=== PATIENT | male | born 1945 | race Caucasian/White ===

== ENCOUNTER 2022-07-15 03:33 | Outpatient (CLI) | payer MEDICARE, SELFPAY ==
[2022-07-15 13:05] LABS: Hemoglobin A1C 6.7 % (<5.7)
[2022-07-15 13:18] LABS: ALT 31 U/L (16-63); AST 22 U/L (15-37); Albumin 4.1 g/dL (3.4-5.0); Alkaline Phosphatase 56 U/L (46-116); Anion Gap 9.5 mmol/L (3-11); BUN 33 mg/dL (7-18); Bilirubin, Total 0.8 mg/dL (0.2-1.0); CO2 29.5 mmol/L (21.0-32.0); CREATININE 1.7 mg/dL (0.70-1.30); Calcium 9.2 mg/dL (8.5-10.1); Calculated LDL 39 mg/dL (<100); Chloride 102 mmol/L (98-107); Cholesterol 94 mg/dL (<200); Estimated GFR 39.49 (mL/min/1.73m2); Glucose 161 mg/dL (74-106); HDL Cholesterol 41 mg/dL (40-60); Potassium 5.2 mmol/L (3.5-5.1); Sodium 141 mmol/L (136-145); Total Protein 7.2 g/dL (6.4-8.2); Triglyceride 73 mg/dL (<150)
== END 2022-07-15 03:34 | disposition home or self-care (01) ==
LOC: LOS 03:33
PROVIDERS: PCP Nurse Practitioner Family; Visit Provider Nurse Practitioner Family
DX: E78.5 Hyperlipidemia, unspecified (principal); I10 Essential (primary) hypertension; E11.9 Type 2 diabetes mellitus without complications
CPT/HCPCS: 36415; 80053; 80061; 83036

== ENCOUNTER 2022-12-23 03:19 | Outpatient (CLI) | payer MEDICARE, SELFPAY ==
[2022-12-23 12:40] LABS: CREATININE 1.9 mg/dL (0.70-1.30); Estimated GFR 36.11 (mL/min/1.73m2)
== END 2022-12-23 03:20 | disposition home or self-care (01) ==
LOC: LOS 03:39
PROVIDERS: PCP Nurse Practitioner Family; Visit Provider Nurse Practitioner Family
DX: I10 Essential (primary) hypertension (principal)
CPT/HCPCS: 36415; 82565

== ENCOUNTER 2023-04-21 04:21 | Outpatient (CLI) | payer MEDICARE, SELFPAY ==
[2023-04-21 12:56] LABS: BUN 49 mg/dL (7-18); CREATININE 2.5 mg/dL (0.70-1.30); Chloride 102 mmol/L (98-107); Estimated GFR 25.98 (mL/min/1.73m2); Glucose 179 mg/dL (74-106); Potassium 4.3 mmol/L (3.5-5.1); Sodium 139 mmol/L (136-145)
[2023-04-21 13:08] LABS: Calcium 12.2 mg/dL (8.5-10.1)
[2023-04-21 13:34] LABS: Hemoglobin A1C 7.9 % (<5.7)
== END 2023-04-21 04:22 | disposition home or self-care (01) ==
LOC: LOS 04:21
PROVIDERS: PCP Nurse Practitioner Family; Visit Provider Family Medicine
DX: I10 Essential (primary) hypertension (principal); E11.49 Type 2 diabetes mellitus with other diabetic neurological complication
CPT/HCPCS: 36415; 80048; 83036

== ENCOUNTER 2023-04-24 02:42 | Outpatient (CLI) | payer MEDICARE, SELFPAY ==
[2023-04-24 11:55] LABS: ALT 35 U/L (16-63); AST 20 U/L (15-37); Alkaline Phosphatase 64 U/L (46-116); Anion Gap 11.3 mmol/L (3-11); BUN 52 mg/dL (7-18); Bilirubin, Total 0.7 mg/dL (0.2-1.0); CO2 26.7 mmol/L (21.0-32.0); CREATININE 2.4 mg/dL (0.70-1.30); Chloride 105 mmol/L (98-107); Estimated GFR 27.28 (mL/min/1.73m2); Glucose 133 mg/dL (74-106); Potassium 4.4 mmol/L (3.5-5.1); Sodium 143 mmol/L (136-145); Total Protein 7.1 g/dL (6.4-8.2)
[2023-04-24 12:56] LABS: Calcium 11.7 mg/dL (8.5-10.1)
[2023-04-24 20:29] LABS: Parathyroid Hormone,Intact <6 pg/mL (19-88)
== END 2023-04-24 02:43 | disposition home or self-care (01) ==
LOC: LBO 02:42
PROVIDERS: Family Medicine; PCP Nurse Practitioner Family; Visit Provider Nurse Practitioner Family
DX: E83.52 Hypercalcemia (principal)
CPT/HCPCS: 36415; 80053; 83970

== ENCOUNTER 2023-04-29 04:35 | Outpatient (CLI) | payer MEDICARE, SELFPAY ==
[2023-04-29 12:56] LABS: Anion Gap 8.3 mmol/L (3-11); BUN 46 mg/dL (7-18); CO2 27.7 mmol/L (21.0-32.0); CREATININE 2.2 mg/dL (0.70-1.30); Calcium 10.9 mg/dL (8.5-10.1); Chloride 104 mmol/L (98-107); Estimated GFR 30.28 (mL/min/1.73m2); Glucose 95 mg/dL (74-106); Potassium 4.5 mmol/L (3.5-5.1); Sodium 140 mmol/L (136-145)
== END 2023-04-29 04:36 | disposition home or self-care (01) ==
LOC: LBO 04:37
PROVIDERS: Family Medicine; PCP Nurse Practitioner Family; Visit Provider Nurse Practitioner Family
DX: N18.30 Chronic kidney disease, stage 3 unspecified (principal); I10 Essential (primary) hypertension
CPT/HCPCS: 36415; 80048

== ENCOUNTER 2023-05-20 02:17 | Outpatient (CLI) | payer MEDICARE, SELFPAY ==
--- NOTE | 2023-05-20 14:02 | DI.US_ITS ---
APPROVED REPORT EXAM: Comprehensive 2D, Doppler, and color-flow Echocardiogram Patient Location: Out-Patient Storage Garage Manager: Andreia Cage RDCS (AE) Indications: Bilateral edema, Murmur Other Information Study Quality: Adequate Conclusion Normal left ventricular wall thickness and chamber size. Ejection fraction is 60%. Wall motion is n ormal Normal right ventricular size and systolic function Both atria are normal in size Aortic valve is sclerotic and probably trileaflet. There is mild aortic stenosis. Peak gradient is 32, mean 19 mmHg. Calculated aortic valve area is 1.57 cm??. There is trace aortic regurgitation Dilated aortic root measuring 4.77 cm, dilated ascending aorta measuring 4.68 cm Estimated right ventricular systolic pressure is 33 mmHg Wall motion Left Ventricle The left ventricle is normal size. The left ventricular systolic function is normal. The left ventric ular ejection fraction is within the normal range. There is normal left ventricular wall thickness. T here is normal LV segmental wall motion. There is no ventricular septal defect visualized. LVEF is 60 %. Right Ventricle The right ventricle is normal size. The right ventricular systolic function is normal. The RVSP is _3 3.2 mmHg. Atria The left atrium size is normal. The right atrium size is normal. The interatrial septum is intact wit h no evidence for an atrial septal defect. Aortic Valve Aortic valve is calcified. Aortic valve is probably trileaflet Mild aortic stenosis. Peak aortic valv e gradient is 32.4mmHg. Highest mean aortic valve gradient is 19.3mmHg. Calculated EDUAR by the continu ity equation is 1.57_cm2. Trace aortic regurgitation. Mitral Valve The mitral valve is normal in structure. No evidence of mitral valve stenosis. Trace mitral regurgita tion. Tricuspid Valve The tricuspid valve is normal in structure. There is no tricuspid valve stenosis. Mild tricuspid regu rgitation. Pulmonic Valve The pulmonary valve is normal in structure. There is no pulmonic valvular stenosis. Trace pulmonic re gurgitation. Great Vessels Aortic root is severely dilated. The ascending aorta is severely dilated. Aortic arch is normal in ca liber. IVC is normal in size and collapses >50% with inspiration. Pericardium There is no pericardial effusion. 2D Dimensions IVSD d PLAX 0.89 cm M: 0.6-1.2 LV Vol A2C d MOD 109.7 mL LVPW d PLAX 0.87 cm M: 0.6 - 1.2 LV Vol A4C d MOD 133.7 mL LVID d PLAX 4.67 cm M: 4.2 - 5.8 LA vol/ BSA A2C s A-L 24.6 mL/m2 LVDs 3.15 cm M: 2.5 - 4.0 LA vol/ BSA A4C s A-L 28.3 mL/m2 Ao Root d 4.73 cm M: 3.1 - 3.7 LA Vol/ BSA Biplane s A-L 30.0 mL/m2 Ao Asc Diam d 4.68 cm M: 2.6 - 3.4 LA Area A4C s MOD 20.05 cm2 LV EF Teichholz 59.8 % LA Area A2C s MOD 16.46 cm2 LVEF (Raines's) 59.48 % M: 52 - 72 LV EF A4C MOD 59.1 % LV Volume 89.34 mL M: 62 - 150 LV EF A2C MOD 60.0 % LV Volume Index 40.98 mL/m2 M: 34 - 74 LV EF Biplane MOD 59.5 % LV Vol Biplane MOD 122.4 mL SV 72.79 mL FS 31.75 % SV Index 33.49 mL/m2 M-Mode TAPSE 1.98 cm (M/F) >1.7 LV Diastology MV E' medial 0.071 (>0.07 m/s) E/A Ratio 0.9 LV E/e MED 10.55 (<14) MV E Vmax 0.75 (0.4-1.3 m/s) MV E' lateral 0.084 (>0.1 m/s) MV A Vmax 0.85 (0.4-1.3 m/s) LV E/e LAT 8.85 (<14) MV E/A Ratio 0.87 MV E/E' medial 10.57 MV E/E' lateral 8.89 Aortic Valve LVOT Area 3.99 cm2 AoV Area Vmax 1.57 cm2 LVOT Vmax 1.12 m/s AoV Area/ BSA (Vmax) 0.72 cm2/m2 LVOT Mean Michel. 0.77 m/s EDUAR Mean Michel. 1.47 cm2 LVOT Peak Grad 5.0 mmHg EDUAR Mean Michel. Index 0.67 cm2/m2 LVOT Mean Grad 2.7 mmHg AR DT 1372 msec LVOT VTI 0.277 m AR PHT 398 msec LVOT Diam s 2.25 cm AoV Vmax 2.85 m/s Velocity Ratio 0.39 AoV Mean Michel. 2.09 m/s AoV Peak Grad 32.4 mmHg LVOT SV 110.57 mL AoV Mean Grad 19.3 mmHg AoV VTI 0.633 m AoV Area VTI 1.75 cm2 AoV Area/ BSA (VTI) 0.80 cm/m2 Mitral Valve MV DT 254 (160-240 msec) MV PHT 74 msec MV Area PHT 2.98 cm2 MV VTI 0.301 m MV Area VTI 3.68 (4.0-6.0 cm2) Pulmonary Valve PV Vmax 1.12 (0.5-1.5 m/s) RVOT Peak Gr. 1.69 mmHg PV Peak Grad 5.0 mmHg RVOT Mean Gr. 0.90 mmHg PV Mean Grad 2.2 mmHg RVOT VTI 0.138 m PV VTI 0.227 m RVOT Vmax 0.65 m/s Tricuspid Valve TR Peak Grad 30.1 mmHg TR Vmax 2.75 m/s RA Pressure 3.00 mmHg RVSP (TR) 33.2 mmHg
== END 2023-05-20 02:37 ==
LOC: DI 02:17
PROVIDERS: PCP Nurse Practitioner Family; Visit Provider Family Medicine
DX: R01.1 Cardiac murmur, unspecified (principal)
CPT/HCPCS: 93306

== ENCOUNTER 2024-05-04 11:29 | Outpatient (REF) | payer MEDICARE, SELFPAY ==
[2024-05-04 12:43] LABS: COMMENT (LAB VIEW ONLY) 85.22 mg/dL
[2024-05-04 12:44] LABS: Microalb ug/mg Crea 317.3 ug/mg Cr
== END 2024-05-04 11:30 | disposition home or self-care (01) ==
LOC: LBN 11:29
PROVIDERS: PCP Nurse Practitioner Family; Visit Provider Nurse Practitioner Family
DX: R31.9 Hematuria, unspecified (principal)
CPT/HCPCS: 82043; 82570

== ENCOUNTER 2024-08-05 14:56 | Outpatient (CLI) | payer MEDICARE, SELFPAY ==
--- OUTSIDE RECORDS SUMMARY | 2024-08-05 15:00 | XMS_ITS | Encounter Summary ---
Author Organization [facility] Address [address] [place] [address] Care Team Providers Care Family Service Counselor Name Role Phone Unavailable Primary Care Provider Unavailabl e Reason for Visit * Reason Comments Medications Refill Encounter Details Date Type Department Care Team (Late st Contact Info) Description 06/07/2023 Refill [facility] Medicine - [address] [address] Kameron Lee MD [address] [place] [address] [phone] Medications Refill Social History Tobacco Use Types Packs/Day Years Used Date Smoking Tobacco: Every Day Cigarettes Pipe Smokeless Tobacco: Former Comments:pipe Alcohol Use Standard Drinks/Week Comments Yes 0 (1 standard drink = 0.6 oz pur e alcohol) beer on [facility] Interpersonal Safety Answer Date Record ed Physically Hurt Never 06/24/2020 Verbally Threaten Not on file 06/24/2020 Sex and Gender Information Value Date Recorded Sex Assigned at Male 12/01/2019 14:49 EST Gender Identity Male 12/01/2019 14:49 EST Sexual Orientation Straight 12/01/2019 14 :49 EST documented as of this encounter Functional Status Functional Status Response Date of Assess ment Because of a physical, menta l, or emotional condition, does this person have difficulty doing errands alone such as visiting a doctor's office or shopping? No 05/21/2018 Cognitive Status Response Date of Assessm ent Because of a physical, menta l, or emotional condition, does this person have serious difficulty concentrating, remembering, or making decisions? No 05/21/2018 documented as of this encounter Plan of Treatment Not on file documented as of this encounter Goals Goal Patient Goal Type Associated Problems Recent Progress Patient-Stated? Author Blood Pressure < 140/90 Blood Pressure Hypertensive disorder 112/70(2021 13:50 EDT) No Abbie Winter LPN [id number] XT < 7 Result Component 8.2( 9 14:15 EDT) No Abbie Winter LPN LDLEXT < 100 Result Component 76(05/13/2019 14:15 EDT) No Abbie Winter LPN documented as of this encounter Visit Diagnoses Diagnosis Type 2 diabetes mellitus without complication, without long-term current use of insulin ([facility])- Primary documented in this encounter
--- OUTSIDE RECORDS SUMMARY | 2024-08-05 15:00 | XMS_ITS | Encounter Summary ---
Author Organization [facility] Address [address] [place] [address] Care Team Providers Care Functional Architect Name Role Phone Kameron Lee MD Primary Care Provider +1- [phone] Reason for Referral * Cardiology (Routine/Next Available) - Authorization Not Required Specialty Diagnoses / Procedures [facility]erred To Contact Cardiology Diagnoses Heart murmur Procedures TRANSTHORACIC ECHO (TTE) COMPLETE MO ECHO HEART XTHORACIC,COMPLETE W DOPPLER Kameron Lee MD [address] [place] [phone] [facility] [address] [place] [address] Referral ID Status Reason Start Date Expiration Date Visits Requested Visits Authorized [id number] Authorization Not Required 02/24/2022 1 1 Reason for Visit * Reason Comments Follow-up chronic illness Back Pain Encounter Details Date Type Department Care Team (Late st Contact Info) Description 02/24/2022 13:45 EDT Office Visit [facility] [place] [facility] - [facility] [place] [address] [place] [address] Kameron Lee MD [address] [place] [phone] Type 2 diabetes mellitus with microalbuminuria, without long-term current use of insulin (HCC-CMS) (HCC) (Primary Dx); Chronic bilateral low back pain without sciatica; Primary hypertension; Stage 3b chronic kidney disease (HCC); Heart murmur Social History Tobacco Use Types Packs/Day Years Used Date Smoking Tobacco: Every Day Cigarettes Pipe Smokeless Tobacco: Former Comments:pipe Alcohol Use Standard Drinks/Week Comments Yes 0 (1 standard drink = 0.6 oz pur e alcohol) beer on occ Interpersonal Safety Answer Date Record ed Physically Hurt Never 06/24/2020 Verbally Threaten Not on file 06/24/2020 Sex and Gender Information Value Date Recorded Sex Assigned at Male 12/01/2019 14:49 EST Gender Identity Male 12/01/2019 14:49 EST Sexual Orientation Straight 12/01/2019 14 :49 EST COVID-19 Exposure Response Date Recorded In the last 10 days, have yo u been in contact with someone who was confirmed or suspected to have Coronavirus/COVID-19? No / Unsure 02/24/2022 13:43 EDT documented as of this encounter Last Filed Vital Signs Vital Sign Reading Time Taken Comments Blood Pressure 112/70 02/24/2022 1350 EDT Pulse 82 02/24/2022 1350 EDT Temperature 36.7 ??C (98.1 ??F) 02/24/2022 1350 EDT Respiratory Rate 20 02/24/2022 1350 EDT Oxygen Saturation 98% 02/24/2022 1350 EDT Inhaled Oxygen Concentration - - Weight 104.3 kg (230 lb) 02/24/2022 1350 EDT Height - - Body Mass Index 33 11/17/2018 0918 EST documented in this encounter Functional Status Functional Status Response [...] No 05/21/2018 documented as of this encounter Progress Notes * Kameron Lee MD - 02/24/2022 1345 EDT Primary Care Office Visit Assessment & Plan Diagnoses and all orders for this visit: Type 2 diabetes mellitus with microalbuminuria, without long-term current use of insulin ([facility] ([facility]) Last A1c with good control between 7 to 8%. Patient would like his A1c on the lower side. No changes with medication at this time. -Patient to continue glipizide and Metformin -We will update labs and urine today - HEMOGLOBIN A1C - URINE [id number] RATIO (ACR) Chronic bilateral low back pain without sciatica New issue for patient. Physical exam was unremarkable and no red flags. Since he has improved slowly with conservative treatment I think physical therapy can help him at this time. - AMB CONS/FOLLOW UP PRIMARY CARE PHYSICIAN - [facility] Primary hypertension Controlled blood pressure. No changes in medication. -Continue lisinopril and metoprolol -Update lab - BASIC METABOLIC PANEL (BMP) Stage 3b chronic kidney disease (HCC) Stable at this time. Heart murmur Found on today's exam. When asked, patient states he has had this since a child and has not had anyproblems. He does not recall the last time he has had an echo. I will order an updated echo today. - TRANSTHORACIC ECHO (TTE) COMPLETE Return in about 6 months (around 08/26/2022) for In person, Annual exam. Patient education was direct. Barriers were assessed and addressed as needed. Subjective R is a 76 y.o. male presenting with Follow-up (chronic illness) and Back Pain HPI DM: making lifestyle changes, tolerates medication. HTN: Tolerating medication, making lifestyle changes. Lower back pain: Patient states that he has had pain in the lower back for about 4 months. He feelsthat this is inside his hip and lower back. He mentioned the iliopsoas muscle. Pain is worse in themorning and eventually loosens up with exercise. He states the right is worse than the left. Does not report any bladder or bowel dysfunction. For treatment he has tried conservative therapy with using soft cushion footwear, watching his gait, and sleeping not on his sides. Data reviewed this visit: problem list/past medical history, current medications and allergies ROS - See HPI Objective BP 112/70 (BP Cuff Location: Right arm, BP Patient Position: Sitting, BP Cuff Sizes: Adult, regular) Pulse 82 Temp 36.7 ??C (98.1 ??F) (Tympanic) Resp 20 Wt (!) 104.3 kg (230 lb) SpO2 98% BMI 33.00 kg/m?? Physical Exam General: No distress, Head: A traumatic Neck- No masses, no adenopathy Respiratory- Clear breath sounds, good air entry, no wheezing, rales, or rhonchi CV- regular, rate, and rhythm, normal S1 and S2, +2 radial pulses, 2 out of 6 murmur Abdomen- soft non-tender to palpation, no rebound or guarding, normal bowel sounds Extremities- no edema, no skin discoloration. Back is nontender to palpation midline and lateral to the spinous process. Muscles are not tense bilaterally. Component Latest Ref Rng & Units 09/02/2021 Albumin, Urine <1.7 mg/dL 6.60 (H) Ur Alb ug/mg Crea ug/mg 105.0 Creatinine, U mg/dL 62.80 Hemoglobin A1C 4.0 - 6.0 % 7.4 (H) Est Avg Glucose mg/dL 166 documented in this encounter Plan of Treatment Scheduled Orders Name Type Priority Associated Diagnoses Order Schedule TRANSTHORACIC ECHO (TTE) COMPLETE Echocardiography Routine Heart murmur Expected: 02/24/2022, Expires: 02/25/2024 documented as of this encounter Goals Goal Patient Goal Type Associated Problems Recent Progress Patient-Stated? Author Blood Pressure < 140/90 Blood Pressure Hypertensive disorder 112/70(2021 13:50 EDT) No Abbie Winter, HOT SAW OPERATOR [id number] XT < 7 Result Component 8.2( 9 14:15 EDT) No Abbie Winter LPN LDLEXT < 100 Result Component 76(05/13/2019 14:15 EDT) No Sade Winterissa, HOT SAW OPERATOR documented as of this encounter Results * (ABNORMAL) URINE [id number] RATIO (ACR) (02/24/2022 14:26 EDT) Albumin, Urine 8.4 See Note mg/dL 2021 16:02 EDT [facility] Comment: NOTE: Reference range not established Creatinine, Urine 99.5 See Note mg/dL 02/24/2022 16:02 EDT [facility] Comment: NOTE: Reference range not established Lab Urine Albumin to Creatinine Ratio 84(H) <30 ??g/mg Creatinine 02/24/2022 16:02 EDT [facility] Comment: Urine Albumin/Creatinine Ratio: Normal: <30 ug/mg Creatinine Moderately increased albuminuria: 30-300 ug/mg Creatinine Yeyo increased albuminuria: >300 ug/mg Creatinine Urine URINE SPECIMEN COLLECTION, CLEAN CATCH / Unknown Urine Collect / Unknown 02/24/2022 14:26 EDT 02/24/2022 15:14 EDT Kameron Lee MD CHEMISTRY & BLOOD GAS ORDERABLES Performing Organization Address [facility] Phone Number [facility] [address] [place] [address] * (ABNORMAL) HEMOGLOBIN A1C (02/24/2022 14:26 EDT) Hemoglobin A1c 8.2(H) <5.7 % 02/24/2022 21:29 EDT [facility] Comment: Glycemic Status References: Normal: ??<5.7% Pre-Diabetes: ??5.7% - 6.4% Diagnostic of Diabetes: ??> or = 6.5% (if confirmed) Est Avg Glucose 189 mg/dL 21:29 EDT [facility] Comment:The eAG represents t he A1c result expressed as average glucose in mg/dL. Blood VENOUS BLOOD / Unknown Venipuncture / Unknown 02/24/2022 14:26 EDT 02/24/2022 14:52 EDT Kameron Lee MD CHEMISTRY & BLOOD GAS ORDERABLES Performing Organization Address [facility] Phone Number [facility] [address] [place] [address] * (ABNORMAL) BASIC METABOLIC PANEL (BMP) (02/24/2022 14:26 EDT) Sodium 136 136 - 145 mmol/L 02/24/2022 15:22 [facility] Potassium 5.5(H) 3.5 - 5.0 mmol/L 02/24/2022 15:22 [facility] Chloride 101 96 - 110 mmol/L 02/24/2022 15:22 [facility] CO2 Total 23 22 - 32 mmol/L 02/24/2022 15:22 [facility] Anion Gap 12 5 - 14 02/24/2022 15:22 [facility] Glucose 235(H) 70 - 100 mg/dL 02/24/2022 15:22 [facility] Calcium 9.6 8.5 - 10.5 mg/dL 02/24/2022 15:22 [facility] BUN 44(H) 10 - 26 mg/dL 02/24/2022 15:22 [facility] Creatinine 1.89(H) 0.66 - 1.25 mg/dL 02/24/2022 15:22 [facility] eGFR 37(L) >60 mL/min/1.73 m2 02/24/2022 15:22 [facility] Blood VENOUS BLOOD / Unknown Venipuncture / Unknown 02/24/2022 14:26 EDT 02/24/2022 14:59 EDT Kameron Lee MD CHEMISTRY & BLOOD GAS ORDERABLES [facility] [address] [place] [address] documented in this encounter Visit Diagnoses Diagnosis Type 2 diabetes mellitus with microalbuminuria, without long-term current use of insulin ([facility])- Primary Chronic bilateral low back pain without sciatica Primary hypertension Unspecified essential hypertension Stage 3b chronic kidney disease ([facility]) Heart murmur Undiagnosed cardiac murmurs documented in this encounter Care Teams Functional Architect Relationship Specialty Start Date End Date Kameron eLe MD [address] [facility] [address] [place] [address] PCP - General 06/14/19 04/28/23 documented as of this encounter
--- OUTSIDE RECORDS SUMMARY | 2024-08-05 15:00 | XMS_ITS | Encounter Summary ---
Author Organization [facility] Address [address] [place] [address] Care Team Providers Care Electronic Organ Technician Name Role Phone Kameron Lee MD Primary Care Provider +1- [phone] Reason for Referral * Laboratory Services (Routine) - New Request Specialty Diagnoses / Procedures Referred By [facility] t Referred To Contact Diagnoses Type 2 diabetes mellitus without complication, without long-term current use of insulin ([facility]) Healthcare maintenance Procedures HEMOGLOBIN A1C Kameron Lee MD [address] [place] [phone] Referral ID Status Reason Start Date Expiration Date V isits Requested Visits Authorized [id number] New Request 08/29/2021 1 1 Reason for Visit * Reason Onset Date Comments Labs Only 08/29/2021 Encounter Details Date Type Department Care Team (Late st Contact Info) Description 08/29/[address] [facility] [place] [place] Family Medicine - [facility] [address] [place] [address] Kameron Lee MD [address] [place] [phone] Type 2 diabetes mellitus without complication, without long-term current use of insulin ([facility]) (HCC) (Primary Dx); Healthcare maintenance; Primary hypertension; Stage 3a chronic kidney disease (HCC) Social History Tobacco Use Types Packs/Day Years [...] 112/70(2021 13:50 EDT) No Abbie Winter LPN [id number] XT < 7 Result Component 8.2( 9 14:15 EDT) No Abbie Winter LPN LDLEXT < 100 Result Component 76(05/13/2019 14:15 EDT) No Abbie Winter LPN documented as of this encounter Procedures Procedure Name Priority Date/Time Associated Diagnosis Comments HEMOGLOBIN A1C Routine 09/02/2021 11:59 EDT Type 2 diabetes mellitus without complication, without long-term current use of insulin ([facility]) ([facility]) Healthcare maintenance documented in this encounter Results * (ABNORMAL) HEMOGLOBIN A1C (09/02/2021 11:59 EDT) Hemoglobin A1c 7.4(H) 4.0 - 6.0 % 09/02/2021 23:27 EDT [facility] Comment: > or =18 years: ??Increased risk for diabetes (prediabetes): 5.7-6.4% Diabetes: > or =6.5% Therapeutic goals for glycemic control (ADA) Adults: - Goal of therapy: <7.0% HbA1c - Action suggested: >8.0% HbA1c Pediatric patients: - Toddlers and preschoolers: <8.5% (but >7.5%) - School age (6-12 years): <8% - Adolescents and young adults (13-19 years): <7.5% Est Avg Glucose 166 mg/dL 23:27 EDT [facility] Blood VENOUS BLOOD / Unknown 09/02/2021 11:59 EDT 09/02/2021 12:06 EDT Narrative [facility] - 09/02/2021 23:27 EDT Does PT Have a Latex Allergy? NO Kameron Lee MD CHEMISTRY & BLOOD GAS ORDERABLES [facility] [address] [place] [address] documented in this encounter Visit Diagnoses Diagnosis Type 2 diabetes mellitus without complication, without long-term current use of insulin ([facility])- Primary Healthcare maintenance Routine general medical examination at a health care facility Primary hypertension Unspecified essential hypertension Stage 3a chronic kidney disease ([facility]) documented in this encounter Care Teams Electronic Organ Technician Relationship Specialty Start Date End Date Kamerno Lee MD [address] [place] [address] [address] [place] [phone] PCP - General 06/14/19 04/28/23 documented as of this encounter
--- OUTSIDE RECORDS SUMMARY | 2024-08-05 15:00 | XMS_ITS | Encounter Summary ---
Author Organization [facility] Address [address] [place] [address] Care Team Providers Care Application Integrator Name Role Phone Kameron Lee MD Primary Care Provider +1- [phone] Encounter Details Date Type Department Care Team (Latest Contact Info) Description 02/24/2022 Travel Social History Tobacco Use Types Packs/Day Years [...] 13:43 EDT documented as of this encounter Functional Status [...] 112/70(2021 13:50 EDT) No Abbie Winter LPN [id number] XT < 7 Result Component 8.2( 9 14:15 EDT) No Abbie Winter LPN LDLEXT < 100 Result Component 76(05/13/2019 14:15 EDT) No Abbie Winter LPN documented as of this encounter Visit Diagnoses Not on filedocumented in this encounter Care Teams Application Integrator Relationship Specialty Start Date End Date Kameron Lee MD [address] [place] [phone] PCP - General 06/14/19 04/28/23 documented as of this encounter
--- OUTSIDE RECORDS SUMMARY | 2024-08-05 15:00 | XMS_ITS | Encounter Summary ---
Author Organization [facility] Address [address] [place] [address] Care Team Providers Care Radial Drill Press Operator For Plastic Name Role Phone Kameron Lee MD Primary Care Provider +1- [phone] Reason for Visit * Reason Comments Diabetes Complete exam for Di abetes and Cataracts Encounter Details Date Type Department Care Team (Late st Contact Info) Description 08/15/2021 13:15 EDT Office Visit [facility] Ophthalmology [facility] [address] [place] [address] John Lott MD [address] [place] [phone] Social History Tobacco Use Types Packs/Day Years [...] as of this encounter Progress Notes * John Lott MD - 08/15/2021 1315 EDT Chief Complaint Patient presents with ??? Diabetes Complete exam for Diabetes and Cataracts HPI The patient is a 76 y.o. male here for diabetic eye exam and check of cataracts. Last A1C was 8.4 in January. He uses only OTC glasses of various sullivan for correction, but would like a prescription. he has no eye pain, double vision, or new flashes/floaters. Right Eye: NL Left Eye: NL Visual Aid: Glasses Current Rx Age Location: Pain: 0 - No pain Quality: Severity: Duration: Timing: Lasts: Context: Last A1C was 8.4. He reports he has been using 5 different pairs of OTC readers for distance, computer and near. He would like a RX today for bifocals. No new floaters, flashes or pain in the eyes. Modifying factors: Associated Signs & Symptoms: Attestation: ROS Constitutional: NL ENT/Mouth NL Cardiovascular: High Blood Pressure, High Cholesterol Respiratory: NL Gastrointestinal: NL Genitourinary: NL Musculoskeletal: NL Integumentary: NL Neurologic: NL Psychiatric: NL Endocrine: Diabetes Hematologic: NL Immunologic: Drug Allergy Satellite Communications Operator: Exposures: None Other: Attestation: Base Eye Exam Visual Acuity (Snellen - Linear) Right Left Dist cc 20/25 -2 20/25 -1 Dist ph cc NI Tonometry (Applanation, 13:35) Right Left Pressure 14 16 Pupils Pupils Dark APD Right PERRL 2 None Left PERRL 2 None Visual Powers (Counting fingers) Right Left Full Full Extraocular Movement Right Left Full Full Neuro/Psych Oriented x3: Yes Mood/Affect: Normal Dilation Both eyes: Phenylephrine 2.5%, Tropicamide 1% @ 13:35 Slit Lamp and Fundus Exam Slit Lamp Exam Right Left Lids/Lashes Normal Pigmented papilloma central lower lid Conjunctiva/Sclera White and quiet White and quiet Cornea Clear Clear Anterior Chamber Deep and quiet Deep and quiet Iris Round and reactive, no NVI (dilated) Round and reactive, no NVI (dilated) Lens 2+ Nuclear sclerosis 2+ Nuclear sclerosis Fundus Exam Right Left Vitreous Normal Normal Disc Normal, no NVD Normal, no NVD C/D Ratio 0.5 0.4 Macula Normal, no MA's Normal, no MA's Vessels Normal Normal Periphery Normal, no diabetic retinopathy Small patch pigment at 10 o'clock, no diabetic retinopathy Refraction Wearing Rx Sphere Cylinder Right +2.75 Sphere Left +2.75 Sphere Type: otc readers Wearing Rx #2 Sphere Cylinder Right +1.25 Sphere Left +1.25 Sphere Type: otc for distance Manifest Refraction Sphere Cylinder [place] Dist VA Add Near VA Right +1.75 +1.25 175 20/20 +2.00 J1+ Left +1.25 +1.25 005 20/20 +2.00 J1+ Final Rx Sphere Cylinder [place] Add Right +1.75 +1.25 175 +2.00 Left +1.25 +1.25 005 +2.00 Expiration Date: 08/16/2023 DIAGNOSTIC TESTING/PROCEDURES: IMPRESSION & PLAN: 1. Diabetes mellitus Right eye: No retinopathy Left eye: No retinopathy -Recommend good blood sugar and blood pressure control -follow up in 1 year -Copy of note sent to PCP 2. Cataract, both eyes Not visually significant -Monitor periodically 3. Disorder of refraction and accommodation -Give glasses Rx patient???s option to fill I have reviewed the patient's past medical, family, social and surgical history. I have also reviewed the patient's medications, allergies, and problem list. I performed my own HPI and have reviewed the [facility]'s ROS as well. I completed this exam personally. John Lott MD I am scribing for John Lott MD, while he is personally performing the service. ESTEFANY Saunders Patient Education Topic: diabetes Method: Verbal Taught to: Patient Barriers: None Outcomes: independent Signature: John Lott MD documented in this encounter Plan of Treatment Not on file documented as of this encounter Goals Goal Patient Goal Type Associated Problems Recent Progress Patient-Stated? Author Blood Pressure < 140/90 Blood Pressure Hypertensive disorder 112/70(2021 13:50 EDT) No Abbie Winter LPN [id number] XT < 7 Result Component 8.2( 9 14:15 EDT) No Abbie Winter LPN LDLEXT < 100 Result Component 76(05/13/2019 14:15 EDT) No Abbie Winter LPN documented as of this encounter Visit Diagnoses Diagnosis Type 2 diabetes mellitus without complication, without long-term current use of insulin ([facility])- Primary Senile nuclear sclerosis, right Senile nuclear sclerosis, left Disorder of refraction and accommodation Unspecified disorder of refraction and accommodation documented in this encounter Eye Exam Visual Acuity (Snellen - Linear) Right eye Left eye Dist cc 20/25 -2 20/25 -1 Dist ph cc NI Tonometry (Applanation, 13:35) Right eye Left eye Pressure 14 16 Pupils Pupils Dark APD Right eye PERRL 2 None Left eye PERRL 2 None Visual Powers (Counting fingers) Right eye Left eye Full Full Extraocular Movement Right eye Left eye Full Full Neuro/Psych Oriented x3: Yes Mood/Affect: Normal Dilation Both eyes: Phenylephrine 2.5 %, Tropicamide 1% @ 13:35 Slit Lamp Exam Right eye Left eye Lids/Lashes Normal Pigmented papill arpan central lower lid Conjunctiva/Sclera White and quiet White and joshua et Cornea Clear Clear Anterior Chamber Deep and quiet Deep and quiet Iris Round and reactive, no NVI (dilated) Round and reactive, no NVI (dilated) Lens 2+ Nuclear sclerosis 2+ Nuclear sclerosis Vitreous Normal Normal Fundus Exam Right eye Left eye Disc Normal, no NVD Normal, no NVD C/D Ratio 0.5 0.4 Macula Normal, no MA's Normal, no MA's Vessels Normal Normal Periphery Normal, no diabetic retinopathy Small patch pigment at 10 o'clock, no diabetic retinopathy Wearing Rx #1 Sphere Cylinder Right eye +2.75 Sphere Left eye +2.75 Sphere Type: otc readers Wearing Rx #2 Sphere Cylinder Right eye +1.25 Sphere Left eye +1.25 Sphere Type: otc for distance Manifest Refraction Sphere Cylinder [place] Dist VA Add Near VA Right eye +1.75 +1.25 175 20/20 +2.00 J1+ Left eye +1.25 +1.25 005 20/20 +2.00 J1+ Final Rx Sphere Cylinder [place] Add Right eye +1.75 +1.25 175 +2.00 Left eye +1.25 +1.25 005 +2.00 Expiration Date: 08/16/2023 Care Teams Radial Drill Press Operator For Plastic Relationship Specialty Start Date End Date Kameron Lee MD [address] [place] [phone] PCP - General 06/14/19 04/28/23 documented as of this encounter
--- OUTSIDE RECORDS SUMMARY | 2024-08-05 15:00 | XMS_ITS | Encounter Summary ---
Author Organization [facility] Address [address] [place] [address] Care Team Providers Care Register Clerk Name Role Phone Kameron Lee MD Primary Care Provider [phone]- [phone] Reason for Visit * Reason Onset Date Comments Medications Refill 04/23/2020 Encounter Details Date Type Department Care Team (Late st Contact Info) Description 04/23/[address] [address] Kameron Lee MD [address] [place] [phone] Medications Refill Social History Tobacco Use Types Packs/Day Years Used Date Smoking Tobacco: Every Day Cigarettes Smokeless Tobacco: Former Comments:pipe Alcohol Use Standard Drinks/Week Comments Yes 0 (1 standard drink = 0.6 oz pur e alcohol) beer on occ Sex and Gender Information Value Date Recorded [...] No 05/21/2018 documented as of this encounter Ordered Prescriptions Prescription Sig Dispensed Refills Start Date End Da te metFORMIN (GLUCOPHAGE) 1,000 mg tabletIndications:Type 2 diabetes mellitus without complication, without long-term current use of insulin ([facility]) Take 1 Tab by mouth 2 times daily. 180 Tab 2 04/23/2020 01/10/2021 atorvastatin (LIPITOR) 10 mg tabletIndications:Type 2 diabetes mellitus without complication, without long-term current use of insulin ([facility]) Take 1 Tab by mouth daily. 90 Tab 2 04/23/2020 01/10/2021 documented in this encounter Miscellaneous Notes * Telephone Encounter - Cristofer Wolf RN - 04/23/2020 1520 EDT [facility]acy: [facility] [place] Last Visit Date: 12/05/19 Last Labs Date: 12/01/19 - Hemoglobin A1c, Lipid Profile Next Visit Date: 06/22/20 Medication Requested: Atorvastatin (Lipitor) 10 mg tablet Last Refill Date: 05/13/19 - 90 tabs with 3 refills Is patient out of medication? Unknown Refilled 90 tabs with 2 refills Medication Requested: Metformin (Glucophage) 1,000 mg tablet Last Refill Date: 05/13/19 - 180 tabs with 3 refills Is patient out of medication? Unknown Refilled 180 tabs with 2 refills CRISTOFER WOLF RN 04/23/2020 15:20 * Telephone Encounter - Rolando Matias - 04/23/2020 1020 EDT Medication(s) Requested: Atorvastatin, metformin Preferred [facility]acy: [facility] Last refill date: 05/13/19 Last appointment with PCP: pt coming in 06/04 Is patient out of medication? Unknown Rolando Matias 04/23/2020 10:20 documented in this encounter Plan of Treatment Not on file documented as of this encounter Goals Goal Patient Goal Type Associated Problems Recent Progress Patient-Stated? Author Blood Pressure < 140/90 Blood Pressure Hypertensive disorder 112/70(2021 13:50 EDT) No [place], Abbie, CIDER PRESS OPERATOR [id number] XT < 7 Result Component 8.2( 9 14:15 EDT) No [place]SadeAbbie, CIDER PRESS OPERATOR LDLEXT < 100 Result Component 76(05/13/2019 14:15 EDT) No [place], Abbie, CIDER PRESS OPERATOR documented as of this encounter Visit Diagnoses Diagnosis Type 2 diabetes mellitus without complication, without long-term current use of insulin ([facility])- Primary documented in this encounter Discontinued Medications Medication Sig Discontinue Reason Start Date End Da te atorvastatin (LIPITOR) 10 mg tabletIndications:Type 2 diabetes mellitus without complication, without long-term current use of insulin ([facility]) Take 1 Tab by mouth daily. Reorder 05/13/2019 04/23/2020 metFORMIN (GLUCOPHAGE) 1,000 mg tabletIndications:Type 2 diabetes mellitus without complication, without long-term current use of insulin ([facility]) Take 1 Tab by mouth 2 times daily. Reorder 05/13/2019 04/23/2020 documented as of this encounter Care Teams Register Clerk Relationship Specialty Start Date End Date Kameron Lee MD [address] [place] [phone] PCP - General 06/14/19 04/28/23 documented as of this encounter
--- OUTSIDE RECORDS SUMMARY | 2024-08-05 15:00 | XMS_ITS | Encounter Summary ---
Author Organization [facility] Address [address] [place] [address] Care Team Providers Care Site Acquisition Manager Name Role Phone Kameron Lee MD Primary Care Provider +1- [phone] Reason for Visit * Reason Onset Date Comments Epidemic Concern 03/08/2020 Encounter Details Date Type Department Care Team (Late st Contact Info) Description 03/08/2020 Telephone [facility] Medicine [facility] [address] [address] Kameron Lee MD [address] [place] [phone] Epidemic Concern Social History Tobacco Use Types Packs/Day Years [...] No 05/21/2018 documented as of this encounter Miscellaneous Notes * Telephone Encounter - Donato Pereira LPN - 03/08/2020 1547 EDT Does patient have concerns? No Reviewed/Updated Patient Contact Yes Patient requests connection to Care Management No Access to food sources Yes Referral pended for Care Management ([id number]) No Is anyone in your home ill or have you been around anyone that is ill? No How are you feeling? Are you experiencing fever, sore throat, feeling tired, cough, changes in yourbreathing? Fever No Sore Throat No Feeling tired No Cough No Changes in breathing No How long have symptoms been present n/a Video Visit declined. Did schedule appt for May Advanced Directive on File No DONATO PEREIRA LPN 03/08/2020 15:47 documented in this encounter Plan of Treatment Not on file documented as of this encounter Goals Goal Patient Goal Type Associated Problems Recent Progress Patient-Stated? Author Blood Pressure < 140/90 Blood Pressure Hypertensive disorder 112/70(2021 13:50 EDT) No Abbie Winter LPN [id number] XT < 7 Result Component 8.2( 9 14:15 EDT) No Abbie Winter LPN LDLEXT < 100 Result Component 76(05/13/2019 14:15 EDT) No Abbie Winter LPN documented as of this encounter Visit Diagnoses Not on filedocumented in this encounter Care Teams Site Acquisition Manager Relationship Specialty Start Date End Date Kameron Lee MD [address] [place] [phone] PCP - General 06/14/19 04/28/23 documented as of this encounter
--- OUTSIDE RECORDS SUMMARY | 2024-08-05 15:00 | XMS_ITS | Encounter Summary ---
Author Organization [facility] Address [address] [place] [address] Care Team Providers Care Hydrogenation Operator Name Role Phone Kameron Lee MD Primary Care Provider +1- [phone] Encounter Details Date Type Department Care Team (Latest Contact Info) Description 06/04/2020 Travel Social History Tobacco Use Types Packs/Day [...] Exposure Response Date Recorded In the last month, have you been in contact with someone who was confirmed or suspected to have Coronavirus / COVID-19? No / Unsure 06/04/2020 8:01 EDT documented as of this encounter Functional [...] Hypertensive disorder 112/70(2021 13:50 EDT) No Abbie iWnter LPN [id number] XT < 7 Result Component 8.2( 9 14:15 EDT) No Abbie Winter LPN LDLEXT < 100 Result Component 76(05/13/2019 14:15 EDT) No Abbie Winter LPN documented as of this encounter Visit Diagnoses Not on filedocumented in this encounter Care Teams Hydrogenation Operator Relationship Specialty Start Date End Date Kameron Lee MD [address] [place] [phone] PCP - General 06/14/19 04/28/23 documented as of this encounter
--- OUTSIDE RECORDS SUMMARY | 2024-08-05 15:00 | XMS_ITS | Encounter Summary ---
Author Organization [facility] Address [address] [place] [address] Care Team Providers Care Wood Block Artist Name Role Phone Kameron Lee MD Primary Care Provider +1- [phone] Reason for Visit * Reason Onset Date Comments Medications Refill 06/30/2022 Encounter Details Date Type Department Care Team (Late st Contact Info) Description 06/30/2022 Refill [facility] Family Medicine [address] [address] Kameron Lee MD [address] [place] [phone] Medications Refill Social History Tobacco Use Types Packs/Day Years Used Date Smoking Tobacco: Every Day Cigarettes Pipe Smokeless Tobacco: Former Comments:pipe Alcohol Use Standard Drinks/Week Comments Yes 0 (1 standard drink = 0.6 oz pur e alcohol) beer on [facility] Interpersonal Safety Answer Date Record ed Physically [...] Dispensed Refills Start Date End Da te atorvastatin (LIPITOR) 10 mg tabletIndications:Type 2 diabetes mellitus without complication, without long-term current use of insulin ([facility]) Take 1 Tablet by mouth daily. 90 Tablet 3 07/04/2022 documented in this encounter Miscellaneous Notes * Telephone Encounter - Melisa Alberto DNP - 07/04/2022 1848 EDT Medication(s) Requested: Atorvastatin 10mg Metformin refilled in alternate encounter. Preferred Pharmacy: [facility] Is patient out of medication? Unknown Last Refill Date: 12/30/21 Last Visit Date with Ordering Provider: 02/24/22 Next Non-Acute Visit Date Scheduled with Care Team: NoGabriele ALBERTO RN 07/04/2022 18:48 * Telephone Encounter - Melisa Alberto DNP - 07/04/2022 1848 EDTFrom: Debra Batista To: Office of Kameron Lee MD Sent: 06/30/2022 11:37 EDT Subject: Medication Renewal Request Refills have been requested for the following medications: metFORMIN (GLUCOPHAGE) 1,000 mg tablet [Kameron Lee MD] atorvastatin (LIPITOR) 10 mg tablet [Kameron Lee MD] Preferred pharmacy: [id number] - [place], [place] - [phone] documented in this encounter Plan of Treatment Not on file documented as of this encounter Goals Goal Patient Goal Type Associated Problems Recent Progress Patient-Stated? Author Blood Pressure < 140/90 Blood Pressure Hypertensive disorder 112/70(2021 13:50 EDT) No Abbie Winter LPN [id number] XT < 7 Result Component 8.2( 9 14:15 EDT) No Abbie Winter LPN LDLEXT < 100 Result Component 76(05/13/2019 14:15 EDT) Abbie Pearson LPN documented as of this encounter Visit Diagnoses Diagnosis Type 2 diabetes mellitus without complication, without long-term current use of insulin ([facility]) documented in this encounter Discontinued Medications Medication Sig Discontinue Reason Start Date End Da te atorvastatin (LIPITOR) 10 mg tabletIndications:Type 2 diabetes mellitus without complication, without long-term current use of insulin ([facility]) TAKE ONE TABLET BY MOUTH EVERY DAY Reorder 12/30/2021 06/30/2022 documented as of this encounter Care Teams Wood Block Artist Relationship Specialty Start Date End Date Kameron Lee MD [address] [place] [phone] PCP - General 06/14/19 04/28/23 documented as of this encounter
--- OUTSIDE RECORDS SUMMARY | 2024-08-05 15:00 | XMS_ITS | Encounter Summary ---
Author Organization [facility] Address [address] [place] [address] Care Team Providers Care Sales Store Checker Name Role Phone Unavailable Primary Care Provider Unavailabl e Reason for Visit * Reason Comments Medications Refill Encounter Details Date Type Department Care Team (Late st Contact Info) Description 06/18/2023 Refill [facility] Medicine - [address] [address] Kameron Lee MD [address] [place] [address] [phone] Medications Refill Social History Tobacco Use Types Packs/Day Years Used Date Smoking Tobacco: Every Day Cigarettes Pipe Smokeless Tobacco: Former Comments:pipe Alcohol Use Standard Drinks/Week Comments Yes 0 (1 standard drink = 0.6 oz pur e alcohol) beer on [facility] Interpersonal Safety Answer Date Record ed [...] 112/70(2021 13:50 EDT) No Abbie Winter LPN [id number] XT < 7 Result Component 8.2( 9 14:15 EDT) No Abbie Winter LPN LDLEXT < 100 Result Component 76(05/13/2019 14:15 EDT) No Abbie Winter LPN documented as of this encounter Visit Diagnoses Diagnosis Type 2 diabetes mellitus without complication, without long-term current use of insulin ([facility]) documented in this encounter
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
--- OUTSIDE RECORDS SUMMARY | 2024-08-05 15:00 | XMS_ITS | Encounter Summary ---
Author Organization [facility] Address [address] [place] [address] Care Team Providers Care Lumber Grader Name Role Phone Kameron Lee MD Primary Care Provider +1- [phone] Reason for Visit * Reason Onset Date Comments Medications Refill 04/27/2023 Encounter Details Date Type Department Care Team (Late st Contact Info) Description 04/27/2023 Refill [facility] Family Medicine [address] [address] Kameron Lee MD [address] [place] [phone] Medications Refill Social History Tobacco Use Types Packs/Day Years Used Date Smoking Tobacco: Every Day Cigarettes Pipe Smokeless Tobacco: Former Comments:pipe Alcohol Use Standard Drinks/Week Comments Yes 0 (1 standard drink = 0.6 oz pur e alcohol) beer on [facility] Interpersonal Safety Answer Date Record ed Physically [...] encounter Miscellaneous Notes * Telephone Encounter - Dallas Oneal - 04/29/2023 1135 EDT Call to patient to schedule visit: Patient states that he is no longer a patient here and has a new primary care provider. * Telephone Encounter - Nakia Dawson, RN - 04/28/2023 1521 EDT Requested Prescriptions Pending Prescriptions Disp Refills ??? atorvastatin (LIPITOR) 10 mg tablet 90 Tablet 3 Sig: Take 1 Tablet by mouth daily. Pharmacy: [facility] Last Refill Date: 07/04/22 Last Visit Date: 03/04/22 Next Non-Acute Visit Date Scheduled with Care Team: Please Schedule an Appointment. Visit date not found Routing to PCP per refill protocol. Routing to PSS to schedule appt. NAKIA DAWSON RN 04/28/2023 15:21 * Telephone Encounter - Shanel Whitaker - 04/27/2023 1559 EDT Medication(s) Requested: Atorvastatin Preferred Pharmacy: [facility] Is patient out of medication? Unknown Last Refill Date: 07/04/22 Last Visit Date with Ordering Provider: 02/24/22 Next Non-Acute Visit Date Scheduled with Care Team: No. Shanel Whitaker 04/27/2023 16:00 documented in this encounter Plan of Treatment Not on file documented as of this encounter Goals Goal Patient Goal Type Associated Problems Recent Progress Patient-Stated? Author Blood Pressure < 140/90 Blood Pressure Hypertensive disorder 112/70(2021 13:50 EDT) No Abbie Winter LPN [id number] XT < 7 Result Component 8.2( 9 14:15 EDT) No Abbie Winter LPN LDLEXT < 100 Result Component 76(05/13/2019 14:15 EDT) No Abbie Winter LPN documented as of this encounter Visit Diagnoses Diagnosis Type 2 diabetes mellitus without complication, without long-term current use of insulin ([facility]) documented in this encounter Care Teams Lumber Grader Relationship Specialty Start Date End Date Kameron Lee MD [address] [place] [phone] PCP - General 06/14/19 04/28/23 documented as of this encounter
--- OUTSIDE RECORDS SUMMARY | 2024-08-05 15:00 | XMS_ITS | Encounter Summary ---
Author Organization [facility] Address [address] [place] [address] Care Team Providers Care Switchboard Wirer Name Role Phone Kameron Lee MD Primary Care Provider +1- [phone] Encounter Details Date Type Department Care Team (Late st Contact Info) Description 04/24/2023 Lab Requisition [facility] Pathology & Laboratory Medicine - [facility] [address] [place] [address] Outr Resulting Lab, Provider Social History Tobacco Use Types Packs/Day Years Used Date Smoking Tobacco: Never Assessed Interpersonal Safety Answer Date Record ed Physically [...] Pressure Hypertensive disorder 112/70(2021 13:50 EDT) No [place], Abbie, MED SURG NURSE [id number] XT < 7 Result Component 8.2( 9 14:15 EDT) No [place], Abbie, MED SURG NURSE LDLEXT < 100 Result Component 76(05/13/2019 14:15 EDT) No [place], Abbie, MED SURG NURSE documented as of this encounter Procedures Procedure Name Priority Date/Time Associated Diagnosis Comments PTH INTACT Routine 04/24/2023 11:23 EDT documented in this encounter Results * (ABNORMAL) PTH INTACT (04/24/2023 11:23 EDT) Intact PTH <6(L) 19 - 88 pg/mL 04/24/2023 20:23 EDT [facility] Blood VENOUS BLOOD / Unknown 04/24/2023 11:23 EDT 04/24/2023 17:20 EDT Provider Outr Resulting Lab CHEMISTRY & BLOOD GAS ORDERABLES Performing Organization Address City/State/[facility] Co de Phone Number [facility] [address] [place] [address] documented in this encounter Visit Diagnoses Not on filedocumented in this encounter Care Teams Switchboard Wirer Relationship Specialty Start Date End Date Kameron Lee MD [address] [place] [phone] PCP - General 06/14/19 04/28/23 documented as of this encounter
--- OUTSIDE RECORDS SUMMARY | 2024-08-05 15:00 | XMS_ITS | Encounter Summary ---
Author Organization [facility] Address [address] [place] [address] Care Team Providers Care Bun Panner Name Role Phone Kameron Lee MD Primary Care Provider +1- [phone] Reason for Visit * Reason Comments Medications Refill Encounter Details Date Type Department Care Team (Late st Contact Info) Description 08/11/2022 Refill [facility] Family Medicine - [address] [address] Kameron Lee MD [address] [place] [phone] Medications Refill Social History Tobacco Use [...] Dispensed Refills Start Date End Da te glipiZIDE (GLUCOTROL) 10 mg XL tabletIndications:Type 2 diabetes mellitus with microalbuminuria, without long-term current use of insulin ([facility]) Take 1 Tablet by mouth daily. 90 Tablet 3 08/12/2022 metoprolol SUCCinate (TOPROL-XL) 50 mg tabletIndications:Primary hypertension Take 1 Tablet by mouth daily. 90 Tablet 3 08/12/2022 documented in this encounter Miscellaneous Notes * Telephone Encounter - Tirso Alvarado RN - 08/12/2022 1724 EDT Requested Prescriptions Pending Prescriptions Disp Refills ??? metoprolol SUCCinate (TOPROL-XL) 50 mg tablet [Pharmacy Med Name: METOPROLOL SUCC ER 50 MG TAB]90 Tablet 3 Sig: TAKE ONE TABLET BY MOUTH EVERY DAY ??? glipiZIDE (GLUCOTROL) 10 mg XL tablet [Pharmacy Med Name: GLIPIZIDE ER 10 MG TABLET] 90 Tablet 3 Sig: TAKE ONE TABLET BY MOUTH EVERY DAY [id number] [id number] [facility] [place], [place] - [address] Confirmed Pharmacy? Yes Patient out of medication? Unknown Last Refill Date: 09/02/21 Refills left? (explain exceptions requiring early refill) No Recent Visits Date Type Provider Dept 02/24/22 Office Visit Kameron Lee MD [facility] [place] 09/02/21 Office Visit Kameron Lee MD [facility] [place] Showing recent visits within past 540 days with a meds authorizing provider and meeting all other requirements Future Appointments No visits were found meeting these conditions. Showing future appointments within next 150 days with a meds authorizing provider and meeting all other requirements Future appointment: Other recent TIRSO ALVARADO RN 08/12/2022 17:24 documented in this encounter Plan of Treatment Not on file documented as of this encounter Goals Goal Patient Goal Type Associated Problems Recent Progress Patient-Stated? Author Blood Pressure < 140/90 Blood Pressure Hypertensive disorder 112/70(2021 13:50 EDT) No Abbie Winter PICKING SUPERVISOR [id number] XT < 7 Result Component 8.2( 9 14:15 EDT) No Abbie Winter PICKING SUPERVISOR LDLEXT < 100 Result Component 76(05/13/2019 14:15 EDT) No Abbie Winter LEXI documented as of this encounter Visit Diagnoses Diagnosis Primary hypertension Unspecified essential hypertension Type 2 diabetes mellitus with microalbuminuria, without long-term current use of insulin ([facility]) documented in this encounter Discontinued Medications Medication Sig Discontinue Reason Start Date End Da te glipiZIDE (GLUCOTROL) 10 mg XL tabletIndications:Type 2 diabetes mellitus with microalbuminuria, without long-term current use of insulin ([facility]) Take 1 Tablet by mouth daily. 09/02/2021 08/12/2022 metoprolol SUCCinate (TOPROL-XL) 50 mg tabletIndications:Primary hypertension Take 1 Tablet by mouth daily. 09/02/2021 08/12/2022 documented as of this encounter Care Teams Bun Panner Relationship Specialty Start Date End Date Kameron Lee MD [address] [place] [phone] PCP - General 06/14/19 04/28/23 documented as of this encounter
--- OUTSIDE RECORDS SUMMARY | 2024-08-05 15:00 | XMS_ITS | Encounter Summary ---
Author Organization [facility] Address [address] [place] [address] Care Team Providers Care Dispatcher Maintenance Service Name Role Phone Kameron Lee MD Primary Care Provider +1- [phone] Encounter Details Date Type Department Care Team (Late st Contact Info) Description 02/18/2022 Orders Only [facility] Medicine - Main [address] [address] Kameron Lee MD [address] [place] [address] [address] [place] [phone] Primary hypertension (Primary Dx); Obesity (BMI 30-39.9) Social History Tobacco Use Types Packs/Day Years Used Date Smoking Tobacco: Every Day Cigarettes Pipe Smokeless Tobacco: Former Comments:pipe Alcohol Use Standard Drinks/Week Comments Yes 0 (1 standard drink = 0.6 oz pur e alcohol) beer on [facility] Interpersonal Safety Answer Date Record ed Physically [...] 112/70(2021 13:50 EDT) No Abbie Winter LPN [id number] XT < 7 Result Component 8.2( 14:15 EDT) No Abbie Winter LPN LDLEXT < 100 Result Component 76(05/13/2019 14:15 EDT) No Abbie Winter LPN documented as of this encounter Visit Diagnoses Diagnosis Primary hypertension- Primary Unspecified essential hypertension Obesity (BMI 30-39.9) Obesity, unspecified documented in this encounter Care Teams Dispatcher Maintenance Service Relationship Specialty Start Date End Date Kameron Lee MD [address] [place] [phone] PCP - General 06/14/19 04/28/23 documented as of this encounter
--- OUTSIDE RECORDS SUMMARY | 2024-08-05 15:00 | XMS_ITS | Encounter Summary ---
Author Organization [facility] Address [address] [place] [address] Care Team Providers Care Well Drill Operator Cable Tool Name Role Phone Kameron Lee MD Primary Care Provider +1- [phone] Reason for Visit * Reason Comments Hypertension Diabetes Encounter Details Date Type Department Care Team (Late st Contact Info) Description 09/02/2021 11:30 EDT Office Visit [facility] Medicine [address] [address] Kameron Lee MD [address] [place] [phone] Primary hypertension (Primary Dx); Stage 3b chronic kidney disease (HCC); Type 2 diabetes mellitus with microalbuminuria, without long-term current use of insulin ([facility]CC-CMS) (HCC); Type 2 diabetes mellitus with diabetic mononeuropathy, without long-term current use of insulin ([facility]) (HCC); Obesity (BMI 30-39.9); Type 2 diabetes mellitus with stage 3b chronic kidney disease, without long-term current use of insulin (HCC); Essential hypertension; Hearing problem of both ears Social History Tobacco Use Types Packs/Day Years Used Date Smoking Tobacco: Every Day Cigarettes Pipe Smokeless Tobacco: Former Tobacco Cessation:Ready to Q uit: No; Counseling Given: Yes Comments:pipe Alcohol Use Standard Drinks/Week Comments Yes [...] have Coronavirus / COVID-19? No / Unsure 09/02/2021 11:09 EDT documented as of this encounter Last Filed Vital Signs Vital Sign Reading Time Taken Comments Blood Pressure 140/70 09/02/2021 1112 EDT Pulse 60 09/02/2021 1112 EDT Temperature - - Respiratory Rate - - Oxygen Saturation 98% 09/02/2021 1112 EDT Inhaled Oxygen Concentration - - Weight 103.4 kg (228 lb) 09/02/2021 1112 EDT per pt Height - - Body Mass Index 32.71 11/17/2018 0918 EST documented in this encounter [...] Dispensed Refills Start Date End Da te lisinopriL (PRINIVIL) 40 mg tabletIndications:Primary hypertension Take 1 Tablet by mouth daily. 90 Tablet 3 09/02/2021 metoprolol SUCCinate (TOPROL-XL) 50 mg tabletIndications:Primary hypertension Take 1 Tablet by mouth daily. 90 Tablet 3 09/02/2021 08/12/2022 glipiZIDE (GLUCOTROL) 10 mg XL tabletIndications:Type 2 diabetes mellitus with microalbuminuria, without long-term current use of insulin ([facility]) Take 1 Tablet by mouth daily. 90 Tablet 3 09/02/2021 08/12/2022 documented in this encounter Progress Notes * Kameron Lee MD - 09/02/2021 1130 EDT Primary Care Office Visit Assessment & Plan Diagnoses and all orders for this visit: Primary hypertension Stage 3b chronic kidney disease (HCC) Blood pressure is slightly elevated at this time. Patient will continue with lisinopril. - metoprolol SUCCinate (TOPROL-XL) 50 mg tablet - lisinopriL (PRINIVIL) 40 mg tablet Type 2 diabetes mellitus with diabetic mononeuropathy, without long-term current use of insulin ([facility] ([facility]) Type 2 diabetes mellitus with stage 3b chronic kidney disease, without long-term current use of insulin ([facility]) Type 2 diabetes mellitus with microalbuminuria, without long-term current use of insulin ([facility] ([facility]) Patient continues with elevated A1c. Trend has shown a slight increase. We would like a goal between 7 and 8%. Last kidney function is stable at 3B. He continues to be on an SHIRIN for protein in his urine. -Patient to continue with Metformin and Glucotrol -Continue lifestyle changes -encourage daily foot exam - glipiZIDE (GLUCOTROL) 10 mg XL tablet -urine albumin -update A1c Obesity (BMI 30-39.9) Some weight loss. -Continue with lifestyle changes Hearing problem of both ears - AMB CONS/FOLLOW UP AUDIOLOGY Pt returned to clinic after going to lab to receive HD flu shot. Order signed under Orders Only Pt chooses six month f/u. Return in about 6 months (around 03/03/2022) for In person, 30 min for, DM, HTN, Lipids. Patient education was direct. Barriers were assessed and addressed as needed. Subjective R is a 76 y.o. male presenting with Hypertension and Diabetes HPI DM: making lifestyle changes, tolerates medication. Trying to cut carbs. HTN: Tolerating medication, making lifestyle changes. Ent: pt with hearing problem. Having difficult hearing voice. No ear pain or discharge. Data reviewed this visit: problem list/past medical history, current medications and allergies ROS - See HPI Objective BP 140/70 (BP Cuff Location: Right arm, BP Patient Position: Sitting, BP Cuff Sizes: Adult, large) Pulse 60 Wt (!) 103.4 kg (228 lb) Comment: per pt SpO2 98% BMI 32.71 kg/m?? BMI AND WEIGHT 06/04/2020 01/30/2021 Weight (lb) 232 lb 235 lb Weight (Kg) 105.235 kg 106.595 kg Body Mass Index 33.29 33.72 Physical Exam General: No distress, Head: A traumatic Neck- No masses, no adenopathy Respiratory- Clear breath sounds, good air entry, no wheezing, rales, or rhonchi CV- regular, rate, and rhythm, normal S1 and S2, +2 radial pulses Abdomen- soft non-tender to palpation, no rebound or guarding, normal bowel sounds Extremities- no edema, no skin discoloration. 10 point monofilament exam with neurologic deficits right first toe. Left side is normal. Labs: Component Latest Ref Rng & Units 01/30/2021 BUN 10 - 26 mg/dL 31 (H) Calcium 8.5 - 10.5 mg/dL 9.8 Chloride 96 - 110 mmol/L 103 CO2 21 - 32 mEq/L 27 Creatinine 0.66 - 1.25 mg/dL 1.59 (H) GFR, Calculated 43 Anion Gap 0 - 18 11 Glucose, Serum 70 - 100 mg/dL 171 (H) Potassium 3.5 - 5.0 mEq/L 4.7 Sodium 136 - 145 mEq/L 141 Albumin, Urine <1.7 mg/dL 10.30 (H) Ur Alb ug/mg Crea ug/mg 202.7 Creatinine, U mg/dL 50.80 Hemoglobin A1C 4.0 - 6.0 % 8.4 (H) Est Avg Glucose mg/dL 194 documented in this encounter Plan of Treatment Not on file documented as of this encounter Goals Goal Patient Goal Type Associated Problems Recent Progress Patient-Stated? Author Blood Pressure < 140/90 Blood Pressure Hypertensive disorder 112/70(2021 13:50 EDT) No Abbie Winter LPN [id number] XT < 7 Result Component 8.2( 9 14:15 EDT) No Abbie Winter, RUBBLE PLACER LDLEXT < 100 Result Component 76(05/13/2019 14:15 EDT) No Abbie Winter LPN documented as of this encounter Procedures Procedure Name Priority Date/Time Associated Diagnosis Comments MICROALBUMIN, URINE Routine 09/02/2021 11:59 EDT Primary hypertension documented in this encounter Results * (ABNORMAL) MICROALBUMIN, URINE (09/02/2021 11:59 EDT) Albumin, Urine 6.60(H) <1.7 mg/dL 09/02/2021 13:44 EDT [facility] Lab Urine Albumin to Creatinine Ratio 105.0 ug/mg 09/02/2021 13:44 EDT [facility] Comment: Normal: <30 ug/mg Creat Microalbuminuria: 30-300 ug/mg Creat Clinical albuminuria: >300 ug/mg Creat Creatinine, Urine 62.80 mg/dL 09/02/2021 13:44 EDT [facility] 09/02/2021 11:5 9 EDT 09/02/2021 12:06 EDT Narrative [facility] - 09/02/2021 13:44 EDT Does PT Have a Latex Allergy? NO WHAT TYPE OF COLLECTION IS THIS URINE? RANDOM URINE Kameron Lee MD HEMATOLOGY & PF4 O RDERABLES Performing Organization Address City/State/[facility] Co de Phone Number [facility] [address] [place] [address] documented in this encounter Visit Diagnoses Diagnosis Primary hypertension- Primary Unspecified essential hypertension Stage 3b chronic kidney disease ([facility]) Type 2 diabetes mellitus with microalbuminuria, without long-term current use of insulin ([facility]) Type 2 diabetes mellitus with diabetic mononeuropathy, without long-term current use of insulin ([facility]) Obesity (BMI 30-39.9) Obesity, unspecified Type 2 diabetes mellitus with stage 3b chronic kidney disease, without long-term current use of insulin ([facility]) Essential hypertension Unspecified essential hypertension Hearing problem of both ears documented in this encounter Discontinued Medications Medication Sig Discontinue Reason Start Date End Da te metoprolol SUCCinate (TOPROL-XL) 50 mg tabletIndications:Essenti al hypertension TAKE ONE TABLET BY MOUTH EVERY DAY Reorder 07/02/2021 09/02/2021 glipiZIDE (GLUCOTROL) 10 mg XL tabletIndications:Type 2 diabetes mellitus without complication, without long-term current use of insulin ([facility]) TAKE ONE TABLET BY MOUTH EVERY DAY Reorder 07/02/2021 09/02/2021 lisinopriL (PRINIVIL) 40 mg tabletIndications:Essenti al hypertension TAKE ONE TABLET BY MOUTH EVERY DAY Reorder 07/02/2021 09/02/2021 documented as of this encounter Care Teams Well Drill Operator Cable Tool Relationship Specialty Start Date End Date Kameron Lee MD [address] [place] [phone] PCP - General 06/14/19 04/28/23 documented as of this encounter
--- OUTSIDE RECORDS SUMMARY | 2024-08-05 15:00 | XMS_ITS | Clinical Summary ---
Author Organization [facility] Address [address] [place] [address] Care Team Providers Care Behavioral Consultant Name Role Phone Unavailable Primary Care Provider Unavailabl e Allergies Active Allergy Reactions Criticality Noted Date Comments Hydroxychloroquine 12/03/2016 Blurred vision Medications Medication Sig Dispensed Refills Start Date End Date Status aspirin chewable 81 mg tablet Take 81 mg by mouth daily. Active GLUCOSAMINE HCL/CHONDRO CHU A (GLUCOSAMINE-CHONDROIT IN ORAL) Take 2,000 mg by mouth daily. Active MULTIVITAMINS (MULTIVITAMIN ORAL) Take by mouth. A ctive ASCORBIC ACID (VITAMIN C ORAL) Take by mouth. Active CALCIUM ORAL Take by mouth. Active cholecalciferol, Vitamin D3, 1,000 unit tablet Take 1,000 Units by mouth daily. Active KRILL OIL ORAL Take by mouth. Active MELATONIN ORAL Take by mouth. Active lisinopriL (PRINIVIL) 40 mg tabletIndications:Prim zane hypertension Take 1 Tablet by mouth daily. 90 Tablet 3 09/02/2021 Active atorvastatin (LIPITOR) 10 mg tabletIndications:Type 2 diabetes mellitus without complication, without long-term current use of insulin (HCC-CMS) Take 1 Tablet by mouth daily. 90 Tablet 3 07/04/2022 Active metFORMIN (GLUCOPHAGE) 1,000 mg tabletIndications:Type 2 diabetes mellitus without complication, without long-term current use of insulin (HCC-CMS) TAKE ONE TABLET BY MOUTH TWICE A DAY 180 Tablet 3 07/01/2022 Active metoprolol SUCCinate (TOPROL-XL) 50 mg tabletIndications:Prim zane hypertension Take 1 Tablet by mouth daily. 90 Tablet 3 08/12/2022 Active glipiZIDE (GLUCOTROL) 10 mg XL tabletIndications:Type 2 diabetes mellitus with microalbuminuria, without long-term current use of insulin ([facility]) Take 1 Tablet by mouth daily. 90 Tablet 3 08/12/2022 Active Active Problems Patient Care Coordination No te Formatting of this note migh t be different from the original. Diabetic eye exams completed by Dr. Dumont at [facility] - last appt in 04/2014. 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 ([facility]) 06/15/2015 Overview: 09/12 right first toe Stage 3b chronic kidney disease ([facility]) 2013 Overview: 06/2014, Cr 1.6 Lipoma of arm 06/19/2014 Tubular adenoma of colon 03/30/2013 Overview: 03/2013, due 2018 Smoker 08/11/2011 Hypertensive disorder 01/30/2010 Resolved Problems Problem Noted Date Diagnosed Date Resolved Date Hyperkalemia 12/01/2019 09/02/2021 Overview: Lab on 11/2019 Tobacco abuse counseling 11/17/201808/2021 Microalbuminuria 09/21/2017 09/02/2021 Overview: 08/2017 Immunizations Name Administration Dates Next Due Covid-19 mRNA Vaccine (PFIZE R COVID-19) PF 0.3 ml IM (12 yrs+) 02/19/2021,01/29/2021 Influenza (whole) 09/18/2008 Influenza Vaccine Quad (AFLU SHAWNA) PF 0.5 ml IM (3 yrs+) 11/17/2018,09/18/2017,12/10/2016 Influenza Vaccine Quad High Dose (FLUZONE HIGH DOSE) PF 0.7 ml IM (65 yrs+) 09/02/2021 Influenza Vaccine Quad PF 0. 5 ml IM (6 mos+) 12/05/2019 Pneumococcal Conjugate Vacci ne 13-Valent (PCV13) (PREVNAR-13) 0.5 mL IM (6 wks+) 07/10/2015 Pneumococcal Polysaccharide (PPSV23) Vaccine (PNEUMOVAX-23) =>2YO SQ/IM 08/29/2013,05/18/2007 Tdap Vaccine =>7YO IM 03/14/2013 Surgical History Surgery Date Site/Laterality Comments LAMINECTOMY SHOULDER SURGERY 03/25 left; labral tear COLONOSCOPY 02/2003 WRIST SURGERY 2015 Left carpal tunnel Medical History Medical History Date Comments Hypertension Diabetes mellitus (HCC-CMS) Hyperlipidemia Family History Medical History Relation Comments Cataract Neg Hx Diabetes Neg Hx Glaucoma Neg Hx Macular Degeneration Neg Hx Social History Tobacco Use Types Packs/Day Years [...] Sexual Orientation Straight 12/01/2019 14 :49 EST Obstetrics History Last Filed Vital Signs Vital Sign Reading Time Taken Comments Blood Pressure 112/70 02/24/2022 1350 EDT Pulse 82 02/24/2022 1350 EDT Temperature 36.7 ??C (98.1 ??F) 02/24/2022 1350 EDT Respiratory Rate 20 02/24/2022 1350 EDT Oxygen Saturation 98% 02/24/2022 1350 EDT Inhaled Oxygen Concentration - - Weight 104.3 kg (230 lb) 02/24/2022 1350 EDT Height 177.8 cm (5' 10) 11/17/2018 0918 EST Body Mass Index 33 11/17/2018 0918 EST Plan of Treatment Health Maintenance Due Date Last Done Comments Social Determinants Of Healt h (SDOH) 1945 Shingles Immunization (1 of 2) 1996 RSV Immunization ( o r 60+ Years) (1 - 1-dose 60+ series) 2006 Preventive Care Visit 05/19/2013 05/19/2011 Depression Screening 05/13/2020 05/13/2019, 05/13/2019, 05/21/2018 Fall Risk Screening 05/13/2020 05/13/2019, 05/13/2019, 05/21/2018, Additional history exists Lipid Profile Screening (Cholesterol) 12/01/2020 12/01/2019, 05/13/2019, 05/13/2019, Additional history exists Hemoglobin A1C (Ha1C) 05/26/2022 02/24/2022 , 09/02/2021, 01/30/2021, Additional history exists Eye Exam 08/15/2022 08/15/2021, 06/2020, 06/29/2018, Additional history exists Foot Exam 09/02/2022 09/02/2021, 04/24, 05/21/2018, Additional history exists Creatinine (Kidney Test) 02/24/2023 022, 01/30/2021, 06/04/2020, Additional history exists Microalbumin/Creatinine Ratio 02/24/2023, 09/02/2021, 01/30/2021, Additional history exists Tetanus (Adult) Immunization 03/14/2023 03/14/2013 COVID-19 Vaccine (3 2022-2 4 season) 2024 02/19/2021, 01/29/2021 Influenza Immunization (Adul t) (#1) 2024 09/02/2021, 12/05/2019, 11/17/2018, Additional history exists Hepatitis C Screen Completed 03/14/2013 Pertussis (Adult) Immunization Completed 03/14/2013 Colonoscopy (Colon Cancer Screening) Discontinued 03/28/2013, 03/28/2013 Colorectal Cancer Screening Discontinued Pneumococcal Immunization (65+) Completed 07/10/2015, 08/29/2013, 05/18/2007 Cologuard (Colon Cancer Screening) Discontinued FIT Test (Colon Cancer Screening) Discontinued Sigmoidoscopy (Colon Cancer Screening) Discontinued Goals Goal Patient Goal Type Associated Problems Recent Progress Patient-Stated? Author Blood Pressure < 140/90 Blood Pressure Hypertensive disorder 112/70(2021 13:50 EDT) No Abbie Winter, FABRIC LAY OUT WORKER [id number] XT < 7 Result Component 8.2( 9 14:15 EDT) No Abbie Winter LPN LDLEXT < 100 Result Component 76(05/13/2019 14:15 EDT) No Maggy, Abbie, FABRIC LAY OUT WORKER Procedures Procedure Name Priority Date/Time Associated Diagnosis Comments BASIC METABOLIC PANEL (BMP) Routine 02/24/2022 14:26 EDT Primary hypertension HEMOGLOBIN A1C Routine 02/24/2022 14:26 EDT Type 2 diabetes mellitus with microalbuminuria, without long-term current use of insulin ([facility]) ([facility]) URINE [id number] E RATIO (ACR) Routine 02/24/2022 14:26 EDT Type 2 diabetes mellitus with microalbuminuria, without long-term current use of insulin ([facility]) ([facility]) LIPID PROFILE (INCLUDES CHOLESTEROL, TRIGLYCERIDES, HDL, LDL) Routine 12/01/2019 11:27 EST COLONOSCOPY PROCEDURE Routine 03/28/2013 from Last 3 Months or Most Recently Relevant to Health Maintenance Results * (ABNORMAL) URINE [id number]-[id number]-[id number] RATIO (ACR) (02/24/2022 14:26 EDT) Albumin, Urine 8.4 See Note mg/dL 2021 16:02 T [facility] Comment: NOTE: Reference range not established Creatinine, Urine 99.5 See Note mg/dL 02/24/2022 16:02 [facility] Comment: NOTE: Reference range not established Lab Urine Albumin to Creatinine Ratio 84(H) <30 ??g/mg Creatinine 02/24/2022 16:02 T [facility] Comment: Urine Albumin/Creatinine Ratio: Normal: <30 ug/mg Creatinine Moderately increased albuminuria: 30-300 ug/mg Creatinine Severley increased albuminuria: >300 ug/mg Creatinine Urine URINE SPECIMEN COLLECTION, CLEAN CATCH / Unknown Urine Collect / Unknown 02/24/2022 14:26 EDT 02/24/2022 15:14 EDT Kameron Lee MD CHEMISTRY & BLOOD GAS ORDERABLES Performing Organization Address City/[facility] Co de Phone Number [facility] [address] [place] [address] * (ABNORMAL) HEMOGLOBIN A1C (02/24/2022 14:26 EDT) Hemoglobin A1c 8.2(H) <5.7 % 02/24/2022 21:29 EDT [facility] Comment: Glycemic Status References: Normal: ??<5.7% Pre-Diabetes: ??5.7% - 6.4% Diagnostic of Diabetes: ??> or = 6.5% (if confirmed) Est Avg Glucose 189 mg/dL 21:29 EDT [facility] Comment:The eAG represents t he A1c result expressed as average glucose in mg/dL. Blood VENOUS BLOOD / Unknown Venipuncture / Unknown 02/24/2022 14:26 EDT 02/24/2022 14:52 EDT Kameron Lee MD CHEMISTRY & BLOOD GAS ORDERABLES Performing Organization Address City/[facility] Co de Phone Number [facility] [address] [place] [address] * (ABNORMAL) BASIC METABOLIC PANEL (BMP) (02/24/2022 14:26 EDT) Pathologist [facility] Sodium 136 136 - 145 mmol/L 02/24/2022 15:22 EDT [facility] Potassium 5.5(H) 3.5 - 5.0 mmol/L 02/24/2022 15:22 EDT [facility] Chloride 101 96 - 110 mmol/L 02/24/2022 15:22 [facility] CO2 Total 23 22 - 32 mmol/L 02/24/2022 15:22 [facility] Anion Gap 12 5 - 14 02/24/2022 15:22 [facility] Glucose 235(H) 70 - 100 mg/dL 02/24/2022 15:22 [facility] Calcium 9.6 8.5 - 10.5 mg/dL 02/24/2022 15:22 [facility] BUN 44(H) 10 - 26 mg/dL 02/24/2022 15:22 [facility] Creatinine 1.89(H) 0.66 - 1.25 mg/dL 02/24/2022 15:22 [facility] eGFR 37(L) >60 mL/min/1.73 m2 02/24/2022 15:22 [facility] Blood VENOUS BLOOD / Unknown Venipuncture / Unknown 02/24/2022 14:26 EDT 02/24/2022 14:59 EDT Kameron Lee MD CHEMISTRY & BLOOD GAS ORDERABLES Performing Organization Address City/State/[facility] Co de Phone Number [facility] [address] [place] [address] * (ABNORMAL) LIPID PROFILE (INCLUDES CHOLESTEROL, TRIGLYCERIDES, HDL, LDL) (12/01/2019 11:27 EST) Triglyceride 211 <150 mg/dL 12/01/2019 12:16 [facility] Comment: Adult: Normal: ?<150 mg/dl ? Borderline High: 150-199 mg/dl ? High: ?200-499 mg/dl ? Very High: >mq=985 Cholesterol 109 <200 mg/dL 12/01/2019 12:16 [facility] Comment: Acceptable: ??<200 Borderline: ??200-239 High: ?> or = 240 Chol/HDL Ratio 3.7 0 - 5.0 12/01/2019 12:16 EST [facility] Comment: DESIRABLE RATIO IS LESS THAN 4.1 PATIENTS ARE CONSIDERED AT RISK: WOMEN RATIO >5 MEN RATIO >6 FASTING? - [facility] [place] Yes 0 11:27 EST [facility] HDL 29(L) 40 - 60 mg/dL 12/01/2019 12:16 [facility] Comment: ?? Reference Range Low: ? < 40 ??mg/dL Normal: ??40-60 mg/dL High: ?>= 60 mg/dL LDL CHOLESTEROL - [facility] [place] 38(L) 60 - 100 mg/dL 12/01/2019 12:16 EST [facility] Non HDL Cholesterol 80 mg/dl 12/01/2019 12:16 [facility] Comment: Desirable: ?Less than 130 Borderline High: ??130-159 High: ? 160-189 Very High: ?Greater than or equal to 190 12/01/2019 11:2 7 EST 12/01/2019 11:27 EST Narrative [facility] - 12/01/2019 12:16 EST Does PT Have a Latex Allergy? NO Kameron Lee MD CHEMISTRY & BLOOD GAS ORDERABLES [facility] * COLONOSCOPY (03/28/2013) Colonoscopy ABNORMAL [facility] Comment:REPEAT IN 2018 Colonoscopy, External [facility] Anatomical Region Laterality Modality Endoscopy 03/28/2013 Historical Provider GI PROCEDURE RICK OLEARY from Last 3 Months or Most Recently Relevant to Health Maintenance Advance Directives For more information, please contact: [phone] Documents on File Type Date Recorded Patient Promotional Demonstrator Expl anation Advance Directive 09/02/2021 Power of A ttorney 09/02/21
--- OUTSIDE RECORDS SUMMARY | 2024-08-05 15:00 | XMS_ITS | Encounter Summary ---
Author Organization [facility] Address [address] [place] [address] Care Team Providers Care Cover Marker Name Role Phone Kameron Lee MD Primary Care Provider +1- [phone] Encounter Details Date Type Department Care Team (Latest Contact Info) Description 01/30/2021 Travel Social History Tobacco Use Types Packs/Day [...] have Coronavirus / COVID-19? No / Unsure 01/30/2021 10:10 EST documented as of this encounter Functional [...] 112/70(2021 13:50 EDT) No Abbie Winter LPN [id number] XT < 7 Result Component 8.2( 9 14:15 EDT) No Abbie Winter LPN LDLEXT < 100 Result Component 76(05/13/2019 14:15 EDT) No Abbie Winter LPN documented as of this encounter Visit Diagnoses Not on filedocumented in this encounter Care Teams Cover Marker Relationship Specialty Start Date End Date Kameron Lee MD [address] [place] [phone] PCP - General 06/14/19 04/28/23 documented as of this encounter
--- OUTSIDE RECORDS SUMMARY | 2024-08-05 15:00 | XMS_ITS | Encounter Summary ---
Author Organization [facility] Address [address] [place] [address] Care Team Providers Care Print Cutter Name Role Phone Kameron Lee MD Primary Care Provider +1- [phone] Reason for Visit * Reason Comments Other Encounter Details Date Type Department Care Team (Late st Contact Info) Description 06/30/2022 Refill [facility] [address] [address] Kameron Lee MD [address] [place] [phone] Other Social History Tobacco Use Types Packs/Day Years Used Date Smoking Tobacco: Every Day Cigarettes Pipe Smokeless Tobacco: Former Comments:pipe Alcohol Use Standard Drinks/Week Comments Yes 0 (1 standard drink = 0.6 oz pur e alcohol) beer on [facility] Interpersonal Safety Answer Date Record ed Physically [...] TWICE A DAY 180 Tablet 3 07/01/2022 documented in this encounter Miscellaneous Notes * Telephone Encounter - Aiden Maurer - 07/01/2022 1917 EDT Medication(s) Requested: Metformin Is patient out of medication? Unknown Last Refill Date: 12/30/21 (#180, 0 refill) Last Visit Date with Ordering Provider: 02/24/22 Next Non-Acute Visit Date Scheduled with Care Team: None AIDEN MAURER RN 07/01/2022 19:19 documented in this encounter Plan of Treatment Not on file documented as of this encounter Goals Goal Patient Goal Type Associated Problems Recent Progress Patient-Stated? Author Blood Pressure < 140/90 Blood Pressure Hypertensive disorder 112/70(2021 13:50 EDT) No Abbie Winter LPN [id number] XT < 7 Result Component 8.2( 9 14:15 EDT) No Abbie Winter LPN LDLEXT < 100 Result Component 76(05/13/2019 14:15 EDT) No Abbie Winter LPN documented as of this encounter Visit Diagnoses Diagnosis Type 2 diabetes mellitus without complication, without long-term current use of insulin (HCC-CMS)- Primary documented in this encounter Discontinued Medications Medication Sig Discontinue Reason Start Date End Da te metFORMIN (GLUCOPHAGE) 1,000 mg tabletIndications:Type 2 diabetes mellitus without complication, without long-term current use of insulin (HCC-CMS) TAKE ONE TABLET BY MOUTH TWICE A DAY 12/30/2021 07/01/2022 documented as of this encounter Care Teams Print Cutter Relationship Specialty Start Date End Date Kameron Lee MD [address] [place] [phone] PCP - General 06/14/19 04/28/23 documented as of this encounter
--- OUTSIDE RECORDS SUMMARY | 2024-08-05 15:00 | XMS_ITS | Encounter Summary ---
Author Organization [facility] Address [address] [place] [address] Care Team Providers Care Student Worker Name Role Phone Kameron Lee MD Primary Care Provider +1- [phone] Encounter Details Date Type Department Care Team (Late st Contact Info) Description 02/24/2022 14:15 EDT Phlebotomy Only [facility] - Outpatient Phlebotomy Drawing [address] [place] [address] Lab, [facility] Primary hypertension; Type 2 diabetes mellitus with microalbuminuria, without long-term current use of insulin ([facility] ([facility]) Social History Tobacco Use Types Packs/Day Years [...] 112/70(2021 13:50 EDT) No Abbie Winter LPN [id number] XT < 7 Result Component 8.2( 9 14:15 EDT) No Abbie Winter LPN LDLEXT < 100 Result Component 76(05/13/2019 14:15 EDT) No Abbie Winter LPN documented as of this encounter Procedures Procedure Name Priority Date/Time Associated Diagnosis Comments URINE PYENAMN-LQ-XZSQULAV NE RATIO (ACR) Routine 02/24/2022 14:26 EDT Type 2 diabetes mellitus with microalbuminuria, without long-term current use of insulin ([facility]) ([facility]) HEMOGLOBIN A1C Routine 02/24/2022 14:26 EDT Type 2 diabetes mellitus with microalbuminuria, without long-term current use of insulin ([facility]) ([facility]) BASIC METABOLIC PANEL (BMP) Routine 02/24/2022 14:26 EDT Primary hypertension documented in this encounter Results * (ABNORMAL) URINE [id number]-US-RYXUATUJAV RATIO (ACR) (02/24/2022 14:26 EDT) Albumin, Urine 8.4 See Note mg/dL 2021 16:02 T [facility] Comment: NOTE: Reference range not established Creatinine, Urine 99.5 See Note mg/dL 02/24/2022 16:02 [facility] Comment: NOTE: Reference range not established Lab Urine Albumin to Creatinine Ratio 84(H) <30 ??g/mg Creatinine 02/24/2022 16:02 [facility] Comment: Urine Albumin/Creatinine Ratio: Normal: <30 ug/mg Creatinine Moderately increased albuminuria: 30-300 ug/mg Creatinine Severley increased albuminuria: >300 ug/mg Creatinine Urine URINE SPECIMEN COLLECTION, CLEAN CATCH / Unknown Urine Collect / Unknown 02/24/2022 14:26 EDT 02/24/2022 15:14 EDT Kameron Lee MD CHEMISTRY & BLOOD GAS ORDERABLES Performing Organization Address [facility] Co de Phone Number [facility] [address] [place] [address] * (ABNORMAL) HEMOGLOBIN A1C (02/24/2022 14:26 EDT) Hemoglobin A1c 8.2(H) <5.7 % 02/24/2022 21:29 EDT [facility] Comment: Glycemic Status References: Normal: ??<5.7% Pre-Diabetes: ??5.7% - 6.4% Diagnostic of Diabetes: ??> or = 6.5% (if confirmed) Est Avg Glucose 189 mg/dL 21:29 EDT [facility] Comment:The eAG represents t he A1c result expressed as average glucose in mg/dL. Blood VENOUS BLOOD / Unknown Venipuncture / Unknown 02/24/2022 14:26 EDT 02/24/2022 14:52 EDT Kameron Lee MD CHEMISTRY & BLOOD GAS ORDERABLES Performing Organization Address [facility] Co de Phone Number [facility] [address] [place] [address] * (ABNORMAL) BASIC METABOLIC PANEL (BMP) (02/24/2022 14:26 EDT) Sodium 136 136 - 145 mmol/L 02/24/2022 15:22 EDT [facility] Potassium 5.5(H) 3.5 - 5.0 mmol/L 02/24/2022 15:22 EDT [facility] Chloride 101 96 - 110 [...] Lee MD CHEMISTRY & BLOOD GAS ORDERABLES [facility] [address] [place] [phone] documented in this encounter Visit Diagnoses Diagnosis Primary hypertension Unspecified essential hypertension Type 2 diabetes mellitus with microalbuminuria, without long-term current use of insulin ([facility]) documented in this encounter Care Teams Student Worker Relationship Specialty Start Date End Date Kameron Lee MD [address] [place] [address] [address] [place] [address] PCP - General 06/14/19 04/28/23 documented as of this encounter
--- OUTSIDE RECORDS SUMMARY | 2024-08-05 15:00 | XMS_ITS | Encounter Summary ---
Author Organization [facility] Address [address] [place] [address] Care Team Providers Care Pipelines Manager Name Role Phone Kameron Lee MD Primary Care Provider +1- [phone] Encounter Details Date Type Department Care Team (Late st Contact Info) Description 07/01/2022 Orders Only [facility] - [facility] Medicine - [facility] [address] [place] [address] Wenceslao Gilman LPN Type 2 diabetes mellitus without complication, without long-term current use of insulin ([facility]) ([facility]) Social History Tobacco Use Types Packs/Day Years [...] 112/70(2021 13:50 EDT) No Abbie Winter LPN [id number] XT < 7 Result Component 8.2( 9 14:15 EDT) No Abbie Winter LPN LDLEXT < 100 Result Component 76(05/13/2019 14:15 EDT) No Abbie Winter LPN documented as of this encounter Visit Diagnoses Diagnosis Type 2 diabetes mellitus without complication, without long-term current use of insulin ([facility]) documented in this encounter Care Teams Pipelines Manager Relationship Specialty Start Date End Date Kameron Lee MD [address] [place] [phone] PCP - General 06/14/19 04/28/23 documented as of this encounter
--- OUTSIDE RECORDS SUMMARY | 2024-08-05 15:00 | XMS_ITS | Encounter Summary ---
Author Organization [facility] Address [address] [place] [address] Care Team Providers Care Cereal Chemist Name Role Phone Kameron Lee MD Primary Care Provider +1- [phone] Encounter Details Date Type Department Care Team (Latest Contact Info) Description 09/02/2021 Travel Social History Tobacco Use Types Packs/Day [...] 11:09 EDT documented as of this encounter Functional [...] 112/70(2021 13:50 EDT) No Abbie Winter LPN [id number] XT < 7 Result Component 8.2( 9 14:15 EDT) No Abbie Winter LPN LDLEXT < 100 Result Component 76(05/13/2019 14:15 EDT) No Abbie Winter LPN documented as of this encounter Visit Diagnoses Not on filedocumented in this encounter Care Teams Cereal Chemist Relationship Specialty Start Date End Date Kameron Lee MD [address] [place] [phone] PCP - General 06/14/19 04/28/23 documented as of this encounter
--- OUTSIDE RECORDS SUMMARY | 2024-08-05 15:00 | XMS_ITS | Encounter Summary ---
Author Organization [facility] Address [address] [place] [address] Care Team Providers Care Retaining Room Cutter Name Role Phone Kameron Lee MD Primary Care Provider +1- [phone] Encounter Details Date Type Department Care Team (Late st Contact Info) Description 07/01/2022 Orders Only [facility] [address] [place] [address] Wenceslao Gilman LPN Primary hypertension; Type 2 diabetes mellitus without complication, without long-term current use of insulin ([facility] ([facility]) Social History Tobacco Use Types Packs/Day [...] 112/70(2021 13:50 EDT) No Abbie Winter LPN [id number] XT < 7 Result Component 8.2( 9 14:15 EDT) No Abbie Winter LPN LDLEXT < 100 Result Component 76(05/13/2019 14:15 EDT) No Abbie Winter LPN documented as of this encounter Visit Diagnoses Diagnosis Primary hypertension Unspecified essential hypertension Type 2 diabetes mellitus without complication, without long-term current use of insulin ([facility]) documented in this encounter Care Teams Retaining Room Cutter Relationship Specialty Start Date End Date Kameron Lee MD [address] [place] [phone] PCP - General 06/14/19 04/28/23 documented as of this encounter
--- OUTSIDE RECORDS SUMMARY | 2024-08-05 15:00 | XMS_ITS | Encounter Summary ---
Author Organization [facility] Address [address] [place] [address] Care Team Providers Care Car Rental Agent Name Role Phone Kameron Lee MD Primary Care Provider +1- [phone] Encounter Details Date Type Department Care Team (Late st Contact Info) Description 09/02/2021 Orders Only [facility] - [address] [address] Kameron Lee MD [address] [place] [address] [phone] Need for influenza vaccination (Primary Dx) Social History Tobacco Use Types Packs/Day Years Used Date Smoking Tobacco: Every Day Cigarettes Pipe Smokeless Tobacco: Former Comments:pipe Alcohol Use Standard Drinks/Week Comments Yes 0 (1 standard drink = 0.6 oz pur e alcohol) beer on [facility] Interpersonal Safety Answer Date Record [...] Notes * Kameron Lee MD - 09/02/2021 1359 EDT Noted and signed. documented in this encounter Plan of Treatment Not on file documented as of this encounter Goals Goal Patient Goal Type Associated Problems Recent Progress Patient-Stated? Author Blood Pressure < 140/90 Blood Pressure Hypertensive disorder 112/70(2021 13:50 EDT) No Abbie Winter LPN [id number] XT < 7 Result Component 8.2( 9 14:15 EDT) No Abbie Winter LPN LDLEXT < 100 Result Component 76(05/13/2019 14:15 EDT) No Abbie Winter LPN documented as of this encounter Visit Diagnoses Diagnosis Need for influenza vaccination- Primary Need for prophylactic vaccination and inoculation against influenza documented in this encounter Orders Immunization/Injection Count Last Ordered Date First Ordered Date INFLUENZA VACCINE QUAD HIGH DOSE (FLUZONE HIGH DOSE) PF 0.7 ML IM (65 YRS+) 1 09/02/2021 documented in this encounter Care Teams Car Rental Agent Relationship Specialty Start Date End Date Kameron Lee MD [address] [place] [phone] PCP - General 06/14/19 04/28/23 documented as of this encounter
--- OUTSIDE RECORDS SUMMARY | 2024-08-05 15:00 | XMS_ITS | Encounter Summary ---
Author Organization [facility] Address [address] [place] [address] Care Team Providers Care Case Work Aide Name Role Phone Kameron Lee MD Primary Care Provider +1- [phone] Encounter Details Date Type Department Care Team (Latest Contact Info) Description 07/31/2020 Travel Social History Tobacco Use Types Packs/Day [...] have Coronavirus / COVID-19? No / Unsure 07/31/2020 13:44 EDT documented as of this encounter Functional [...] 112/70(2021 13:50 EDT) No Abbie Winter LPN [id number] XT < 7 Result Component 8.2( 9 14:15 EDT) No Abbie Winter LPN LDLEXT < 100 Result Component 76(05/13/2019 14:15 EDT) No Abbie Winter LPN documented as of this encounter Visit Diagnoses Not on filedocumented in this encounter Care Teams Case Work Aide Relationship Specialty Start Date End Date Kameron Lee MD [address] [place] [phone] PCP - General 06/14/19 04/28/23 documented as of this encounter
--- OUTSIDE RECORDS SUMMARY | 2024-08-05 15:00 | XMS_ITS | Encounter Summary ---
Author Organization [facility] Address [address] [place] [address] Care Team Providers Care Strategic Alliances Manager Name Role Phone Kameron Lee MD Primary Care Provider +1- [phone] Reason for Visit * Reason Comments Diabetes Last Ha1c 7.7 ( 05-23 ) Encounter Details Date Type Department Care Team (Late st Contact Info) Description 07/31/2020 13:45 EDT Office Visit [facility] [address] [place] [address] John Lott MD [address] [place] [phone] Social History Tobacco Use Types Packs/Day Years [...] Progress Notes * John Lott MD - 07/31/2020 9360 EDT Chief Complaint Patient presents with ??? Diabetes Last Ha1c 7.7 ( 06-04-2020 ) HPI The patient is a 74 y.o. male here for follow up of diabetes. he has no eye pain, double vision, ornew flashes/floaters. He reports that he has been wearing OTC readers for distance (+1.25) and +3.00 for near. Right Eye: Blurred Vision Left Eye: Blurred Vision Visual Aid: Glasses(otc for distance ansd reading) Current Rx Age Location: Both eyes Pain: 0 - No pain Quality: Blurry Severity: Mild Duration: Months Timing: Constant Lasts: Months Context: vision blurrier for distamce and discovered about 6 mos ago that +1.25 readers help for distance, uses stronger otc for reading, no floaters or flashes, no pain Modifying factors: on Metformin and glipizide for glucose control Associated Signs & Symptoms: Attestation: ROS Constitutional: NL ENT/Mouth NL Cardiovascular: High Blood Pressure, High Cholesterol Respiratory: NL Gastrointestinal: NL Genitourinary: NL Musculoskeletal: Joint Pain Integumentary: NL Neurologic: NL Psychiatric: NL Endocrine: Diabetes Hematologic: NL Immunologic: Tube Backer: Exposures: None Other: Attestation: Base Eye Exam Visual Acuity (Snellen - Linear) Right Left Dist sc 20/50 20/50 Dist ph sc 20/20 20/25 -2 Dist ph cc 20/20 20/25 Near cc J2 J1 Tonometry (Applanation, 14:05) Right Left Pressure 14 18 Pupils Dark Shape React APD Right 3 Round Brisk None Left 3 Round Brisk None Visual Powers (Counting fingers) Right Left Full Full Extraocular Movement Right Left Full Full Neuro/Psych Oriented x3: Yes Mood/Affect: Normal Dilation Both eyes: Tropicamide 1%, Phenylephrine 2.5% @ 14:07 Slit Lamp and Fundus Exam Slit Lamp Exam Right Left Lids/Lashes Normal pigmented papilloma central lower lid Conjunctiva/Sclera White and quiet White and quiet Cornea Clear Clear Anterior Chamber Deep and quiet Deep and quiet Iris no NVI (dilated) no NVI (dilated) Lens 1-2+ Nuclear sclerosis 1-2+ Nuclear sclerosis Fundus Exam Right Left Vitreous Normal Normal Disc Normal, no NVD Normal, no NVD C/D Ratio 0.5 0.4 Macula Normal, no MA's Normal, no MA's Vessels Normal Normal Periphery Normal, No diabetic retinopathy small patch pigment @ 10:00, No diabetic retinopathy Refraction Wearing Rx Sphere Cylinder Right +2.75 Sphere Left +2.75 Sphere Type: otc readers Wearing Rx #2 Sphere Cylinder Right +1.25 Sphere Left +1.25 Sphere Type: otc for distance Wearing Rx Comments Uses otc glasses for distance now as well as stronger ones for reading Manifest Refraction Sphere Cylinder Marshall Dist VA Add Near VA Right +1.50 +0.75 155 20/20 +2.25 J1+ Left +1.00 +0.50 025 20/20 +2.25 J1+ Pt not interested in bifocals, getting along fairly well with the otc glasses for both distance andnear DIAGNOSTIC TESTING/PROCEDURES: IMPRESSION & PLAN: 1. Diabetes mellitus Right eye: No retinopathy Left eye: No retinopathy -Recommend good blood sugar and blood pressure control -follow up in 1 year -Copy of note sent to PCP 2. Cataract, both eyes Not visually significant -Monitor periodically 3. Disorder of refraction and accommodation -continue with OTC glasses for distance and near I have reviewed the patient's past medical, family, social and surgical history. I have also reviewed the patient's medications, allergies, and problem list. I performed my own HPI and have reviewed the tech's ROS as well. I completed this exam personally. John Lott MD Patient Education Topic: cataract Method: Verbal Taught to: Patient Barriers: None Outcomes: independent Signature: John Lott MD documented in this encounter Plan of Treatment Not on file documented as of this encounter Goals Goal Patient Goal Type Associated Problems Recent Progress Patient-Stated? Author Blood Pressure < 140/90 Blood Pressure Hypertensive disorder 112/70(2021 13:50 EDT) No Abbie Winter NETWORK SECURITY OFFICER [id number] XT < 7 Result Component 8.2( 9 14:15 EDT) No Abbie Winter NETWORK SECURITY OFFICER LDLEXT < 100 Result Component 76(05/13/2019 14:15 EDT) No Abbie Winter, NETWORK SECURITY OFFICER documented as of this encounter Visit Diagnoses Diagnosis Type 2 diabetes mellitus without complication, without long-term current use of insulin ([facility])- Primary Senile nuclear sclerosis, right Senile nuclear sclerosis, left documented in this encounter Discontinued Medications Medication Sig Discontinue Reason Start Date End Da te sodium polystyrene (KAYEXALATE) powder Take 15 grams at once. 12/02/2019 07/31/2020 documented as of this encounter Eye Exam Visual Acuity (Snellen - Linear) Right eye Left eye Dist sc 20/50 20/50 Dist ph sc 20/20 20/25 -2 Dist ph cc 20/20 20/25 Near cc J2 J1 Tonometry (Applanation, 14:05) Right eye Left eye Pressure 14 18 Pupils Dark Shape React APD Right eye 3 Round Brisk None Left eye 3 Round Brisk None Visual Powers (Counting fingers) Right eye Left eye Full Full Extraocular Movement Right eye Left eye Full Full Neuro/Psych Oriented x3: Yes Mood/Affect: Normal Dilation Both eyes: Tropicamide 1%, P henylephrine 2.5% @ 14:07 Slit Lamp Exam Right eye Left eye Lids/Lashes Normal pigmented papill arpan central lower lid Conjunctiva/Sclera White and quiet White and joshua et Cornea Clear Clear Anterior Chamber Deep and quiet Deep and quiet Iris no NVI (dilated) no NVI (dilated ) Lens 1-2+ Nuclear sclerosis 1-2+ Nucl ear sclerosis Vitreous Normal Normal Fundus Exam Right eye Left eye Disc Normal, no NVD Normal, no NVD C/D Ratio 0.5 0.4 Macula Normal, no MA's Normal, no MA's Vessels Normal Normal Periphery Normal, No diabetic retinopathy small patch pigment @ 10:00, No diabetic retinopathy Wearing Rx #1 Sphere Cylinder Right eye +2.75 Sphere Left eye +2.75 Sphere Type: otc readers Wearing Rx #2 Sphere Cylinder Right eye +1.25 Sphere Left eye +1.25 Sphere Type: otc for distance Wearing Rx Comments Uses otc glasses for distance now as well as stronger ones for reading Manifest Refraction Sphere Cylinder Marshall Dist VA Add Near VA Right eye +1.50 +0.75 155 20/20 +2.25 J1+ Left eye +1.00 +0.50 025 20/20 +2.25 J1+ Pt not interested in bifocals, getting along fairly well with the otc glasses for both distance andnear Care Teams Strategic Alliances Manager Relationship Specialty Start Date End Date Kameron Lee MD [address] [place] [phone] PCP - General 06/14/19 04/28/23 documented as of this encounter
--- OUTSIDE RECORDS SUMMARY | 2024-08-05 15:00 | XMS_ITS | Encounter Summary ---
Author Organization [facility] Address [address] [place] [address] Care Team Providers Care Town Justice Name Role Phone Kameron Lee MD Primary Care Provider +1- [phone] Reason for Visit * Reason Comments Other Encounter Details Date Type Department Care Team (Late st Contact Info) Description 01/09/[address] [address] Kameron Lee MD [address] [place] [phone] Other Social History Tobacco Use Types Packs/Day Years Used Date Smoking Tobacco: Every Day Cigarettes Pipe Smokeless Tobacco: Former Comments:pipe Alcohol Use Standard Drinks/Week Comments Yes 0 (1 standard drink = 0.6 oz pur e alcohol) beer on [facility] Interpersonal Safety Answer Date Record ed [...] insulin (HCC-CMS) TAKE ONE TABLET BY MOUTH EVERY DAY 90 Tab 3 01/10/2021 12/30/2021 metFORMIN (GLUCOPHAGE) 1,000 mg tabletIndications:Type 2 diabetes mellitus without complication, without long-term current use of insulin ([facility]) TAKE ONE TABLET BY MOUTH TWICE A DAY 180 Tab 3 01/10/2021 12/30/2021 documented in this encounter Miscellaneous Notes * Telephone Encounter - Carlee Rodriguez RN - 01/10/2021 1012 EST Medication(s) Requested: Atorvastatin, metformin Preferred Pharmacy: [facility] Is patient out of medication? Unknown Last Refill Date: 04/23/2020 Last Visit Date with Ordering Provider: 06/04/2020 Next Non-Acute Visit Date Scheduled with Care Team: No. CARLEE RODRIGUEZ RN 01/10/2021 10:12 06/04/2020 A1C/lipid documented in this encounter Plan of Treatment Not on file documented as of this encounter Goals Goal Patient Goal Type Associated Problems Recent Progress Patient-Stated? Author Blood Pressure < 140/90 Blood Pressure Hypertensive disorder 112/70(2021 13:50 EDT) No Abbie Winter LPN [id number] XT < 7 Result Component 8.2( 9 14:15 EDT) No Abbie Winter LPN LDLEXT < 100 Result Component 76(05/13/2019 14:15 EDT) No Abbie Winter LPN documented as of this encounter Visit Diagnoses Diagnosis Type 2 diabetes mellitus without complication, without long-term current use of insulin ([facility])- Primary documented in this encounter Discontinued Medications Medication Sig Discontinue Reason Start Date End Da te atorvastatin (LIPITOR) 10 mg tabletIndications:Type 2 diabetes mellitus without complication, without long-term current use of insulin ([facility]) Take 1 Tab by mouth daily. 04/23/2020 01/10/2021 metFORMIN (GLUCOPHAGE) 1,000 mg tabletIndications:Type 2 diabetes mellitus without complication, without long-term current use of insulin ([facility]) Take 1 Tab by mouth 2 times daily. 04/23/2020 01/10/2021 documented as of this encounter Care Teams Town Justice Relationship Specialty Start Date End Date Kameron Lee MD [address] [place] [phone] PCP - General 06/14/19 04/28/23 documented as of this encounter
--- OUTSIDE RECORDS SUMMARY | 2024-08-05 15:00 | XMS_ITS | Encounter Summary ---
Author Organization [facility] Address [address] [place] [address] Care Team Providers Care Procedures Rn Name Role Phone Kameron Lee MD Primary Care Provider +1- [phone] Reason for Visit * Reason Onset Date Comments Results 02/25/2022 Labs Encounter Details Date Type Department Care Team (Late st Contact Info) Description 02/25/[address] [facility] Family Medicine [address] [address] Kameron Lee MD [address] [place] [phone] Results (Labs) Social History Tobacco Use Types Packs/Day Years Used Date Smoking Tobacco: Every Day Cigarettes Pipe Smokeless Tobacco: Former Comments:pipe Alcohol Use Standard Drinks/Week Comments Yes 0 (1 standard drink = 0.6 oz pur e alcohol) beer on [facility] Interpersonal Safety Answer Date Record ed Physically [...] encounter Miscellaneous Notes * Telephone Encounter - Jayne Bosch RN - 03/20/2022 1508 EDT BMP ordered. Patient sent mychart will stop lisinopril. * Telephone Encounter - Jayne Bosch RN - 03/19/2022 1351 EDT Phone call #3 to patient. Left message for call back on non identified voicemail. My chart message sent. FYI to PCP * Telephone Encounter - Nazanin Shahid RN - 03/14/2022 1105 EDT TC to patient - no answer. Left message to call back. * Telephone Encounter - Jayne Bosch RN - 02/26/2022 0956 EDT Phone call to patient. Left message for call back on non identified voicemail. * Telephone Encounter - Kameron Lee MD - 02/25/2022 1549 EDT Please let patient know... Your chemistry panel found that your potassium is slightly high. I'll have the office call you to hold your lisinopril. Kidneys are still at stage III. Your A1c, the blood test we use to monitor diabetes, is not controlled. We are aiming for a level less than 7.0%. Your urine albumin shows some protein and has decreased since last time. We'll continue to monitor. We should recheck his BMP in 2 weeks. Pended. documented in this encounter Plan of Treatment Not on file documented as of this encounter Goals Goal Patient Goal Type Associated Problems Recent Progress Patient-Stated? Author Blood Pressure < 140/90 Blood Pressure Hypertensive disorder 112/70(2021 13:50 EDT) No Abbie Winter LPN [id number] XT < 7 Result Component 8.2( 9 14:15 EDT) No Abbie Winter LPN LDLEXT < 100 Result Component 76(05/13/2019 14:15 EDT) No Abbie Winter LPN documented as of this encounter Visit Diagnoses Diagnosis Primary hypertension- Primary Unspecified essential hypertension documented in this encounter Care Teams Procedures Rn Relationship Specialty Start Date End Date Kameron Lee MD [address] [place] [phone] PCP - General 06/14/19 04/28/23 documented as of this encounter
--- OUTSIDE RECORDS SUMMARY | 2024-08-05 15:00 | XMS_ITS | Encounter Summary ---
Author Organization [facility] Address [address] [place] [address] Care Team Providers Care Network Security Architect Name Role Phone Kameron Lee MD Primary Care Provider +1- [phone] Reason for Visit * Reason Onset Date Comments Medications Refill 06/14/2020 Encounter Details Date Type Department Care Team (Late st Contact Info) Description 06/14/[address] [address] Kameron Lee MD [address] [place] [phone] Medications Refill Social History Tobacco Use Types Packs/Day Years Used Date Smoking Tobacco: Every Day Cigarettes Smokeless Tobacco: Former Comments:pipe Alcohol Use Standard Drinks/Week Comments Yes 0 (1 standard drink = 0.6 oz pur e alcohol) beer on [facility] Sex and Gender Information Value Date Recorded [...] Dispensed Refills Start Date End Da te metoprolol XL (TOPROL-XL) 50 mg tabletIndications:Essentia l hypertension Take 1 Tab by mouth daily. 90 Tab 3 06/15/2020 07/02/2021 lisinopriL (PRINIVIL) 40 mg tabletIndications:Essentia l hypertension Take 1 Tab by mouth daily. 90 Tab 3 06/15/2020 07/02/2021 documented in this encounter Miscellaneous Notes * Telephone Encounter - Cristofer Wolf RN - 06/15/2020 1006 EDT Pharmacy: [facility] Last Visit Date: 06/04/20 Last Labs Date: 06/04/20 - [facility] Next Visit Date: None scheduled Medication Requested: Metoprolol XL (Toprol XL) 50 mg tablet Last Refill Date: 05/13/19 - 90 tabs with 3 refills Is patient out of medication? Unknown Refilled 90 tabs with 3 refills Medication Requested: Lisinopril (Prinivil, Zestril) 40 mg tablet Last Refill Date: 05/04/19 - 90 tabs with 3 refills Is patient out of medication? Unknown Refilled 90 tabs with 3 refills CRISTOFER WOLF RN 06/15/2020 10:06 * Telephone Encounter - Lubna Burton - 06/14/2020 1116 EDT Medication(s) Requested: Metoprolol and Lisinopril Preferred Pharmacy: Last refill date: 03/16/2020 Last appointment with PCP: 06/04/2020 Is patient out of medication? Unknown [place] Burton 06/14/2020 11:16 documented in this encounter Plan of Treatment Not on file documented as of this encounter Goals Goal Patient Goal Type Associated Problems Recent Progress Patient-Stated? Author Blood Pressure < 140/90 Blood Pressure Hypertensive disorder 112/70(2021 13:50 EDT) No Abbie Winter LPN [id number] XT < 7 Result Component 8.2( 9 14:15 EDT) No Abbie Winter LPN LDLEXT < 100 Result Component 76(05/13/2019 14:15 EDT) No Abbie Winter LPN documented as of this encounter Visit Diagnoses Diagnosis Essential hypertension- Primary Unspecified essential hypertension documented in this encounter Discontinued Medications Medication Sig Discontinue Reason Start Date End Da te lisinopril (PRINIVIL, ZESTRIL) 40 mg tabletIndications:Essentia l hypertension Take 1 Tab by mouth daily. Reorder 05/13/2019 06/14/2020 metoprolol XL (TOPROL-XL) 50 mg tabletIndications:Essentia l hypertension Take 1 Tab by mouth daily. Reorder 05/13/2019 06/14/2020 documented as of this encounter Care Teams Network Security Architect Relationship Specialty Start Date End Date Kameron Lee MD [address] [place] [phone] PCP - General 06/14/19 04/28/23 documented as of this encounter
--- OUTSIDE RECORDS SUMMARY | 2024-08-05 15:00 | XMS_ITS | Referral Summary ---
Author Organization [facility] Address [address] [place] [address] Care Team Providers Care Preliminary School Psychologist Name Role Phone Unavailable Primary Care Provider [...] microalbuminuria, without long-term current use of insulin ([facility]) Take 1 Tablet by mouth daily. 90 Tablet 3 08/12/2022 Active Active Problems Patient Care Coordination No te Formatting of this note migh t be different from the original. Diabetic eye exams completed by Dr. Dumont at [facility] - last appt in 04/2014. 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 No 05/21/2018 Plan of Treatment Not on file Goals Goal Patient Goal Type Associated Problems Recent Progress Patient-Stated? Author Blood Pressure < 140/90 Blood Pressure Hypertensive disorder 112/70(2021 13:50 EDT) No Abbie Winter, RES COUNSELOR [id number] XT < 7 Result Component 8.2( 9 14:15 EDT) No Abbie Winter LPN LDLEXT < 100 Result Component 76(05/13/2019 14:15 EDT) No Maggy, Abbie, RES COUNSELOR Procedures Procedure Name Priority Date/Time Associated Diagnosis Comments BASIC METABOLIC PANEL (BMP) Routine 02/24/2022 14:26 EDT Primary hypertension HEMOGLOBIN A1C Routine 02/24/2022 14:26 EDT Type 2 diabetes mellitus with microalbuminuria, without long-term current use of insulin ([facility]) ([facility]) URINE [id number]-JE-[id number] E RATIO (ACR) Routine 02/24/2022 14:26 EDT Type 2 diabetes mellitus with microalbuminuria, without long-term current use of insulin ([facility]) ([facility]) LIPID PROFILE (INCLUDES CHOLESTEROL, TRIGLYCERIDES, HDL, LDL) Routine 12/01/2019 11:27 EST COLONOSCOPY PROCEDURE Routine 03/28/2013 from Last 3 Months or Most Recently Relevant to Health Maintenance Results * (ABNORMAL) URINE KYWLWYY-AD-IHZEUXFMIV RATIO (ACR) (02/24/2022 14:26 EDT) Albumin, Urine 8.4 See Note mg/dL 2021 16:02 T [facility] Comment: NOTE: Reference range not established Creatinine, Urine 99.5 See Note mg/dL 02/24/2022 16:02 T [facility] Comment: NOTE: Reference range not established Lab Urine Albumin to Creatinine Ratio 84(H) <30 ??g/mg Creatinine 02/24/2022 16:02 EDT [facility] Comment: Urine Albumin/Creatinine Ratio: Normal: <30 ug/mg Creatinine Moderately increased albuminuria: 30-300 ug/mg Creatinine Severley increased albuminuria: >300 ug/mg Creatinine Urine URINE SPECIMEN COLLECTION, CLEAN CATCH / Unknown Urine Collect / Unknown 02/24/2022 14:26 EDT 02/24/2022 15:14 EDT Kameron Lee MD CHEMISTRY & BLOOD GAS ORDERABLES Performing Organization Address City/[facility]/ZIP Co de Phone Number [facility] [address] [place] [address] * (ABNORMAL) HEMOGLOBIN A1C (02/24/2022 14:26 EDT) Hemoglobin A1c 8.2(H) <5.7 % 02/24/2022 21:29 EDT [facility] Comment: Glycemic Status References: Normal: ??<5.7% Pre-Diabetes: ??5.7% - 6.4% Diagnostic of Diabetes: ??> or = 6.5% (if confirmed) Est Avg Glucose 189 mg/dL 21:29 EDT [facility] Comment:The eAG represents t he A1c result expressed as average glucose in mg/dL. Blood VENOUS BLOOD / Unknown Venipuncture / Unknown 02/24/2022 14:26 EDT 02/24/2022 14:52 EDT Kameron Lee MD CHEMISTRY & BLOOD GAS ORDERABLES Performing Organization Address City/[facility]/ZIP Co de Phone Number [facility] [address] [place] [address] * (ABNORMAL) BASIC METABOLIC PANEL (BMP) (02/24/2022 14:26 EDT) Sodium 136 136 - 145 mmol/L 02/24/2022 15:22 EDT [facility] Potassium 5.5(H) 3.5 - 5.0 mmol/L 02/24/2022 15:22 [facility] Chloride 101 96 - 110 mmol/L 02/24/2022 15:22 [facility] CO2 Total 23 22 - 32 mmol/L 02/24/2022 15:22 [facility] Anion Gap 12 5 - 14 02/24/2022 15:22 [facility] Glucose 235(H) 70 - 100 mg/dL 02/24/2022 15:22 [facility] Calcium 9.6 8.5 - 10.5 mg/dL 02/24/2022 15:22 [facility] BUN 44(H) 10 - 26 mg/dL 02/24/2022 15:22 [facility] Creatinine 1.89(H) 0.66 - 1.25 mg/dL 02/24/2022 15:22 [facility] eGFR 37(L) >60 mL/min/1.73 m2 02/24/2022 15:22 [facility] Blood VENOUS BLOOD / Unknown Venipuncture / Unknown 02/24/2022 14:26 EDT 02/24/2022 14:59 EDT Kameron Lee MD CHEMISTRY & BLOOD GAS ORDERABLES Performing Organization Address City/State/[facility] Co de Phone Number [facility] [address] [place] [address] * (ABNORMAL) LIPID PROFILE (INCLUDES CHOLESTEROL, TRIGLYCERIDES, HDL, LDL) (12/01/2019 11:27 EST) Triglyceride 211 <150 mg/dL 12/01/2019 12:16 [facility] Comment: Adult: Normal: ?<150 mg/dl ? Borderline High: 150-199 mg/dl ? High: ?200-499 mg/dl ? Very High: >tl=[id number] Cholesterol 109 <200 mg/dL 12/01/2019 12:16 [facility] Comment: Acceptable: ??<200 Borderline: ??200-239 High: ?> or = 240 Chol/HDL Ratio 3.7 0 - 5.0 12/01/2019 12:16 EST [facility] Comment: DESIRABLE RATIO IS LESS THAN 4.1 PATIENTS ARE CONSIDERED AT RISK: WOMEN RATIO >5 MEN RATIO >6 FASTING? - CV Yes 0 11:27 EST [facility] HDL 29(L) 40 - 60 mg/dL 12/01/2019 12:16 [facility] Comment: ?? Reference Range Low: ? < 40 ??mg/dL Normal: ??40-60 mg/dL High: ?>= 60 mg/dL LDL CHOLESTEROL - [facility] 38(L) 60 - 100 mg/dL 12/01/2019 12:16 [facility] Non HDL Cholesterol 80 mg/dl 12/01/2019 12:16 [facility] Comment: Desirable: ?Less than 130 Borderline High: ??130-159 High: ? 160-189 Very High: ?Greater than or equal to 190 12/01/2019 11:2 7 EST 12/01/2019 11:27 EST Narrative [facility] - 12/01/2019 12:16 EST Does PT Have a Latex Allergy? NO Kameron Lee MD CHEMISTRY & BLOOD GAS ORDERABLES [facility] * COLONOSCOPY (03/28/2013) Colonoscopy ABNORMAL [facility] Comment:REPEAT IN 2018 Colonoscopy, External [facility] Anatomical Region Laterality Modality Endoscopy 03/28/2013 Historical Provider GI PROCEDURE RICK OLEARY from Last 3 Months or Most Recently Relevant to Health Maintenance Advance Directives For more information, please contact: [phone] Documents on File Type Date Recorded Patient Building Construction Inspector Expl anation Advance Directive 09/02/2021 Power of A ttorney 09/02/21
--- OUTSIDE RECORDS SUMMARY | 2024-08-05 15:00 | XMS_ITS | Encounter Summary ---
Author Organization [facility] Address [address] [place] [address] Care Team Providers Care Charger Name Role Phone Kameron Lee MD Primary Care Provider [phone]- [phone] Reason for Referral * Laboratory Services (Routine/Next Available) - New Request Specialty Diagnoses / Procedures Referred By Contac t Referred To Contact Diagnoses Type 2 diabetes mellitus without complication, without long-term current use of insulin ([facility]) Procedures BASIC METABOLIC PANEL (BMP) Kameron Lee MD [address] [address] Referral ID Status Reason Start Date Expiration Date V isits Requested Visits Authorized [id number] New Request 01/30/2021 1 1 * Laboratory Services (Routine) - New Request Specialty Diagnoses / Procedures Referred By Contavel t Referred To Contact Diagnoses Type 2 diabetes mellitus without complication, without long-term current use of insulin ([facility]) Procedures URINE [id number]-PC-MRZBUFLLQZ RATIO (ACR) Kameron Lee MD [address] [address] Referral ID Status Reason Start Date Expiration Date V isits Requested Visits Authorized [id number] New Request 01/30/2021 1 1 * Laboratory Services (Routine) - New Request Specialty Diagnoses / Procedures Referred By Contac t Referred To Contact Diagnoses Type 2 diabetes mellitus without complication, without long-term current use of insulin ([facility]) Procedures HEMOGLOBIN A1C Kameron Lee MD [address] [address] Referral ID Status Reason Start Date Expiration Date V isits Requested Visits Authorized [id number] New Request 01/30/2021 1 1 Reason for Visit * Reason Comments Follow-up Diabetes follow up Encounter Details Date Type Department Care Team (Late st Contact Info) Description 01/30/2021 10:30 EST Office Visit [facility] Medicine - Main [address] [address] Kameron Lee MD [address] [place] [phone] Type 2 diabetes mellitus without complication, without long-term current use of insulin ([facility]) (Primary Dx); Essential hypertension; Stage 3a chronic kidney disease; Microalbuminuria; Smoker; Neuropathy of both feet Social History Tobacco Use Types Packs/Day Years [...] 10:10 EST documented as of this encounter Last Filed Vital Signs Vital Sign Reading Time Taken Comments Blood Pressure 138/78 01/30/2021 1026 EST Pulse 67 01/30/2021 1026 EST Temperature - - Respiratory Rate - - Oxygen Saturation 98% 01/30/2021 1026 EST Inhaled Oxygen Concentration - - Weight 106.6 kg (235 lb) 01/30/2021 1026 EST Height - - Body Mass Index 33.72 11/17/2018 0918 EST documented in this encounter [...] Progress Notes * Kameron Lee MD - 01/30/2021 1030 EST Family Medicine Office Visit Assessment & Plan Diagnoses and all orders for this visit: Type 2 diabetes mellitus without complication, without long-term current use of insulin ([facility])-russ side of control for age, would like A1c near low 7%. -lifestyle changes - HEMOGLOBIN A1C - URINE [id number]-[id number] RATIO (ACR) - BASIC METABOLIC PANEL (BMP) -continue glucotrol and glucophage Essential hypertension Stage 3a chronic kidney disease Microalbuminuria-stable at this time with elevated reading -home bp monitoring -continue lisinopril and metoprolol -continue ACEI and watch potassium value Smoker-pt not motivated to quit at this time -LDCT next visit (pt does not want to travel) Neuropathy of both feet-changed this year and pt feels that symptoms have lessened. -monitor Return in about 6 months (around 08/02/2021) for In person, 30 min for, DM, HTN, Lipids. Patient education was direct. Barriers were assessed and addressed as needed. Subjective Debra Batista is a 75 y.o. male presenting with Follow-up (Diabetes follow up) HPI HTN/CKD: Tolerating medication, making lifestyle changes. Home BP rarely. DM: making lifestyle changes, tolerates medication. Sometimes eats crabs. Avoid sugar. Smoke: smokes a pipe, amount varies (bowls). No thoughts of stopping or quitting. Smoking pipe for 50 yrs. Data reviewed this visit: problem list/past medical history, current medications and allergies Review of Systems - See HPI Objective BP 138/78 (BP Cuff Location: Right arm, BP Patient Position: Sitting, BP Cuff Sizes: Adult, large) Pulse 67 Wt (!) 106.6 kg (235 lb) SpO2 98% BMI 33.72 kg/m?? Physical Exam Exam: General: No distress, Head: A traumatic Neck- No masses, no adenopathy Respiratory- Clear breath sounds, good air entry, no wheezing, rales, or rhonchi CV- regular, rate, and rhythm, normal S1 and S2, +2 radial pulses Abdomen- soft non-tender to palpation, no rebound or guarding, normal bowel sounds Extremities- no edema, no skin discoloration. 10 point monofilament exam with neurologic deficits at right first toe. Some decrease on left at base of first toe. Other areas are fine. Labs Component Latest Ref Rng & Units 06/04/2020 Albumin 3.4 - 4.9 g/dL 4.3 ALKALINE PHOSPHATASE - [facility] 38 - 126 U/L 60 BILIRUBIN TOTAL - [facility] 0.2 - 1.3 mg/dL 0.7 BUN 10 - 26 mg/dL 34 (H) Calcium 8.5 - 10.5 mg/dL 9.9 Chloride 96 - 110 mmol/L 105 CO2 21 - 32 mEq/L 23 Creatinine 0.66 - 1.25 mg/dL 1.54 (H) GFR, Calculated 45 Anion Gap 0 - 18 11 Glucose, Serum 70 - 100 mg/dL 171 (H) Potassium 3.5 - 5.0 mEq/L 5.1 (H) Sodium 136 - 145 mEq/L 139 Total Protein 6.2 - 8.2 gm/dL 6.8 SGOT/AST - [facility] 17 - 59 U/L 23 SGPT/ALT - [facility] 0 - 50 U/L 22 Albumin, Urine <1.7 mg/dL 3.20 (H) Ur Alb ug/mg Crea ug/mg 59.9 Creatinine, U mg/dL 53.40 Hemoglobin A1C 4.0 - 6.0 % 7.7 (H) Est Avg Glucose mg/dL 174 Component Latest Ref Rng & Units 12/01/2019 Triglycerides <150 mg/dL 211 Cholesterol <200 mg/dL 109 Chol/HDL Ratio, External 0.0 - 5.0 3.7 Fasting? Yes HDL 40 - 60 mg/dL 29 (L) LDL Cholesterol 60 - 100 mg/dL 38 (L) Non HDL Cholesterol mg/dl 80 documented in this encounter Plan of Treatment Scheduled Orders Name Type Priority Associated Diagnoses Orde r Schedule URINE [id number] RATIO (ACR) Lab Routine Type 2 diabetes mellitus without complication, without long-term current use of insulin ([facility]) Ordered: 01/30/2021 documented as of this encounter Goals Goal Patient Goal Type Associated Problems Recent Progress Patient-Stated? Author Blood Pressure < 140/90 Blood Pressure Hypertensive disorder 112/70(2021 13:50 EDT) No Abbie Winter LPN [id number] XT < 7 Result Component 8.2( 9 14:15 EDT) No Abbie Winter LPN LDLEXT < 100 Result Component 76(05/13/2019 14:15 EDT) No Abbie Winter LPN documented as of this encounter Procedures Procedure Name Priority Date/Time Associated Diagnosis Comments MICROALBUMIN, URINE Routine 01/30/2021 1 1:05 EST Type 2 diabetes mellitus without complication, without long-term current use of insulin ([facility]) HEMOGLOBIN A1C Routine 01/30/2021 11:05 EST Type 2 diabetes mellitus without complication, without long-term current use of insulin ([facility]) BASIC METABOLIC PANEL (BMP) Routine 01/30/2021 11:05 EST Type 2 diabetes mellitus without complication, without long-term current use of insulin ([facility]) documented in this encounter Results * (ABNORMAL) MICROALBUMIN, URINE (01/30/2021 11:05 EST) Albumin, Urine 10.30(H) <1.7 mg/dL 01/30/2021 12:26 [facility] Lab Urine Albumin to Creatinine Ratio 202.7 ug/mg 01/30/2021 12:26 [facility] Comment: Normal: <30 ug/mg Creat Microalbuminuria: 30-300 ug/mg Creat Clinical albuminuria: >300 ug/mg Creat Creatinine, Urine 50.80 mg/dL 01/30/2021 12:26 [facility] 01/30/2021 11:0 5 EST 01/30/2021 11:05 EST [facility] - 01/30/2021 12:26 EST Does PT Have a Latex Allergy? NO WHAT TYPE OF COLLECTION IS THIS URINE? RANDOM URINE Kameron Lee MD HEMATOLOGY & PF4 O RDERABLES [facility] [address] [place] [address] * (ABNORMAL) BASIC METABOLIC PANEL (BMP) (01/30/2021 11:05 EST) BUN - [facility] 31(H) 10 - 26 mg/dL 01/30/2021 11:57 [facility] CALCIUM - [facility] 9.8 8.5 - 10.5 mg/dL 01/30/2021 11:57 [facility] Chloride 103 96 - 110 mmol/L 01/30/2021 11:57 [facility] CO2 Total 27 21 - 32 mEq/L 01/30/2021 11:57 [facility] CREATININE 1.59(H) 0.66 - 1.25 mg/dL 01/30/2021 11:57 [facility] eGFR 43 01/30/2021 11:57 [facility] Comment: Stage 3: Moderate renal impairment is defined as GFR 30-59 Multiply result by 1.210 for patients. Anion Gap 11 0 - 18 01/30/2021 11:57 [facility] GLUCOSE - [facility] 171(H) 70 - 100 mg/dL 01/30/2021 11:57 [facility] Potassium 4.7 3.5 - 5.0 mEq/L 01/30/2021 11:57 [facility] Sodium 141 136 - 145 mEq/L 01/30/2021 11:57 [facility] Blood VENOUS BLOOD / Unknown 01/30/2021 11:05 EST 01/30/2021 11:05 EST Narrative [facility] - 01/30/2021 11:57 EST Does PT Have a Latex Allergy? NO Kameron Lee MD CHEMISTRY & BLOOD GAS ORDERABLES Performing Organization Address [facility] Co de Phone Number [facility] [address] [place] [address] * (ABNORMAL) HEMOGLOBIN A1C (01/30/2021 11:05 EST) Hemoglobin A1c 8.4(H) 4.0 - 6.0 % 01/30/2021 12:46 EST [facility] Comment: > or =18 years: ??Increased risk for diabetes (prediabetes): 5.7-6.4% Diabetes: > or =6.5% Therapeutic goals for glycemic control (ADA) Adults: - Goal of therapy: <7.0% HbA1c - Action suggested: >8.0% HbA1c Pediatric patients: - Toddlers and preschoolers: <8.5% (but >7.5%) - School age (6-12 years): <8% - Adolescents and young adults (13-19 years): <7.5% Est Avg Glucose 194 mg/dL 12:46 EST [facility] Blood VENOUS BLOOD / Unknown 01/30/2021 11:05 EST 01/30/2021 11:05 EST Narrative [facility] - 01/30/2021 12:46 EST Does PT Have a Latex Allergy? NO Kameron Lee MD CHEMISTRY & BLOOD GAS ORDERABLES Performing Organization Address 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
--- OUTSIDE RECORDS SUMMARY | 2024-08-05 15:00 | XMS_ITS | Encounter Summary ---
Author Organization [facility] Address [address] [place] [address] Care Team Providers Care Top Installer Name Role Phone Kameron Lee MD Primary Care Provider +1- [phone] Reason for Visit * Reason Comments Other Encounter Details Date Type Department Care Team (Late st Contact Info) Description 06/30/2021 Refill [facility] [address] [address] Kameron Lee MD [address] [place] [phone] Other Social History Tobacco Use Types Packs/Day Years Used Date Smoking Tobacco: Every Day Cigarettes Pipe Smokeless Tobacco: Former Comments:pipe Alcohol Use Standard Drinks/Week Comments Yes 0 (1 standard drink = 0.6 oz pur e alcohol) beer on [facility] Interpersonal Safety Answer Date Record ed Physically [...] End Da te lisinopriL (PRINIVIL) 40 mg tabletIndications:Deysi al hypertension TAKE ONE TABLET BY MOUTH EVERY DAY 90 Tablet 07/02/2021 09/02/2021 glipiZIDE (GLUCOTROL) 10 mg XL tabletIndications:Type 2 diabetes mellitus without complication, without long-term current use of insulin ([facility]) TAKE ONE TABLET BY MOUTH EVERY DAY 90 Tablet 07/02/2021 09/02/2021 metoprolol SUCCinate (TOPROL-XL) 50 mg tabletIndications:Isaacenti al hypertension TAKE ONE TABLET BY MOUTH EVERY DAY 90 Tablet 07/02/2021 09/02/2021 documented in this encounter Miscellaneous Notes * Telephone Encounter - Conchis Finney RN - 07/02/2021 1056 EDT lisinopriL (PRINIVIL) 40 mg tablet [[id number]] ?? Order Details Dose: 40 mg Route: oral Frequency: DAILY Dispense Quantity: 90 Tablet Refills: 3 ?? Sig: Take 1 Tab by mouth daily. ?? Start Date: 06/15/20 End Date: -- Written Date: 06/15/20 Expiration Date: -- ?? glipiZIDE (GLUCOTROL) 10 mg XL tablet [[id number]] ?? Order Details Dose: 10 mg Route: oral Frequency: DAILY Dispense Quantity: 90 Tablet Refills: 3 ?? Sig: Take 1 Tab by mouth daily. ?? Start Date: 06/26/20 End Date: -- Written Date: 06/26/20 Expiration Date: -- ?? metoprolol XL (TOPROL-XL) 50 mg tablet [[id number]] ?? Order Details Dose: 50 mg Route: oral Frequency: DAILY Dispense Quantity: 90 Tablet Refills: 3 ?? Sig: Take 1 Tab by mouth daily. ?? Start Date: 06/15/20 End Date: -- Written Date: 06/15/20 Next visit- none Last visit- 01/30/21 documented in this encounter Plan of Treatment Not on file documented as of this encounter Goals Goal Patient Goal Type Associated Problems Recent Progress Patient-Stated? Author Blood Pressure < 140/90 Blood Pressure Hypertensive disorder 112/70(2021 13:50 EDT) No Abbie Winter LPN [id number] XT < 7 Result Component 8.2( 9 14:15 EDT) No Abbie Winter LPN LDLEXT < 100 Result Component 76(05/13/2019 14:15 EDT) No Abbie Winter LPN documented as of this encounter Visit Diagnoses Diagnosis Essential hypertension Unspecified essential hypertension Type 2 diabetes mellitus without complication, without long-term current use of insulin ([facility]) documented in this encounter Discontinued Medications Medication Sig Discontinue Reason Start Date End Da te lisinopriL (PRINIVIL) 40 mg tabletIndications:Essentia l hypertension Take 1 Tab by mouth daily. 06/15/2020 07/02/2021 metoprolol XL (TOPROL-XL) 50 mg tabletIndications:Essentia l hypertension Take 1 Tab by mouth daily. 06/15/2020 07/02/2021 glipiZIDE (GLUCOTROL) 10 mg XL tabletIndications:Type 2 diabetes mellitus without complication, without long-term current use of insulin ([facility]) Take 1 Tab by mouth daily. 06/26/2020 07/02/2021 documented as of this encounter Care Teams Top Installer Relationship Specialty Start Date End Date Kameron Lee MD [address] [place] [phone] PCP - General 06/14/19 04/28/23 documented as of this encounter
--- OUTSIDE RECORDS SUMMARY | 2024-08-05 15:00 | XMS_ITS | Encounter Summary ---
Author Organization [facility] Address [address] [place] [address] Care Team Providers Care Rotor Winder Name Role Phone Kameron Lee MD Primary Care Provider +1- [phone] Reason for Visit * Reason Onset Date Comments Medications Refill 06/26/2020 Encounter Details Date Type Department Care Team (Late st Contact Info) Description 06/26/[address] [address] Kameron Lee MD [address] [place] [phone] Medications Refill Social History Tobacco Use Types Packs/Day Years Used Date Smoking Tobacco: Every Day Cigarettes Smokeless Tobacco: Former Comments:pipe Alcohol Use Standard Drinks/Week Comments Yes 0 (1 standard drink = 0.6 oz pur e alcohol) beer on [facility] Interpersonal Safety Answer Date Record ed Physically [...] complication, without long-term current use of insulin ([facility]) Take 1 Tab by mouth daily. 90 Tab 3 06/26/2020 07/02/2021 documented in this encounter Miscellaneous Notes * Telephone Encounter - Genny Dukes RN - 06/26/2020 1627 EDT Last Refill Date: 05/13/19 Last Visit Date with Ordering Provider: 06/04/20 Next Visit Date as it relates to the requested medication: No. Last Related Labs Date: 06/04/20 GENNY DUKES RN 06/26/2020 16:27 Renewed. * Telephone Encounter - Rolando Matias - 06/26/2020 0831 EDT Medication(s) Requested: Glipizide Preferred Pharmacy: [facility] Last refill date: 05/13/19 Last appointment with PCP: 06/04/2020 Is patient out of medication? Joanne Matias 06/26/2020 8:31 documented in this encounter Plan of Treatment Not on file documented as of this encounter Goals Goal Patient Goal Type Associated Problems Recent Progress Patient-Stated? Author Blood Pressure < 140/90 Blood Pressure Hypertensive disorder 112/70(2021 13:50 EDT) No Abbie Winter LPN [id number] XT < 7 Result Component 8.2( 9 14:15 EDT) No Abbie Winter LPN LDLEXT < 100 Result Component 76(05/13/2019 14:15 EDT) No Abbie Winter LPN documented as of this encounter Visit Diagnoses Diagnosis Type 2 diabetes mellitus without complication, without long-term current use of insulin ([facility])- Primary documented in this encounter Discontinued Medications Medication Sig Discontinue Reason Start Date End Da te glipiZIDE (GLUCOTROL) 10 mg XL tabletIndications:Type 2 diabetes mellitus without complication, without long-term current use of insulin ([facility]) Take 1 Tab by mouth daily. Reorder 05/13/2019 06/26/2020 documented as of this encounter Care Teams Rotor Winder Relationship Specialty Start Date End Date Kameron Lee MD [address] [place] [phone] PCP - General 06/14/19 04/28/23 documented as of this encounter
--- OUTSIDE RECORDS SUMMARY | 2024-08-05 15:00 | XMS_ITS | Encounter Summary ---
Author Organization [facility] Address [address] [place] [address] Care Team Providers Care Phone Specialist Name Role Phone Kameron Lee MD Primary Care Provider [phone]- [phone] Reason for Referral * Laboratory Services (Routine) - New Request Specialty Diagnoses / Procedures [facility] To Contact Diagnoses Hyperkalemia Procedures COMPREHENSIVE METABOLIC PANEL (CMP) Kameron Lee MD [address] [phone] Referral ID Status Reason Start Date Expiration Date V isits Requested Visits Authorized [id number] New Request 06/04/2020 1 1 Reason for Visit * Reason Comments Follow-up Patient here for fol low up on HTN, DM and CKD Fall Risk Assessment Please complete fal l risk screening Encounter Details Date Type Department Care Team (Late st Contact Info) Description 06/04/2020 8:15 EDT Office Visit [facility] [address] [address] Kameron Lee MD [address] [phone] Essential hypertension (Primary Dx); CKD (chronic kidney disease) stage 3, GFR 30-59 ml/min ([facility]); Type 2 diabetes mellitus without complication, without long-term current use of insulin ([facility]); Smoker; Obesity (BMI 30-39.9); Hyperkalemia Social History Tobacco Use Types Packs/Day Years [...] 8:01 EDT documented as of this encounter Last Filed Vital Signs Vital Sign Reading Time Taken Comments Blood Pressure 132/80 06/04/2020 08 EDT Pulse 62 06/04/2020 0816 EDT Temperature 36.5 ??C (97.7 ??F) 06/04/2020 0816 EDT Respiratory Rate - - Oxygen Saturation 98% 06/04/2020 0816 EDT Inhaled Oxygen Concentration - - Weight 105.2 kg (232 lb) 06/04/2020 0816 EDT Height - - Body Mass Index 33.29 11/17/2018 0918 EST documented in this encounter [...] Progress Notes * Kameron Lee MD - 06/04/2020 0815 EDT Family Medicine Office Visit Assessment & Plan Diagnoses and all orders for this visit: Stable individual no acute issues at this time. Hypertension: Near controlled. -Continue Toprol and lisinopril. CKD-stable with albumin anuria. -Continue lisinopril -BMP. Diabetes-uncontrolled -Patient making lifestyle changes -continue Metformin and Glucotrol -Hemoglobin A1c today. -Pt to schedule Eye exam Smoker: Patient motivated to quit -3 minutes of counseling given Obesity -Lifestyle changes Hyperkalemia: Pt not interestsed in kayexalate (I10) Essential hypertension (primary encounter diagnosis) (N18.3) CKD (chronic kidney disease) stage 3, GFR 30-59 ml/min ([facility]) (E11.9) Type 2 diabetes mellitus without complication, without long-term current use of insulin ([facility]) Plan: HEMOGLOBIN A1C, ALBUMIN, URINE (F17.200) Smoker (E66.9) Obesity (BMI 30-39.9) (E87.5) Hyperkalemia Plan: COMPREHENSIVE METABOLIC PANEL (CMP) No follow-ups on file. Patient education was direct. Barriers were assessed and addressed as needed. Saba Batista is a 74 y.o. male. Follow-up (Patient here for follow up on HTN, DM and CKD) and Fall Risk Assessment (Please complete fall risk screening) HPI DM: making lifestyle changes, tolerates medication. Pt states that has eaten a lot of carbs lately. Not watching diet. ?? Lipids: Watching fat intake, modifying diet, not on statin. ?? HTN: Tolerating medication, making lifestyle changes. ?? Potassium: Patient not interested in taking Kayexalate. Dates that he feels fine. Tobacco: Smokes pipes, not ready to give up. ?? No nausea, vomiting, diarrhea, or fever. No cough, wheezing, sneezing, running nose, or phlegm. No headache, dizziness, or neurologic deficits. Data reviewed this visit: problem list and past medical history, current medications and allergies Review of Systems - See HPI Objective BP 132/80 (BP Cuff Location: Right arm, BP Patient Position: Sitting, BP Cuff Sizes: Adult, regular) Pulse 62 Temp 36.5 ??C (97.7 ??F) (Tympanic) Wt (!) 105.2 kg (232 lb) SpO2 98% BMI 33.29kg/m?? Vitals - All readings by Timestamp 05/13/2019 12/05/2019 06/04/2020 Pt Position Sitting Sitting Sitting Cuff Location Right arm Right arm Right arm BP (mmHg) 122/74 146/82 132/80 Physical Exam Constitutional: He is oriented to person, place, and time. He appears well- developed and well-nourished. HENT: Head: Normocephalic and atraumatic. Neck: Neck supple. No JVD present. No tracheal deviation present. No thyromegaly present. Cardiovascular: Normal rate, regular rhythm and normal heart sounds. Exam reveals no gallop and no friction rub. No murmur heard. Pulmonary/Chest: Effort normal. No stridor. No respiratory distress. He has no wheezes. He has no rales. Abdominal: Soft. Bowel sounds are normal. He exhibits no distension and no mass. There is no tenderness. There is no rebound and no guarding. Musculoskeletal: Normal range of motion. He exhibits no edema or deformity. Lymphadenopathy: He has no cervical adenopathy. Neurological: He is alert and oriented to person, place, and time. Skin: Skin is warm and dry. No rash noted. No erythema. Nursing note and vitals reviewed. 10 point monofilament exam with no neurologic deficits bilaterally. documented in this encounter Plan of Treatment Not on file documented as of this encounter Goals Goal Patient Goal Type Associated Problems Recent Progress Patient-Stated? Author Blood Pressure < 140/90 Blood Pressure Hypertensive disorder 112/70(2021 13:50 EDT) No [place], CORPORATE LEGAL SECRETARY [id number] XT < 7 Result Component 8.2( 9 14:15 EDT) No [place], CORPORATE LEGAL SECRETARY LDLEXT < 100 Result Component 76(05/13/2019 14:15 EDT) No [place], Abbie, CORPORATE LEGAL SECRETARY documented as of this encounter Procedures Procedure Name Priority Date/Time Associated Diagnosis Comments MICROALBUMIN, URINE Routine 06/04/2020 8 :54 EDT Essential hypertension HEMOGLOBIN A1C Routine 06/04/2020 8:54 EDT Essential hypertension COMPREHENSIVE METABOLIC PANEL (CMP) Routine 06/04/2020 8:53 EDT Hyperkalemia documented in this encounter Results * (ABNORMAL) HEMOGLOBIN A1C (06/04/2020 8:54 EDT) Hemoglobin A1c 7.7(H) 4.0 - 6.0 % 06/04/2020 11:27 EDT [facility] Comment: > or =18 years: ??Increased risk for diabetes (prediabetes): 5.7-6.4% Diabetes: > or =6.5% Therapeutic goals for glycemic control (ADA) Adults: - Goal of therapy: <7.0% HbA1c - Action suggested: >8.0% HbA1c Pediatric patients: - Toddlers and preschoolers: <8.5% (but >7.5%) - School age (6-12 years): <8% - Adolescents and young adults (13-19 years): <7.5% Est Avg Glucose 174 mg/dL 0 11:27 EDT [facility] 06/04/2020 8:54 EDT 06/04/2020 8:54 EDT Narrative [facility] - 06/04/2020 11:27 EDT Does PT Have a Latex Allergy? NO Kameron Lee MD CHEMISTRY & BLOOD GAS ORDERABLES Performing Organization Address [facility] [[email or web address]] Co de Phone Number [facility] [address] [place] [address] * (ABNORMAL) MICROALBUMIN, URINE (06/04/2020 8:54 EDT) Albumin, Urine 3.20(H) <1.7 mg/dL 06/04/2020 10:48 EDT [facility] Urine Albumin to Creatinine Ratio 59.9 ug/mg 06/04/2020 10:48 EDT [facility] Comment: Normal: <30 ug/mg Creat Microalbuminuria: 30-300 ug/mg Creat Clinical albuminuria: >300 ug/mg Creat Creatinine, Urine 53.40 mg/dL 06/04/2020 10:41 EDT [facility] 06/04/2020 8:54 EDT 06/04/2020 8:54 EDT Narrative [facility] - 06/04/2020 10:48 EDT Does PT Have a Latex Allergy? NO WHAT TYPE OF COLLECTION IS THIS URINE? RANDOM URINE Kameron Lee MD HEMATOLOGY & PF4 O RDERABLES [facility] [address] [place] [address] * (ABNORMAL) COMPREHENSIVE METABOLIC PANEL (CMP) (06/04/2020 8:53 EDT) Albumin % 4.3 3.4 - 4.9 g/dL 06/04/2020 11:14 [facility] ALKALINE PHOSPHATASE - [facility] 60 38 - 126 U/L 06/04/2020 11:14 [facility] BILIRUBIN TOTAL 0.7 0.2 - 1.3 mg/dL 06/04/2020 11:14 [facility] BUN - [facility] 34(H) 10 - 26 mg/dL 06/04/2020 11:14 [facility] CALCIUM - [facility] 9.9 8.5 - 10.5 mg/dL 06/04/2020 11:14 [facility] Chloride 105 96 - 110 mmol/L 06/04/2020 11:14 [facility] CO2 Total 23 21 - 32 mEq/L 06/04/2020 11:14 [facility] CREATININE 1.54(H) 0.66 - 1.25 mg/dL 06/04/2020 11:14 [facility] eGFR 45 06/04/2020 11:14 [facility] Comment: Stage 3: Moderate renal impairment is defined as GFR 30-59 Multiply result by 1.210 for patients. Anion Gap 11 0 - 18 06/04/2020 11:14 [facility] GLUCOSE - [facility] 171(H) 70 - 100 mg/dL 06/04/2020 11:14 [facility] Potassium 5.1(H) 3.5 - 5.0 mEq/L 06/04/2020 11:14 [facility] Sodium 139 136 - 145 mEq/L 06/04/2020 11:14 [facility] TOTAL PROTEIN - [facility] 6.8 6.2 - 8.2 gm/dL 06/04/2020 11:14 [facility] SGOT/AST - [facility] 23 17 - 59 U/L 06/04/2020 11:14 EDT [facility] SGPT/ALT - [facility] 22 0 - 50 U/L 0 11:14 EDT [facility] Blood VENOUS BLOOD / Unknown 06/04/2020 8:53 EDT 06/04/2020 8:53 EDT Narrative [facility] - 06/04/2020 11:14 EDT Does PT Have a Latex Allergy? NO Kameron Lee MD CHEMISTRY & BLOOD GAS ORDERABLES [facility] [address] [place] [address] documented in this encounter Visit Diagnoses Diagnosis Essential hypertension- Primary Unspecified essential hypertension CKD (chronic kidney disease) stage 3, GFR 30-59 ml/min ([facility]) Chronic kidney disease, Stage III (moderate) Type 2 diabetes mellitus without complication, without long-term current use of insulin ([facility]) Smoker Tobacco use disorder Obesity (BMI 30-39.9) Obesity, unspecified Hyperkalemia Hyperpotassemia documented in this encounter Care Teams Phone Specialist Relationship Specialty Start Date End Date Kameron Lee MD [address] [facility] [address] [place] [phone] PCP - General 06/14/19 04/28/23 documented as of this encounter
--- OUTSIDE RECORDS SUMMARY | 2024-08-05 15:00 | XMS_ITS | Encounter Summary ---
Author Organization [facility] Address [address] [place] [address] Care Team Providers Care Gauntlet Pairer Name Role Phone Kameron Lee MD Primary Care Provider +1- [phone] Encounter Details Date Type Department Care Team (Latest Contact Info) Description 09/12/2021 Travel Social History Tobacco Use Types Packs/Day [...] 112/70(2021 13:50 EDT) No Abbie Winter LPN [id number] XT < 7 Result Component 8.2( 9 14:15 EDT) No Abbie Winter LPN LDLEXT < 100 Result Component 76(05/13/2019 14:15 EDT) No Abbie Winter LPN documented as of this encounter Visit Diagnoses Not on filedocumented in this encounter Care Teams Gauntlet Pairer Relationship Specialty Start Date End Date Kameron Lee MD [address] [place] [phone] PCP - General 06/14/19 04/28/23 documented as of this encounter
--- OUTSIDE RECORDS SUMMARY | 2024-08-05 15:00 | XMS_ITS | Encounter Summary ---
Author Organization [facility] Address [address] [place] [address] Care Team Providers Care Service Or Work Dispatcher Chief Name Role Phone Kameron Lee MD Primary Care Provider +1- [phone] Reason for Visit * Reason Comments Other Encounter Details Date Type Department Care Team (Late st Contact Info) Description 12/28/2021 Refill [facility] Medicine - [address] [address] Kameron Lee MD [address] [place] [phone] Other Social History Tobacco Use Types Packs/Day Years Used Date Smoking Tobacco: Every Day Cigarettes Pipe Smokeless Tobacco: Former Comments:pipe Alcohol Use Standard Drinks/Week Comments Yes 0 (1 standard drink = 0.6 oz pur e alcohol) beer on [facility] Interpersonal Safety Answer Date Record ed Physically [...] TABLET BY MOUTH EVERY DAY 90 Tablet 12/30/2021 06/30/2022 metFORMIN (GLUCOPHAGE) 1,000 mg tabletIndications:Type 2 diabetes mellitus without complication, without long-term current use of insulin ([facility]) TAKE ONE TABLET BY MOUTH TWICE A DAY 180 Tablet 12/30/2021 07/01/2022 documented in this encounter Miscellaneous Notes * Telephone Encounter - Diane Chicas RN - 12/30/2021 1853 EST Provided 90 day refill to bridge to appointment * Telephone Encounter - Dallas Oneal - 12/30/2021 1251 EST Scheduled 02/24/2022 * Telephone Encounter - Hilda Waterman - 12/30/2021 1039 EST LMTCB to schedule * Telephone Encounter - Tirso Byers - 12/30/2021 0825 EST Requested Prescriptions Pending Prescriptions Disp Refills ??? metFORMIN (GLUCOPHAGE) 1,000 mg tablet [Pharmacy Med Name: METFORMIN HCL 1,000 MG TABLET] 180 Tablet 3 Sig: TAKE ONE TABLET BY MOUTH TWICE A DAY ??? atorvastatin (LIPITOR) 10 mg tablet [Pharmacy Med Name: ATORVASTATIN 10 MG TABLET] 90 Tablet 3 Sig: TAKE ONE TABLET BY MOUTH EVERY DAY Pharmacy: [facility] Last Refill Date: 01/10/21 Last Visit Date: 09/02/21 Next Non-Acute Visit Date Scheduled with Care Team: Visit date not found Per PCP, return in February 2022 for follow up on DM, HTN, lipids. Looks like February visit was cancelled so routing to SS to rescheduled prior to filling. TIRSO BYERS RN 12/30/2021 8:25 documented in this encounter Plan of Treatment Not on file documented as of this encounter Goals Goal Patient Goal Type Associated Problems Recent Progress Patient-Stated? Author Blood Pressure < 140/90 Blood Pressure Hypertensive disorder 112/70(2021 13:50 EDT) No Abbie Winter LPN [id number] XT < 7 Result Component 8.2( 9 14:15 EDT) No Abbie Winter LPN LDLEXT < 100 Result Component 76(05/13/2019 14:15 EDT) No Abbie Winter LPN documented as of this encounter Visit Diagnoses Diagnosis Type 2 diabetes mellitus without complication, without long-term current use of insulin ([facility] Primary documented in this encounter Discontinued Medications Medication Sig Discontinue Reason Start Date End Da te metFORMIN (GLUCOPHAGE) 1,000 mg tabletIndications:Type 2 diabetes mellitus without complication, without long-term current use of insulin ([facility]) TAKE ONE TABLET BY MOUTH TWICE A DAY 01/10/2021 12/30/2021 atorvastatin (LIPITOR) 10 mg tabletIndications:Type 2 diabetes mellitus without complication, without long-term current use of insulin ([facility]) TAKE ONE TABLET BY MOUTH EVERY DAY 01/10/2021 12/30/2021 documented as of this encounter Care Teams Service Or Work Dispatcher Chief Relationship Specialty Start Date End Date Kameron Lee MD [address] [place] [phone] PCP - General 06/14/19 04/28/23 documented as of this encounter
--- OUTSIDE RECORDS SUMMARY | 2024-08-05 15:01 | XMS_ITS | Encounter Summary ---
Author Organization [facility] Address [address] [place] [address] Care Team Providers Care Valve Seater Operator Name Role Phone Ramón Olguin MD Primary Care Provider Kameron Lee MD Primary Care Provider +1- [phone] Encounter Details Date Type Department Care Team (Late st Contact Info) Description 05/13/2019 Historical Results Only [facility] - Main [place] [address] [place], [place] [id number] Ramón Olguin MD [address] [place] [phone] Social History Tobacco Use Types Packs/Day Years [...] 112/70(2021 13:50 EDT) No Abbie Winter LPN [id number] XT < 7 Result Component 8.2( 9 14:15 EDT) No Abbie Winter LPN LDLEXT < 100 Result Component 76(05/13/2019 14:15 EDT) No Abbie Winter LPN documented as of this encounter Procedures Procedure Name Priority Date/Time Associated Diagnosis Comments LIPID PROFILE (INCLUDES CHOLESTEROL, TRIGLYCERIDES, HDL, LDL) Routine 05/13/2019 14:15 EDT documented in this encounter Results * (ABNORMAL) LIPID PROFILE (INCLUDES CHOLESTEROL, TRIGLYCERIDES, HDL, LDL) (05/13/2019 14:15 EDT) Triglyceride 247 <150 mg/dL 05/13/2019 14:41 [facility] Comment: Adult: Normal: ?<150 mg/dl ? Borderline High: 150-199 mg/dl ? High: ?200-499 mg/dl ? Very High: >ky=646 Cholesterol 155 <200 mg/dL 05/13/2019 14:41 [facility] Comment: Acceptable: ??<200 Borderline: ??200-239 High: ?> or = 240 Chol/HDL Ratio 5.1(H) 0 - 5.0 05/13/2019 14:41 [facility] Comment: DESIRABLE RATIO IS LESS THAN 4.1 PATIENTS ARE CONSIDERED AT RISK: WOMEN RATIO >5 MEN RATIO >6 FASTING? - [facility] 14:16 [facility] HDL 30(L) 40 - 60 mg/dL 05/13/2019 14:41 [facility] Comment: ?? Reference Range Low: ? < 40 ??mg/dL Normal: ??40-60 mg/dL High: ?>= 60 mg/dL LDL CHOLESTEROL - [facility] 76 60 - 100 mg/dL 05/13/2019 14:41 EDT [facility] Non HDL Cholesterol 125 mg/dl 05/13/2019 14:41 EDT [facility] Comment: Desirable: ?Less than 130 Borderline High: ??130-159 High: ? 160-189 Very High: ?Greater than or equal to 190 05/13/2019 14:1 5 EDT 05/13/2019 14:15 EDT Narrative [facility] - 05/13/2019 14:41 EDT Does PT Have a Latex Allergy? NO Ramón Olguin MD CHEMISTRY & BL OOD GAS ORDERABLES [facility] documented in this encounter Visit Diagnoses Not on filedocumented in this encounter Care Teams Valve Seater Operator Relationship Specialty Start Date End Date Ramón Olguin MD [address] [place] [address] [address] [place] [phone] PCP - General 06/15/09 06/13/19 aKmeron Lee MD [address] [place] [address] [address] [place] [phone] PCP - General 06/14/19 04/28/23 documented as of this encounter
--- OUTSIDE RECORDS SUMMARY | 2024-08-05 15:01 | XMS_ITS | Encounter Summary ---
Author Organization [facility] Address [address] [place] [address] Care Team Providers Care Hangersmith Name Role Phone Ramón Olguin MD Primary Care Provider Reason for Visit * Reason Onset Date Comments Medications Refill 02/26/2017 Encounter Details Date Type Department Care Team (Late st Contact Info) Description 02/26/2017 Refill [facility] [address] [facility] [address] [place] [address] Ramón Olguin MD [address] [place] [address] [address] [place] [phone] Medications Refill Social History Tobacco Use Types [...] visiting a doctor's office or shopping? No 07/09/2016 Cognitive Status Response Date of Assessm ent Because of a physical, menta l, or emotional condition, does this person have serious difficulty concentrating, remembering, or making decisions? No 07/09/2016 documented as of this encounter Ordered Prescriptions Prescription Sig Dispensed Refills Start Date End Da te atorvastatin (LIPITOR) 10 mg tablet TAKE ONE TABLET BY MOUTH EVERY DAY 90 Tab 2 02/26/2017 11/13/2017 documented in this encounter Miscellaneous Notes * Telephone Encounter - Ebony Delarosa RN - 02/26/2017 0829 EDT Medication(s) Requested: Atorvastatin Preferred Pharmacy: [facility] [place] Is patient out of medication? Unknown Last Refill Date: 03/03/16 90/3 refills Last Visit Date with Ordering Provider: 12/03/16 Next Visit Date as it relates to the requested medication: No. Last Related Labs Date: 12/03/16 LIPIDS Ebony Delarosa RN 02/26/2017 8:29 documented in this encounter Plan of Treatment Not on file documented as of this encounter Goals Goal Patient Goal Type Associated Problems Recent Progress Patient-Stated? Author Blood Pressure < 140/90 Blood Pressure Hypertensive disorder 112/70(2021 13:50 EDT) No Abbie Winter LPN [id number] XT < 7 Result Component 8.2( 9 14:15 EDT) No Abbie Winter LPN LDLEXT < 100 Result Component 76(05/13/2019 14:15 EDT) No Abbie Winter LPN documented as of this encounter Visit Diagnoses Not on filedocumented in this encounter Discontinued Medications Medication Sig Discontinue Reason Start Date End Da te atorvastatin (LIPITOR) 10 mg tablet Take 1 Tab by mouth daily. Reorder 03/03/2016 02/26/2017 documented as of this encounter Care Teams Hangersmith Relationship Specialty Start Date End Date Ramón Olguin MD [address] [place] [phone] PCP - General 06/15/09 06/13/19 documented as of this encounter
--- OUTSIDE RECORDS SUMMARY | 2024-08-05 15:01 | XMS_ITS | Encounter Summary ---
Author Organization [facility] Address [address] [place] [address] Care Team Providers Care Academic Assistant Name Role Phone Ramón Olguin MD Primary Care Provider Reason for Visit * Reason Comments Other Encounter Details Date Type Department Care Team (Late st Contact Info) Description 01/31/2018 Refill [facility] [address] [facility] [address] [place] [address] Ramón Olguin MD [address] [place] [address] [address] [place] [phone] Other Social History Tobacco Use Types Packs/Day [...] 1,000 mg tabletIndications:Type 2 diabetes mellitus without complication (HCC-CMS) TAKE ONE TABLET BY MOUTH TWICE A DAY 180 Tab 02/01/2018 05/21/2018 documented in this encounter Miscellaneous Notes * Telephone Encounter - Angela Jaeger, RN - 02/01/2018 0786 EDT Medication(s) Requested: metformin Preferred Pharmacy: [facility] Is patient out of medication? unknown Last Refill Date: 02/18/17 Last Visit Date with Ordering Provider: 09/18/17 with labs Next Non-Acute Visit Date Scheduled with Care Team: Angela Jaeger RN 02/01/2018 7:28 documented in this encounter Plan of Treatment Not on file documented as of this encounter Goals Goal Patient Goal Type Associated Problems Recent Progress Patient-Stated? Author Blood Pressure < 140/90 Blood Pressure Hypertensive disorder 112/70(2021 13:50 EDT) No Abbie Winter LPN [id number] XT < 7 Result Component 8.2( 9 14:15 EDT) No Abbie Winter LPN LDLEXT < 100 Result Component 76(05/13/2019 14:15 EDT) No Abbie Winter LPN documented as of this encounter Visit Diagnoses Diagnosis Type 2 diabetes mellitus without complication (HCC-CMS)- Primary Type II or unspecified type diabetes mellitus without mention of complication, not stated as uncontrolled documented in this encounter Discontinued Medications Medication Sig Discontinue Reason Start Date End Da te metFORMIN (GLUCOPHAGE) 1,000 mg tabletIndications:Type 2 diabetes mellitus without complication (HCC-CMS) TAKE ONE TABLET BY MOUTH TWICE A DAY Reorder 02/18/2017 01/31/2018 documented as of this encounter Care Teams Academic Assistant Relationship Specialty Start Date End Date Ramón Olguin MD [address] [place] [phone] PCP - General 06/15/09 06/13/19 documented as of this encounter
--- OUTSIDE RECORDS SUMMARY | 2024-08-05 15:01 | XMS_ITS | Encounter Summary ---
Author Organization [facility] Address [address] [place] [address] Care Team Providers Care Bonsai Culturist Name Role Phone Ramón Olguin MD Primary Care Provider Reason for Visit * Reason Comments Diabetes Last A1C 6.9 Encounter Details Date Type Department Care Team (Late st Contact Info) Description 07/22/2017 8:30 EDT Office Visit [facility] [address] [place] [address] John Lott MD [address] [place] [phone] Social History Tobacco Use Types Packs/Day Years [...] No 07/09/2016 documented as of this encounter Progress Notes * John Lott MD - 07/22/2017 4680 EDT Chief Complaint Patient presents with ??? Diabetes Last A1C 6.9 HPI The patient is a 71 y.o. male here for yearly diabetic eye exam/follow up visit. He reports that maria ines longer is taking Plaquenil, stopped shortly after starting due to side effects. He has stable vision, finding difficulty with focus when changing from near to far, has no eye pain, double vision, or new flashes/floaters. Right Eye: NL Left Eye: NL Visual Aid: Glasses (OTC readers) Current Rx Age Location: Pain: 0 - No pain Quality: Severity: Duration: Timing: Lasts: Context: Last A1C was 6.9. He is no longer taking plaqunil. He is not having any pain or blurry vision. Modifying factors: Associated Signs & Symptoms: Attestation: ROS Constitutional: NL ENT/Mouth NL Cardiovascular: High Blood Pressure, High Cholesterol Respiratory: NL Gastrointestinal: NL Genitourinary: NL Musculoskeletal: NL Integumentary: NL Neurologic: NL Psychiatric: NL Endocrine: Diabetes Hematologic: NL Immunologic: Drug Allergy Lead Warehouse Associate: Exposures: None Other: Attestation: Base Eye Exam Visual Acuity (Snellen - Linear) Right Left Dist sc 20/20 20/25 -2 Dist ph sc NI Near sc J3 J3 He does not want a refraction today. He is happy with distance vision and will continue with OTC readers. Tonometry (Applanation, 8:59) Right Left Pressure 17 16 Pupils Pupils Dark APD Right PERRL 3 None Left PERRL 3 None Visual Powers (Counting fingers) Right Left Result Full Full Extraocular Movement Right Left Result Full Full Neuro/Psych Oriented x3: Yes Mood/Affect: Normal Dilation Both eyes: 1.0% Mydriacyl, 2.5% Phenylephrine @ 9:00 Slit Lamp and Fundus Exam Slit Lamp Exam Right Left Lids/Lashes Normal pigmented papilloma central lower lid Conjunctiva/Sclera White and quiet White and quiet Cornea Clear Clear Anterior Chamber Deep and quiet Deep and quiet Iris Round and reactive, no NVI (dilated) Round and reactive, no NVI (dilated) Lens 1-2+ Nuclear sclerosis 1-2+ Nuclear sclerosis Fundus Exam Right Left Vitreous Normal Normal Disc Normal, no NVD Normal, no NVD C/D Ratio 0.5 0.4 Macula Normal, no MA's Normal, no MA's Vessels Normal Normal Periphery Normal, No diabetic retinopathy small patch pigment @ 10:00, No diabetic retinopathy Refraction Wearing Rx Sphere Cylinder Right +2.50 Sphere Left +2.50 Sphere Type: OTC readers Manifest Refraction (Auto) Sphere Cylinder [place] Dist Right +0.50 +1.75 180 20/20 Left +0.25 +0.75 005 20/20 DIAGNOSTIC TESTS: IMPRESSION & PLAN: 1. Diabetes mellitus No retinopathy -Recommend good blood sugar and blood pressure control -Recommend annual dilated eye exam -Copy of note sent to PCP 2. Cataract, both eyes Not visually significant -Monitor periodically I have reviewed the patient's past medical, family, social and surgical history. I have also reviewed the patient's medications, allergies, and problem list. I performed my own HPI and have reviewed the tech's ROS as well. I completed this exam personally. John Lott MD I am scribing for John Lott MD, while he is personally performing the service. ESTEFANY Shaw Patient Education Topic: diabetes, glasses Method: Verbal Taught to: Patient Barriers: None Outcomes: independent Signature: John Lott MD documented in this encounter Plan of Treatment Not on file documented as of this encounter Goals Goal Patient Goal Type Associated Problems Recent Progress Patient-Stated? Author Blood Pressure < 140/90 Blood Pressure Hypertensive disorder 112/70(2021 13:50 EDT) No Abbie Winter LPN [id number] XT < 7 Result Component 8.2( 9 14:15 EDT) No Abbie Winter LPN LDLEXT < 100 Result Component 76(05/13/2019 14:15 EDT) No Abbie Winter LPN documented as of this encounter Visit Diagnoses Diagnosis Type 2 diabetes mellitus without complication, without long-term current use of insulin ([facility])- Primary Senile nuclear sclerosis, right Senile nuclear sclerosis, left documented in this encounter Eye Exam Visual Acuity (Snellen - Linear) Right eye Left eye Dist sc 20/20 20/25 -2 Dist ph sc NI Near sc J3 J3 He does not want a refraction today. He is happy with distance vision and will continue with OTC readers. Tonometry (Applanation, 8:59) Right eye Left eye Pressure 17 16 Pupils Pupils Dark APD Right eye PERRL 3 None Left eye PERRL 3 None Visual Powers (Counting fingers) Right eye Left eye Full Full Extraocular Movement Right eye Left eye Full Full Neuro/Psych Oriented x3: Yes Mood/Affect: Normal Dilation Both eyes: 1.0% Mydriacyl, 2 .5% Phenylephrine @ 9:00 Slit Lamp Exam Right eye Left eye Lids/Lashes Normal pigmented papill arpan central lower lid Conjunctiva/Sclera White and quiet White and joshua et Cornea Clear Clear Anterior Chamber Deep and quiet Deep and quiet Iris Round and reactive, no NVI (dilated) Round and reactive, no NVI (dilated) Lens 1-2+ Nuclear sclerosis 1-2+ Nucl ear sclerosis Vitreous Normal Normal Fundus Exam Right eye Left eye Disc Normal, no NVD Normal, no NVD C/D Ratio 0.5 0.4 Macula Normal, no MA's Normal, no MA's Vessels Normal Normal Periphery Normal, No diabetic retinopathy small patch pigment @ 10:00, No diabetic retinopathy Wearing Rx Sphere Cylinder Right eye +2.50 Sphere Left eye +2.50 Sphere Type: OTC readers Manifest Refraction (Auto) Sphere Cylinder [place] Dist [place] Right eye +0.50 +1.75 180 20/20 Left eye +0.25 +0.75 005 20/20 Care Teams Bonsai Culturist Relationship Specialty Start Date End Date Ramón Olguin MD [address] [place] [phone] PCP - General 06/15/09 06/13/19 documented as of this encounter
--- OUTSIDE RECORDS SUMMARY | 2024-08-05 15:01 | XMS_ITS | Encounter Summary ---
Author Organization [facility] Address [address] [place] [address] Care Team Providers Care Anesthesiologist Attending Name Role Phone Kameron Lee MD Primary Care Provider [phone]- [phone] Encounter Details Date Type Department Care Team (Late st Contact Info) Description 12/01/2019 Results Only [address] [address] Kameron Lee MD [address] [place] [phone] Social History Tobacco Use Types Packs/Day Years [...] 112/70(2021 13:50 EDT) No Abbie Winter LPN [id number] XT < 7 Result Component 8.2( 9 14:15 EDT) No Abbie Winter LPN LDLEXT < 100 Result Component 76(05/13/2019 14:15 EDT) No Abbie Winter LPN documented as of this encounter Procedures Procedure Name Priority Date/Time Associated Diagnosis Comments HEMOGLOBIN A1C Routine 12/01/2019 11:27 EST LIPID PROFILE (INCLUDES CHOLESTEROL, TRIGLYCERIDES, HDL, LDL) Routine 12/01/2019 11:27 EST documented in this encounter Results * (ABNORMAL) HEMOGLOBIN A1C (12/01/2019 11:27 EST) Hemoglobin A1c 9.0(H) 4.0 - 6.0 % 12/01/2019 13:[address] [facility] Comment: > or =18 years: ??Increased risk for diabetes (prediabetes): 5.7-6.4% Diabetes: > or =6.5% Therapeutic goals for glycemic control (ADA) Adults: - Goal of therapy: <7.0% HbA1c - Action suggested: >8.0% HbA1c Pediatric patients: - Toddlers and preschoolers: <8.5% (but >7.5%) - School age (6-12 years): <8% - Adolescents and young adults (13-19 years): <7.5% Est Avg Glucose 212 mg/dL 0 13:[address] [facility] 12/01/2019 11:2 7 EST 12/01/2019 11:[address] [facility] - 12/01/2019 13:21 EST Does PT Have a Latex Allergy? NO Kameron Lee MD CHEMISTRY & BLOOD GAS ORDERABLES [facility] * (ABNORMAL) LIPID PROFILE (INCLUDES CHOLESTEROL, TRIGLYCERIDES, HDL, LDL) (12/01/2019 11:27 EST) Triglyceride 211 <150 mg/dL 12/01/2019 12:16 [facility] Comment: Adult: Normal: ?<150 mg/dl ? Borderline High: 150-199 mg/dl ? High: ?200-499 mg/dl ? Very High: >sa=593 Cholesterol 109 <200 mg/dL 12/01/2019 12:16 [facility] Comment: Acceptable: ??<200 Borderline: ??200-239 High: ?> or = 240 Chol/HDL Ratio 3.7 0 - 5.0 12/01/2019 12:16 [facility] Comment: DESIRABLE RATIO IS LESS THAN 4.1 PATIENTS ARE CONSIDERED AT RISK: WOMEN RATIO >5 MEN RATIO >6 FASTING? - [facility] Yes 0 11:27 [facility] HDL 29(L) 40 - 60 mg/dL 12/01/2019 12:16 [facility] Comment: ?? Reference Range Low: ? < 40 ??mg/dL Normal: ??40-60 mg/dL High: ?>= 60 mg/dL LDL CHOLESTEROL - [facility] 38(L) 60 - 100 mg/dL 12/01/2019 12:16 [facility] Non HDL Cholesterol 80 mg/dl 12/01/2019 12:16 [facility] Comment: Desirable: ?Less than 130 Borderline High: ??130-159 High: ? 160-189 Very High: ?Greater than or equal to 190 12/01/2019 11:2 7 EST 12/01/2019 11:[address] [facility] - 12/01/2019 12:16 EST Does PT Have a Latex Allergy? NO Kameron Lee MD CHEMISTRY & BLOOD GAS ORDERABLES [facility] documented in this encounter Visit Diagnoses Not on filedocumented in this encounter Care Teams Anesthesiologist Attending Relationship Specialty Start Date End Date Kameron Lee MD [address] [place] [phone] PCP - General 06/14/19 04/28/23 documented as of this encounter
--- OUTSIDE RECORDS SUMMARY | 2024-08-05 15:01 | XMS_ITS | Encounter Summary ---
Author Organization [facility] Address [address] [place] [address] Care Team Providers Care Hoof Trimmer Name Role Phone Ramón Olguin MD Primary Care Provider Encounter Details Date Type Department Care Team (Late st Contact Info) Description 06/01/[address] [place] [phone] Alicia Tucker LPN Social History Tobacco Use Types Packs/Day Years [...] Pressure Hypertensive disorder 112/70(2021 13:50 EDT) No Sheldon, Abbie, WOOD INSPECTOR [id number] XT < 7 Result Component 8.2( 9 14:15 EDT) No Sheldon, Abbie, WOOD INSPECTOR LDLEXT < 100 Result Component 76(05/13/2019 14:15 EDT) No Sheldon, Abbie, WOOD INSPECTOR documented as of this encounter Procedures Procedure Name Priority Date/Time Associated Diagnosis Comments OCCULT BLOOD DIAGNOSTIC, FECES Routine 05/28/2018 documented in this encounter Results * OCCULT BLOOD DIAGNOSTIC, FECES (05/28/2018) Report Status, External [facility] Result, External Negative [facility] Specimen Description, External [facility] Stool specimen (specimen) 05/28/2018 Historical Provider MICROBIOLOGY - NERAL ORDERABLES [facility] documented in this encounter Visit Diagnoses Not on filedocumented in this encounter Care Teams Hoof Trimmer Relationship Specialty Start Date End Date Ramón Olguin MD [address] [place] [phone] PCP - General 06/15/09 06/13/19 documented as of this encounter
--- OUTSIDE RECORDS SUMMARY | 2024-08-05 15:01 | XMS_ITS | Encounter Summary ---
Author Organization [facility] Address [address] [place] [address] Care Team Providers Care Caustic Purification Operator Name Role Phone Kameron Lee MD Primary Care Provider [phone]- [phone] Reason for Visit * Reason Onset Date Comments Coordination Of Care 12/02/2019 Encounter Details Date Type Department Care Team (Late st Contact Info) Description 12/02/[address] [place] [phone] Wilma Posadas MD Coordination Of Care Social History Tobacco Use Types Packs/Day Years [...] encounter Miscellaneous Notes * Telephone Encounter - Kameron Lee MD - 12/02/2019 6614 EST Thanks, noted. * Telephone Encounter - Wilma Posadas MD - 12/02/2019 0868 EST Phone call Thursday after 5 PM from [facility] that they received a prescription for Kayexalate. This medication can be hard to find and they do not have it in stock, nor do they have the powdered form. They may be able to order the liquid form which is 15 g and 60 mL's. However they would not get it until December 05 I reviewed patient's blood work potassium of 5.5 in the setting of stage III chronic renal disease. I spoke with the patient and he is feeling well, reviewing labs he has had mild hyperkalemia before. It should be noted that the at [place] and [place]. Plan: Patient will keep his appointment on 12/05 at 9:[address] Lee. At that point they will decide if he should medicinal plant picker prescription for Kayexalate liquid. Alternative would be to give a few doses of furosemide which should also bring down his potassium Addendum: I spoke with [facility] [employer] and they have found a source to get the Kayexalate powder whichcomes in individual 15 g pack so that the patient could mix up the dose. They will order it and it will be available on December 05. documented in this encounter Plan of Treatment Not on file documented as of this encounter Goals Goal Patient Goal Type Associated Problems Recent Progress Patient-Stated? Author Blood Pressure < 140/90 Blood Pressure Hypertensive disorder 112/70(2021 13:50 EDT) No Abbie Winter LPN [id number] XT < 7 Result Component 8.2( 9 14:15 EDT) No Abbie Winter LPN LDLEXT < 100 Result Component 76(05/13/2019 14:15 EDT) No Abbie Winter LPN documented as of this encounter Visit Diagnoses Not on filedocumented in this encounter Care Teams Caustic Purification Operator Relationship Specialty Start Date End Date Kameron Lee MD [address] [place] [phone] PCP - General 06/14/19 04/28/23 documented as of this encounter
--- OUTSIDE RECORDS SUMMARY | 2024-08-05 15:01 | XMS_ITS | Encounter Summary ---
Author Organization [facility] Address [address] [place] [address] Care Team Providers Care Multisensor Intelligence Officer Name Role Phone Ramón Olguin MD Primary Care Provider Reason for Referral * Laboratory Services (Routine) - New Request Specialty Diagnoses / Procedures Referred By Contac t Referred To Contact Diagnoses Type 2 diabetes mellitus without complication, without long-term current use of insulin ([facility]) Procedures HEMOGLOBIN A1C Ramón Olguin MD [address] [place] [phone] Referral ID Status Reason Start Date Expiration Date V isits Requested Visits Authorized [id number] New Request 05/21/2018 1 1 * Laboratory Services (Routine) - New Request Specialty Diagnoses / Procedures Referred By Contac t Referred To Contact Diagnoses Type 2 diabetes mellitus without complication, without long-term current use of insulin ([facility]) Procedures BASIC METABOLIC PANEL (BMP) Ramón Olguin MD [address] [place] [phone] Referral ID Status Reason Start Date Expiration Date V isits Requested Visits Authorized [id number] New Request 05/21/2018 1 1 Reason for Visit * Reason Comments Follow-up Pt here for 6 month diabetes follow up Encounter Details Date Type Department Care Team (Late st Contact Info) Description 05/21/2018 8:30 EDT Office Visit [facility] [address] [facility] [address] [place] [address] Ramón Olguin MD [address] [place] [address] [address] [phone] CKD (chronic kidney disease) stage 3, GFR 30-59 ml/min ([facility]) (Primary Dx); Type 2 diabetes mellitus without complication, without long-term current use of insulin ([facility]); Essential hypertension; Type 2 diabetes mellitus without complication, without long-term current use of insulin ([facility]) Social History Tobacco Use Types Packs/Day [...] :49 EST documented as of this encounter Last Filed Vital Signs Vital Sign Reading Time Taken Comments Blood Pressure 114/80 05/21/2018 0836 EDT Pulse 69 05/21/2018 0836 EDT Temperature 36.8 ??C (98.3 ??F) 05/21/2018 0836 EDT Respiratory Rate - - Oxygen Saturation 98% 05/21/2018 0836 EDT Inhaled Oxygen Concentration - - Weight 109 kg (240 lb 6.4 oz) 05/21/2018 0836 ED T Height - - Body Mass Index - - documented in this encounter Functional Status Functional [...] without long-term current use of insulin ([facility]) Take 1 Tab by mouth 2 times daily. 180 Tab 3 05/21/2018 05/10/2019 glipiZIDE (GLUCOTROL) 10 mg XL tabletIndications:Type 2 diabetes mellitus without complication, without long-term current use of insulin ([facility]) Take 1 Tab by mouth daily. 90 Tab 3 05/21/2018 05/10/2019 documented in this encounter Progress Notes * Ramón Olguin - 05/21/2018 0830 EDT REASON FOR VISIT: Follow-up diabetes SUBJECTIVE: Overall. Has been doing well. No interval changes. Diabetes has been under good controlhe is due for recheck of this. He continues on current medications. No other new changes noted. 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 The health status doing well no concerns noted OBJECTIVE: Vital signs noted afebrile, general alert, lucid, articulate Chest-clear to auscultation Cardiovascular-regular rate and rhythm no murmur -Abdomen positive bowel sounds soft nontender Lower tvfbxpwyn-tyve-ugsfnl appearance, 2+ dorsalis pedis pulse and posterior tibial pulses distal feet slightly cool to touch capillary refill in upper range of normal Monofilament testing slight decreased over left medial distal foot otherwise normal rest of left foot and right ASSESSMENT: Problem #1. Illnesses diabetes overall he has been doing well with mild renal insufficiency which has been stable Plan: 1. Hemoglobin A1c basic metabolic panel 2. Continue current medications 3. Follow-up in the late fall Problem #2 hypertension upper range of normal-continue current medication next Problem #3 diabetic neuropathy-stable PLAN: documented in this encounter Plan of Treatment Scheduled Orders Name Type Priority Associated Diagnoses Orde r Schedule BASIC METABOLIC PANEL (BMP) Lab Routine Type 2 diabetes mellitus without complication, without long-term current use of insulin ([facility] ([facility]) Ordered: 05/21/2018 HEMOGLOBIN A1C Lab Routine Type 2 diabetes mellitus without complication, without long-term current use of insulin ([facility]) Ordered: 05/21/2018 documented as of this encounter Goals Goal Patient Goal Type Associated Problems Recent Progress Patient-Stated? Author Blood Pressure < 140/90 Blood Pressure Hypertensive disorder 112/70(2021 13:50 EDT) No Abbie Winter, WATER PURIFIER OPERATOR [id number] XT < 7 Result Component 8.2( 9 14:15 EDT) No Abbie Winter, WATER PURIFIER OPERATOR LDLEXT < 100 Result Component 76(05/13/2019 14:15 EDT) No Abbie Winter, WATER PURIFIER OPERATOR documented as of this encounter Visit Diagnoses Diagnosis CKD (chronic kidney disease) stage 3, GFR 30-59 ml/min ([facility])- Primary Chronic kidney disease, Stage III (moderate) Type 2 diabetes mellitus without complication, without long-term current use of insulin ([facility]) Essential hypertension Unspecified essential hypertension documented in this encounter Discontinued Medications Medication Sig Discontinue Reason Start Date End Da te glipiZIDE (GLUCOTROL) 10 mg XL tabletIndications:Type 2 diabetes mellitus without complication ([facility]) TAKE ONE TABLET BY MOUTH EVERY DAY Reorder 01/28/2018 05/21/2018 metFORMIN (GLUCOPHAGE) 1,000 mg tabletIndications:Type 2 diabetes mellitus without complication ([facility]) TAKE ONE TABLET BY MOUTH TWICE A DAY Reorder 02/01/2018 05/21/2018 documented as of this encounter Historical Medications * This list may reflect changes made after this encounter. Medication Sig Dispensed Refills Start Date End Date MELATONIN ORAL Take by mouth. KRILL OIL ORAL Take by mouth. added in this encounter Care Teams Multisensor Intelligence Officer Relationship Specialty Start Date End Date Ramón Olguin MD [address] [place] [phone] PCP - General 06/15/09 06/13/19 documented as of this encounter
--- OUTSIDE RECORDS SUMMARY | 2024-08-05 15:01 | XMS_ITS | Encounter Summary ---
Author Organization [facility] Address [address] [place] [address] Care Team Providers Care Nursing Teacher Name Role Phone Ramón Olguin MD Primary Care Provider Kameron Lee MD Primary Care Provider [phone]- [phone] Reason for Visit * Reason Comments Other Encounter Details Date Type Department Care Team (Late st Contact Info) Description 05/10/[address] [place] [address] Ramón Olguin MD [address] [place] [address] [address] [place] [phone] Other Social History Tobacco Use [...] encounter Miscellaneous Notes * Telephone Encounter - Emely Becerra, RN - 05/10/2019 1512 EDT Medication(s) Requested: Metformin Preferred Pharmacy: [facility] Is patient out of medication? Unknown Last Refill Date: 05/21/18 Last Visit Date with Ordering Provider: 11/17/18 Next Non-Acute Visit Date Scheduled with Care Team: Yes. 05/13/19 Pended in upcoming OV. Emely Becerra RN 05/10/2019 15:12 documented in this encounter Plan of Treatment Not on file documented as of this encounter Goals Goal Patient Goal Type Associated Problems Recent Progress Patient-Stated? Author Blood Pressure < 140/90 Blood Pressure Hypertensive disorder 112/70(2021 13:50 EDT) No Abbie Winter LPN [id number] XT < 7 Result Component 8.2( 9 14:15 EDT) No Abbie Winter LPN LDLEXT < 100 Result Component 76(05/13/2019 14:15 EDT) No Abbie Winter LPN documented as of this encounter Visit Diagnoses Diagnosis Type 2 diabetes mellitus without complication, without long-term current use of insulin ([facility]) documented in this encounter Care Teams Nursing Teacher Relationship Specialty Start Date End Date Ramón Olguin MD [address] [place] [address] 2 [place] [phone] PCP - General 06/15/09 06/13/19 Kameron Lee MD [address] [place] [address] [address] [place] [phone] PCP - General 06/14/19 04/28/23 documented as of this encounter
--- OUTSIDE RECORDS SUMMARY | 2024-08-05 15:01 | XMS_ITS | Encounter Summary ---
Author Organization [facility] Address [address] [place] [address] Care Team Providers Care Cupola Melter Helper Name Role Phone Ramón Olguin MD Primary Care Provider Reason for Visit * Reason Onset Date Comments Medications Refill 10/29/2017 Encounter Details Date Type Department Care Team (Late st Contact Info) Description 10/29/2017 Refill [facility] [address] [facility] [address] [place] [address] Ramón Olguin MD [address] [place] [address] [address] [place] [phone] Medications Refill Social History Tobacco [...] Dispensed Refills Start Date End Da te lisinopril (PRINIVIL, ZESTRIL) 40 mg tablet TAKE ONE TABLET BY MOUTH EVERY DAY 90 Tab 3 10/29/2017 10/09/2018 metoprolol XL (TOPROL-XL) 50 mg tablet TAKE ONE TABLET BY MOUTH EVERY DAY 90 Tab 3 10/29/2017 10/09/2018 documented in this encounter Miscellaneous Notes * Telephone Encounter - Ebony Delarosa RN - 10/29/2017 0818 EST Medication(s) Requested: Metoprolol Lisinopril Preferred Pharmacy: [facility] Is patient out of medication? Unknown Last Refill Date: 02/11/17 Last Visit Date with Ordering Provider: 09/18/17 Next Non-Acute Visit Date Scheduled with Care Team: No. Last lab date: 09/18/17 CLARENCE Delarosa RN 10/29/2017 8:18 documented in this encounter Plan of Treatment Not on file documented as of this encounter Goals Goal Patient Goal Type Associated Problems Recent Progress Patient-Stated? Author Blood Pressure < 140/90 Blood Pressure Hypertensive disorder 112/70(2021 13:50 EDT) No Abbie Winter LPN [id number] XT < 7 Result Component 8.2( 9 14:15 EDT) No Abbie Winter LPN LDLEXT < 100 Result Component 76(05/13/2019 14:15 EDT) No Abbie Winter LPN documented as of this encounter Visit Diagnoses Not on filedocumented in this encounter Discontinued Medications Medication Sig Discontinue Reason Start Date End Da te metoprolol XL (TOPROL-XL) 50 mg tablet TAKE ONE TABLET BY MOUTH EVERY DAY Reorder 02/11/2017 10/29/2017 lisinopril (PRINIVIL, ZESTRIL) 40 mg tablet TAKE ONE TABLET BY MOUTH EVERY DAY Reorder 02/11/2017 10/29/2017 documented as of this encounter Care Teams Cupola Melter Helper Relationship Specialty Start Date End Date Ramón Olguin MD [address] [place] [phone] PCP - General 06/15/09 06/13/19 documented as of this encounter
--- OUTSIDE RECORDS SUMMARY | 2024-08-05 15:01 | XMS_ITS | Encounter Summary ---
Author Organization [facility] Address [address] [place] [address] Care Team Providers Care Open Hearth Melter Name Role Phone Ramón Olguin MD Primary Care Provider Encounter Details Date Type Department Care Team (Late st Contact Info) Description 05/21/2018 Results Only [facility] Medicine [facility] [address] [facility] [address] [place] [address] Ramón Olguin MD [address] [place] [address] [address] [place] [phone] Social History Tobacco Use Types Packs/Day [...] Pressure Hypertensive disorder 112/70(2021 13:50 EDT) No [place] Abbie, WATCH ENGINE OPERATOR [id number] XT < 7 Result Component 8.2( 9 14:15 EDT) No [place] Abbie, WATCH ENGINE OPERATOR LDLEXT < 100 Result Component 76(05/13/2019 14:15 EDT) No [place], Abbie, WATCH ENGINE OPERATOR documented as of this encounter Procedures Procedure Name Priority Date/Time Associated Diagnosis Comments BASIC METABOLIC PANEL ([facility]) Routine 05/21/2018 9:16 EDT HEMOGLOBIN A1C Routine 05/21/2018 9:16 EDT documented in this encounter Results * (ABNORMAL) HEMOGLOBIN A1C (05/21/2018 9:16 EDT) Hemoglobin A1C, External 6.9(H) 4.0 - 6.0 % [facility] Est Avg Glucose, External 151 mg/dL [facility] 05/21/2018 9:16 EDT 05/21/2018 9:16 EDT Narrative [facility] - 05/21/2018 14:13 EDT Does PT Have a Latex Allergy? NO Ramón Olguin MD CHEMISTRY & BL OOD GAS ORDERABLES [facility] * (ABNORMAL) BASIC METABOLIC PANEL ([facility]) (05/21/2018 9:16 EDT) Bun, External 31(H) 10 - 26 mg/dL [facility] Calcium, External 10.0 8.5 - 10.5 mg/dL [facility] Chloride, External 105 96 - 110 mmol/L [facility] CO2, External 20(L) 21 - 32 mEq/L [facility] Creatinine, External 1.47(H) 0.66 - 1.25 mg/dL [facility] GFR, Ole/Est., External 47 [facility] Comment: Stage 3: Moderate renal impairment is defined as GFR 30-59 Multiply result by 1.210 for patients. Glucose, Serum, External 122(H) 70 - 100 mg/dL [facility] Potassium, External 5.2(H) 3.5 - 5.0 mEq/L [facility] Sodium, External 140 136 - 145 mEq/L [facility] 05/21/2018 9:16 EDT 05/21/2018 9:16 EDT Narrative [facility] - 05/21/2018 10:02 EDT Does PT Have a Latex Allergy? NO Ramón Olguin MD CHEMISTRY & BL OOD GAS ORDERABLES [facility] documented in this encounter Visit Diagnoses Not on filedocumented in this encounter Care Teams Open Hearth Melter Relationship Specialty Start Date End Date Ramón Olguin MD [address] [place] [phone] PCP - General 06/15/09 06/13/19 documented as of this encounter
--- OUTSIDE RECORDS SUMMARY | 2024-08-05 15:01 | XMS_ITS | Encounter Summary ---
Author Organization [facility] Address [address] [place] [address] Care Team Providers Care Fusing Furnace Loader Name Role Phone Ramón Olguin MD Primary Care Provider Kameron Lee MD Primary Care Provider [phone]- [phone] Encounter Details Date Type Department Care Team (Late st Contact Info) Description 05/21/2018 Historical Results Only [facility] - Main [place] [address] [place], [place] [phone] Ramón Olguin MD [address] [place] [phone] Social History Tobacco Use Types Packs/Day [...] 112/70(2021 13:50 EDT) No Abbie Winter LPN [id number] XT < 7 Result Component 8.2( 9 14:15 EDT) No Abbie Winter, SANITARY LANDFILL SUPERVISOR LDLEXT < 100 Result Component 76(05/13/2019 14:15 EDT) No Abbie Winter LPN documented as of this encounter Procedures Procedure Name Priority Date/Time Associated Diagnosis Comments HEMOGLOBIN A1C Routine 05/21/2018 9:16 EDT BASIC METABOLIC PANEL (BMP) Routine 05/21/2018 9:16 EDT documented in this encounter Results * (ABNORMAL) BASIC METABOLIC PANEL (BMP) (05/21/2018 9:16 EDT) BUN - [facility] 31(H) 10 - 26 mg/dL 05/21/2018 10:02 [facility] CALCIUM - [facility] 10.0 8.5 - 10.5 mg/dL 05/21/2018 10:02 [facility] Chloride 105 96 - 110 mmol/L 05/21/2018 10:02 [facility] CO2 Total 20(L) 21 - 32 mEq/L 05/21/2018 10:02 [facility] CREATININE 1.47(H) 0.66 - 1.25 mg/dL 05/21/2018 10:02 [facility] eGFR 47 05/21/2018 10:02 [facility] Comment: Stage 3: Moderate renal impairment is defined as GFR 30-59 Multiply result by 1.210 for patients. Anion Gap 15 0 - 18 05/21/2018 10:02 [facility] GLUCOSE - [facility] 122(H) 70 - 100 mg/dL 05/21/2018 10:02 [facility] Potassium 5.2(H) 3.5 - 5.0 mEq/L 05/21/2018 10:02 [facility] Sodium 140 136 - 145 mEq/L 05/21/2018 10:[address] [facility] 05/21/2018 9:16 EDT 05/21/2018 9:[address] [facility] - 05/21/2018 10:02 EDT Does PT Have a Latex Allergy? NO Ramón Olguin MD CHEMISTRY & BL OOD GAS ORDERABLES Performing Organization Address City/[facility]/ZIP Co de Phone Number [facility] * (ABNORMAL) HEMOGLOBIN A1C (05/21/2018 9:16 EDT) Hemoglobin A1c 6.9(H) 4.0 - 6.0 % 05/21/2018 14:[address] [facility] Est Avg Glucose 151 mg/dL 8 14:[address] [facility] 05/21/2018 9:16 EDT 05/21/2018 9:[address] [facility] - 05/21/2018 14:12 EDT Does PT Have a Latex Allergy? NO Ramón Olguin MD CHEMISTRY & BL OOD GAS ORDERABLES Performing Organization Address City/[facility]/ZIP Co de Phone Number [facility] documented in this encounter Visit Diagnoses Not on filedocumented in this encounter Care Teams Fusing Furnace Loader Relationship Specialty Start Date End Date Ramón Olguin MD [address] [place] [address] 2 [place] [phone] PCP - General 06/15/09 06/13/19 Kameron Lee MD [address] [place] [address] [address] [place] [phone] PCP - General 06/14/19 04/28/23 documented as of this encounter
--- OUTSIDE RECORDS SUMMARY | 2024-08-05 15:01 | XMS_ITS | Encounter Summary ---
Author Organization [facility] Address [address] [place] [address] Care Team Providers Care Christmas Tree Contractor Name Role Phone Ramón Olguin MD Primary Care Provider Reason for Visit * Reason Comments Other Encounter Details Date Type Department Care Team (Late st Contact Info) Description 01/28/2018 Refill [facility] [address] [facility] [address] [place] [address] Ramón Olguin MD [address] [place] [address] [address] [place] [phone] Other Social History Tobacco Use [...] XL tabletIndications:Type 2 diabetes mellitus without complication (HCC-CMS) TAKE ONE TABLET BY MOUTH EVERY DAY 90 Tab 01/28/2018 05/21/2018 documented in this encounter Miscellaneous Notes * Telephone Encounter - Angela Jaeger, RN - 01/28/2018 1613 EST Medication(s) Requested: glipizide [facility] Pharmacy[facility] Is patient out of medication? unknown Last Refill Date: 10/30/17 Last Visit Date with Ordering Provider: 09/18/17 labs at same time Next Non-Acute Visit Date Scheduled with Care Team: Angela Jaeger RN 01/28/2018 16:13 documented in this encounter Plan of Treatment Not on file documented as of this encounter Goals Goal Patient Goal Type Associated Problems Recent Progress Patient-Stated? Author Blood Pressure < 140/90 Blood Pressure Hypertensive disorder 112/70(2021 13:50 EDT) No Abbie Winter LPN [id number] XT < 7 Result Component 8.2( 9 14:15 EDT) No Abbie Winter LPN LDLEXT < 100 Result Component 76(05/13/2019 14:15 EDT) No Abbie Winter LPN documented as of this encounter Visit Diagnoses Diagnosis Type 2 diabetes mellitus without complication ([facility])- Primary Type II or unspecified type diabetes mellitus without mention of complication, not stated as uncontrolled documented in this encounter Discontinued Medications Medication Sig Discontinue Reason Start Date End Da te glipiZIDE (GLUCOTROL) 10 mg XL tabletIndications:Type 2 diabetes mellitus without complication (HCC-CMS) TAKE ONE TABLET BY MOUTH EVERY DAY Reorder 10/30/2017 01/28/2018 documented as of this encounter Care Teams Christmas Tree Contractor Relationship Specialty Start Date End Date Ramón Olguin MD [address] [place] [phone] PCP - General 06/15/09 06/13/19 documented as of this encounter
--- OUTSIDE RECORDS SUMMARY | 2024-08-05 15:01 | XMS_ITS | Encounter Summary ---
Author Organization [facility] Address [address] [place] [address] Care Team Providers Care Packing Clerk Name Role Phone Ramón Olguin MD Primary Care Provider Kameron Lee MD Primary Care Provider [phone]- [phone] Encounter Details Date Type Department Care Team (Late st Contact Info) Description 11/17/2018 Historical Results Only [facility] - Main [place] [address] [place], [place] [phone] Ramón Olguin MD [address] [place] [phone] Social History Tobacco Use Types Packs/Day [...] Pressure Hypertensive disorder 112/70(2021 13:50 EDT) No [place] Abbie, ASSOCIATE CHIEF NURSE [id number] XT < 7 Result Component 8.2( 9 14:15 EDT) No [place], Abbie, ASSOCIATE CHIEF NURSE LDLEXT < 100 Result Component 76(05/13/2019 14:15 EDT) No [place], Abbie, ASSOCIATE CHIEF NURSE documented as of this encounter Procedures Procedure Name Priority Date/Time Associated Diagnosis Comments MICROALBUMIN, URINE Routine 11/17/2018 1 0:01 EST URINE [id number] E RATIO (ACR) Routine 11/17/2018 10:01 EST ALT Routine 11/17/2018 10:01 EST HEMOGLOBIN A1C Routine 11/17/2018 10:01 EST LIPID PROFILE (INCLUDES CHOLESTEROL, TRIGLYCERIDES, HDL, LDL) Routine 11/17/2018 10:01 EST BASIC METABOLIC PANEL (BMP) Routine 11/17/2018 10:01 EST documented in this encounter Results * (ABNORMAL) MICROALBUMIN, URINE (11/17/2018 10:01 EST) Albumin, Urine 4.20(H) <1.7 mg/dL 11/17/2018 11:07 [facility] Urine Albumin to Creatinine Ratio 46.4 ug/mg 11/17/2018 11:07 [facility] Comment: Normal: <30 ug/mg Creat Microalbuminuria: 30-300 ug/mg Creat Clinical albuminuria: >300 ug/mg Creat Creatinine, Urine 90.40 mg/dL 11/17/2018 11:07 [facility] 11/17/2018 10:0 1 EST 11/17/2018 10:02 [facility] - 11/17/2018 11:07 EST Does PT Have a Latex Allergy? NO WHAT TYPE OF COLLECTION IS THIS URINE? RANDOM URINE Ramón Olguin MD HEMATOLOGY & P F4 ORDERABLES [facility] * ALT (11/17/2018 10:01 EST) SGPT/ALT - [facility] 33 21 - 72 U/L 11/17/2018 11:46 [facility] 11/17/2018 10:0 1 EST 11/17/2018 10:01 EST Narrative [facility] - 11/17/2018 11:46 EST Does PT Have a Latex Allergy? NO Ramón Olguin MD CHEMISTRY & BL OOD GAS ORDERABLES Performing Organization Address [facility]/ZIP Co de Phone Number [facility] * (ABNORMAL) LIPID PROFILE (INCLUDES CHOLESTEROL, TRIGLYCERIDES, HDL, LDL) (11/17/2018 10:01 EST) Triglyceride 174 <150 mg/dL 11/17/2018 11:46 [facility] Comment: Adult: Normal: ?<150 mg/dl ? Borderline High: 150-199 mg/dl ? High: ?200-499 mg/dl ? Very High: >pp=588 Cholesterol 95 <200 mg/dL 11/17/2018 11:46 [facility] Comment: Acceptable: ??<200 Borderline: ??200-239 High: ?> or = 240 Chol/HDL Ratio 2.9 0 - 5.0 11/17/2018 11:46 [facility] Comment: DESIRABLE RATIO IS LESS THAN 4.1 PATIENTS ARE CONSIDERED AT RISK: WOMEN RATIO >5 MEN RATIO >6 FASTING? - [facility] No 8 10:02 [facility] HDL 32(L) 40 - 60 mg/dL 11/17/2018 11:46 [facility] Comment: ?? Reference Range Low: ? < 40 ??mg/dL Normal: ??40-60 mg/dL High: ?>= 60 mg/dL LDL CHOLESTEROL - [facility] 28(L) 60 - 100 mg/dL 11/17/2018 11:46 [facility] Non HDL Cholesterol 63 mg/dl 11/17/2018 11:46 [facility] Comment: Desirable: ?Less than 130 Borderline High: ??130-159 High: ? 160-189 Very High: ?Greater than or equal to 190 11/17/2018 10:0 1 EST 11/17/2018 10:01 EST Narrative [facility] - 11/17/2018 11:46 EST Does PT Have a Latex Allergy? NO Ramón Olguin MD CHEMISTRY & BL OOD GAS ORDERABLES [facility] * (ABNORMAL) BASIC METABOLIC PANEL (BMP) (11/17/2018 10:01 EST) BUN - [facility] 29(H) 10 - 26 mg/dL 11/17/2018 11:46 [facility] CALCIUM - [facility] 9.6 8.5 - 10.5 mg/dL 11/17/2018 11:46 [facility] Chloride 106 96 - 110 mmol/L 11/17/2018 11:46 [facility] CO2 Total 23 21 - 32 mEq/L 11/17/2018 11:46 [facility] CREATININE 1.66(H) 0.66 - 1.25 mg/dL 11/17/2018 11:46 [facility] eGFR 41 11/17/2018 11:46 [facility] Comment: Stage 3: Moderate renal impairment is defined as GFR 30-59 Multiply result by 1.210 for patients. Anion Gap 13 0 - 18 11/17/2018 11:46 [facility] GLUCOSE - [facility] 132(H) 70 - 100 mg/dL 11/17/2018 11:46 [facility] Potassium 5.1(H) 3.5 - 5.0 mEq/L 11/17/2018 11:46 [facility] Sodium 142 136 - 145 mEq/L 11/17/2018 11:46 [facility] 11/17/2018 10:0 1 EST 11/17/2018 10:01 EST Narrative [facility] - 11/17/2018 11:46 EST Does PT Have a Latex Allergy? NO Ramón Olguin MD CHEMISTRY & BL OOD GAS ORDERABLES [facility] * (ABNORMAL) HEMOGLOBIN A1C (11/17/2018 10:01 EST) Hemoglobin A1c 7.5(H) 4.0 - 6.0 % 11/17/2018 13:14 [facility] Est Avg Glucose 169 mg/dL 8 13:14 [facility] 11/17/2018 10:0 1 EST 11/17/2018 10:02 EST Narrative [facility] - 11/17/2018 13:14 EST Does PT Have a Latex Allergy? NO Ramón Olguin MD CHEMISTRY & BL OOD GAS ORDERABLES [facility] * (ABNORMAL) ALBUMIN, URINE (11/17/2018 10:01 EST) Albumin, Urine 4.20(H) <1.7 mg/dL 11/17/2018 11:07 [facility] Lab Urine Albumin to Creatinine Ratio 46.4 ug/mg 11/17/2018 11:07 [facility] Comment: Normal: <30 ug/mg Creat Microalbuminuria: 30-300 ug/mg Creat Clinical albuminuria: >300 ug/mg Creat Creatinine, Urine 90.40 mg/dL 11/17/2018 11:07 [facility] 11/17/2018 10:0 1 EST 11/17/2018 10:02 EST Narrative [facility] - 11/17/2018 11:07 EST Does PT Have a Latex Allergy? NO WHAT TYPE OF COLLECTION IS THIS URINE? RANDOM URINE Ramón Olguin MD CHEMISTRY & BL OOD GAS ORDERABLES [facility] documented in this encounter Visit Diagnoses Not on filedocumented in this encounter Care Teams Packing Clerk Relationship Specialty Start Date End Date Ramón Olguin MD [address] [place] [address] 2 [place] [phone] PCP - General 06/15/09 06/13/19 Kameron Lee MD [address] [place] [address] [address] [place] [phone] PCP - General 06/14/19 04/28/23 documented as of this encounter
--- OUTSIDE RECORDS SUMMARY | 2024-08-05 15:01 | XMS_ITS | Encounter Summary ---
Author Organization [facility] Address [address] [place] [address] Care Team Providers Care Dispensing Optician Apprentice Name Role Phone Ramón Olguin MD Primary Care Provider Kameron Lee MD Primary Care Provider [phone]- [phone] Reason for Visit * Reason Comments Other Encounter Details Date Type Department Care Team (Late st Contact Info) Description 02/18/[address] [place] [address] Ramón Olguin MD [address] [place] [address] [address] [place] [phone] Other Social History Tobacco Use [...] MOUTH TWICE A DAY 180 Tab 3 02/18/2017 01/31/2018 documented in this encounter Miscellaneous Notes * Telephone Encounter - Nazanin Park, RN - 02/18/2017 0907 EDT Medication(s) Requested: Metformin (Glucophage) 1,000 mg tablet Preferred Pharmacy: [facility] Is patient out of medication? Unknown Last Refill Date: 03/07/16 - 180 tabs with 3 refills Last Visit Date with Ordering Provider: 12/03/16 Next Visit Date as it relates to the requested medication: None scheduled Last Related Labs Date: 12/03/16 - Hemoglobin A1C Refilled 180 tabs with 3 refills Nazanin Park RN 02/18/2017 9:07 documented in this encounter Plan of Treatment Not on file documented as of this encounter Goals Goal Patient Goal Type Associated Problems Recent Progress Patient-Stated? Author Blood Pressure < 140/90 Blood Pressure Hypertensive disorder 112/70(2021 13:50 EDT) No Abbie Winter LPN [id number] XT < 7 Result Component 8.2( 9 14:15 EDT) No Abbie Winter LPN LDLEXT < 100 Result Component 76(05/13/2019 14:15 EDT) No Abbie Winter LPN documented as of this encounter Visit Diagnoses Diagnosis Type 2 diabetes mellitus without complication ([facility]) Type II or unspecified type diabetes mellitus without mention of complication, not stated as uncontrolled documented in this encounter Discontinued Medications Medication Sig Discontinue Reason Start Date End Da te metFORMIN (GLUCOPHAGE) 1,000 mg tabletIndications:Type 2 diabetes mellitus without complication (HCC-CMS) TAKE ONE TABLET BY MOUTH TWICE A DAY Reorder 03/07/2016 02/18/2017 documented as of this encounter Care Teams Dispensing Optician Apprentice Relationship Specialty Start Date End Date Ramón Olguin MD [address] [place] [phone] PCP - General 06/15/09 06/13/19 Kameron Lee MD [address] [place] [address] [address] [place] [phone] PCP - General 06/14/19 04/28/23 documented as of this encounter
--- OUTSIDE RECORDS SUMMARY | 2024-08-05 15:01 | XMS_ITS | Encounter Summary ---
Author Organization [facility] Address [address] [place] [address] Care Team Providers Care Education Dean Name Role Phone Ramón Olguin MD Primary Care Provider Kameron Lee MD Primary Care Provider [phone] Encounter Details Date Type Department Care Team (Late st Contact Info) Description 05/28/2018 Historical Results Only [facility] - Main [place] [address] [place], [place] [id number] Ramón Olguin MD [address] [place] [phone] Social History Tobacco Use Types Packs/Day [...] Pressure Hypertensive disorder 112/70(2021 13:50 EDT) No Luckey, Abbie, KENO WRITER/RUNNER [id number] XT < 7 Result Component 8.2( 9 14:15 EDT) No Luckey, Abbie, KENO WRITER/RUNNER LDLEXT < 100 Result Component 76(05/13/2019 14:15 EDT) No Luckey, Abbie, KENO WRITER/RUNNER documented as of this encounter Procedures Procedure Name Priority Date/Time Associated Diagnosis Comments STOOL FIT OCCULT BLOOD - [facility] Routine 05/28/2018 8:00 EDT documented in this encounter Results * STOOL FIT OCCULT BLOOD - [facility] (05/28/2018 8:00 EDT) STOOL FIT OCCULT BLOOD - [facility] Negative Negative 05/29/2018 21:27 EDT [facility] Comment: Negative result. ??This test will not detect upper gastrointestinal bleeding; the HemoQuant test (9220)should be ordered if clinically indicated. Test Performed by: [place] [address] 05/28/2018 8:00 EDT 05/28/2018 11:10 EDT Ramón Olguin MD CHEMISTRY & BL OOD GAS ORDERABLES [facility] documented in this encounter Visit Diagnoses Not on filedocumented in this encounter Care Teams Education Dean Relationship Specialty Start Date End Date Ramón Olguin MD [address] [place] [address] [address] [place] [phone] PCP - General 06/15/09 06/13/19 Kameron Lee MD [address] [place] [address] [address] [place] [phone] PCP - General 06/14/19 04/28/23 documented as of this encounter
--- OUTSIDE RECORDS SUMMARY | 2024-08-05 15:01 | XMS_ITS | Encounter Summary ---
Author Organization [facility] Address [address] [place] [address] Care Team Providers Care Dial Mounter Name Role Phone Ramón Olguin MD Primary Care Provider Reason for Visit * Reason Comments Diabetes Diabetic eye exam. L ast a1c 6.9 (05/21/18) Encounter Details Date Type Department Care Team (Late st Contact Info) Description 06/29/2018 9:15 EDT Office Visit [facility] [address] [place] [address] John Lott MD [address] [place] [phone] Social History Tobacco Use Types Packs/Day Years [...] Progress Notes * John Lott MD - 06/29/2018 0915 EDT Chief Complaint Patient presents with ??? Diabetes Diabetic eye exam. Last a1c 6.9 (05/21/18) HPI The patient is a 72 y.o. male here for follow up of diabetes. he has no eye pain, double vision, ornew flashes/floaters. He reports that his diabetes has been stable. Right Eye: Blurred Vision Left Eye: Blurred Vision Visual Aid: Glasses Current Rx Age Location: Both eyes Pain: Quality: Severity: Moderate Duration: Years Timing: Constant Lasts: Continuous Context: Diabetic eye exam-last a1c was 6.9 in 04/2018. Has been DM 20 years- never on insulin. Checks bg's at home occasionally Modifying factors: Reports vision is stable-no new floaters or flashes of light. No eye pain. Associated Signs & Symptoms: Uses prescription sunglasses for driving, otc readers for reading. Attestation: ROS Constitutional: NL ENT/Mouth NL Cardiovascular: High Blood Pressure, High Cholesterol Respiratory: NL Gastrointestinal: NL Genitourinary: NL Musculoskeletal: NL Integumentary: NL Neurologic: NL Psychiatric: NL Endocrine: Diabetes Hematologic: NL Immunologic: Drug Allergy Woodworking Machine Setter: Exposures: None Other: Attestation: Base Eye Exam Visual Acuity (Snellen - Linear) Right Left Dist cc 20/25 20/30 Correction: Glasses sunglasses Tonometry (Applanation, 9:58) Right Left Pressure 14 19 Pupils Pupils Dark Light APD Right PERRL 5 4 None Left PERRL 5 4 None Visual Powers (Counting fingers) Right Left Result Full Full Extraocular Movement Right Left Result Full Full Neuro/Psych Oriented x3: Yes Mood/Affect: Normal Dilation Both eyes: 1.0% Mydriacyl, 2.5% Phenylephrine @ 9:59 Slit Lamp and Fundus Exam Slit Lamp [...] diabetic retinopathy Refraction Wearing Rx Sphere Cylinder [place] Right -0.25 +1.00 150 Left +0.25 +1.00 005 Type: SVL-sunglasses Manifest Refraction Sphere Cylinder [place] Dist Add Near Right +1.00 +1.50 175 20/20 +2.50 J1+ Left +0.75 +0.75 005 20/20 +2.50 J1+ Final Rx Sphere Cylinder [place] Add Right +1.00 +1.50 175 +2.50 Left +0.75 +0.75 005 +2.50 Expiration Date: 06/29/2020 DIAGNOSTIC TESTS: IMPRESSION & PLAN: 1. Diabetes [...] personally. John Lott MD Patient Education Topic: diabetes Method: Verbal Taught to: Patient Barriers: None Outcomes: independent Signature: John Lott MD documented in this encounter Plan of Treatment Not on file documented as of this encounter Goals Goal Patient Goal Type Associated Problems Recent Progress Patient-Stated? 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 Discontinued by another clinician 06/29/2018 POTASSIUM/MAGNESIUM (MAGNESIUM-POTASSIUM ORAL) Take by mouth Discontinued by another clinician 06/29/2018 documented as of this encounter Eye Exam Visual Acuity (Snellen - Linear) Right eye Left eye Dist cc 20/25 20/30 Correction: Glasses sunglasses Tonometry (Applanation, 9:58) Right eye Left eye Pressure 14 19 Pupils Pupils Dark Light APD Right eye PERRL 5 4 None Left eye PERRL 5 4 None Visual Powers (Counting fingers) Right eye Left eye Full Full Extraocular Movement Right eye Left eye Full Full Neuro/Psych Oriented x3: Yes Mood/Affect: Normal Dilation Both eyes: 1.0% Mydriacyl, 2 .5% Phenylephrine @ 9:59 Slit Lamp Exam Right eye Left eye [...] No diabetic retinopathy Wearing Rx Sphere Cylinder [place] Right eye -0.25 +1.00 150 Left eye +0.25 +1.00 005 Type: SVL-sunglasses Manifest Refraction Sphere Cylinder [place] Dist VA Add Near VA Right eye +1.00 +1.50 175 20/20 +2.50 J1+ Left eye +0.75 +0.75 005 20/20 +2.50 J1+ Final Rx Sphere Cylinder [place] Add Right eye +1.00 +1.50 175 +2.50 Left eye +0.75 +0.75 005 +2.50 Expiration Date: 06/29/2020 Care Teams Dial Mounter Relationship Specialty Start Date End Date Ramón Olguin MD [address] [place] [phone] PCP - General 06/15/09 06/13/19 documented as of this encounter
--- OUTSIDE RECORDS SUMMARY | 2024-08-05 15:01 | XMS_ITS | Encounter Summary ---
Author Organization [facility] Address [address] [place] [address] Care Team Providers Care Package Delivery Driver Name Role Phone Ramón Olguin MD Primary Care Provider Reason for Visit * Reason Onset Date Comments Medications Refill 11/03/2018 Encounter Details Date Type Department Care Team (Late st Contact Info) Description 11/03/2018 Refill [facility] [address] [facility] [address] [place] [address] Ramón Olguin MD [address] [place] [address] [address] [place] [phone] Medications Refill Social History Tobacco [...] tablet Take 1 Tab by mouth daily. 90 Tab 11/04/2018 05/10/2019 documented in this encounter Miscellaneous Notes * Telephone Encounter - Nazanin Shahid RN - 11/03/2018 1750 EST Medication(s) Requested: Atorvastatin (Lipitor) 10 mg tablet Preferred [facility]acy: [facility] Is patient out of medication? Unknown Last Refill Date: 11/13/17 - 90 tabs with 3 refills Last Labs Date: 09/18/17 - Lipid Profile Last Visit Date with Ordering Provider: 05/21/18 - TO RETURN AROUND 10/22/18 FOR D15 Next Non-Acute Visit Date Scheduled with Care Team: Scheduled ROV for 11/12/18 with Ramón Olguin MD. Refilled 90 tabs with 0 refills Nazanin Shahid RN 11/03/2018 17:50 * Telephone Encounter - Cristel Cortez - 11/03/2018 1106 EST Medication(s) Requested: atorvastatin Preferred Pharmacy: [facility] Is patient out of medication? Unknown Cristel Cortez 11/03/2018 11:15 documented in this encounter Plan of Treatment Not on file documented as of this encounter Goals Goal Patient Goal Type Associated Problems Recent Progress Patient-Stated? Author Blood Pressure < 140/90 Blood Pressure Hypertensive disorder 112/70(2021 13:50 EDT) No Abbie Winter LPN [id number] XT < 7 Result Component 8.2( 9 14:15 EDT) No Abbie Winter LPN LDLEXT < 100 Result Component 76(05/13/2019 14:15 EDT) No Abbie Winter LPN documented as of this encounter Visit Diagnoses Not on filedocumented in this encounter Discontinued Medications Medication Sig Discontinue Reason Start Date End Da te atorvastatin (LIPITOR) 10 mg tablet TAKE ONE TABLET BY MOUTH EVERY DAY Reorder 11/13/2017 11/03/2018 documented as of this encounter Care Teams Package Delivery Driver Relationship Specialty Start Date End Date Ramón Olguin MD [address] [place] [phone] PCP - General 06/15/09 06/13/19 documented as of this encounter
--- OUTSIDE RECORDS SUMMARY | 2024-08-05 15:01 | XMS_ITS | Encounter Summary ---
Author Organization [facility] Address [address] [place] [address] Care Team Providers Care Tangled Yarn Spool Straightener Name Role Phone Ramón Olguin MD Primary Care Provider Encounter Details Date Type Department Care Team (Late st Contact Info) Description 09/18/2017 Results Only [facility] Medicine [facility] [address] [facility] [address] [place] [address] Ramón Olguin MD [address] [place] [address] [address] [place] [phone] Social History Tobacco Use Types Packs/Day Years Used Date Smoking Tobacco: Every Day Cigarettes Smokeless Tobacco: Former Comments:pipe Alcohol Use Standard Drinks/Week Comments Yes 0 (1 standard drink = 0.6 oz pur e alcohol) beer on [facility] Sex and Gender Information Value Date Recorded [...] No 07/09/2016 documented as of this encounter Plan of Treatment Not on file documented as of this encounter Goals Goal Patient Goal Type Associated Problems Recent Progress Patient-Stated? Author Blood Pressure < 140/90 Blood Pressure Hypertensive disorder 112/70(2021 13:50 EDT) No [place], Abbie, POULTICE MACHINE OPERATOR [id number] XT < 7 Result Component 8.2( 9 14:15 EDT) No [place], Abbie, POULTICE MACHINE OPERATOR LDLEXT < 100 Result Component 76(05/13/2019 14:15 EDT) No [place], Abbie, POULTICE MACHINE OPERATOR documented as of this encounter Procedures Procedure Name Priority Date/Time Associated Diagnosis Comments BASIC METABOLIC PANEL ([facility]) Routine 09/18/2017 15:21 EDT URINE [id number] E RATIO (ACR) Routine 09/18/2017 15:21 EDT ALT Routine 09/18/2017 15:21 EDT PSA TOTAL, DIAGNOSTIC Routine 09/18/2017 15:21 EDT HEMOGLOBIN A1C Routine 09/18/2017 15:21 EDT LIPID PROFILE (INCLUDES CHOLESTEROL, TRIGLYCERIDES, HDL, LDL) Routine 09/18/2017 15:21 EDT documented in this encounter Results * PSA TOTAL, DIAGNOSTIC (09/18/2017 15:21 EDT) PSA, External 0.757 <4.0 ng/mL [facility] Comment: Test methodology is Siemens Chemiluminescence. The lower limit of detection is 0.010 ng/mL. ??Results from different methods or kits cannot be used interchangeably. Serum PSA results cannot be interpreted as absolute evidence of presence or absence of malignancy. PERFORMED at [facility] at [facility]. ??[address] [place] [id number]. Laboratory Assistant Therapy Aide: ??Judson Stewart M.D. 09/18/2017 15:2 1 EDT 09/18/2017 15:21 EDT Narrative [facility] - 09/20/2017 7:43 EDT Does PT Have a Latex Allergy? NO Ramón Olguin MD CHEMISTRY & BL OOD GAS ORDERABLES [facility] * (ABNORMAL) HEMOGLOBIN A1C (09/18/2017 15:21 EDT) Hemoglobin A1C, External 7.2(H) 4.0 - 6.0 % [facility] Est Avg Glucose, External 160 mg/dL [facility] 09/18/2017 15:2 1 EDT 09/18/2017 15:21 EDT Narrative [facility] - 09/18/2017 22:14 EDT Does PT Have a Latex Allergy? NO Ramón Olguin MD CHEMISTRY & BL OOD GAS ORDERABLES Performing Organization Address [facility]/ZIP Co de Phone Number [facility] * (ABNORMAL) ALBUMIN, URINE (09/18/2017 15:21 EDT) Microalb mg/dl, External 2.70(H) <1.7 mg/dL [facility] Microalb ug/mg Crea, External 44.4 ug/mg [facility] Comment: Normal: <30 ug/mg Creat Microalbuminuria: 30-300 ug/mg Creat Clinical albuminuria: >300 ug/mg Creat Creatinine, Random U (UCRR), External 60.80 mg/dL [facility] 09/18/2017 15:2 1 EDT 09/18/2017 15:21 EDT Narrative [facility] - 09/18/2017 17:16 EDT Does PT Have a Latex Allergy? NO WHAT TYPE OF COLLECTION IS THIS URINE? RANDOM URINE Ramón Olguin MD CHEMISTRY & BL OOD GAS ORDERABLES [facility] * ALT (09/18/2017 15:21 EDT) ALT, External 33 21 - 72 U/L [facility] 09/18/2017 15:2 1 EDT 09/18/2017 15:21 EDT Narrative [facility] - 09/18/2017 16:31 EDT Does PT Have a Latex Allergy? NO Ramón Olguin MD CHEMISTRY & BL OOD GAS ORDERABLES [facility] * (ABNORMAL) LIPID PROFILE (INCLUDES CHOLESTEROL, TRIGLYCERIDES, HDL, LDL) (09/18/2017 15:21 EDT) Triglycerides, External 88 <150 mg/dL [facility] Comment: Adult: Normal: ?<150 mg/dl ? Borderline High: 150-199 mg/dl ? High: ?200-499 mg/dl ? Very High: >le=412 Cholesterol, External 84 <200 mg/dL [facility] Comment: Acceptable: ??<200 Borderline: ??200-239 High: ?> or = 240 Chol/HDL Ratio, External 2.6 0 - 5.0 [facility] Comment: DESIRABLE RATIO IS LESS THAN 4.1 PATIENTS ARE CONSIDERED AT RISK: WOMEN RATIO >5 MEN RATIO >6 Fasting?, External No [facility] HDL, External 32(L) 40 - 60 mg/dL [facility] Comment: ?? Reference Range Low: ? < 40 ??mg/dL Normal: ??40-60 mg/dL High: ?>= 60 mg/dL LDL, External 34(L) 60 - 100 mg/dL [facility] Non HDL Chol, External 52 mg/dl [facility] Comment: Desirable: ?Less than 130 Borderline High: ??130-159 High: ? 160-189 Very High: ?Greater than or equal to 190 09/18/2017 15:2 1 EDT 09/18/2017 15:21 EDT Narrative [facility] - 09/18/2017 16:31 EDT Does PT Have a Latex Allergy? NO Ramón Olguin MD CHEMISTRY & BL OOD GAS ORDERABLES Performing Organization Address [facility]/ZIP Co de Phone Number [facility] * (ABNORMAL) BASIC METABOLIC PANEL ([facility]) (09/18/2017 15:21 EDT) Bun, External 21 10 - 26 mg/dL [facility] Calcium, External 9.8 8.5 - 10.5 mg/dL [facility] Chloride, External 105 96 - 110 mmol/L [facility] CO2, External 26 21 - 32 mEq/L [facility] Creatinine, External 1.44(H) 0.66 - 1.25 mg/dL [facility] GFR, Ole/Est., External 48 [facility] Comment: Stage 3: Moderate renal impairment is defined as GFR 30-59 Multiply result by 1.210 for patients. Glucose, Serum, External 102(H) 70 - 100 mg/dL [facility] Potassium, External 4.8 3.5 - 5.0 mEq/L [facility] Sodium, External 140 136 - 145 mEq/L [facility] 09/18/2017 15:2 1 EDT 09/18/2017 15:21 EDT Narrative [facility] - 09/18/2017 16:31 EDT Does PT Have a Latex Allergy? NO Ramón Olguin MD CHEMISTRY & BL OOD GAS ORDERABLES Performing Organization Address City/[facility]/ZIP Co de Phone Number [facility] documented in this encounter Visit Diagnoses Not on filedocumented in this encounter Care Teams Tangled Yarn Spool Straightener Relationship Specialty Start Date End Date Ramón Olguin MD [address] [place] [phone] PCP - General 06/15/09 06/13/19 documented as of this encounter
--- OUTSIDE RECORDS SUMMARY | 2024-08-05 15:01 | XMS_ITS | Encounter Summary ---
Author Organization [facility] Address [address] [place] [address] Care Team Providers Care Tray Room Worker Name Role Phone Kameron Lee MD Primary Care Provider [phone]- [phone] Reason for Visit * Reason Comments Diabetes 6 month follow up Hypertension 6 month follow up Encounter Details Date Type Department Care Team (Late st Contact Info) Description 12/05/2019 9:45 EST Office Visit [address] [address] Kameron Lee MD [address] [place] [phone] Essential hypertension (Primary Dx); Hyperkalemia; CKD (chronic kidney disease) stage 3, GFR 30-59 ml/min ([facility]); Type 2 diabetes mellitus without complication, without long-term current use of insulin ([facility]); Neuropathy of both feet; Obesity (BMI 30-39.9); Need for influenza vaccination; Smoker Social History Tobacco Use Types Packs/Day Years Used Date Smoking Tobacco: Every Day Cigarettes Smokeless Tobacco: Former Tobacco Cessation:Ready to Q [...] Sign Reading Time Taken Comments Blood Pressure 146/82 12/05/2019 0952 EST Pulse 72 12/05/2019 0952 EST Temperature 36.4 ??C (97.6 ??F) 12/05/2019951 EST Respiratory Rate - - Oxygen Saturation 96% 12/05/2019 09 EST Inhaled Oxygen Concentration - - Weight 108.4 kg (239 lb) 12/05/2019951 EST Height - - Body Mass Index 34.29 11/17/2018 0918 EST documented in this encounter [...] Progress Notes * Kameron Lee MD - 12/05/2019 0945 EST Cc: Follow up HPI: DM: making lifestyle changes, tolerates medication. Pt states that has eaten a lot of carbs lately. Lipids: Watching fat intake, modifying diet, not on statin. HTN: Tolerating medication, making lifestyle changes. Potassium: Patient not interested in taking Kayexalate. Dates that he feels fine. No chest pain or palpitations No nausea, vomiting, diarrhea, or fever. No cough, wheezing, sneezing, running nose, or phlegm. No headache, dizziness, or neurologic deficits. No muscle pain or weakness Past Medical History: Diagnosis Date ??? Diabetes mellitus ([facility]) ??? Hyperlipidemia ??? Hypertension Past Surgical History: Procedure Laterality Date ??? COLONOSCOPY 02/2003 ??? LAMINECTOMY ??? SHOULDER SURGERY 03/25 left; labral tear ??? WRIST SURGERY Left 2016 carpal tunnel Social History Socioeconomic History ??? Marital status: Spouse name: Not on file ??? Number of children: Not on file ??? Years of education: Not on file ??? Highest education level: Not on file Occupational History Employer: RETIRED Social Needs ??? Financial resource strain: Not on file ??? Food insecurity: Worry: Not on file Inability: Not on file ??? Transportation needs: Medical: Not on file Non-medical: Not on file Tobacco Use ??? Smoking status: Current Every Day Smoker Packs/day: 0.25 ??? Smokeless tobacco: Former User ??? Tobacco comment: pipe Substance and Sexual Activity ??? Alcohol use: Yes Alcohol/week: 0.0 standard drinks Comment: beer on occ ??? Drug use: No ??? Sexual activity: Not on file Lifestyle ??? Physical activity: Days per week: Not on file Minutes per session: Not on file ??? Stress: Not on file Relationships ??? Social connections: Talks on phone: Not on file Gets together: Not on file Attends spiritism service: Not on file Active member of club or organization: Not on file Attends meetings of clubs or organizations: Not on file Relationship status: Not on file ??? Intimate partner violence: Fear of current or ex partner: Not on file Emotionally abused: Not on file Physically abused: Not on file Forced sexual activity: Not on file Other Topics Concern ??? Not on file Social History Narrative ??? Not on file Family History Problem Relation Age of Onset ??? Macular Degeneration Neg Hx ??? Glaucoma Neg Hx ??? Diabetes Neg Hx BP (!) 146/82 (BP Cuff Location: Right arm, BP Patient Position: Sitting, BP Cuff Sizes: Adult, large) Pulse 72 Temp 36.4 ??C (97.6 ??F) (Tympanic) Wt (!) 108.4 kg (239 lb) SpO2 96% BMI 34.29 kg/m?? Vitals - All readings by Timestamp 11/17/2018 11/17/2018 05/13/2019 Pt Position Sitting Sitting Cuff Location Right arm Right arm BP (mmHg) 142/84 132/84 122/74 Vitals - All readings by Timestamp 12/05/2019 Pt Position Sitting Cuff Location Right arm BP (mmHg) 146/82 Exam: General: No distress, good appearance Head: normocephalic and atraumatic Eyes: Sclera white, conjunctive pink, no discharge Ears: canals with no redness or discharge, TM- opaque, not buldging, no erythema Nose- no discharge, no lesions Mouth- tongue with no lesions, moist mucosa, No enlarged tonsils, no exudate, no petechiae, nor erythema. Neck/Hematology- No masses, no adenopathy Respiratory- Clear breath sounds bilaterally, good air entry, no wheezing, rales, or rhonchi. CV- regular, rate, and rhythm, normal S1 and S2, no murmur, gallops, or rubs, +2 radial pulses. Abdomen- soft non-tender to palpation, no rebound or guarding, normal bowel sounds Extremities- no edema, no skin discoloration. +2 DP and PT pulses 10 point monofilament exam with slight neurologic deficits bilaterally at the toes. Labs Component Latest Ref Rng & Units 12/01/2019 Albumin 3.4 - 4.9 g/dL 4.5 ALKALINE PHOSPHATASE - [facility] 38 - 126 U/L 67 BILIRUBIN TOTAL - [facility] 0.2 - 1.3 mg/dL 0.7 BUN 10 - 26 mg/dL 29 (H) Calcium 8.5 - 10.5 mg/dL 9.9 Chloride 96 - 110 mmol/L 102 CO2 21 - 32 mEq/L 25 Creatinine 0.66 - 1.25 mg/dL 1.73 (H) GFR, Calculated 39 Anion Gap 0 - 18 11 Glucose, Serum 70 - 100 mg/dL 199 (H) Potassium 3.5 - 5.0 mEq/L 5.5 (H) Sodium 136 - 145 mEq/L 138 Total Protein 6.2 - 8.2 gm/dL 7.1 SGOT/AST - CV 17 - 59 U/L 21 SGPT/ALT - [facility] 21 - 72 U/L 30 Triglycerides <150 mg/dL 211 Cholesterol <200 mg/dL 109 Chol/HDL Ratio, External 0 - 5.0 3.7 Fasting? Yes HDL 40 - 60 mg/dL 29 (L) LDL Cholesterol 60 - 100 mg/dL 38 (L) Non HDL Cholesterol mg/dl 80 Hemoglobin A1C 4.0 - 6.0 % 9.0 (H) Est Avg Glucose mg/dL 212 Assessment and Plan: 1. Essential hypertension-not controlled today -Continue medication 2. Hyperkalemia-stable, patient with history of kidney disease with slightly elevated potassium andcreatinine. -Patient declines Kayexalate -Monitor 3. CKD (chronic kidney disease) stage 3, GFR 30-59 ml/min ([facility])-stable -Monitor BUN/creatinine 4. Type 2 diabetes mellitus without complication, without long-term current use of insulin ([facility])-not controlled today -Patient to make lifestyle changes -Patient to continue oral medication - HEMOGLOBIN A1C; Future -Pt declines 3 month follow up. Wants six months. 5. Neuropathy of both feet-stable 6. Obesity (BMI 30-39.9)-ongoing -Style changes 7. Need for influenza vaccination - INFLUENZA VACCINE QUAD (FLULAVAL/FLUARIX/FLUZONE) PF 0.5 ML IM (6 MOS+) 8. Smoker -Smoking sensation counseling less than 3 minutes. Kameron Lee MD [facility] documented in this encounter Plan of Treatment Not on file documented as of this encounter Goals Goal Patient Goal Type Associated Problems Recent Progress Patient-Stated? Author Blood Pressure < 140/90 Blood Pressure Hypertensive disorder 112/70(2021 13:50 EDT) No Abbie Winter LPN [id number] XT < 7 Result Component 8.2( 9 14:15 EDT) No Abbie Winter LPN LDLEXT < 100 Result Component 76(05/13/2019 14:15 EDT) No Abbie Winter LPN documented as of this encounter Visit Diagnoses Diagnosis Essential hypertension- Primary Unspecified essential hypertension Hyperkalemia Hyperpotassemia CKD (chronic kidney disease) stage 3, GFR 30-59 ml/min ([facility]) Chronic kidney disease, Stage III (moderate) Type 2 diabetes mellitus without complication, without long-term current use of insulin ([facility]) 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
--- OUTSIDE RECORDS SUMMARY | 2024-08-05 15:01 | XMS_ITS | Encounter Summary ---
Author Organization [facility] Address [address] [place] [address] Care Team Providers Care Bandage Winding Machine Operator Name Role Phone Ramón Olguin MD Primary Care Provider Reason for Visit * Reason Comments Other Encounter Details Date Type Department Care Team (Late st Contact Info) Description 10/09/[address], [place] [address] Vance Bradshaw MD Other Social History Tobacco Use Types Packs/Day [...] BY MOUTH EVERY DAY 90 Tab 3 10/11/2018 05/10/2019 metoprolol XL (TOPROL-XL) 50 mg tablet TAKE ONE TABLET BY MOUTH EVERY DAY 90 Tab 3 10/11/2018 05/10/2019 documented in this encounter Miscellaneous Notes * Telephone Encounter - Angela Jaeger, RN - 10/11/2018 0720 EST Medication(s) Requested: Lisinopril metoprolol [facility] Is patient out of medication? Last Refill Date: 10/29/17 Last Visit Date with Ordering Provider: 05/21/18 with labs Next Non-Acute Visit Date Scheduled with Care Team: Angela Jaeger RN 10/11/2018 7:47 documented in this encounter Plan of Treatment Not on file documented as of this encounter Goals Goal Patient Goal Type Associated Problems Recent Progress Patient-Stated? Author Blood Pressure < 140/90 Blood Pressure Hypertensive disorder 112/70(2021 13:50 EDT) No Abbie Winter LPN [id number] XT < 7 Result Component 8.2( 9 14:15 EDT) No Abbie Winter LPN LDLEXT < 100 Result Component 76(05/13/2019 14:15 EDT) No Abbie Winter LPN documented as of this encounter Visit Diagnoses Not on filedocumented in this encounter Discontinued Medications Medication Sig Discontinue Reason Start Date End Da te metoprolol XL (TOPROL-XL) 50 mg tablet TAKE ONE TABLET BY MOUTH EVERY DAY Reorder 10/29/2017 10/09/2018 lisinopril (PRINIVIL, ZESTRIL) 40 mg tablet TAKE ONE TABLET BY MOUTH EVERY DAY Reorder 10/29/2017 10/09/2018 documented as of this encounter Care Teams Bandage Winding Machine Operator Relationship Specialty Start Date End Date Ramón Olguin MD [address] [place] [phone] PCP - General 06/15/09 06/13/19 documented as of this encounter
--- OUTSIDE RECORDS SUMMARY | 2024-08-05 15:01 | XMS_ITS | Encounter Summary ---
Author Organization [facility] Address [address] [place] [address] Care Team Providers Care Timber Selector Name Role Phone Kameron Lee MD Primary Care Provider +1- [phone] Reason for Visit * Reason Onset Date Comments Results 12/01/2019 Potassium Encounter Details Date Type Department Care Team (Late st Contact Info) Description 12/01/[address] [address] Kameron Lee MD [address] [place] [phone] Results (Potassium) Social History Tobacco Use Types Packs/Day Years [...] Dispensed Refills Start Date End Da te sodium polystyrene (KAYEXALATE) powder Take 15 grams at once. 15 g 12/02/2019 07/31/2020 documented in this encounter Miscellaneous Notes * Telephone Encounter - Kameron Lee MD - 12/02/2019 1538 EST Noted. * Telephone Encounter - Nazanin Shahid RN - 12/02/2019 1534 EST Patient returned the call and was notified. He said he received his results online, but wants Dr. Lee to know that it states he was fasting, but he was not. He had no food, but did have cranberry juice prior to the test. * Telephone Encounter - Lubna Burton - 12/02/2019 1459 EST Patient returned call, please call him back. * Telephone Encounter - Nazanin Shahid RN - 12/02/2019 1340 EST Message left to call back. * Telephone Encounter - Kameron Lee MD - 12/01/2019 1538 EST Please let patient know that his potassium is slightly high. He continues to have stage III kidney disease. He should take a medication to lower his potassium. Kayexalate is pended. We'll recheck his potassium when he comes in. documented in this encounter Plan of Treatment Not on file documented as of this encounter Goals Goal Patient Goal Type Associated Problems Recent Progress Patient-Stated? Author Blood Pressure < 140/90 Blood Pressure Hypertensive disorder 112/70(2021 13:50 EDT) No Abbie Winter LPN [id number] XT < 7 Result Component 8.2( 9 14:15 EDT) No Abbie Winter LPN LDLEXT < 100 Result Component 76(05/13/2019 14:15 EDT) No Abbie Winter LPN documented as of this encounter Visit Diagnoses Not on filedocumented in this encounter Care Teams Timber Selector Relationship Specialty Start Date End Date Kameron Lee MD [address] [place] [phone] PCP - General 06/14/19 04/28/23 documented as of this encounter
--- OUTSIDE RECORDS SUMMARY | 2024-08-05 15:01 | XMS_ITS | Encounter Summary ---
Author Organization [facility] Address [address] [place] [address] Care Team Providers Care Ice Cream Server Name Role Phone Ramón Olguin MD Primary Care Provider Encounter Details Date Type Department Care Team (Late st Contact Info) Description 11/17/2018 Results Only [facility] [address] [place] [address] Ramón Olguin MD [address] [place] [address] [address] [place] [phone] Social History Tobacco Use Types Packs/Day Years Used Date Smoking Tobacco: Every Day Cigarettes Smokeless Tobacco: Former Comments:pipe Alcohol Use Standard Drinks/Week Comments Yes 0 (1 standard drink = 0.6 oz pur e alcohol) beer on [facility] Sex and Gender Information Value Date Recorded [...] Pressure Hypertensive disorder 112/70(2021 13:50 EDT) No Basehor, Abbie, AUTO GLASS INSTALLER [id number] XT < 7 Result Component 8.2( 9 14:15 EDT) No Basehor, Abbie, AUTO GLASS INSTALLER LDLEXT < 100 Result Component 76(05/13/2019 14:15 EDT) No Basehor, Abbie, AUTO GLASS INSTALLER documented as of this encounter Procedures Procedure Name Priority Date/Time Associated Diagnosis Comments BASIC METABOLIC PANEL ([facility]) Routine 11/17/2018 10:01 EST URINE [id number] E RATIO (ACR) Routine 11/17/2018 10:01 EST ALT Routine 11/17/2018 10:01 EST HEMOGLOBIN A1C Routine 11/17/2018 10:01 EST LIPID PROFILE (INCLUDES CHOLESTEROL, TRIGLYCERIDES, HDL, LDL) Routine 11/17/2018 10:01 EST documented in this encounter Results * (ABNORMAL) HEMOGLOBIN A1C (11/17/2018 10:01 EST) Hemoglobin A1C, External 7.5(H) 4.0 - 6.0 % [facility] Est Avg Glucose, External 169 mg/dL [facility] 11/17/2018 10:0 1 EST 11/17/2018 10:02 EST Narrative [facility] - 11/17/2018 13:14 EST Does PT Have a Latex Allergy? NO Ramón Olguin MD CHEMISTRY & BL OOD GAS ORDERABLES [facility] * ALT (11/17/2018 10:01 EST) ALT, External 33 21 - 72 U/L [facility] 11/17/2018 10:0 1 EST 11/17/2018 10:01 EST Narrative [facility] - 11/17/2018 11:46 EST Does PT Have a Latex Allergy? NO Ramón Olguin MD CHEMISTRY & BL OOD GAS ORDERABLES [facility] * (ABNORMAL) LIPID PROFILE (INCLUDES CHOLESTEROL, TRIGLYCERIDES, HDL, LDL) (11/17/2018 10:01 EST) Triglycerides, External 174 <150 mg/dL [facility] Comment: Adult: Normal: ?<150 mg/dl ? Borderline High: 150-199 mg/dl ? High: ?200-499 mg/dl ? Very High: >iy=316 Cholesterol, External 95 <200 mg/dL [facility] Comment: Acceptable: ??<200 Borderline: ??200-239 High: ?> or = 240 Chol/HDL Ratio, External 2.9 0 - 5.0 [facility] Comment: DESIRABLE RATIO IS LESS THAN 4.1 PATIENTS ARE CONSIDERED AT RISK: WOMEN RATIO >5 MEN RATIO >6 Fasting?, External No [facility] HDL, External 32(L) 40 - 60 mg/dL [facility] Comment: ?? Reference Range Low: ? < 40 ??mg/dL Normal: ??40-60 mg/dL High: ?>= 60 mg/dL LDL, External 28(L) 60 - 100 mg/dL [facility] Non HDL Chol, External 63 mg/dl [facility] Comment: Desirable: ?Less than 130 Borderline High: ??130-159 High: ? 160-189 Very High: ?Greater than or equal to 190 11/17/2018 10:0 1 EST 11/17/2018 10:01 EST Narrative [facility] - 11/17/2018 11:46 EST Does PT Have a Latex Allergy? NO Ramón Olguin MD CHEMISTRY & BL OOD GAS ORDERABLES Performing Organization Address [facility]/State/ZIP Co de Phone Number [facility] * (ABNORMAL) BASIC METABOLIC PANEL ([facility]) (11/17/2018 10:01 EST) Bun, External 29(H) 10 - 26 mg/dL [facility] Calcium, External 9.6 8.5 - 10.5 mg/dL [facility] Chloride, External 106 96 - 110 mmol/L [facility] CO2, External 23 21 - 32 mEq/L [facility] Creatinine, External 1.66(H) 0.66 - 1.25 mg/dL [facility] GFR, Ole/Est., External 41 [facility] Comment: Stage 3: Moderate renal impairment is defined as GFR 30-59 Multiply result by 1.210 for patients. Glucose, Serum, External 132(H) 70 - 100 mg/dL [facility] Potassium, External 5.1(H) 3.5 - 5.0 mEq/L [facility] Sodium, External 142 136 - 145 mEq/L [facility] 11/17/2018 10:0 1 EST 11/17/2018 10:01 EST Narrative [facility] - 11/17/2018 11:46 EST Does PT Have a Latex Allergy? NO Ramón Olguin MD CHEMISTRY & BL OOD GAS ORDERABLES Performing Organization Address [facility]/ZIP Co de Phone Number [facility] * (ABNORMAL) ALBUMIN, URINE (11/17/2018 10:01 EST) Microalb mg/dl, External 4.20(H) <1.7 mg/dL [facility] Microalb ug/mg Crea, External 46.4 ug/mg [facility] Comment: Normal: <30 ug/mg Creat Microalbuminuria: 30-300 ug/mg Creat Clinical albuminuria: >300 ug/mg Creat Creatinine, Random U (UCRR), External 90.40 mg/dL [facility] 11/17/2018 10:0 1 EST 11/17/2018 10:02 EST Narrative [facility] - 11/17/2018 11:07 EST Does PT Have a Latex Allergy? NO WHAT TYPE OF COLLECTION IS THIS URINE? RANDOM URINE Ramón Olguin MD CHEMISTRY & BL OOD GAS ORDERABLES [facility] documented in this encounter Visit Diagnoses Not on filedocumented in this encounter Care Teams Ice Cream Server Relationship Specialty Start Date End Date Ramón Olguin MD [address] [place] [phone] PCP - General 06/15/09 06/13/19 documented as of this encounter
--- OUTSIDE RECORDS SUMMARY | 2024-08-05 15:01 | XMS_ITS | Encounter Summary ---
Author Organization [facility] Address [address] [place] [address] Care Team Providers Care Ticket Writer Name Role Phone Ramón Olguin MD Primary Care Provider Kameron Lee MD Primary Care Provider [phone]- [phone] Encounter Details Date Type Department Care Team (Late st Contact Info) Description 09/18/2017 Historical Results Only [facility] - Main [place] [address] [place], [place] [phone] Ramón Olguin MD [address] [place] [phone] Social History Tobacco Use Types Packs/Day [...] 112/70(2021 13:50 EDT) No Abbie Winter LPN [id number] XT < 7 Result Component 8.2( 9 14:15 EDT) No Abbie Winter, COUPLING MACHINE OPERATOR LDLEXT < 100 Result Component 76(05/13/2019 14:15 EDT) No Abbie Winter LPN documented as of this encounter Procedures Procedure Name Priority Date/Time Associated Diagnosis Comments MICROALBUMIN, URINE Routine 09/18/2017 1 5:21 EDT PSA, ULTRASENSITIVE, DIAGNOSTIC, S UROLOGY/ONCOLOGY USE ONLY Routine 09/18/2017 15:21 EDT URINE [id number] E RATIO (ACR) Routine 09/18/2017 15:21 EDT ALT Routine 09/18/2017 15:21 EDT HEMOGLOBIN A1C Routine 09/18/2017 15:21 EDT LIPID PROFILE (INCLUDES CHOLESTEROL, TRIGLYCERIDES, HDL, LDL) Routine 09/18/2017 15:21 EDT BASIC METABOLIC PANEL (BMP) Routine 09/18/2017 15:21 EDT documented in this encounter Results * (ABNORMAL) MICROALBUMIN, URINE (09/18/2017 15:21 EDT) Albumin, Urine 2.70(H) <1.7 mg/dL 09/18/2017 17:[address] [facility] Lab Urine Albumin to Creatinine Ratio 44.4 ug/mg 09/18/2017 17:[address] [facility] Comment: Normal: <30 ug/mg Creat Microalbuminuria: 30-300 ug/mg Creat Clinical albuminuria: >300 ug/mg Creat Creatinine, Urine 60.80 mg/dL 09/18[facility]2017 [facility] 15:2 1 EDT 09/18/2017 15:[address] [facility] - 09/18/2017 17:16 EDT Does PT Have a Latex Allergy? NO WHAT TYPE OF COLLECTION IS THIS URINE? RANDOM URINE Ramón Olguin MD HEMATOLOGY & P F4 ORDERABLES [facility] * ALT (09/18/2017 15:21 EDT) [place]PT/[place] - [facility] 33 21 - 72 U/L 09/18/2017 16:31 [facility] 09/18/2017 15:2 1 EDT 09/18/2017 15:[address] [facility] - 09/18/2017 16:31 EDT Does PT Have a Latex Allergy? NO Ramón Olguin MD CHEMISTRY & BL OOD GAS ORDERABLES Performing Organization Address City/[facility]/ZIP Co de Phone Number [facility] * (ABNORMAL) LIPID PROFILE (INCLUDES CHOLESTEROL, TRIGLYCERIDES, HDL, LDL) (09/18/2017 15:21 EDT) Triglyceride 88 <150 mg/dL 09/18/2017 16:31 [facility] Comment: Adult: Normal: ?<150 mg/dl ? Borderline High: 150-199 mg/dl ? High: ?200-499 mg/dl ? Very High: >wj=707 Cholesterol 84 <200 mg/dL 09/18/2017 16:31 [facility] Comment: Acceptable: ??<200 Borderline: ??200-239 High: ?> or = 240 Chol/HDL Ratio 2.6 0 - 5.0 09/18/2017 16:31 [facility] Comment: DESIRABLE RATIO IS LESS THAN 4.1 PATIENTS ARE CONSIDERED AT RISK: WOMEN RATIO >5 MEN RATIO >6 FASTING? - [facility] [place] [facility] 15:21 [facility] HDL 32(L) 40 - 60 mg/dL 09/18/2017 16:31 [facility] Comment: ?? Reference Range Low: ? < 40 ??mg/dL Normal: ??40-60 mg/dL High: ?>= 60 mg/dL LDL CHOLESTEROL - [facility] 34(L) 60 - 100 mg/dL 09/18/2017 16:31 [facility] Non HDL Cholesterol 52 mg/dl 09/18/2017 16:31 [facility] Comment: Desirable: ?Less than 130 Borderline High: ??130-159 High: ? 160-189 Very High: ?Greater than or equal to 190 09/18/2017 15:2 1 EDT 09/18/2017 15:[address] [facility] - 09/18/2017 16:31 EDT Does PT Have a Latex Allergy? NO Ramón Olguin MD CHEMISTRY & BL OOD GAS ORDERABLES [facility] * (ABNORMAL) BASIC METABOLIC PANEL (BMP) (09/18/2017 15:21 EDT) BUN - [facility] 21 10 - 26 mg/dL 09/18/2017 16[facility]31 [facility] CAL[facility]UM - [facility] 9.8 8.5 - 10.5 mg/dL 09/18/2017 16:31 [facility] Chloride 105 96 - 110 mmol/L 09/18/2017 16:31 [facility] CO2 Total 26 21 - 32 mEq/L 09/18/2017 16:31 [facility] CREATININE 1.44(H) 0.66 - 1.25 mg/dL 09/18/2017 16:31 [facility] eGFR 48 09/18/2017 16:31 [facility] Comment: Stage 3: Moderate renal impairment is defined as GFR 30-59 Multiply result by 1.210 for patients. Anion Gap 9 5 - 15 09/18/2017 16:[address] [facility] GLUCOSE - [facility] 102(H) 70 - 100 mg/dL 09/18/2017 16:[address] [facility] Potassium 4.8 3.5 - 5.0 mEq/L 09/18/2017 16:[address] [facility] Sodium 140 136 - 145 mEq/L 09/18/2017 16:[address] [facility] 09/18/2017 15:2 1 EDT 09/18/2017 15:[address] [facility] - 09/18/2017 16:31 EDT Does PT Have a Latex Allergy? NO Ramón Olguin MD CHEMISTRY & BL OOD GAS ORDERABLES [facility] * (ABNORMAL) HEMOGLOBIN A1C (09/18/2017 15:21 EDT) Pathologist [facility] Hemoglobin A1c 7.2(H) 4.0 - 6.0 % 09/18/2017 22:14 [facility] Est Avg Glucose 160 mg/dL 7 22:[address] [facility] 09/18/2017 15:2 1 EDT 09/18/2017 15:[address] [facility] - 09/18/2017 22:14 EDT Does PT Have a Latex Allergy? NO Ramón Olguin MD CHEMISTRY & BL OOD GAS ORDERABLES [facility] * PSA, ULTRASENSITIVE, DIAGNOSTIC, S UROLOGY/ONCOLOGY USE ONLY (09/18/2017 15:21 EDT) Pathologist [facility] PSA ULTRASENSTIVE - [facility] 0.757 <4.0 ng/mL 09/20/2017 7:[address] [facility] Comment: Test methodology is Siemens Chemiluminescence. The lower limit of detection is 0.010 ng/mL. ??Results from different methods or kits cannot be used interchangeably. ?? Serum PSA results cannot be interpreted as absolute evidence of presence or absence of malignancy. PERFORMED at [facility] at [facility]. ??[address] [place] [id number]. Laboratory Auto Driver: ??Judson Stewart M.D. 09/18/2017 15:2 1 EDT 09/18/2017 15:[address] [facility] - 09/20/2017 7:43 EDT Does PT Have a Latex Allergy? NO Ramón Olguin MD CHEMISTRY & BL OOD GAS ORDERABLES Performing Organization Address [facility] Co de Phone Number [facility] * (ABNORMAL) ALBUMIN, URINE (09/18/2017 15:21 EDT) Albumin, Urine 2.70(H) <1.7 mg/dL 09/18/2017 17:[address] [facility] Urine Albumin to Creatinine Ratio 44.4 ug/mg 09/18/2017 17:[address] [facility] Comment: Normal: <30 ug/mg Creat Microalbuminuria: 30-300 ug/mg Creat Clinical albuminuria: >300 ug/mg Creat Creatinine, Urine 60.80 mg/dL 09/18/2017 17:[address] [facility] 09/18/2017 15:2 1 EDT 09/18/2017 15:[address] [facility] - 09/18/2017 17:16 EDT Does PT Have a Latex Allergy? NO WHAT TYPE OF COLLECTION IS THIS URINE? RANDOM URINE Ramón Olguin MD CHEMISTRY & BL OOD GAS ORDERABLES Performing Organization Address [facility]/ZIP Co de Phone Number [facility] documented in this encounter Visit Diagnoses Not on filedocumented in this encounter Care Teams Ticket Writer Relationship Specialty Start Date End Date Ramón Olguin MD [address] [place] [phone] PCP - General 06/15/09 06/13/19 Kameron Lee MD [address] [place] [phone] PCP - General 06/14/19 04/28/23 documented as of this encounter
--- OUTSIDE RECORDS SUMMARY | 2024-08-05 15:01 | XMS_ITS | Encounter Summary ---
Author Organization [facility] Address [address] [place] [address] Care Team Providers Care Clothes Separator Name Role Phone Ramón Olguin MD Primary Care Provider Reason for Visit * Reason Comments Other Encounter Details Date Type Department Care Team (Late st Contact Info) Description 05/06/2017 Refill [facility] [address] [facility] [address] [place] [address] Ramón Olguin MD [address] [place] [address] [address] [place] [phone] Other Social History Tobacco Use [...] TABLET BY MOUTH EVERY DAY 90 Tab 05/06/2017 10/30/2017 documented in this encounter Miscellaneous Notes * Telephone Encounter - Angela Jaeger, RN - 05/06/2017 0832 EDT Medication(s) Requested: glipizide [facility] Last Refill Date: 03/21/16 Last Visit Date: 12/03/16 with labs patient is due to return this month Next Visit Date: Visit date not found Is patient out of medication? Angela Jaeger RN 05/06/2017 8:32 documented in this encounter Plan of Treatment Not on file documented as of this encounter Goals Goal Patient Goal Type Associated Problems Recent Progress Patient-Stated? Author Blood Pressure < 140/90 Blood Pressure Hypertensive disorder 112/70(2021 13:50 EDT) No Abbie Winter LPN [id number] XT < 7 Result Component 8.2( 9 14:15 EDT) No Abbie Winter LPN LDLEXT < 100 Result Component 76(05/13/2019 14:15 EDT) No Abbie Winter LPN documented as of this encounter Visit Diagnoses Diagnosis Type 2 diabetes mellitus without complication ([facility])- Primary Type II or unspecified type diabetes mellitus without mention of complication, not stated as uncontrolled documented in this encounter Discontinued Medications Medication Sig Discontinue Reason Start Date End Da te glipiZIDE (GLUCOTROL) 10 mg XL tabletIndications:Type 2 diabetes mellitus without complication ([facility]-CMS) TAKE ONE TABLET BY MOUTH EVERY DAY Reorder 03/21/2016 05/06/2017 documented as of this encounter Care Teams Clothes Separator Relationship Specialty Start Date End Date Ramón Olguin MD [address] [place] [phone] PCP - General 06/15/09 06/13/19 documented as of this encounter
--- OUTSIDE RECORDS SUMMARY | 2024-08-05 15:01 | XMS_ITS | Encounter Summary ---
Author Organization [facility] Address [address] [place] [address] Care Team Providers Care Sewing Machine Adjuster Name Role Phone Ramón Olguin MD Primary Care Provider Reason for Referral * Laboratory Services (Routine) - New Request Specialty Diagnoses / Procedures Referred By Contac t Referred To Contact Diagnoses Type 2 diabetes mellitus without complication, without long-term current use of insulin ([facility]) Procedures HEMOGLOBIN A1C Ramón Olguin MD [address] [place] [phone] Referral ID Status Reason Start Date Expiration Date V isits Requested Visits Authorized [id number] New Request 05/13/2019 1 1 * Laboratory Services (Routine) - New Request Specialty Diagnoses / Procedures Referred By Contac t Referred To Contact Diagnoses Type 2 diabetes mellitus without complication, without long-term current use of insulin ([facility]) Procedures LIPID PROFILE (INCLUDES CHOLESTEROL, TRIGLYCERIDES, HDL, LDL) Ramón Olguin MD [address] [place] [phone] Referral ID Status Reason Start Date Expiration Date V isits Requested Visits Authorized [id number] New Request 05/13/2019 1 1 * Laboratory Services (Routine) - New Request Specialty Diagnoses / Procedures Referred By Contac t Referred To Contact Diagnoses Type 2 diabetes mellitus without complication, without long-term current use of insulin ([facility]) Procedures BASIC METABOLIC PANEL (BMP) Ramón Olguin MD [address] [place] [phone] Referral ID Status Reason Start Date Expiration Date V isits Requested Visits Authorized [id number] New Request 05/13/2019 1 1 * Laboratory Services (Routine) - New Request Specialty Diagnoses / Procedures Referred By Contac t Referred To Contact Diagnoses Type 2 diabetes mellitus without complication, without long-term current use of insulin ([facility]) Procedures ALT Ramón Olguin MD [address] [place] [phone] Referral ID Status Reason Start Date Expiration Date V isits Requested Visits Authorized [id number] New Request 05/13/2019 1 1 Reason for Visit * Reason Comments Diabetes 6 month follow up Hypertension 6 month follow up Medication Management Patient has been w ithout a statin for approx 4 months r/t rx renewal with no refill. Would like labs Encounter Details Date Type Department Care Team (Late st Contact Info) Description 05/13/2019 13:30 EDT Office Visit [address] [place] [address] Ramnó Olguin MD [address] [place] [phone] CKD (chronic kidney disease) stage 3, GFR 30-59 ml/min ([facility]) (Primary Dx); Type 2 diabetes mellitus without complication, without long-term current use of insulin ([facility]); Essential hypertension; Skin erosion; Obesity (BMI 30-39.9) Social History Tobacco Use [...] Sign Reading Time Taken Comments Blood Pressure 122/74 05/13/2019 1334 EDT Pulse 76 05/13/2019 1334 EDT Temperature 36.7 ??C (98.1 ??F) 05/13/2019 1334 EDT Respiratory Rate - - Oxygen Saturation 97% 05/13/2019 1334 EDT Inhaled Oxygen Concentration - - Weight 108.9 kg (240 lb) 05/13/2019 1334 EDT Height - - Body Mass Index 34.44 11/17/2018 0918 EST documented in this encounter [...] complication, without long-term current use of insulin ([facility]) Take 1 Tab by mouth daily. 90 Tab 3 05/13/2019 06/26/2020 metFORMIN (GLUCOPHAGE) 1,000 mg tabletIndications:Type 2 diabetes mellitus without complication, without long-term current use of insulin ([facility]-CMS) Take 1 Tab by mouth 2 times daily. 180 Tab 3 05/13/2019 04/23/2020 metoprolol XL (TOPROL-XL) 50 mg tabletIndications:[facility] hypertension Take 1 Tab by mouth daily. 90 Tab 3 05/13/2019 06/14/2020 lisinopril (PRINIVIL, ZESTRIL) 40 mg tabletIndications:[facility]ia [facility] hypertension Take 1 Tab by mouth daily. 90 Tab 3 05/13/2019 06/14/2020 atorvastatin (LIPITOR) 10 mg tabletIndications:Type 2 diabetes mellitus without complication, without long-term current use of insulin ([facility]) Take 1 Tab by mouth daily. 90 Tab 3 05/13/2019 04/23/2020 documented in this encounter Progress Notes * Sharif Ramón - 05/13/2019 1330 EDT REASON FOR VISIT: Hypertension, diabetes. SUBJECTIVE: Followup visit for hypertension and diabetes. Overall, generally doing well, no interval problems or complaints noted. He notes being less compliant with his diet. I found sugars to be a bit higher. History of chronic disease. This seems stable. No overt symptoms. He declines a prostate screening today. Neuropathy of both feet, no acute change. We discussed activity, modest weight loss. He is still smoking a pipe. We did discuss cessation. OBJECTIVE: Vital signs normal, afebrile Weight noted, BMI 34 Chest: Clear to auscultation. Cardiovascular: Heart with regular rate and rhythm, no murmur. Abdomen: Positive bowel sounds, soft, nontender. Foot exam: Normal appearance, normal pulses, but decreased monofilament testing in distal feet, no acute change. ASSESSMENT: PROBLEM 1: Diabetes. Expect this may have a mild rise given lack of compliance. PLAN: 1. Encouraged compliance. 2. Continue current medicines for now. 3. Encouraged regular activity. Follow up as needed. PROBLEM 2: Hyperlipidemia. PLAN: 1. He has been without Lipitor for some time. We will recheck labs. 2. Reassess. PROBLEM 3: History of hypertension, well controlled. PLAN: Continue current treatment. PROBLEM 4: Chronic kidney disease, which has been stable. PLAN: Continue good hydration current medication, avoiding NSAIDs. PROBLEM 4: Health maintenance. PLAN: 1. Discussed diet and exercise, weight loss target. 2. Encouraged smoking cessation. documented in this encounter Plan of Treatment Scheduled Orders Name Type Priority Associated Diagnoses Orde r Schedule ALT Lab Routine Type 2 diabetes mellitus without complication, without long-term current use of insulin ([facility]) Ordered: 05/13/2019 BASIC METABOLIC PANEL (BMP) Lab Routine Type 2 diabetes mellitus without complication, without long-term current use of insulin ([facility]) Ordered: 05/13/2019 LIPID PROFILE (INCLUDES CHOLESTEROL, TRIGLYCERIDES, HDL, LDL) Lab Routine Type 2 diabetes mellitus without complication, without long-term current use of insulin ([facility]) Ordered: 05/13/2019 HEMOGLOBIN A1C Lab Routine Type 2 diabetes mellitus without complication, without long-term current use of insulin ([facility]) Ordered: 05/13/2019 documented as of this encounter Goals Goal Patient Goal Type Associated Problems Recent Progress Patient-Stated? Author Blood Pressure < 140/90 Blood Pressure Hypertensive disorder 112/70(2021 13:50 EDT) No Abbie Winter LPN [id number] XT < 7 Result Component 8.2( 9 14:15 EDT) No Abbie Winter LPN LDLEXT < 100 Result Component 76(05/13/2019 14:15 EDT) No Abbie Winter LPN documented as of this encounter Visit Diagnoses Diagnosis CKD (chronic kidney disease) stage 3, GFR 30-59 ml/min ([facility])- Primary Chronic kidney disease, Stage III (moderate) Type 2 diabetes mellitus without complication, without long-term current use of insulin ([facility]) Essential hypertension Unspecified essential hypertension Skin erosion Unspecified disorder of skin and subcutaneous tissue Obesity (BMI 30-39.9) Obesity, unspecified documented in this encounter Discontinued Medications Medication Sig Discontinue Reason Start Date End Da te atorvastatin (LIPITOR) 10 mg tablet Take 1 Tab by mouth daily. Reorder 11/04/2018 05/10/2019 lisinopril (PRINIVIL, ZESTRIL) 40 mg tablet TAKE ONE TABLET BY MOUTH EVERY DAY Reorder 10/11/2018 05/10/2019 metoprolol XL (TOPROL-XL) 50 mg tablet TAKE ONE TABLET BY MOUTH EVERY DAY Reorder 10/11/2018 05/10/2019 metFORMIN (GLUCOPHAGE) 1,000 mg tabletIndications:Type 2 diabetes mellitus without complication, without long-term current use of insulin ([facility]) Take 1 Tab by mouth 2 times daily. Reorder 05/21/2018 05/10/2019 glipiZIDE (GLUCOTROL) 10 mg XL tabletIndications:Type 2 diabetes mellitus without complication, without long-term current use of insulin ([facility]) Take 1 Tab by mouth daily. Reorder 05/21/2018 05/10/2019 documented as of this encounter Care Teams Sewing Machine Adjuster Relationship Specialty Start Date End Date Ramón Olguin MD [address] [place] [phone] PCP - General 06/15/09 06/13/19 documented as of this encounter
--- OUTSIDE RECORDS SUMMARY | 2024-08-05 15:01 | XMS_ITS | Encounter Summary ---
Author Organization [facility] Address [address] [place] [address] Care Team Providers Care White Washer Piler Name Role Phone Ramón Olguin MD Primary Care Provider Kameron Lee MD Primary Care Provider [phone] Encounter Details Date Type Department Care Team (Late st Contact Info) Description 05/13/[address] [facility] - Main [place] [address] [place], [place] [phone] Ramón Olguin MD [address] [place] [phone] Social History Tobacco Use Types Packs/Day [...] 112/70(2021 13:50 EDT) No Abbie Winter LPN [id number] XT < 7 Result Component 8.2( 9 14:15 EDT) No Abbie Winter, GUEST EXPERIENCE CAPTAIN LDLEXT < 100 Result Component 76(05/13/2019 14:15 EDT) No Abbie Winter LPN documented as of this encounter Procedures Procedure Name Priority Date/Time Associated Diagnosis Comments ALT Routine 05/13/2019 14:15 EDT HEMOGLOBIN A1C Routine 05/13/2019 14:15 EDT documented in this encounter Results * (ABNORMAL) HEMOGLOBIN A1C (05/13/2019 14:15 EDT) Hemoglobin A1c 8.2(H) 4.0 - 6.0 % 05/13/2019 21:27 EDT [facility] Comment: > [...] adults (13-19 years): <7.5% Est Avg Glucose 189 mg/dL 9 21:27 EDT [facility] 05/13/2019 14:1 5 EDT 05/13/2019 14:16 EDT Narrative [facility] - 05/13/2019 21:27 EDT Does PT Have a Latex Allergy? NO Ramón Olguin MD CHEMISTRY & BL OOD GAS ORDERABLES [facility] * ALT (05/13/2019 14:15 EDT) [place]PT/[place] - [facility] 28 21 - 72 U/L 05/13/2019 14:41 EDT [facility] 05/13/2019 14:1 5 EDT 05/13/2019 14:15 EDT Narrative [facility] - 05/13/2019 14:41 EDT Does PT Have a Latex Allergy? NO Ramón Olguin MD CHEMISTRY & BL OOD GAS ORDERABLES [facility] documented in this encounter Visit Diagnoses Not on filedocumented in this encounter Care Teams White Washer Piler Relationship Specialty Start Date End Date Ramón Olguin MD [address] [place] [address] [address] [place] [phone] PCP - General 06/15/09 06/13/19 Kameron Lee MD [address] [place] [address] [address] [place] [phone] PCP - General 06/14/19 04/28/23 documented as of this encounter
--- OUTSIDE RECORDS SUMMARY | 2024-08-05 15:01 | XMS_ITS | Encounter Summary ---
Author Organization [facility] Address [address] [place] [address] Care Team Providers Care Nuclear Medicine Medical Director Name Role Phone Ramón Olguin MD Primary Care Provider Kameron Lee MD Primary Care Provider [phone] Encounter Details Date Type Department Care Team (Late st Contact Info) Description 05/13/2019 Historical Results Only [facility] - Main [place] [address] [place], [place] [phone] Ramón Olguin MD [address] [place] [phone] Social History Tobacco Use Types Packs/Day [...] Pressure Hypertensive disorder 112/70(2021 13:50 EDT) No [place], Abbie, A AUXILIARY [id number] XT < 7 Result Component 8.2( 9 14:15 EDT) No [place], Abbie, A AUXILIARY LDLEXT < 100 Result Component 76(05/13/2019 14:15 EDT) No [place], Abbie, A AUXILIARY documented as of this encounter Procedures Procedure Name Priority Date/Time Associated Diagnosis Comments BASIC METABOLIC PANEL (BMP) Routine 05/13/2019 14:15 EDT documented in this encounter Results * (ABNORMAL) BASIC METABOLIC PANEL (BMP) (05/13/2019 14:15 EDT) BUN - [facility] 23 10 - 26 mg/dL 05/13/2019 14:41 [facility] CALCIUM - [facility] 10.1 8.5 - 10.5 mg/dL 05/13/2019 14:41 [facility] Chloride 106 96 - 110 mmol/L 05/13/2019 14:41 [facility] CO2 Total 25 21 - 32 mEq/L 05/13/2019 14:41 [facility] CREATININE 1.54(H) 0.66 - 1.25 mg/dL 05/13/2019 14:41 [facility] eGFR 45 05/13/2019 14:41 [facility] Comment: Stage 3: Moderate renal impairment is defined as GFR 30-59 Multiply result by 1.210 for patients. Anion Gap 8 0 - 18 05/13/2019 14:41 [facility] GLUCOSE - [facility] 127(H) 70 - 100 mg/dL 05/13/2019 14:41 [facility] Potassium 4.8 3.5 - 5.0 mEq/L 05/13/2019 14:41 [facility] Sodium 139 136 - 145 mEq/L 05/13/2019 14:41 [facility] 05/13/2019 14:1 5 EDT 05/13/2019 14:15 EDT Narrative [facility] - 05/13/2019 14:41 EDT Does PT Have a Latex Allergy? NO Ramón Olguin MD CHEMISTRY & BL OOD GAS ORDERABLES [facility] documented in this encounter Visit Diagnoses Not on filedocumented in this encounter Care Teams Nuclear Medicine Medical Director Relationship Specialty Start Date End Date Ramón Olguin MD [address] [place] [address] [address] [place] [phone] PCP - General 06/15/09 06/13/19 Kameron Lee MD [address] [place] [address] [address] [place] [phone] PCP - General 06/14/19 04/28/23 documented as of this encounter
--- OUTSIDE RECORDS SUMMARY | 2024-08-05 15:01 | XMS_ITS | Encounter Summary ---
Author Organization [facility] Address [address] [place] [address] Care Team Providers Care Red Mud Thickener Operator Name Role Phone Kameron Lee MD Primary Care Provider [phone]- [phone] Reason for Referral * Laboratory Services (Routine) - New Request Specialty Diagnoses / Procedures Referred By Contac t Referred To Contact Diagnoses Diabetes mellitus without complication (HCC-CMS) High cholesterol Procedures COMPREHENSIVE METABOLIC PANEL (CMP) Amanda Sawyer RN Referral ID Status Reason Start Date Expiration Date V isits Requested Visits Authorized [id number] New Request 11/29/2019 1 1 * Laboratory Services (Routine/Next Available) - New Request Specialty Diagnoses / Procedures Referred By Contac t Referred To Contact Diagnoses High cholesterol Procedures LIPID PROFILE (INCLUDES CHOLESTEROL, TRIGLYCERIDES, HDL, LDL) Amanda Sawyer RN Referral ID Status Reason Start Date Expiration Date V isits Requested Visits Authorized [id number] New Request 11/29/2019 1 1 * Laboratory Services (Routine) - New Request Specialty Diagnoses / Procedures Referred By Contac t Referred To Contact Diagnoses Diabetes mellitus without complication (HCC-CMS) Procedures ALT Amanda Sawyer RN Referral ID Status Reason Start Date Expiration Date V isits Requested Visits Authorized [id number] New Request 11/29/2019 1 1 * Laboratory Services (Routine) - New Request Specialty Diagnoses / Procedures Referred By Contac t Referred To Contact Diagnoses Diabetes mellitus without complication (HCC-CMS) Procedures HEMOGLOBIN A1C Amanda Sawyer RN Referral ID Status Reason Start Date Expiration Date V isits Requested Visits Authorized [id number] New Request 11/29/2019 1 1 Reason for Visit * Reason Onset Date Comments Labs Only 11/29/2019 Encounter Details Date Type Department Care Team (Late st Contact Info) Description 11/29/2019 Telephone [facility] [address] [address] Kameron Lee MD [address] [phone] Labs Only Social History Tobacco Use Types Packs/Day Years [...] encounter Miscellaneous Notes * Telephone Encounter - Irina Pereira LPN - 11/30/2019 0842 EST Patient notified. IRINA PEREIRA LPN 11/30/2019 8:42 * Telephone Encounter - Kameron Lee MD - 11/29/2019 6175 EST Signed. * Telephone Encounter - Amanda Sawyer RN - 11/29/2019 1418 EST Patient scheduled for a 6 month f/u and would like his labs drawn that he usually has. A1C, ALT, lipid, chem 8 * Telephone Encounter - Michelle Duarte - 11/29/2019 1354 EST Pt is calling in requesting that labs be ordered. documented in this encounter Plan of Treatment Scheduled Orders Name Type Priority Associated Diagnoses Orde r Schedule HEMOGLOBIN A1C Lab Routine Diabetes mellitus without complication ([facility]) Ordered: 11/29/2019 ALT Lab Routine Diabetes mellitus without complication ([facility]) Ordered: 11/29/2019 LIPID PROFILE (INCLUDES CHOLESTEROL, TRIGLYCERIDES, HDL, LDL) Lab Routine High cholesterol Ordered: 11/29/2019 documented as of this encounter Goals Goal Patient Goal Type Associated Problems Recent Progress Patient-Stated? Author Blood Pressure < 140/90 Blood Pressure Hypertensive disorder 112/70(2021 13:50 EDT) No Abbie Winter LPN [id number] XT < 7 Result Component 8.2( 9 14:15 EDT) No Abbie Winter LPN LDLEXT < 100 Result Component 76(05/13/2019 14:15 EDT) No Abbie Winter, MULTILITH OPERATOR documented as of this encounter Procedures Procedure Name Priority Date/Time Associated Diagnosis Comments COMPREHENSIVE METABOLIC PANEL (CMP) Routine 12/01/2019 11:27 EST Diabetes mellitus without complication ([facility]) High cholesterol documented in this encounter Results * (ABNORMAL) COMPREHENSIVE METABOLIC PANEL (CMP) (12/01/2019 11:27 EST) Albumin % 4.5 3.4 - 4.9 g/dL 12/01/2019 12:16 EST [facility] ALKALINE PHOSPHATASE - [facility] 67 38 - 126 U/L 12/01/2019 12:16 EST [facility] BILIRUBIN TOTAL 0.7 0.2 - 1.3 mg/dL 12/01/2019 12:16 [facility] BUN - [facility] 29(H) 10 - 26 mg/dL 12/01/2019 12:16 [facility] CALCIUM - [facility] 9.9 8.5 - 10.5 mg/dL 12/01/2019 12:16 [facility] Chloride 102 96 - 110 mmol/L 12/01/2019 12:16 [facility] CO2 Total 25 21 - 32 mEq/L 12/01/2019 12:16 [facility] CREATININE 1.73(H) 0.66 - 1.25 mg/dL 12/01/2019 12:16 [facility] eGFR 39 12/01/2019 12:16 [facility] Comment: Stage 3: Moderate renal impairment is defined as GFR 30-59 Multiply result by 1.210 for patients. Anion Gap 11 0 - 18 12/01/2019 12:16 [facility] GLUCOSE - [facility] 199(H) 70 - 100 mg/dL 12/01/2019 12:16 [facility] Potassium 5.5(H) 3.5 - 5.0 mEq/L 12/01/2019 12:16 [facility] Sodium 138 136 - 145 mEq/L 12/01/2019 12:16 [facility] TOTAL PROTEIN - [facility] 7.1 6.2 - 8.2 gm/dL 12/01/2019 12:16 [facility] SGOT/AST - [facility] 21 17 - 59 U/L 12/01/2019 12:16 [facility] SGPT/ALT - [facility] 30 21 - 72 U/L 12/01/2019 12:16 [facility] Blood VENOUS BLOOD / Unknown 12/01/2019 11:27 EST 12/01/2019 11:27 [facility] - 12/01/2019 12:16 EST Does PT Have a Latex Allergy? NO Kameron Lee MD CHEMISTRY & BLOOD GAS ORDERABLES [facility] documented in this encounter Visit Diagnoses Diagnosis Diabetes mellitus without complication ([facility])- Primary Type II or unspecified type diabetes mellitus without mention of complication, not stated as uncontrolled High cholesterol Pure hypercholesterolemia documented in this encounter Care Teams Red Mud Thickener Operator Relationship Specialty Start Date End Date Kameron Lee MD [address] [place] [phone] PCP - General 06/14/19 04/28/23 documented as of this encounter
--- OUTSIDE RECORDS SUMMARY | 2024-08-05 15:01 | XMS_ITS | Encounter Summary ---
Author Organization [facility] Address [address] [place] [address] Care Team Providers Care Earth Science Faculty Member Name Role Phone Ramón Olguin MD Primary Care Provider Encounter Details Date Type Department Care Team (Late st Contact Info) Description 05/13/2019 Results Only [facility] [address] [facility] [address] [place] [address] Ramón Olguin MD [address] [place] [address] [address] [place] [address] Social History Tobacco Use Types Packs/Day Years Used Date Smoking Tobacco: Every Day Cigarettes Smokeless Tobacco: Former Comments:pipe Alcohol Use Standard Drinks/Week Comments Yes 0 (1 standard drink = 0.6 oz pur e alcohol) beer on [facility] Sex and Gender Information Value Date Recorded [...] Pressure Hypertensive disorder 112/70(2021 13:50 EDT) No Mesick, Abbie, APPLICATIONS SPECIALIST [id number] XT < 7 Result Component 8.2( 9 14:15 EDT) No Mesick, Abbie, APPLICATIONS SPECIALIST LDLEXT < 100 Result Component 76(05/13/2019 14:15 EDT) No Mesick, Abbie, APPLICATIONS SPECIALIST documented as of this encounter Procedures Procedure Name Priority Date/Time Associated Diagnosis Comments BASIC METABOLIC PANEL ([facility]) Routine 05/13/2019 14:15 EDT ALT Routine 05/13/2019 14:15 EDT HEMOGLOBIN A1C Routine 05/13/2019 14:15 EDT LIPID PROFILE (INCLUDES CHOLESTEROL, TRIGLYCERIDES, HDL, LDL) Routine 05/13/2019 14:15 EDT documented in this encounter Results * (ABNORMAL) HEMOGLOBIN A1C (05/13/2019 14:15 EDT) Hemoglobin A1C, External 8.2(H) 4.0 - 6.0 % [facility] Comment: > or =18 years: ??Increased risk for diabetes (prediabetes): 5.7-6.4% Diabetes: > or =6.5% Therapeutic goals for glycemic control (ADA) Adults: - Goal of therapy: <7.0% HbA1c - Action suggested: >8.0% HbA1c Pediatric patients: - Toddlers and preschoolers: <8.5% (but >7.5%) - School age (6-12 years): <8% - Adolescents and young adults (13-19 years): <7.5% Est Avg Glucose, External 189 mg/dL [facility] 05/13/2019 14:1 5 EDT 05/13/2019 14:16 EDT Narrative [facility] - 05/13/2019 21:27 EDT Does PT Have a Latex Allergy? NO Ramón Olguin MD CHEMISTRY & BL OOD GAS ORDERABLES [facility] * ALT (05/13/2019 14:15 EDT) ALT, External 28 21 - 72 U/L [facility] 05/13/2019 14:1 5 EDT 05/13/2019 14:15 EDT Narrative [facility] - 05/13/2019 14:42 EDT Does PT Have a Latex Allergy? NO Ramón Olguin MD CHEMISTRY & BL OOD GAS ORDERABLES Performing Organization Address City/[facility]/ZIP Co de Phone Number [facility] * (ABNORMAL) LIPID PROFILE (INCLUDES CHOLESTEROL, TRIGLYCERIDES, HDL, LDL) (05/13/2019 14:15 EDT) Triglycerides, External 247 <150 mg/dL [facility] Comment: Adult: Normal: ?<150 mg/dl ? Borderline High: 150-199 mg/dl ? High: ?200-499 mg/dl ? Very High: >zl=[id number] Cholesterol, External 155 <200 mg/dL [facility] Comment: Acceptable: ??<200 Borderline: ??200-239 High: ?> or = 240 Chol/HDL Ratio, External 5.1(H) 0 - 5.0 [facility] Comment: DESIRABLE RATIO IS LESS THAN 4.1 PATIENTS ARE CONSIDERED AT RISK: WOMEN RATIO >5 MEN RATIO >6 Fasting?, External No [facility] HDL, External 30(L) 40 - 60 mg/dL [facility] Comment: ?? Reference Range Low: ? < 40 ??mg/dL Normal: ??40-60 mg/dL High: ?>= 60 mg/dL LDL, External 76 60 - 100 mg/dL [facility] Non HDL Chol, External 125 mg/dl [facility] Comment: Desirable: ?Less than 130 Borderline High: ??130-159 High: ? 160-189 Very High: ?Greater than or equal to 190 05/13/2019 14:1 5 EDT 05/13/2019 14:15 EDT Narrative [facility] - 05/13/2019 14:42 EDT Does PT Have a Latex Allergy? NO Ramón Olguin MD CHEMISTRY & BL OOD GAS ORDERABLES [facility] * (ABNORMAL) BASIC METABOLIC PANEL ([facility] (05/13/2019 14:15 EDT) Bun, External 23 10 - 26 mg/dL [facility] Calcium, External 10.1 8.5 - 10.5 mg/dL [facility] Chloride, External 106 96 - 110 mmol/L [facility] CO2, External 25 21 - 32 mEq/L [facility] Creatinine, External 1.54(H) 0.66 - 1.25 mg/dL [facility] GFR, Ole/Est., External 45 [facility] Comment: Stage 3: Moderate renal impairment is defined as GFR 30-59 Multiply result by 1.210 for patients. Glucose, Serum, External 127(H) 70 - 100 mg/dL [facility] Potassium, External 4.8 3.5 - 5.0 mEq/L [facility] Sodium, External 139 136 - 145 mEq/L [facility] 05/13/2019 14:1 5 EDT 05/13/2019 14:15 EDT Narrative [facility] - 05/13/2019 14:42 EDT Does PT Have a Latex Allergy? NO Ramón Olguin MD CHEMISTRY & BL OOD GAS ORDERABLES Performing Organization Address City/[facility]/ZIP Co de Phone Number [facility] documented in this encounter Visit Diagnoses Not on filedocumented in this encounter Care Teams Earth Science Faculty Member Relationship Specialty Start Date End Date Ramón Olguin MD [address] [place] [phone] PCP - General 06/15/09 06/13/19 documented as of this encounter
--- OUTSIDE RECORDS SUMMARY | 2024-08-05 15:01 | XMS_ITS | Encounter Summary ---
Author Organization [facility] Address [address] [place] [address] Care Team Providers Care Banner Painter Name Role Phone Ramón Olguin MD Primary Care Provider Reason for Referral * Laboratory Services (Routine) - Closed Specialty Diagnoses / Procedures Referred By Contac t Referred To Contact Diagnoses Type 2 diabetes mellitus without complication, without long-term current use of insulin ([facility]) Procedures LIPID PROFILE (INCLUDES CHOLESTEROL, TRIGLYCERIDES, HDL, LDL) Ramón Olguin MD [address] [place] [phone] Referral ID Status Reason Start Date Expiration Date Visits Re quested Visits Authorized [id number] Closed 11/17/2018 1 1 * Laboratory Services (Routine) - Closed Specialty Diagnoses / Procedures Referred By Contac t Referred To Contact Diagnoses Type 2 diabetes mellitus without complication, without long-term current use of insulin ([facility]) Procedures HEMOGLOBIN A1C Ramón Olguin MD [address] [place] [phone] Referral ID Status Reason Start Date Expiration Date Visits Re quested Visits Authorized [id number] Closed 11/17/2018 1 1 * Laboratory Services (Routine) - Closed Specialty Diagnoses / Procedures Referred By Contac t Referred To Contact Diagnoses Type 2 diabetes mellitus without complication, without long-term current use of insulin ([facility]) Procedures BASIC METABOLIC PANEL (BMP) Ramón Olguin MD [address] [place] [phone] Referral ID Status Reason Start Date Expiration Date Visits Re quested Visits Authorized [id number] Closed 11/17/2018 1 1 * Laboratory Services (Routine) - Closed Specialty Diagnoses / Procedures Referred By Contac t Referred To Contact Diagnoses Type 2 diabetes mellitus without complication, without long-term current use of insulin ([facility]) Procedures ALBUMIN, URINE Ramón Olguin MD [address] [place] [phone] Referral ID Status Reason Start Date Expiration Date Visits Re quested Visits Authorized [id number] Closed 11/17/2018 1 1 * Laboratory Services (Routine) - Closed Specialty Diagnoses / Procedures Referred By Contac t Referred To Contact Diagnoses Type 2 diabetes mellitus without complication, without long-term current use of insulin ([facility]) Procedures ALT Ramón Olguin MD [address] [place] [phone] Referral ID Status Reason Start Date Expiration Date Visits Re quested Visits Authorized [id number] Closed 11/17/2018 1 1 Reason for Visit * Reason Comments Diabetes 6 month follow up Hypertension 6 month follow up Chronic Kidney Disease (III) - 6 month f ollow up Encounter Details Date Type Department Care Team (Late st Contact Info) Description 11/17/2018 9:15 EST Office Visit [facility] [address] [facility] [address] [place] [address] Ramón Olguin MD [address] [place] [phone] Type 2 diabetes mellitus without complication, without long-term current use of insulin ([facility]) (Primary Dx); Needs flu shot; Essential hypertension; Tobacco abuse counseling; Class 1 obesity due to excess calories with serious comorbidity and body mass index (BMI) of 33.0 to 33.9 in adult Social History Tobacco Use Types Packs/Day Years [...] Sign Reading Time Taken Comments Blood Pressure 132/84 11/17/2018 1244 EST rechec k Pulse 64 11/17/2018 0918 EST Temperature 36.6 ??C (97.9 ??F) 11/17/2018 0918 EST Respiratory Rate - - Oxygen Saturation 99% 11/17/2018 0918 EST Inhaled Oxygen Concentration - - Weight 106.6 kg (235 lb) 11/17/2018 0918 EST Height 177.8 cm (5' 10) 11/17/2018 0918 EST Body Mass Index 33.72 11/17/2018 0918 EST [...] as of this encounter Progress Notes * Ramón Olguin - 11/17/201815 EST REASON FOR VISIT: Follow up hypertension, diabetes. SUBJECTIVE: Followup visit for diabetes. Seen twice a year. Declines comes in any more often. Generally stable per patient. He is due for recheck of hemoglobin A1c. Also on blood pressure medicines for hypertension, generally under good control when he monitors athome. We discussed weight issues. No significant change noted. He is down a few pounds from last year and 15 pounds over the last year and a half. Did encourage this be continued. Discussed weight loss target. OBJECTIVE: Vital signs noted, afebrile. General: Alert, no acute distress. Chest: Clear to auscultation. Cardiovascular: Regular rate and rhythm, no murmur. ASSESSMENT: PROBLEM 1: Diabetes, which has been under good control. PLAN: 1. Recheck A1c and routine diabetic labs. 2. Follow up in 6 months. PROBLEM 2: Hypertension, labile, upper range of normal today. Generally, this seems to be under good control. documented in this encounter Plan of Treatment Scheduled Orders Name Type Priority Associated Diagnoses Orde r Schedule ALT Lab Routine Type 2 diabetes mellitus without complication, without long-term current use of insulin ([facility]) Ordered: 11/17/2018 ALBUMIN, URINE Lab Routine Type 2 diabetes mellitus without complication, without long-term current use of insulin ([facility]) Ordered: 11/17/2018 BASIC METABOLIC PANEL (BMP) Lab Routine Type 2 diabetes mellitus without complication, without long-term current use of insulin ([facility]) Ordered: 11/17/2018 HEMOGLOBIN A1C Lab Routine Type 2 diabetes mellitus without complication, without long-term current use of insulin ([facility]) Ordered: 11/17/2018 LIPID PROFILE (INCLUDES CHOLESTEROL, TRIGLYCERIDES, HDL, LDL) Lab Routine Type 2 diabetes mellitus without complication, without long-term current use of insulin ([facility]) Ordered: 11/17/2018 documented as of this encounter Goals Goal Patient Goal Type Associated Problems Recent Progress Patient-Stated? Author Blood Pressure < 140/90 Blood Pressure Hypertensive disorder 112/70(2021 13:50 EDT) No Abbie Winter LPN [id number] XT < 7 Result Component 8.2( 9 14:15 EDT) No Abbie Winter LPN LDLEXT < 100 Result Component 76(05/13/2019 14:15 EDT) No Abbie Winter LPN documented as of this encounter Visit Diagnoses Diagnosis Type 2 diabetes mellitus without complication, without long-term current use of insulin ([facility] Primary Needs flu shot Need for prophylactic vaccination and inoculation against influenza Essential hypertension Unspecified essential hypertension Tobacco abuse counseling Counseling on substance use and abuse Class 1 obesity due to excess calories with serious comorbidity and body mass index (BMI) of 33.0 to 33.9 in adult documented in this encounter Orders Immunization/Injection Count Last Ordered Date First Ordered Date INFLUENZA VACCINE QUAD (FLUZ ONE) PF 0.5 ML IM (3 YRS+) 1 11/17/2018 documented in this encounter Care Teams Banner Painter Relationship Specialty Start Date End Date Ramón Olguin MD [address] [place] [address] [phone] PCP - General 06/15/09 06/13/19 documented as of this encounter
--- OUTSIDE RECORDS SUMMARY | 2024-08-05 15:01 | XMS_ITS | Encounter Summary ---
Author Organization [facility] Address [address] [place] [address] Care Team Providers Care Senior Telecommunications Consultant Name Role Phone Ramón Olguin MD Primary Care Provider Kameron Lee MD Primary Care Provider [phone] Reason for Visit * Reason Comments Other Encounter Details Date Type Department Care Team (Late st Contact Info) Description 10/30/[address] [place] [address] Ramón Olguin MD [address] [place] [address] [address] [place] [phone] Other Social History Tobacco Use [...] TABLET BY MOUTH EVERY DAY 90 Tab 1 10/30/2017 01/28/2018 documented in this encounter Miscellaneous Notes * Telephone Encounter - Nazanin Shahid RN - 10/30/2017 0975 EST Medication(s) Requested: Glipizide (Glucotrol) 10 mg XL tablet Preferred Pharmacy: [facility] [place] Is patient out of medication? Unknown Last Refill Date: 05/06/17 - 90 tabs with 0 refills Last Labs Date: 09/18/17 - Hemoglobin A1C Last Visit Date with Ordering Provider: 09/18/17 Next Non-Acute Visit Date Scheduled with Care Team: None scheduled Refilled 90 tabs with 1 refill Nazanin Shahid RN 10/30/2017 9:37 documented in this encounter Plan of Treatment Not on file documented as of this encounter Goals Goal Patient Goal Type Associated Problems Recent Progress Patient-Stated? Author Blood Pressure < 140/90 Blood Pressure Hypertensive disorder 112/70(2021 13:50 EDT) No Abbie Winter LPN [id number] XT < 7 Result Component 8.2( 9 14:15 EDT) No Abbie Winter LPN LDLEXT < 100 Result Component 76(05/13/2019 14:15 EDT) No Abbie Winter LPN documented as of this encounter Visit Diagnoses Diagnosis Type 2 diabetes mellitus without complication ([facility]) Type II or unspecified type diabetes mellitus without mention of complication, not stated as uncontrolled documented in this encounter Discontinued Medications Medication Sig Discontinue Reason Start Date End Da te glipiZIDE (GLUCOTROL) 10 mg XL tabletIndications:Type 2 diabetes mellitus without complication (HCC-CMS) TAKE ONE TABLET BY MOUTH EVERY DAY Reorder 05/06/2017 10/30/2017 documented as of this encounter Care Teams Senior Telecommunications Consultant Relationship Specialty Start Date End Date Ramón Olguin MD [address] [place] [phone] PCP - General 06/15/09 06/13/19 Kameron Lee MD [address] [place] [address] [address] [place] [phone] PCP - General 06/14/19 04/28/23 documented as of this encounter
--- OUTSIDE RECORDS SUMMARY | 2024-08-05 15:01 | XMS_ITS | Encounter Summary ---
Author Organization [facility] Address [address] [place] [address] Care Team Providers Care Skilled Laborer Name Role Phone Ramón Olguin MD Primary Care Provider Reason for Referral * Laboratory Services (Routine) - Closed Specialty Diagnoses / Procedures [facility] Referred To Contact Diagnoses Prostate cancer screening Procedures PSA SCREEN Ramón Olguin MD [address] [place] [phone] Referral ID Status Reason Start Date Expiration Date Visits Re quested Visits Authorized [id number] Closed 09/18/2017 1 1 * Laboratory Services (Routine) - Closed Specialty Diagnoses / Procedures [facility] Referred To Contact Diagnoses Type 2 diabetes mellitus without complication, without long-term current use of insulin ([facility]) Procedures HEMOGLOBIN A1C Ramón Olguin MD [address] [place] [phone] Referral ID Status Reason Start Date Expiration Date Visits Re quested Visits Authorized [id number] Closed 09/18/2017 1 1 * Laboratory Services (Routine) - Closed Specialty Diagnoses / Procedures Referred By Contac t Referred To Contact Diagnoses Type 2 diabetes mellitus without complication, without long-term current use of insulin ([facility]) Procedures BASIC METABOLIC PANEL (BMP) Ramón Olguin MD [address] [place] [phone] Referral ID Status Reason Start Date Expiration Date Visits Re quested Visits Authorized [id number] Closed 09/18/2017 1 1 * Laboratory Services (Routine) - Closed Specialty Diagnoses / Procedures Referred By Contac t Referred To Contact Diagnoses Type 2 diabetes mellitus without complication, without long-term current use of insulin ([facility]) Procedures ALBUMIN, URINE Ramón Olguin MD [address] [place] [phone] Referral ID Status Reason Start Date Expiration Date Visits Re quested Visits Authorized [id number] Closed 09/18/2017 1 1 * Laboratory Services (Routine) - Closed Specialty Diagnoses / Procedures Referred By Contac t Referred To Contact Diagnoses Type 2 diabetes mellitus without complication, without long-term current use of insulin ([facility]) Procedures LIPID PROFILE (INCLUDES CHOLESTEROL, TRIGLYCERIDES, HDL, LDL) Ramón Olguin MD [address] [place] [phone] Referral ID Status Reason Start Date Expiration Date Visits Re quested Visits Authorized [id number] Closed 09/18/2017 1 1 * Laboratory Services (Routine) - Closed Specialty Diagnoses / Procedures Referred By Contac t Referred To Contact Diagnoses Type 2 diabetes mellitus without complication, without long-term current use of insulin ([facility]) Procedures ALT Ramón Olguin MD [address] [place] [phone] Referral ID Status Reason Start Date Expiration Date Visits Re quested Visits Authorized [id number] Closed 09/18/2017 1 1 Reason for Visit * Reason Comments Diabetes Hypertension Chronic Kidney Disease Encounter Details Date Type Department Care Team (Late st Contact Info) Description 09/18/2017 14:30 EDT [facility] [address] [facility] [address] [place] [address] Ramón Olguin MD [address] [place] [address] [address] [place] [address] CKD (chronic kidney disease) stage 3, GFR 30-59 ml/min ([facility]) (Primary Dx); Type 2 diabetes mellitus without complication, without long-term current use of insulin ([facility] ([facility]); Essential hypertension; Needs flu shot; Prostate cancer screening Social History Tobacco Use Types Packs/Day Years [...] Sign Reading Time Taken Comments Blood Pressure 124/74 09/18/2017 1436 EDT Pulse 68 09/18/2017 1436 EDT Temperature 36.6 ??C (97.8 ??F) 09/18/2017 1436 EDT Respiratory Rate - - Oxygen Saturation 98% 09/18/2017 1436 EDT Inhaled Oxygen Concentration - - Weight 113.4 kg (250 lb) 09/18/2017 1436 EDT Height - - Body Mass Index - [...] encounter Progress Notes * Ramón Olguin - 09/18/2017 1430 EDT REASON FOR VISIT: Diabetes, hypertension. SUBJECTIVE: Followup visit for diabetes, hypertension. Overall doing well, no interval problems or complaints noted. Remained active over the summer, not interested in any additional screening issues. He was willing to have diabetes labs checked. We also discussed chronic kidney disease and is due for creatinine check. Discussed importance of good hydration. He knows to avoid NSAIDs. REVIEW OF SYSTEMS: Otherwise unremarkable. He is going to have flu shot today. He declines prostateexam or other screening tests. Did discuss PSA risks, benefits and he is willing to proceed with this. OBJECTIVE: Vital signs normal, afebrile. Chest: Clear to auscultation. Cardiovascular: Regular rateand rhythm, no murmur. Abdomen nontender. The patient declines foot exam. ASSESSMENT: PROBLEM 1: Adult-onset diabetes, which has been under decent control. PLAN: 1. Recheck diabetic labs. 2. Adjust treatment as needed. PROBLEM 2: History of hypertension, well controlled. PLAN: Continue current medication. PROBLEM 3: Neuropathy of feet, symptomatically improved. PLAN: 1. Continue good diabetic care. 2. Chronic kidney disease -- recheck metabolic panel. documented in this encounter Plan of Treatment Scheduled Orders Name Type Priority Associated Diagnoses Orde r Schedule ALT Lab Routine Type 2 diabetes mellitus without complication, without long-term current use of insulin ([facility] ([facility]) Ordered: 09/18/2017 LIPID PROFILE (INCLUDES CHOLESTEROL, TRIGLYCERIDES, HDL, LDL) Lab Routine Type 2 diabetes mellitus without complication, without long-term current use of insulin ([facility] ([facility]) Ordered: 09/18/2017 ALBUMIN, URINE Lab Routine Type 2 diabetes mellitus without complication, without long-term current use of insulin ([facility] ([facility]) Ordered: 09/18/2017 BASIC METABOLIC PANEL (BMP) Lab Routine Type 2 diabetes mellitus without complication, without long-term current use of insulin ([facility] ([facility]) Ordered: 09/18/2017 HEMOGLOBIN A1C Lab Routine Type 2 diabetes mellitus without complication, without long-term current use of insulin ([facility] ([facility]) Ordered: 09/18/2017 PSA SCREEN Lab Routine Prostate cancer screening Ordered: 09/18/2017 documented as of this encounter Goals Goal Patient Goal Type Associated Problems Recent Progress Patient-Stated? Author Blood Pressure < 140/90 Blood Pressure Hypertensive disorder 112/70(2021 13:50 EDT) No Abbie Winter LPN [id number] XT < 7 Result Component 8.2( 9 14:15 EDT) No Abbie Winter LPN LDLEXT < 100 Result Component 76(05/13/2019 14:15 EDT) No Abbie Winter LPN documented as of this encounter Visit Diagnoses Diagnosis CKD (chronic kidney disease) stage 3, GFR 30-59 ml/min ([facility])- Primary Chronic kidney disease, Stage III (moderate) Type 2 diabetes mellitus without complication, without long-term current use of insulin ([facility]) Essential hypertension Unspecified essential hypertension Needs flu shot Need for prophylactic vaccination and inoculation against influenza Prostate cancer screening Special screening for malignant neoplasm of prostate documented in this encounter Orders Immunization/Injection Count Last Ordered Date First Ordered Date INFLUENZA VACCINE QUAD PRESE RVATIVE FREE 0.5 ML IM 1 09/18/2017 documented in this encounter Care Teams Skilled Laborer Relationship Specialty Start Date End Date Ramón Olguin MD [address] [place] [phone] PCP - General 06/15/09 06/13/19 documented as of this encounter
--- OUTSIDE RECORDS SUMMARY | 2024-08-05 15:01 | XMS_ITS | Encounter Summary ---
Author Organization [facility] Address [address] [place] [address] Care Team Providers Care Slabber Light Name Role Phone Ramón Olguin MD Primary Care Provider Kameron Lee MD Primary Care Provider [phone] Reason for Visit * Reason Comments Other Encounter Details Date Type Department Care Team (Late st Contact Info) Description 11/13/[address] [address] Luiz Still MD [address] [place] [phone] Other Social History Tobacco Use Types Packs/Day [...] BY MOUTH EVERY DAY 90 Tab 3 11/13/2017 11/03/2018 documented in this encounter Miscellaneous Notes * Telephone Encounter - Nazanin Shahid RN - 11/13/2017 0842 EST Medication(s) Requested: Atorvastatin (Lipitor) 10 mg tablet Preferred Pharmacy: [facility] Is patient out of medication? Unknown Last Refill Date: 02/26/17 - 90 tabs with 2 refills Last Labs Date: 09/18/17 - Lipid Profile Last Visit Date with Ordering Provider: 09/18/17 Next Non-Acute Visit Date Scheduled with Care Team: None scheduled Refilled 90 tabs with 3 refills Nazanin Shahid RN 11/13/2017 8:43 documented in this encounter Plan of Treatment Not on file documented as of this encounter Goals Goal Patient Goal Type Associated Problems Recent Progress Patient-Stated? Author Blood Pressure < 140/90 Blood Pressure Hypertensive disorder 112/70(2021 13:50 EDT) No Abbie Winter LPN [id number] XT < 7 Result Component 8.2( 9 14:15 EDT) No Abbie Winter LPN LDLEXT < 100 Result Component 76(05/13/2019 14:15 EDT) No Abbie Winter LPN documented as of this encounter Visit Diagnoses Not on filedocumented in this encounter Discontinued Medications Medication Sig Discontinue Reason Start Date End Da te atorvastatin (LIPITOR) 10 mg tablet TAKE ONE TABLET BY MOUTH EVERY DAY Reorder 02/26/2017 11/13/2017 documented as of this encounter Care Teams Slabber Light Relationship Specialty Start Date End Date Ramón Olguin MD [address] [place] [phone] PCP - General 06/15/09 06/13/19 Kameron Lee MD [address] [place] [address] [phone] PCP - General 06/14/19 04/28/23 documented as of this encounter
--- OUTSIDE RECORDS SUMMARY | 2024-08-05 15:02 | XMS_ITS | Encounter Summary ---
Author Organization [facility] Address [address] [place] [address] Care Team Providers Care Hvac Service Manager Name Role Phone Ramón Olguin MD Primary Care Provider Reason for Visit * Reason Comments Other Encounter Details Date Type Department Care Team (Late st Contact Info) Description 06/16/2015 Refill [facility] [address] [facility] [address] [place] [address] Ramón Olguin MD [address] [place] [address] [address] [place] [address] Other Social History Tobacco Use [...] :49 EST documented as of this encounter Miscellaneous Notes * Telephone Encounter - Denisse Brooke RN - 06/18/2015 1430 EDT Glipizide refilled 06/15/15 to [facility]-refused documented in this encounter Plan of Treatment Not on file documented as of this encounter Goals Goal Patient Goal Type Associated Problems Recent Progress Patient-Stated? Author Blood Pressure < 140/90 Blood Pressure Hypertensive disorder 112/70(2021 13:50 EDT) No Abbie Winter LPN [id number] XT < 7 Result Component 8.2( 9 14:15 EDT) No Abbie Winter LPN LDLEXT < 100 Result Component 76(05/13/2019 14:15 EDT) No Abbie Winter LPN documented as of this encounter Visit Diagnoses Not on filedocumented in this encounter Care Teams Hvac Service Manager Relationship Specialty Start Date End Date Ramón Olguin MD [address] [place] [phone] PCP - General 06/15/09 06/13/19 documented as of this encounter
--- OUTSIDE RECORDS SUMMARY | 2024-08-05 15:02 | XMS_ITS | Encounter Summary ---
Author Organization [facility] Address [address] [place] [address] Care Team Providers Care Chain Hoist Operator Name Role Phone Ramón Olguin MD Primary Care Provider Kameron Lee MD Primary Care Provider [phone]- [phone] Encounter Details Date Type Department Care Team (Late st Contact Info) Description 05/11/2015 Historical Results Only [facility] Radiology Results [address] [place], [place] [phone] Ramón Olguin MD [address] [place] [address] [address] [place] [phone] Social History Tobacco Use Types Packs/Day Years Used Date Smoking Tobacco: Every Day Cigarettes Smokeless Tobacco: Former Comments:pipe Alcohol Use Standard Drinks/Week Comments Yes 0 (1 standard drink = 0.6 oz pur e alcohol) beer on [facility] Sex and Gender Information Value Date Recorded Sex Assigned at Male 12/01/2019 14:49 EST Gender Identity Male 12/01/2019 14:49 EST Sexual Orientation Straight 12/01/2019 14 :49 EST documented as of this encounter Plan of Treatment Not on file documented as of this encounter Goals Goal Patient Goal Type Associated Problems Recent Progress Patient-Stated? Author Blood Pressure < 140/90 Blood Pressure Hypertensive disorder 112/70(2021 13:50 EDT) No Abbie Winter LPN [id number] XT < 7 Result Component 8.2( 9 14:15 EDT) No Abbie Winter LPN LDLEXT < 100 Result Component 76(05/13/2019 14:15 EDT) No Aldan, Abbie, MISSION COORDINATOR documented as of this encounter Procedures Procedure Name Priority Date/Time Associated Diagnosis Comments MR SHOULDER WO CONTRAST 05/11/2015 8:45 EDT documented in this encounter Results * MR SHOULDER WO CONTRAST (05/11/2015 8:45 EDT) Anatomical Region Laterality Modality Upper Extremities Other 05/11/2015 8:45 EDT Narrative 05/11/2015 9:07 EDT ? EXAM: MAGNETIC RESONANCE IMAGING/SHOULDER EX. D/ (1830) ? CLINICAL INFORMATION: ? PROLONGED RIGHT SHOULDER PAIN / IMPINGEMENT X2 ? MONTHS, GREATLY REDUCED ROM, LITTLE REPSONCE TO ? STEROID INJECTION ? SHOULDER RT W/O CONTRAST ? Signs and Symptoms/Comments: Prolonged right shoulder pain. ? Impingement x2 months. Greatly reduced range of motion. Little ? response to steroid injection. ? Comparison: None available. ? Technique: Noncontrast MR of the right shoulder was performed with ? the following sequences: Axial T2 fat sat, axial proton density, ? coronal T2 fat-sat, coronal proton density, sagittal T2 fat-sat, ? sagittal T1. ? FINDINGS: ? The study is partially motion degraded, however several useful ? observations can still be made. ? Supraspinatus: Moderate-severe distal supraspinatus tendinosis is ? present without discrete. No atrophy or fatty infiltration of the ? supraspinatus muscle is present. ? Infraspinatus: Moderate distal infraspinatus tendinosis is present ? without discrete tear. No atrophy or fatty infiltration of the ? infraspinatus muscle is present. ? Teres minor: The teres minor tendon is intact. No atrophy or fatty ? infiltration of the teres minor muscle is present. ? Subscapularis: The subscapularis tendon is intact. No atrophy or ? fatty infiltration of the subscapularis muscle is present. ? Long head biceps tendon: The long of the biceps tendon is intact and ? normally positioned within the bicipital groove. ? Glenoid labrum: A thin curvilinear focus of high signal extends ? between the osseous glenoid and the anterosuperior labrum (axial T2 ? fast image 16). Given its location, this likely represents a normal ? variant. However, if there is history of anterior instability, an ? anterior labroligamentous periosteal sleeve avulsion lesion is ? possible (ALPSA). The remainder of the labrum is intact. ? Cartilage: Mild diffuse chondral thinning is present in the ? glenohumeral joint. ? Joint space: No joint effusion or definite intra-articular body is ? identified. There is no thickening or increased fluid signal in the ? inferior capsular ligaments to suggest adhesive capsulitis (although ? this is a clinical diagnosis). ? Acromioclavicular joint: Moderate hypertrophic acromioclavicular ? PAGE 1 ? Signed Report ? (CONTINUED) ? arthrosis is present with small inferiorly directed osteophytes. In ? addition, there is a lateral downsloping acromion. These structures ? narrows the subacromial space, which may predispose to impingement ? syndrome. ? Bone marrow: The bone marrow signal is unremarkable. ? Subacromial-subdeltoid bursa: There is trace fluid in the ? subacromial-subdeltoid bursa. ? IMPRESSION: ? 1. Moderate-severe distal supraspinatus and infraspinatus tendinosis. ? No definite rotator cuff tear. ? 2. Small curvilinear focus of high signal underlying the ? anterosuperior glenoid labrum. This likely represents a normal ? variant (i.e. sublabral recess). However, if there is history of ? anterior instability, an anterior labroligamentous periosteal sleeve ? avulsion (ALPSA) lesion may have a similar appearance, although this ? is classically associated with the anteroinferior labrum. ? 3. Moderate hypertrophic acromioclavicular arthrosis and lateral ? downsloping acromion, with associated narrowing of the subacromial ? space. Please correlate for impingement syndrome. ? 4. Mild glenohumeral arthrosis. ? 5. Trace fluid in the subacromial-subdeltoid bursa. Please correlate ? for bursitis. ? REPORT SIGNED IN OTHER VENDOR SYSTEM 05/11/2015 ?Reported By: Ryder Saunders MD ? CC: Ramón Olguin MD ? Transcribed Date/Time: 05/11/2015 (0907) ? Coal Mine Inspector: ? Printed Date/Time: 05/02/2019 (1631) ? PAGE 2 ? Signed Report ? Procedure Note Ryder Saunders MD - 09/27/2019 EXAM: MAGNETIC RESONANCE IMAGING/SHOULDER EX. D/ (1830) CLINICAL INFORMATION: PROLONGED RIGHT SHOULDER PAIN / IMPINGEMENT X2 MONTHS, GREATLY REDUCED ROM, LITTLE REPSONCE TO STEROID INJECTION SHOULDER RT W/O CONTRAST Signs and Symptoms/Comments: Prolonged right shoulder pain. Impingement x2 months. Greatly reduced range of motion. Little response to steroid injection. Comparison: None available. Technique: Noncontrast MR of the right shoulder was performed with the following sequences: Axial T2 fat sat, axial proton density, coronal T2 fat-sat, coronal proton density, sagittal T2 fat-sat, sagittal T1. FINDINGS: The study is partially motion degraded, however several useful observations can still be made. Supraspinatus: Moderate-severe distal supraspinatus tendinosis is present without discrete. No atrophy or fatty infiltration of the supraspinatus muscle is present. Infraspinatus: Moderate distal infraspinatus tendinosis is present without discrete tear. No atrophy or fatty infiltration of the infraspinatus muscle is present. Teres minor: The teres minor tendon is intact. No atrophy or fatty infiltration of the teres minor muscle is present. Subscapularis: The subscapularis tendon is intact. No atrophy or fatty infiltration of the subscapularis muscle is present. Long head biceps tendon: The long of the biceps tendon is intactand normally positioned within the bicipital groove. Glenoid labrum: A thin curvilinear focus of high signal extends between the osseous glenoid and the anterosuperior labrum (axial T2 fast image 16). Given its location, this likely represents a normal variant. However, if there is history of anterior instability, an anterior labroligamentous periosteal sleeve avulsion lesion is possible (ALPSA). The remainder of the labrum is intact. Cartilage: Mild diffuse chondral thinning is present in the glenohumeral joint. Joint space: No joint effusion or definite intra-articular body is identified. There is no thickening or increased fluid signal in the inferior capsular ligaments to suggest adhesive capsulitis(although this is a clinical diagnosis). Acromioclavicular joint: Moderate hypertrophic acromioclavicular PAGE 1 Signed Report (CONTINUED) arthrosis is present with small inferiorly directed osteophytes. In addition, there is a lateral downsloping acromion. These structures narrows the subacromial space, which may predispose to impingement syndrome. Bone marrow: The bone marrow signal is unremarkable. Subacromial-subdeltoid bursa: There is trace fluid in the subacromial-subdeltoid bursa. IMPRESSION: 1. Moderate-severe distal supraspinatus and infraspinatustendinosis. No definite rotator cuff tear. 2. Small curvilinear focus of high signal underlying the anterosuperior glenoid labrum. This likely represents a normal variant (i.e. sublabral recess). However, if there is history of anterior instability, an anterior labroligamentous periostealsleeve avulsion (ALPSA) lesion may have a similar appearance, althoughthis is classically associated with the anteroinferior labrum. 3. Moderate hypertrophic acromioclavicular arthrosis and lateral downsloping acromion, with associated narrowing of the subacromial space. Please correlate for impingement syndrome. 4. Mild glenohumeral arthrosis. 5. Trace fluid in the subacromial-subdeltoid bursa. Pleasecorrelate for bursitis. REPORT SIGNED IN OTHER VENDOR SYSTEM 05/11/2015 Reported By: Ryder Saunders MD CC: Ramón Olguin MD Transcribed Date/Time: 05/11/2015 (0907) Coal Mine Inspector: Printed Date/Time: 05/02/2019 (6516) PAGE 2 Signed Report Ramón Olguin MD IMG MRI ORDERA BLES documented in this encounter Visit Diagnoses Not on filedocumented in this encounter Care Teams Chain Hoist Operator Relationship Specialty Start Date End Date Ramón Olguin MD [address] [place] [phone] PCP - General 06/15/09 06/13/19 Kameron Lee MD [address] [place] [address] [address] [place] [phone] PCP - General 06/14/19 04/28/23 documented as of this encounter
--- OUTSIDE RECORDS SUMMARY | 2024-08-05 15:02 | XMS_ITS | Encounter Summary ---
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 Name Role Phone Ramón Olguin MD Primary Care Provider Reason for Referral * Laboratory Services (Routine) - Closed Specialty Diagnoses / Procedures Referred By Ernestina t Referred To Contact Diagnoses Diabetes mellitus ([facility]) Procedures HEMOGLOBIN A1C Ramón Olguin MD [address] [place] [id number] Referral ID Status Reason Start Date Expiration Date Visits Re quested Visits Authorized [id number] Closed 04/23/2015 1 1 * Laboratory Services (Routine) - Closed Specialty Diagnoses / Procedures Referred By Ernestina callahan Referred To Contact Diagnoses Diabetes mellitus ([facility]) Procedures BASIC METABOLIC PANEL Ramón Olguin MD [address] [place] [id number] Referral ID Status Reason Start Date Expiration Date Visits Re quested Visits Authorized [id number] Closed 04/23/2015 1 1 Reason for Visit * Reason Comments Shoulder Pain Pt thinks he tore hi s right labrum - shoulder. Would like this assessed. Encounter Details Date Type Department Care Team (Late st Contact Info) Description 04/23/2015 16:00 EDT Office Visit [address] [place] [address] Ramón Olguin MD [address] [place] [address] [address] [place] [address] Right shoulder pain (Primary Dx); Diabetes mellitus (CMS-HCC) (HCC-CMS); Erectile dysfunction Social History Tobacco Use Types Packs/Day Years [...] Sign Reading Time Taken Comments Blood Pressure 116/78 04/23/2015 1549 EDT Pulse 72 04/23/2015 1549 EDT Temperature 36.8 ??C (98.2 ??F) 04/23/2015 1549 EDT Respiratory Rate 16 04/23/2015 1549 EDT Oxygen Saturation - - Inhaled Oxygen Concentration - - Weight 114.3 kg (252 lb) 04/23/2015 1549 EDT Height - - Body Mass Index - - documented in this encounter Patient Instructions * Patient Instructions* Ramón Olguin - 04/23/2015 16:32 EDT Images from the original note were not included. [facility] Patient Instructions Shoulder Pain: After Your Visit Your Care Instructions You can hurt your shoulder by using it too much during an activity, such as fishing or baseball. Itcan also happen as part of the everyday wear and tear of getting older. Shoulder injuries can be slow to heal, but your shoulder should get better with time. Your doctor may recommend a sling to rest your shoulder. If you have injured your shoulder, you mayneed testing and treatment. Follow-up care is a person part of your treatment and safety. Be sure to make and go to all appointments, and call your doctor if you are having problems. It's also a good idea to know your test resultsand keep a list of the medicines you take. How can you care for yourself at home? ?? Take pain medicines exactly as directed. ?? If the doctor gave you a prescription medicine for pain, take it as prescribed. ?? If you are not taking a prescription pain medicine, ask your doctor if you can take an ynaw-kud-mrmylot medicine. ?? Do not take two or more pain medicines at the same time unless the doctor told you to. Many painmedicines contain acetaminophen, which is Tylenol. Too much acetaminophen (Tylenol) can be harmful. ?? If your doctor recommends that you wear a sling, use it as directed. Do not take it off before your doctor tells you to. ?? Put ice or a cold pack on the sore area for 10 to 20 minutes at a time. Put a thin cloth betweenthe ice and your skin. ?? If there is no swelling, you can put moist heat, a heating pad, or a warm cloth on your shoulder. Some doctors suggest alternating between hot and cold. ?? Rest your shoulder for a few days. If your doctor recommends it, you can then begin gentle exercise of the shoulder, but do not lift anything heavy. When should you call for help? Call 911 anytime you think you may need emergency care. For example, call if: ?? You have chest pain or pressure. This may occur with: ?? Sweating. ?? Shortness of breath. ?? Nausea or vomiting. ?? Pain that spreads from the chest to the neck, jaw, or one or both shoulders or arms. ?? Dizziness or lightheadedness. ?? A fast or uneven pulse. After calling 911, chew 1 adult-strength aspirin. Wait for an ambulance. Do not try to drive yourself. ?? Your arm or hand is cool or pale or changes color. Call your doctor now or seek immediate medical care if: ?? You have signs of infection, such as: ?? Increased pain, swelling, warmth, or redness in your shoulder. ?? Red streaks leading from a place on your shoulder. ?? Pus draining from an area of your shoulder. ?? Swollen lymph nodes in your neck, armpits, or groin. ?? A fever. Watch closely for changes in your health, and be sure to contact your doctor if: 1. You cannot use your shoulder. 2. Your shoulder does not get better as expected. Where can you learn more? Go to www.[email or web address] [email or web address]/[employer] or log into your [employer] Online account at [email or web address] Enter H996 in the search box to learn more about Shoulder Pain: After Your Visit. ?? [phone] [employer]. Care instructions adapted under license by [facility] This care instruction is for use with your licensed healthcare professional. If you have questions about a medical condition or this instruction, always ask your healthcare professional. [employer] disclaims any warranty or liability for your use of this information. Content Version: 10.4.556129; Current as of: October 06, 2014 [facility] Patient Instructions Shoulder Stretches: Exercises Your Care Instructions Here are some examples of exercises for your shoulder. Start each exercise slowly. Ease off the exercise if you start to have pain. Your doctor or physical therapist will tell you when you can start these exercises and which ones will work best for you. How to do the exercises Note: These exercises should cause you to feel a gentle stretch, but no pain. Shoulder stretch ?? search engine optimization strategist a doorway and place one arm against the door frame. Your elbow should be a little higher than your shoulder. ?? Relax your shoulders as you lean forward, allowing your chest and shoulder muscles to stretch. You can also turn your body slightly away from your arm to stretch the muscles even more. ?? Hold for 15 to 30 seconds. ?? Repeat 2 to 4 times with each arm. Shoulder and chest stretch Shoulder and chest stretch ?? While sitting, relax your upper body so you slump slightly in your chair. ?? As you breathe in, straighten your back and open your arms out to the sides. ?? Gently pull your shoulder blades back and downward. ?? Hold for 15 to 30 seconds as your breathe normally. ?? Repeat 2 to 4 times. Overhead stretch ?? Reach up over your head with both arms. ?? Hold for 15 to 30 seconds. ?? Repeat 2 to 4 times. Follow-up care is a person part of your treatment and safety. Be sure to make and go to all appointments, and call your doctor if you are having problems. It's also a good idea to know your test resultsand keep a list of the medicines you take. Where can you learn more? Go to www.[employer] [facility].net/[employer] or log into your [employer] Online account at [email or web address] Enter S254 in the search box to learn more about Shoulder Stretches: Exercises. ?? [id number] [employer]. Care instructions adapted under license by [facility] This care instruction is for use with your licensed healthcare professional. If you have questions about a medical condition or this instruction, always ask your healthcare professional. [employer] disclaims any warranty or liability for your use of this information. Content Version: 10.4.066602; Current as of: October 06, 2014 [facility] Patient Instructions Rotator Cuff: Exercises Your Care Instructions Here are some examples of typical rehabilitation exercises for your condition. Start each exercise slowly. Ease off the exercise if you start to have pain. Your doctor or physical therapist will tell you when you can start these exercises and which ones will work best for you. How to do the exercises Pendulum swing Note: If you have pain in your back, do not do this exercise. ?? Hold on to a table or the back of a chair with your good arm. Then bend forward a little and letyour sore arm hang straight down. This exercise does not use the arm muscles. Rather, use your legsand your hips to create movement that makes your arm swing freely. ?? Use the movement from your hips and legs to guide the slightly swinging arm back and forth like a pendulum (or elephant trunk). Then guide it in circles that start small (about the size of a dinner plate). Make the circles a bit larger each day, as your pain allows. ?? Do this exercise for 5 minutes, 5 to 7 times each day. ?? As you have less pain, try bending over a little farther to do this exercise. This will increasethe amount of movement at your shoulder. Posterior stretching exercise ?? Hold the elbow of your injured arm with your other hand. ?? Use your hand to pull your injured arm gently up and across your body. You will feel a gentle stretch across the back of your injured shoulder. ?? Hold for at least 15 to 30 seconds. Then slowly lower your arm. ?? Repeat 2 to 4 times. Up-the-back stretch Note: Your doctor or physical therapist may want you to wait to do this stretch until you have regained most of your range of motion and strength. You can do this stretch in different ways. Hold any of these stretches for at least 15 to 30 seconds. Repeat them 2 to 4 times. ?? Put your hand in your back pocket. Let it rest there to stretch your shoulder. ?? With your other hand, hold your injured arm (palm outward) behind your back by the wrist. Pull your arm up gently to stretch your shoulder. ?? Next, put a towel over your other shoulder. Put the hand of your injured arm behind your back. Now hold the back end of the towel. With the other hand, hold the front end of the towel in front of your body. Pull gently on the front end of the towel. This will bring your hand farther up your backto stretch your shoulder. Overhead stretch 3. Standing about an arm's length away, grasp onto a solid surface. You could use a countertop, a doorknob, or the back of a sturdy chair. 4. With your knees slightly bent, bend forward with your arms straight. Lower your upper body, and let your shoulders stretch. 5. As your shoulders are able to stretch farther, you may need to take a step or two backward. 6. Hold for at least 15 to 30 seconds. Then stand up and relax. If you had stepped back during yourstretch, step forward so you can keep your hands on the solid surface. 7. Repeat 2 to 4 times. Shoulder flexion (lying down) Note: To make a wand for this exercise, use a piece of PVC pipe or a broom handle with the broom removed. Make the wand about a foot wider than your shoulders. 1. Lie on your back, holding a wand with both hands. Your palms should face down as you hold the wand. 2. Keeping your elbows straight, slowly raise your arms over your head. Raise them until you feel astretch in your shoulders, upper back, and chest. 3. Hold for 15 to 30 seconds. 4. Repeat 2 to 4 times. Shoulder rotation (lying down) Note: To make a wand for this exercise, use a piece of PVC pipe or a broom handle with the broom removed. Make the wand about a foot wider than your shoulders. 1. Lie on your back. Hold a wand with both hands with your elbows bent and palms up. 2. Keep your elbows close to your body, and move the wand across your body toward the sore arm. 3. Hold for 8 to 12 seconds. 4. Repeat 2 to 4 times. Wall climbing (to the side) Note: Avoid any movement that is straight to your side, and be careful not to arch your back. Your arm should stay about 30 degrees to the front of your side. 1. Stand with your side to a wall so that your fingers can just touch it at an angle about 30 degrees toward the front of your body. 2. Walk the fingers of your injured arm up the wall as high as pain permits. Try not to shrug your shoulder up toward your ear as you move your arm up. 3. Hold that position for a count of at least 15 to 20. 4. Walk your fingers back down to the starting position. 5. Repeat at least 2 to 4 times. Try to reach higher each time. Wall climbing (to the front) Note: During this stretching exercise, be careful not to arch your back. 1. Face a wall, and stand so your fingers can just touch it. 2. Keeping your shoulder down, walk the fingers of your injured arm up the wall as high as pain permits. (Don't shrug your shoulder up toward your ear.) 3. Hold your arm in that position for at least 15 to 30 seconds. 4. Slowly walk your fingers back down to where you started. 5. Repeat at least 2 to 4 times. Try to reach higher each time. Shoulder blade squeeze 1. Stand with your arms at your sides, and squeeze your shoulder blades together. Do not raise yourshoulders up as you squeeze. 2. Hold 6 seconds. 3. Repeat 8 to 12 times. Scapular exercise: Arm reach 1. Lie flat on your back. This exercise is a very slight motion that starts with your arms raised (elbows straight, arms straight). 2. From this position, reach higher toward the yris or ceiling. Keep your elbows straight. All motion should be from your shoulder blade only. 3. Relax your arms back to where you started. 4. Repeat 8 to 12 times. Arm raise to the side Note: During this strengthening exercise, your arm should stay about 30 degrees to the front of your side. 1. Slowly raise your injured arm to the side, with your thumb facing up. Raise your arm 60 degrees at the most (shoulder level is 90 degrees). 2. Hold the position for 3 to 5 seconds. Then lower your arm back to your side. If you need to, bring your good arm across your body and place it under the elbow as you lower your injured arm. Use your good arm to keep your injured arm from dropping down too fast. 3. Repeat 8 to 12 times. 4. When you first start out, don't hold any extra weight in your hand. As you get stronger, you mayuse a 1-pound to 2-pound dumbbell or a small can of food. Shoulder flexor and extensor exercise Note: These are isometric exercises. That means you contract your muscles without actually moving. ?? Push forward (flex): Stand facing a wall or doorjamb, about 6 inches or less back. Hold your injured arm against your body. Make a closed fist with your thumb on top. Then gently push your hand forward into the wall with about 25% to 50% of your strength. Don't let your body move backward as youpush. Hold for about 6 seconds. Relax for a few seconds. Repeat 8 to 12 times. ?? Push backward (extend): Stand with your back flat against a wall. Your upper arm should be against the wall, with your elbow bent 90 degrees (your hand straight ahead). Push your elbow gently backagainst the wall with about 25% to 50% of your strength. Don't let your body move forward as you push. Hold for about 6 seconds. Relax for a few seconds. Repeat 8 to 12 times. Scapular exercise: Wall push-ups Note: This exercise is best done with your fingers somewhat turned out, rather than straight up anddown. 1. Stand facing a wall, about 12 inches to [address] your hands on the wall at shoulder height. 3. Slowly bend your elbows and bring your face to the wall. Keep your back and hips straight. 4. Push back to where you started. 5. Repeat 8 to 12 times. 6. When you can do this exercise against a wall comfortably, you can try it against a counter. You can then slowly progress to the end of a couch, then to a sturdy chair, and finally to the floor. Scapular exercise: Retraction Note: For this exercise, you will need elastic exercise material, such as surgical tubing or Thera-Band. 1. Put the band around a solid object at about waist level. (A bedpost will work well.) Each hand should hold an end of the band. 2. With your elbows at your sides and bent to 90 degrees, pull the band back. Your shoulder blades should move toward each other. Then move your arms back where you started. 3. Repeat 8 to 12 times. 4. If you have good range of motion in your shoulders, try this exercise with your arms lifted out to the sides. Keep your elbows at a 90-degree angle. Raise the elastic band up to about shoulder level. Pull the band back to move your shoulder blades toward each other. Then move your arms back where you started. Internal rotator strengthening exercise 1. Start by tying a piece of elastic exercise material to a doorknob. You can use surgical tubing or Thera-Band. 2. Stand or sit with your shoulder relaxed and your elbow bent 90 degrees. Your upper arm should rest comfortably against your side. Squeeze a rolled towel between your elbow and your body for comfort. This will help keep your arm at your side. 3. Hold one end of the elastic band in the hand of the painful arm. 4. Slowly rotate your forearm toward your body until it touches your belly. Slowly move it back to where you started. 5. Keep your elbow and upper arm firmly tucked against the towel roll or at your side. 6. Repeat 8 to 12 times. External rotator strengthening exercise 1. Start by tying a piece of elastic exercise material to a doorknob. You can use surgical tubing or Thera-Band. (You may also hold one end of the band in each hand.) 2. Stand or sit with your shoulder relaxed and your elbow bent 90 degrees. Your upper arm should rest comfortably against your side. Squeeze a rolled towel between your elbow and your body for comfort. This will help keep your arm at your side. 3. Hold one end of the elastic band with the hand of the painful arm. 4. Start with your forearm across your belly. Slowly rotate the forearm out away from your body. Keep your elbow and upper arm tucked against the towel roll or the side of your body until you begin to feel tightness in your shoulder. Slowly move your arm back to where you started. 5. Repeat 8 to 12 times. Follow-up care is a person part of your treatment and safety. Be sure to make and go to all appointments, and call your doctor if you are having problems. It's also a good idea to know your test resultsand keep a list of the medicines you take. Where can you learn more? Go to [email or web address] [facility].[email or web address]/[employer] or log into your [employer] Online account at [email or web address] Enter J005 in the search box to learn more about Rotator Cuff: Exercises. ?? [id number] [employer]. Care instructions adapted under license by [facility] This care instruction is for use with your licensed healthcare professional. If you have questions about a medical condition or this instruction, always ask your healthcare professional. [employer] disclaims any warranty or liability for your use of this information. Content Version: 10.4.809913; Current as of: April 26, 2014 [facility] Patient Instructions Rotator Cuff Problems: After Your Visit Your Care Instructions The rotator cuff is a group of tendons and muscles around the shoulder that keeps the shoulder joint stable and allows you to raise and rotate your arm. Over time, daily wear and exercise can cause the tendons to rub on the bones of your shoulder. This is called impingement. This condition may cause the tendons to bruise, degenerate, or tear. In many people, these problems do not cause pain. When they do cause pain, you can use rest, physical therapy, ice and heat, and anti-inflammatory medicine to reduce pain and swelling. If you still have pain after trying these treatments, you and your doctor can discuss having a steroid injection or surgery. Follow-up care is a person part of your treatment and safety. Be sure to make and go to all appointments, and call your doctor if you are having problems. It's also a good idea to know your test resultsand keep a list of the medicines you take. How can you care for yourself at home? ?? Be safe with medicines. Read and follow all instructions on the label. ?? If the doctor gave you a prescription medicine for pain, take it as prescribed. ?? If you are not taking a prescription pain medicine, ask your doctor if you can take an vsqt-xdg-sszjkhy medicine. ?? Put ice or a cold pack on your shoulder for 10 to 20 minutes at a time. Try to do this every 1 to 2 hours for the next 3 days (when you are awake). Put a thin cloth between the ice pack and your skin. ?? After 3 days, put a warm, wet towel on your shoulder. This is to relax the muscles and increase blood flow. While holding the towel on your shoulder, lean forward so your arm hangs freely, and gently swing your arm back and forth like a pendulum. You also can do this standing under a warm shower. ?? Follow your doctor's advice for physical therapy. When your doctor says it is okay, try these stretching exercises. Do them slowly to avoid injury. Put a warm, wet towel on your shoulder before exercising. Stop any exercise that increases pain. ?? Mvxur-ex-wnkzzg exercises. If it is not too painful, stretch your arm in four directions: acrossthe body, up the back, to the side, and overhead. ?? Pendulum exercise. Lean forward and hold onto a table or the back of a chair with your good arm.Bend at the waist, letting the arm with the sore shoulder hang straight down. Swing your arm back and forth like a pendulum, then in circles that start small and slowly grow larger. This exercise does not use the arm muscles. Instead, use your legs and your hips to create movement that makes your arm swing freely. Try this for about 5 minutes, several times a day. ?? Wall climbing (to the side). Stand with your side to a wall so that your fingers can just touch it. Then turn so your body is turned slightly toward the wall. Walk the fingers of your injured arm up the wall as high as pain permits. Try not to shrug your shoulder up toward your ear as you move your arm up. Hold that position for a count of 15 to 30 seconds. Walk your fingers down to the starting position. Repeat 2 to 4 times, trying to reach higher each time. ?? Wall climbing (to the front). Face a wall, standing so your fingers can just touch it. Walk the fingers of your affected arm up the wall as high as pain permits. Try not to shrug your shoulder up toward your ear as you move your arm up. Hold that position for a count of 15 to 30 seconds. Slowly walk your fingers to the starting position. Repeat 2 to 4 times, trying to reach higher each time. ?? Rest your shoulder when you are not doing stretches and other exercises. Your doctor may tell you to wait for the pain to go away before doing exercises. Do not lift heavy bags of groceries, play sports, or do anything else that makes you twist or stress your shoulder. Avoid activities where youmove your affected arm above your head. When should you call for help? Call your doctor now or seek immediate medical care if: ?? You have severe pain. ?? You cannot move your shoulder or arm. ?? You have tingling or numbness in your arm or hand. ?? Your arm or hand is cool or pale. Watch closely for changes in your health, and be sure to contact your doctor if: ?? Your pain gets worse. ?? You have new or worse swelling in your arm or hand. ?? You do not get better as expected. Where can you learn more? Go to www.[employer] [facility].net/[employer] or log into your [employer] Online account at https://[employer].org Enter E207 in the search box to learn more about Rotator Cuff Problems: After Your Visit. ?? [id number] [employer]. Care instructions adapted under license by [facility] This care instruction is for use with your licensed healthcare professional. If you have questions about a medical condition or this instruction, always ask your healthcare professional. [employer] disclaims any warranty or liability for your use of this information. Content Version: 10.4.775721; Current as of: April 26, 2014 documented in this encounter Ordered Prescriptions Prescription Sig Dispensed Refills Start Date End Da te sildenafil citrate (VIAGRA) 50 mg tabletIndications:Erect ile dysfunction Take 1 Tab by mouth as needed for Erectile Dysfunction 5 Tab 2 04/23/2015 07/10/2015 documented in this encounter Progress Notes * Ramón Olguin - 04/23/20152032 EDT Addendum: The patient also discussed erectile dysfunction. Libido still intact. He would like to try Viagra. The risks, benefits, and usage discussed. PLAN: Viagra 50 mg p.r.n. * Steff Olguiner - 04/23/2015 2030 EDT REASON FOR VISIT: Shoulder pain. SUBJECTIVE: A 69-year-old with chronic shoulder pain. Prior history of left shoulder labral injury 12 years ago repaired and has done well. Some modest weakness of the shoulder, but pain much improved after surgery and was quite happy with the result. He also has a trigger finger on that side. It does limit activity. Unfortunately, began developing right shoulder symptoms in the last month, in part due to physical demands. He is dealing with a with end-of-life care, required transferring and moving and no trauma or injury otherwise described but pain with recurrent activity. No acute change in appearance, no radicular complaints. No fever, chills, and other medical problems stable. OBJECTIVE: Vital signs normal, afebrile. Neck: No lymphadenopathy, supple, full range of motion without difficulty. Left shoulder, no direct tenderness to palpation. Decent near full range of motion without pain, right shoulder pain with abduction and rotation. Positive impingement signs particularly supraspinatus sign and Neer test. Normal distal pulses. ASSESSMENT: Right shoulder pain, which patient was concerned over labral injury. This may be present, although, I am much more suspicious of an impingement syndrome, likely from overuse involving therotator cuff tendon. I did suggest a trial particularly as he wished to try to achieve short-term relief with the steroid injection. I think that this was appropriate. If not improved, consider further evaluation for mechanical disruption such as a rotator cuff tear or a meniscal or a labral injurywith MR. Discussed with the patient who concurs. PLAN: 1. Consent obtained. Site identified. Time-out applied before procedure to identify the site used over right shoulder. A posterior approach was identified, and using a 25-gauge needle, the subacromial space was easily entered posteriorly. An injection of 6 mL in total injected into the subacromial space without difficulty. This was 5 mL of 1% lidocaine without epinephrine, 1 mL of triamcinolone -40 mg. Band-Aid placed. Wound instructions given. 2. Activity as tolerated. 3. Consider physical therapy and orthopedic and MR evaluation if not improved. Addendum: The patient also due for diabetes followup. Will plan on diabetic labs. documented in this encounter Plan of Treatment Scheduled Orders Name Type Priority Associated Diagnoses Orde r Schedule BASIC METABOLIC PANEL Lab Routine Diabetes mellitus ([facility]) ([facility]) Ordered: 04/23/2015 HEMOGLOBIN A1C Lab Routine Diabetes mellitus ([facility]) ([facility]) Ordered: 04/23/2015 documented as of this encounter Goals Goal Patient Goal Type Associated Problems Recent Progress Patient-Stated? Author Blood Pressure < 140/90 Blood Pressure Hypertensive disorder 112/70(2021 13:50 EDT) No Abbie Winter LPN [id number] XT < 7 Result Component 8.2( 9 14:15 EDT) No Abbie Winter LPN LDLEXT < 100 Result Component 76(05/13/2019 14:15 EDT) No Abbie Winter LPN documented as of this encounter Visit Diagnoses Diagnosis Right shoulder pain- Primary Pain in joint, shoulder region Diabetes mellitus ([facility]) Type II or unspecified type diabetes mellitus without mention of complication, not stated as uncontrolled Erectile dysfunction Impotence of organic origin documented in this encounter Discontinued Medications Medication Sig Discontinue Reason Start Date End Da te atorvastatin (LIPITOR) 10 mg tablet TAKE ONE TABLET BY MOUTH EVERY DAY 12/20/2014 04/23/2015 documented as of this encounter Care Teams Poured Pipe Maker Relationship Specialty Start Date End Date Ramón Olguin MD [address] [place] [phone] PCP - General 06/15/09 06/13/19 documented as of this encounter
--- OUTSIDE RECORDS SUMMARY | 2024-08-05 15:02 | XMS_ITS | Encounter Summary ---
Author Organization [facility] Address [address] [place] [address] Care Team Providers Care Pr Internship Name Role Phone Ramón Olguin MD Primary Care Provider Kameron Lee MD Primary Care Provider [phone]- [phone] Reason for Visit * Reason Comments Other Encounter Details Date Type Department Care Team (Late st Contact Info) Description 06/15/2015 Refill [facility] Medicine [address] [place] [address] Ramón Olguin MD [address] [place] [address] [address] [place] [address] Other Social History Tobacco Use [...] :49 EST documented as of this encounter Ordered Prescriptions Prescription Sig Dispensed Refills Start Date End Da te glipiZIDE (GLUCOTROL) 10 mg XL tabletIndications:Type 2 diabetes mellitus without complication (HCC-CMS) TAKE ONE TABLET BY MOUTH EVERY DAY 90 Tab 3 06/15/2015 03/21/2016 documented in this encounter Miscellaneous Notes * Telephone Encounter - Denisse Brooke RN - 06/15/2015 1055 EDT Glipizide 10 mg CR last filled 07/24/14-refill sent from pharmacy is glipizide XL- same, or wrong med?Please advise Last OV and labs April 23 2015 Next visit 07/10/15 documented in this encounter Plan of Treatment Not on file documented as of this encounter Goals Goal Patient Goal Type Associated Problems Recent Progress Patient-Stated? Author Blood Pressure < 140/90 Blood Pressure Hypertensive disorder 112/70(2021 13:50 EDT) No Abbie Winter LPN [id number] XT < 7 Result Component 8.2( 9 14:15 EDT) No Abbie Winter LPN LDLEXT < 100 Result Component 76(05/13/2019 14:15 EDT) No Abbie Winter LPN documented as of this encounter Visit Diagnoses Diagnosis Type 2 diabetes mellitus without complication ([facility])- Primary Type II or unspecified type diabetes mellitus without mention of complication, not stated as uncontrolled documented in this encounter Discontinued Medications Medication Sig Discontinue Reason Start Date End Da te glipiZIDE (GLUCOTROL) 10 mg CR tabletIndications:Diabet es mellitus ([facility]) TAKE ONE TABLET BY MOUTH EVERY DAY. Reorder 07/24/2014 06/15/2015 documented as of this encounter Care Teams Pr Internship Relationship Specialty Start Date End Date Ramón Olguin MD [address] [place] [address] [address] [place] [phone] PCP - General 06/15/09 06/13/19 Kameron Lee MD [address] [place] [address] [address] [place] [phone] PCP - General 06/14/19 04/28/23 documented as of this encounter
--- OUTSIDE RECORDS SUMMARY | 2024-08-05 15:02 | XMS_ITS | Encounter Summary ---
Author Organization [facility] Address [address] [place] [address] Care Team Providers Care Machine Stripper Cutter Name Role Phone Ramón Olguin MD Primary Care Provider Encounter Details Date Type Department Care Team (Late st Contact Info) Description 04/23/2016 Results Only [facility] [phone] Cruz Yarbrough MD [facility] Rheumatology [address] [place] [address] [place] [address] Social History Tobacco Use Types Packs/Day Years [...] visiting a doctor's office or shopping? No 03/21/2016 Cognitive Status Response Date of Assessm ent Because of a physical, menta l, or emotional condition, does this person have serious difficulty concentrating, remembering, or making decisions? No 03/21/2016 documented as of this encounter Plan of Treatment Not on file documented as of this encounter Goals Goal Patient Goal Type Associated Problems Recent Progress Patient-Stated? Author Blood Pressure < 140/90 Blood Pressure Hypertensive disorder 112/70(2021 13:50 EDT) No [place]mboden, Abbie, PLATFORM WORKER [id number] XT < 7 Result Component 8.2( 9 14:15 EDT) No Imboden, Abbie, PLATFORM WORKER LDLEXT < 100 Result Component 76(05/13/2019 14:15 EDT) No Imboden, Abbie, PLATFORM WORKER documented as of this encounter Procedures Procedure Name Priority Date/Time Associated Diagnosis Comments C REACTIVE PROTEIN Routine 04/23/2016 14 :07 EDT documented in this encounter Results * C REACTIVE PROTEIN (04/23/2016 14:07 EDT) C-Reactive Protein, External <2.9 0.0 - 3.0 mg/L [facility] 04/23/2016 14:0 7 EDT 04/23/2016 14:07 EDT Narrative [facility] - 04/23/2016 15:54 EDT Does PT Have a Latex Allergy? NO Cruz Yarbrough MD CHEMISTRY & BLOOD GA S ORDERABLES [facility] documented in this encounter Visit Diagnoses Not on filedocumented in this encounter Care Teams Machine Stripper Cutter Relationship Specialty Start Date End Date Ramón Olguin MD [address] [place] [phone] PCP - General 06/15/09 06/13/19 documented as of this encounter
--- OUTSIDE RECORDS SUMMARY | 2024-08-05 15:02 | XMS_ITS | Encounter Summary ---
Author Organization [facility] Address [address] [place] [address] Care Team Providers Care Valet Parking Attendant Name Role Phone Ramón Olguin MD Primary Care Provider Kameron Lee MD Primary Care Provider [phone]- [phone] Reason for Visit * Reason Comments Other Encounter Details Date Type Department Care Team (Late st Contact Info) Description 01/21/2014 Refill [facility] Medicine [address] [place] [address] Ramón Olguin MD [address] [place] [address] [address] [place] [address] Other Social History Tobacco Use [...] BY MOUTH EVERY DAY 90 Tab 3 01/21/2014 12/27/2014 lisinopril (PRINIVIL, ZESTRIL) 40 mg tablet TAKE ONE TABLET BY MOUTH EVERY DAY 90 Tab 3 01/21/2014 12/27/2014 metFORMIN (GLUCOPHAGE) 1,000 mg tablet TAKE ONE TABLET BY MOUTH TWICE A DAY 180 Tab 3 01/21/2014 12/27/2014 documented in this encounter Miscellaneous Notes * Telephone Encounter - Denisse Brooke RN - 01/23/2014 0858 EST Last labs and office visit 11/2013. Refilled metformin, lisinopril, toprol-xl. documented in this encounter Plan of Treatment Not on file documented as of this encounter Goals Goal Patient Goal Type Associated Problems Recent Progress Patient-Stated? Author HEMOGLOBINA 1CEXT < 7 Result Component 8.2(05/13/2019 14:15 EDT) No Abbie Winter LPN LDLEXT < 100 Result Component 76(05/13/2019 14:15 EDT) No Abbie Winter LPN documented as of this encounter Visit Diagnoses Not on filedocumented in this encounter Discontinued Medications Medication Sig Discontinue Reason Start Date End Da te metoprolol XL (TOPROL-XL) 50 mg tablet TAKE ONE TABLET BY MOUTH EVERY DAY Reorder 01/20/2014 01/23/2014 metoprolol XL (TOPROL-XL) 50 mg tabletIndications:Hypert ensive disorder TAKE ONE TABLET BY MOUTH EVERY DAY. Reorder 01/10/2014 01/23/2014 metFORMIN (GLUCOPHAGE) 1,000 mg tablet TAKE ONE TABLET BY MOUTH TWICE A DAY Reorder 01/20/2014 01/23/2014 metFORMIN (GLUCOPHAGE) 1,000 mg tabletIndications:Diabet es mellitus ([facility]) TAKE ONE TABLET BY MOUTH TWICE A DAY. Reorder 01/10/2014 01/23/2014 lisinopril (PRINIVIL, ZESTRIL) 40 mg tablet TAKE ONE TABLET BY MOUTH EVERY DAY Reorder 01/20/2014 01/23/2014 lisinopril (PRINIVIL, ZESTRIL) 40 mg tabletIndications:Hypert ensive disorder TAKE ONE TABLET BY MOUTH EVERY DAY. Reorder 01/10/2014 01/23/2014 documented as of this encounter Care Teams Valet Parking Attendant Relationship Specialty Start Date End Date Ramón Olguin MD [address] [place] [phone] PCP - General 06/15/09 06/13/19 Kameron Lee MD [address] [place] [phone] PCP - General 06/14/19 04/28/23 documented as of this encounter
--- OUTSIDE RECORDS SUMMARY | 2024-08-05 15:02 | XMS_ITS | Encounter Summary ---
Author Organization [facility] Address [address] [place] [address] Care Team Providers Care Value Analysis Coordinator Name Role Phone Ramón Olguin MD Primary Care Provider Kameron Lee MD Primary Care Provider +1- [phone] Encounter Details Date Type Department Care Team (Late st Contact Info) Description 04/24/[address] [facility] Radiology Results [address] [place] [address] Cruz Yarbrough MD [address] [place] [phone] Social History Tobacco Use Types Packs/Day Years [...] disorder 112/70(2021 13:50 EDT) No Abbie Winter, SURVEILLANCE SENSOR OPERATOR [id number] XT < 7 Result Component 8.2( 9 14:15 EDT) No [place], Abbie, SURVEILLANCE SENSOR OPERATOR LDLEXT < 100 Result Component 76(05/13/2019 14:15 EDT) No [place], Abbie, SURVEILLANCE SENSOR OPERATOR documented as of this encounter Procedures Procedure Name Priority Date/Time Associated Diagnosis Comments XR RHEUMATOLOGY BILATERAL HANDS 2 VIEWS EACH HAND 04/24/2016 11:37 EDT documented in this encounter Results * XR RHEUMATOID HANDS (04/24/2016 11:37 EDT) Anatomical Region Laterality Modality Upper Extremities Other 04/24/2016 11:3 7 EDT Narrative 04/24/2016 14:01 EDT ? EXAM: RADIOLOGY/RHEUMATOID SERIES HANDS B EX. D/ (1338) ? CLINICAL INFORMATION: ? UNSPECIFIED OSTEOARTHRITIS. XRAYS DONE AT [facility]. ? -M19.90 ? INDICATION: Unspecified osteoarthritis. x-rays done at [facility].: ? -M19.90. ? COMPARISON: None. ? TECHNIQUE: PA and ball-catcher's view of both hands were obtained. ? FINDINGS: Bone density is within normal limits. There are marginal ? erosions within the radial side of the left index finger proximal ? phalanx base and radial side of the right 5th finger proximal phalanx ? base. No other bone erosion or destruction is seen. There are mild ? degenerative arthritic changes within the right and left thumb ? metacarpophalangeal joints. No soft tissue calcification is ? identified. Focal areas of increased density within the left 3rd ? finger proximal phalanx proximal metaphysis and right 5th finger ? proximal phalanx midshaft are likely secondary to bone islands. ? IMPRESSION: ? 1. Mild osteoarthritis. ? 2. Marginal erosions within the left index finger proximal phalanx ? and right 5th finger proximal phalanx consistent with ? unspecified inflammatory arthritic process. ? REPORT SIGNED IN OTHER VENDOR SYSTEM 04/24/2016 ?Reported By: Steve Cotton MD ? CC: ? Transcribed Date/Time: 04/24/2016 (1401) ? Frame Maker: ? Printed Date/Time: 05/05/2019 (2019) ? PAGE 1 ? Signed Report ? Procedure Note Steve Cotton MD - 01/03/2020 EXAM: RADIOLOGY/RHEUMATOID SERIES HANDS B EX. D/ (1338) CLINICAL INFORMATION: UNSPECIFIED OSTEOARTHRITIS. XRAYS DONE AT [facility]. -M19.90 INDICATION: Unspecified osteoarthritis. x-rays done at [facility].: -M19.90. COMPARISON: None. TECHNIQUE: PA and ball-catcher's view of both hands were obtained. FINDINGS: Bone density is within normal limits. There are marginal erosions within the radial side of the left index finger proximal phalanx base and radial side of the right 5th finger proximalphalanx base. No other bone erosion or destruction is seen. There are mild degenerative arthritic changes within the right and left thumb metacarpophalangeal joints. No soft tissue calcification is identified. Focal areas of increased density within the left 3rd finger proximal phalanx proximal metaphysis and right 5th finger proximal phalanx midshaft are likely secondary to bone islands. IMPRESSION: 1. Mild osteoarthritis. 2. Marginal erosions within the left index finger proximal phalanx and right 5th finger proximal phalanx consistent with unspecified inflammatory arthritic process. REPORT SIGNED IN OTHER VENDOR SYSTEM 04/24/2016 Reported By: Steve Cotton MD CC: Transcribed Date/Time: 04/24/2016 (9658) Frame Maker: Printed Date/Time: 05/05/2019 (2019) PAGE 1 Signed Report Cruz Yarbrough MD IMG DIAGNOSTIC IMAGI NG ORDERABLES documented in this encounter Visit Diagnoses Not on filedocumented in this encounter Care Teams Value Analysis Coordinator Relationship Specialty Start Date End Date Ramón Olguin MD [address] [place] [address] [address] [place] [phone] PCP - General 06/15/09 06/13/19 Kameron Lee MD [address] [place] [address] [address] [place] [phone] PCP - General 06/14/19 04/28/23 documented as of this encounter
--- OUTSIDE RECORDS SUMMARY | 2024-08-05 15:02 | XMS_ITS | Encounter Summary ---
Author Organization [facility] Address [address] [place] [address] Care Team Providers Care Rim Roller Setter Name Role Phone Ramón Olguin MD Primary Care Provider Kameron Lee MD Primary Care Provider +1- [phone] Encounter Details Date Type Department Care Team (Late st Contact Info) Description 12/03/2016 Historical Results Only [facility] - Main [place] [address] [place], [place] [phone] Ramón Olguin MD [address] [place] [phone] Social History Tobacco Use Types Packs/Day [...] 112/70(2021 13:50 EDT) No Abbie Winter LPN [id number] XT < 7 Result Component 8.2( 9 14:15 EDT) No Abbie Winter, SPEECH AND LANGUAGE SPECIALIST LDLEXT < 100 Result Component 76(05/13/2019 14:15 EDT) No Abbie Winter LPN documented as of this encounter Procedures Procedure Name Priority Date/Time Associated Diagnosis Comments MICROALBUMIN, URINE Routine 12/03/2016 1 1:51 EST HIV 1/2 AB, P24 AG - [facility] Routine 12/03/2016 11:51 EST URINE [id number] E RATIO (ACR) Routine 12/03/2016 11:51 EST HEMOGLOBIN A1C Routine 12/03/2016 11:51 EST LIPID PROFILE (INCLUDES CHOLESTEROL, TRIGLYCERIDES, HDL, LDL) Routine 12/03/2016 11:51 EST BASIC METABOLIC PANEL (BMP) Routine 12/03/2016 11:51 EST documented in this encounter Results * (ABNORMAL) MICROALBUMIN, URINE (12/03/2016 11:51 EST) Albumin, Urine 2.62(H) 0.0 - 2.0 mg/dL 12/03/2016 14:01 [facility] Lab Urine Albumin to Creatinine Ratio 22.7 ug/mg 12/03/2016 14:01 [facility] Comment: Normal: <30 ug/mg Creat Microalbuminuria: 30-300 ug/mg Creat Clinical albuminuria: >300 ug/mg Creat Creatinine, Urine 115.00 mg/dL 12/03/2016 14:01 [facility] 12/03/2016 11:5 1 EST 12/03/2016 11:51 EST Narrative [facility] - 12/03/2016 14:01 EST Does PT Have a Latex Allergy? NO WHAT TYPE OF COLLECTION IS THIS URINE? RANDOM URINE Ramón Olguin MD HEMATOLOGY & P F4 ORDERABLES [facility] * (ABNORMAL) LIPID PROFILE (INCLUDES CHOLESTEROL, TRIGLYCERIDES, HDL, LDL) (12/03/2016 11:51 EST) Pathologist [facility] Triglyceride 130 35 - 150 mg/dL 12/03/2016 13:08 [facility] Cholesterol 95(L) 120 - 200 mg/dL 12/03/2016 13:08 [facility] Chol/HDL Ratio 2.3 0 - 5.0 12/03/2016 13:08 [facility] Comment: DESIRABLE RATIO IS LESS THAN 4.1 PATIENTS ARE CONSIDERED AT RISK: WOMEN RATIO >5 MEN RATIO >6 FASTING? - [facility] No 7 11:51 [facility] HDL 40 40 - 60 mg/dL 12/03/2016 13:08 [facility] LDL CHOLESTEROL - [facility] 29(L) 60 - 100 mg/dL 12/03/2016 13:08 [facility] Non HDL Cholesterol 55 mg/dl 12/03/2016 13:08 [facility] Comment: Desirable: ?Less than 130 Borderline High: ??130-159 High: ? 160-189 Very High: ?Greater than or equal to 190 12/03/2016 11:5 1 EST 12/03/2016 11:51 EST Narrative [facility] - 12/03/2016 13:08 EST Does PT Have a Latex Allergy? NO Ramón Olguin MD CHEMISTRY & BL OOD GAS ORDERABLES Performing Organization Address [facility]/ZIP Co de Phone Number [facility] * (ABNORMAL) BASIC METABOLIC PANEL (BMP) (12/03/2016 11:51 EST) Pathologist [facility] BUN - [facility] 21(H) 7 - 18 mg/dL 12/03/2016 13:08 [facility] CALCIUM - [facility] 9.0 8.5 - 10.1 mg/dL 12/03/2016 13:08 [facility] Chloride 106 98 - 107 mEq/L 12/03/2016 13:08 [facility] CO2 Total 27 21 - 32 mEq/L 12/03/2016 13:08 [facility] CREATININE 1.73(H) 0.5 - 1.3 mg/dL 12/03/2016 13:08 [facility] eGFR 39 12/03/2016 13:08 [facility] Comment: Stage 3: Moderate renal impairment is defined as GFR 30-59 Multiply result by 1.210 for patients. Anion Gap 7 5 - 15 12/03/2016 13:08 [facility] GLUCOSE - [facility] 195(H) 70 - 100 mg/dL 12/03/2016 13:08 [facility] Potassium 4.7 3.5 - 5.0 mEq/L 12/03/2016 13:08 [facility] Sodium 140 135 - 145 mEq/L 12/03/2016 13:08 [facility] 12/03/2016 11:5 1 EST 12/03/2016 11:51 EST [facility] - 12/03/2016 13:08 EST Does PT Have a Latex Allergy? NO Ramón Olguin MD CHEMISTRY & BL OOD GAS ORDERABLES [facility] * (ABNORMAL) HEMOGLOBIN A1C (12/03/2016 11:51 EST) Hemoglobin A1c 6.9(H) 4.0 - 6.0 % 12/03/2016 13:32 [facility] Est Avg Glucose 151 mg/dL 7 13:32 [facility] 12/03/2016 11:5 1 EST 12/03/2016 11:51 EST [facility] - 12/03/2016 13:32 EST Does PT Have a Latex Allergy? NO Ramón Olguin MD CHEMISTRY & BL OOD GAS ORDERABLES Performing Organization Address [facility] Co de Phone Number [facility] * HIV 1/2 AB, P24 AG - [facility] (12/03/2016 11:51 EST) HIV 1/2 AB, P24 AG - [facility] Non-Reacti ve Non-React 12/03/2016 13:53 [facility] Comment: Assayed using Siemens 4th generation Advia Centaur HIV 1/2 Ab, p24 Ag combination assay. 12/03/2016 11:5 1 EST 12/03/2016 11:51 EST [facility] - 12/03/2016 13:53 EST Does PT Have a Latex Allergy? NO Ramón Olguin MD CHEMISTRY & BL OOD GAS ORDERABLES Performing Organization Address [facility] de Phone Number [facility] * (ABNORMAL) ALBUMIN, URINE (12/03/2016 11:51 EST) Albumin, Urine 2.62(H) 0.0 - 2.0 mg/dL 12/03/2016 14:01 [facility] Lab Urine Albumin to Creatinine Ratio 22.7 ug/mg 12/03/2016 14:01 [facility] Comment: Normal: <30 ug/mg Creat Microalbuminuria: 30-300 ug/mg Creat Clinical albuminuria: >300 ug/mg Creat Creatinine, Urine 115.00 mg/dL 12/03/2016 14:01 [facility] 12/03/2016 11:5 1 EST 12/03/2016 11:51 EST [facility] - 12/03/2016 14:01 EST Does PT Have a Latex Allergy? NO WHAT TYPE OF COLLECTION IS THIS URINE? RANDOM URINE Ramón Olguin MD CHEMISTRY & BL OOD GAS ORDERABLES Performing Organization Address [facility]/State/ZIP Co de Phone Number [facility] documented in this encounter Visit Diagnoses Not on filedocumented in this encounter Care Teams Rim Roller Setter Relationship Specialty Start Date End Date Ramón Olguin MD [address] [place] [address] [address] [place] [phone] PCP - General 06/15/09 06/13/19 Kameron Lee MD [address] [place] [address] [address] [place] [phone] PCP - General 06/14/19 04/28/23 documented as of this encounter
--- OUTSIDE RECORDS SUMMARY | 2024-08-05 15:02 | XMS_ITS | Encounter Summary ---
Author Organization [facility] Address [address] [place] [address] Care Team Providers Care Referral Agent Name Role Phone Ramón Olguin MD Primary Care Provider Encounter Details Date Type Department Care Team (Late st Contact Info) Description 07/10/2015 Results Only [facility] Medicine [facility] [address] [facility] [address] [place] [address] Ramón Olguin MD [address] [place] [address] [address] [place] [address] Social History Tobacco Use Types [...] visiting a doctor's office or shopping? No 07/10/2015 Cognitive Status Response Date of Assessm ent Because of a physical, menta l, or emotional condition, does this person have serious difficulty concentrating, remembering, or making decisions? No 07/10/2015 documented as of this encounter Plan of Treatment Not on file documented as of this encounter Goals Goal Patient Goal Type Associated Problems Recent Progress Patient-Stated? Author Blood Pressure < 140/90 Blood Pressure Hypertensive disorder 112/70(2021 13:50 EDT) No Abbie Winter LPN [id number] XT < 7 Result Component 8.2( 9 14:15 EDT) No Abbie Winter, MOTEL KEEPER LDLEXT < 100 Result Component 76(05/13/2019 14:15 EDT) No Abbie Winter LPN documented as of this encounter Procedures Procedure Name Priority Date/Time Associated Diagnosis Comments HEMOGLOBIN A1C Routine 07/10/2015 9:48 EDT documented in this encounter Results * (ABNORMAL) HEMOGLOBIN A1C (07/10/2015 9:48 EDT) Hemoglobin A1C, External 7.1(H) 4.0 - 6.0 % [facility] Est Avg Glucose, External 157 mg/dL [facility] 07/10/2015 9:48 EDT 07/10/2015 9:48 EDT Narrative [facility] - 07/10/2015 12:56 EDT Does PT Have a Latex Allergy? NO Ramón Olguin MD CHEMISTRY & BL OOD GAS ORDERABLES [facility] documented in this encounter Visit Diagnoses Not on filedocumented in this encounter Care Teams Referral Agent Relationship Specialty Start Date End Date Ramón Olguin MD [address] [place] [phone] PCP - General 06/15/09 06/13/19 documented as of this encounter
--- OUTSIDE RECORDS SUMMARY | 2024-08-05 15:02 | XMS_ITS | Encounter Summary ---
Author Organization [facility] Address [address] [place] [address] Care Team Providers Care Colon And Rectal Surgeon Name Role Phone Ramón Olguin MD Primary Care Provider Kameron Lee MD Primary Care Provider [phone] Encounter Details Date Type Department Care Team (Late st Contact Info) Description 04/23/2016 Historical Results Only [facility] Radiology Results [address] [place] [address] Cruz Yarbrough MD [address] [place] [phone] Social History Tobacco Use Types Packs/Day Years [...] Pressure Hypertensive disorder 112/70(2021 13:50 EDT) No HardyAbbie, INNER TUBE CUTTER [id number] XT < 7 Result Component 8.2( 9 14:15 EDT) No Hardy, Abbie, INNER TUBE CUTTER LDLEXT < 100 Result Component 76(05/13/2019 14:15 EDT) No Hardy, Abbie, INNER TUBE CUTTER documented as of this encounter Procedures Procedure Name Priority Date/Time Associated Diagnosis Comments XR RHEUMATOLOGY BILATERAL HANDS 2 VIEWS EACH HAND 04/23/2016 13:31 EDT documented in this encounter Results * XR RHEUMATOID HANDS (04/23/2016 13:31 EDT) Anatomical Region Laterality Modality Upper Extremities Other 04/23/2016 13:3 1 EDT Narrative 04/24/2016 11:37 EDT ? EXAM: RADIOLOGY/RHEUMATOID SERIES HANDS B EX. D/ (1338) ? CLINICAL INFORMATION: ? UNSPECIFIED OSTEOARTHRITIS. XRAYS DONE AT [facility]. ? -M19.90 ? INDICATION: Unspecified osteoarthritis. x-rays done at [facility].: ? -M19.90. ? COMPARISON: None. ? [...] CC: ? Transcribed Date/Time: 04/24/2016 (1401) ? Cell Inspector: ? Printed Date/Time: 05/05/2019 (2019) ? PAGE 1 ? Signed Report ? Procedure Note Steve Cotton MD - 01/03/2020 EXAM: RADIOLOGY/RHEUMATOID SERIES HANDS B EX. D/ (1338) CLINICAL INFORMATION: UNSPECIFIED OSTEOARTHRITIS. XRAYS DONE AT [facility]. -M19.90 INDICATION: Unspecified osteoarthritis. x-rays done at [facility].: -M19.90. COMPARISON: None. TECHNIQUE: PA and [...] Steve Cotton MD CC: Transcribed Date/Time: 04/24/2016 (9745) Cell Inspector: Printed Date/Time: 05/05/2019 (2019) PAGE 1 Signed Report Cruz Yarbrough MD IMG DIAGNOSTIC IMAGI NG ORDERABLES documented in this encounter Visit Diagnoses Not on filedocumented in this encounter Care Teams Colon And Rectal Surgeon Relationship Specialty Start Date End Date Ramón Olguin MD [address] [place] [address] [address] [place] [phone] PCP - General 06/15/09 06/13/19 Kameron Lee MD [address] [place] [address] [address] [place] [phone] PCP - General 06/14/19 04/28/23 documented as of this encounter
--- OUTSIDE RECORDS SUMMARY | 2024-08-05 15:02 | XMS_ITS | Encounter Summary ---
Author Organization [facility] [place] [facility] Address [address] [place] [address] Care Team Providers Care Multicultural Services Librarian Name Role Phone Ramón Olguin MD Primary Care Provider Reason for Visit * Reason Comments Diabetes Last A1C 7.1 Encounter Details Date Type Department Care Team (Late st Contact Info) Description 06/22/2015 13:15 EDT Office Visit [facility] Ophthalmology [facility] [address] [place] [address] John Lott MD [address] [place] [phone] Social History Tobacco Use Types Packs/Day Years [...] visiting a doctor's office or shopping? No 06/22/2015 Cognitive Status Response Date of Assessm ent Because of a physical, menta l, or emotional condition, does this person have serious difficulty concentrating, remembering, or making decisions? No 06/22/2015 documented as of this encounter Progress Notes * John Lott MD - 06/22/2015 9296 EDT Chief Complaint Patient presents with ??? Diabetes Last A1C 7.1 HPI The patient is a 69 y.o. male diabetic eye exam, Last A1C was 7.1 he has no eye pain, double vision, or new flashes/floaters. Right Eye: NL Left Eye: NL Visual Aid: Glasses Current Rx Age Location: Pain: 0 - No pain Quality: Severity: Duration: Timing: Lasts: Context: Modifying factors: Associated Signs & Symptoms: Attestation: ROS Constitutional: NL ENT/Mouth Cardiovascular: Respiratory: Gastrointestinal: Genitourinary: Musculoskeletal: Integumentary: Neurologic: Psychiatric: Endocrine: Hematologic: Immunologic: Provider Contracting Consultant: Exposures: None Other: Attestation: Base Eye Exam Visual Acuity (Snellen - Linear) Right Left Dist sc 20/20 20/20 Tonometry (Applanation, 13:37) Right Left Pressure 16 16 Pupils Pupils APD Right PERRL None Left PERRL None Visual Powers (Counting fingers) Right Left Result Full Full Extraocular Movement Right Left Result Full Full Neuro/Psych Oriented x3: Yes Mood/Affect: Normal Dilation Both eyes: 1.0% Mydriacyl @ 13:38 Slit Lamp and Fundus Exam Slit Lamp Exam Right Left Lids/Lashes Normal papilloma central lower lid Conjunctiva/Sclera White and quiet White and quiet Cornea Clear Clear Anterior Chamber Deep and quiet Deep and quiet Iris Round and reactive Round and reactive Lens 1-2+ Nuclear sclerosis 1-2+ Nuclear sclerosis Fundus Exam Right Left Vitreous Normal Normal Disc Normal Normal C/D Ratio 0.35 0.25 Macula Normal, no MA's Normal, no MA's Vessels Normal Normal Periphery Normal, No diabetic retinopathy small patch pigment @ 10:00, No diabetic retinopathy Edited by: John Lott MD Refraction Wearing Rx Sphere Cylinder Right +2.50 Sphere Left +2.50 Sphere Type: OTC readers DIAGNOSTIC TESTS: IMPRESSION & PLAN: 1. Diabetes mellitus no retinopathy -Recommend good blood sugar and blood pressure control -Recommend annual dilated eye exam -Copy of note sent to PCP 2. Cataract, both eyes Not visually significant -Monitor periodically I have reviewed the patient's past medical, family, social and surgical history. I have also reviewed the patient's medications, allergies, and problem list. I performed my own HPI and have reviewed the enrich-in's ROS as well. I completed this exam personally. John Lott MD I am scribing for John Lott MD, while he is personally performing the service. erythromycin Patient Education Topic: diabetes Method: Verbal Taught to: Patient Barriers: None Outcomes: independent Signature: Olive Pedroza documented in this encounter Plan of Treatment Not on file documented as of this encounter Goals Goal Patient Goal Type Associated Problems Recent Progress Patient-Stated? Author Blood Pressure < 140/90 Blood Pressure Hypertensive disorder 112/70(2021 13:50 EDT) No Abbie Winter LPN [id number] XT < 7 Result Component 8.2( 9 14:15 EDT) No Abbie Winter LPN LDLEXT < 100 Result Component 76(05/13/2019 14:15 EDT) No Abbie Winter LPN documented as of this encounter Visit Diagnoses Diagnosis Type 2 diabetes mellitus without complication ([facility])- Primary Type II or unspecified type diabetes mellitus without mention of complication, not stated as uncontrolled NS (nuclear sclerosis), bilateral documented in this encounter Eye Exam Visual Acuity (Snellen - Linear) Right eye Left eye Dist sc 20/20 20/20 Tonometry (Applanation, 13:37) Right eye Left eye Pressure 16 16 Pupils Pupils APD Right eye PERRL None Left eye PERRL None Visual Powers (Counting fingers) Right eye Left eye Full Full Extraocular Movement Right eye Left eye Full Full Neuro/Psych Oriented x3: Yes Mood/Affect: Normal Dilation Both eyes: 1.0% Mydriacyl @ 13:38 Slit Lamp Exam Right eye Left eye Lids/Lashes Normal papilloma centra l lower lid Conjunctiva/Sclera White and quiet White and joshua et Cornea Clear Clear Anterior Chamber Deep and quiet Deep and quiet Iris Round and reactive Round and waqar ctive Lens 1-2+ Nuclear sclerosis 1-2+ Nucl ear sclerosis Vitreous Normal Normal Fundus Exam Right eye Left eye Disc Normal Normal C/D Ratio 0.35 0.25 Macula Normal, no MA's Normal, no MA's Vessels Normal Normal Periphery Normal, No diabetic retinopathy small patch pigment @ 10:00, No diabetic retinopathy Wearing Rx Sphere Cylinder Right eye +2.50 Sphere Left eye +2.50 Sphere Type: OTC readers Care Teams Multicultural Services Librarian Relationship Specialty Start Date End Date Ramón Olguin MD [address] [place] [phone] PCP - General 06/15/09 06/13/19 documented as of this encounter
--- OUTSIDE RECORDS SUMMARY | 2024-08-05 15:02 | XMS_ITS | Encounter Summary ---
Author Organization [facility] Address [address] [place] [address] Care Team Providers Care Vice President Of Nursing Name Role Phone Ramón Olguin MD Primary Care Provider Reason for Visit * Reason Comments Other Encounter Details Date Type Department Care Team (Late st Contact Info) Description 12/20/2014 Refill [facility] Family Medicine - [place] [address] [facility] [address] [place] [address] Ramón Olguin MD [address] [place] [address] [address] [place] [address] Other Social History Tobacco Use Types Packs/Day Years Used Date Smoking Tobacco: Every Day Cigarettes Smokeless Tobacco: Former Comments:pipe Alcohol Use Standard Drinks/Week Comments Yes 0 (1 standard drink = 0.6 oz pur e alcohol) beer on [facility] Sex and Gender Information Value Date Recorded Sex Assigned at Male 12/01/2019 14:49 EST Gender Identity Male 12/01/2019 14:49 EST Sexual Orientation Straight 12/01/2019 14 :49 EST documented as of this encounter Ordered Prescriptions Prescription Sig Dispensed Refills Start Date End Da te atorvastatin (LIPITOR) 10 mg tablet TAKE ONE TABLET BY MOUTH EVERY DAY 90 Tab 3 12/20/2014 04/23/2015 documented in this encounter Miscellaneous Notes * Telephone Encounter - Denisse Brooke RN - 12/20/2014 0809 EST Lipitor last filled 01/10/14 Last lipid profile, ALT 01/16/14, Plan from OV was recheck indira April 2014-not done Last OV for DM 06/19/14, previous 01/10/14 Called patient and scheduled OV for 12/27/[address] Olguin Routing to Dr Olguin if ok to refill? OV Dec 4th-order labs? If needs labs, patient will need call documented in this encounter Plan of Treatment Not on file documented as of this encounter Goals Goal Patient Goal Type Associated Problems Recent Progress Patient-Stated? Author Blood Pressure < 140/90 Blood Pressure Hypertensive disorder 112/70(2021 13:50 EDT) No Abbie Winter LPN [id number] XT < 7 Result Component 8.2( 9 14:15 EDT) No Abbie Winter LPN LDLEXT < 100 Result Component 76(05/13/2019 14:15 EDT) No Abbie Winter LPN documented as of this encounter Visit Diagnoses Not on filedocumented in this encounter Discontinued Medications Medication Sig Discontinue Reason Start Date End Da te atorvastatin (LIPITOR) 10 mg tabletIndications:Diabete s mellitus (HCC-CMS) Take 1 Tab by mouth daily. Reorder 01/10/2014 12/20/2014 documented as of this encounter Care Teams Vice President Of Nursing Relationship Specialty Start Date End Date Ramón Olguin MD [address] [place] [phone] PCP - General 06/15/09 06/13/19 documented as of this encounter
--- OUTSIDE RECORDS SUMMARY | 2024-08-05 15:02 | XMS_ITS | Encounter Summary ---
Author Organization [facility] Address [address] [place] [address] Care Team Providers Care Dope Worker Name Role Phone Ramón Olguin MD Primary Care Provider Encounter Details Date Type Department Care Team (Late st Contact Info) Description 09/10/2015 Results Only [facility] [phone] Adrián Melchor MD [address] [place] [address] Social History Tobacco Use Types Packs/Day Years [...] Pressure Hypertensive disorder 112/70(2021 13:50 EDT) No [place], Abbie, BENCH PRESS OPERATOR [id number] XT < 7 Result Component 8.2( 9 14:15 EDT) No [place], Abbie, BENCH PRESS OPERATOR LDLEXT < 100 Result Component 76(05/13/2019 14:15 EDT) No [place], Abbie, BENCH PRESS OPERATOR documented as of this encounter Procedures Procedure Name Priority Date/Time Associated Diagnosis Comments COMPREHENSIVE METABOLIC PANEL ([facility]) Routine 09/10/2015 13:21 EDT C REACTIVE PROTEIN Routine 09/10/2015 13 :21 EDT documented in this encounter Results * (ABNORMAL) C REACTIVE PROTEIN (09/10/2015 13:21 EDT) Pathologist [facility] C-Reactive Protein, External 35.0(H) 0.0 - 3.0 mg/L [facility] 09/10/2015 13:2 1 EDT 09/10/2015 13:21 EDT Narrative [facility] - 09/10/2015 14:10 EDT Does PT Have a Latex Allergy? NO Adrián Melchor MD CHEMISTRY & BLOO D GAS ORDERABLES [facility] * (ABNORMAL) COMPREHENSIVE METABOLIC PANEL ([facility]) (09/10/2015 13:21 EDT) Albumin, External 3.6 3.4 - 5.0 g/dL [facility] Total Alkaline Phosphatase, External 79 10 - 117 U/L [facility] Bilirubin, Total, External 0.3 0.0 - 1.0 mg/dL [facility] Bun, External 20(H) 7 - 18 mg/dL [facility] Calcium, External 9.2 8.5 - 10.1 mg/dL [facility] Chloride, External 106 98 - 107 mEq/L [facility] CO2, External 24 21 - 32 mEq/L [facility] Creatinine, External 1.29 0.5 - 1.3 mg/dL [facility] GFR, Ole/Est., External 55 [facility] Comment: Stage 3: Moderate renal impairment is defined as GFR 30-59 Multiply result by 1.210 for patients. Glucose, Serum, External 111(H) 70 - 100 mg/dL [facility] Potassium, External 4.8 3.5 - 5.0 mEq/L [facility] Sodium, External 139 135 - 145 mEq/L [facility] AST, External 13 10 - 37 U/L [facility] ALT, External 25 12 - 78 U/L [facility] 09/10/2015 13:2 1 EDT 09/10/2015 13:21 EDT Narrative [facility] - 09/10/2015 14:10 EDT Does PT Have a Latex Allergy? NO Adrián Melchor MD CHEMISTRY & BLOO D GAS ORDERABLES [facility] documented in this encounter Visit Diagnoses Not on filedocumented in this encounter Care Teams Dope Worker Relationship Specialty Start Date End Date Ramón Olguin MD [address] [place] [phone] PCP - General 06/15/09 06/13/19 documented as of this encounter
--- OUTSIDE RECORDS SUMMARY | 2024-08-05 15:02 | XMS_ITS | Encounter Summary ---
Author Organization [facility] Address [address] [place] [address] Care Team Providers Care Enterprise Project Manager Name Role Phone Ramón Olguin MD Primary Care Provider Encounter Details Date Type Department Care Team (Late st Contact Info) Description 10/11/2015 Results Only [facility] [phone] Cruz Yarbrough MD [facility] Rheumatology [address] [place] [address] [place] [phone] Social History Tobacco Use Types Packs/Day Years [...] Pressure Hypertensive disorder 112/70(2021 13:50 EDT) No [place], Abbie, SILK SCREEN PROCESSOR [id number] XT < 7 Result Component 8.2( 9 14:15 EDT) No [place], Abbie, SILK SCREEN PROCESSOR LDLEXT < 100 Result Component 76(05/13/2019 14:15 EDT) No [place], Abbie, SILK SCREEN PROCESSOR documented as of this encounter Procedures Procedure Name Priority Date/Time Associated Diagnosis Comments C REACTIVE PROTEIN Routine 10/11/2015 9:43 EST documented in this encounter Results * C REACTIVE PROTEIN (10/11/2015 9:43 EST) C-Reactive Protein, External 2.94 0.0 - 3.0 mg/L [facility] 10/11/2015 9:43 EST 10/11/2015 9:43 EST Narrative [facility] - 10/12/2015 11:25 EST Does PT Have a Latex Allergy? NO Cruz Yarbrough MD CHEMISTRY & BLOOD GA S ORDERABLES [facility] documented in this encounter Visit Diagnoses Not on filedocumented in this encounter Care Teams Enterprise Project Manager Relationship Specialty Start Date End Date Ramón Olguin MD [address] [place] [phone] PCP - General 06/15/09 06/13/19 documented as of this encounter
--- OUTSIDE RECORDS SUMMARY | 2024-08-05 15:02 | XMS_ITS | Encounter Summary ---
Author Organization [facility] Address [address] [place] [address] Care Team Providers Care Catering Sous Chef Name Role Phone Ramón Olguin MD Primary Care Provider Reason for Referral * Radiology Services (Routine) - Closed Specialty Diagnoses / Procedures Referred By Contac t Referred To Contact Diagnoses Right shoulder pain Procedures MR SHOULDER Ramón Olguin MD [address] [place] [phone] Referral ID Status Reason Start Date Expiration Date Visits Re quested Visits Authorized [id number] Closed 05/07/2015 1 1 Reason for Visit * Reason Onset Date Comments Shoulder Pain 05/07/2015 Encounter Details Date Type Department Care Team (Late st Contact Info) Description 05/07/2015 Telephone [facility] Family Medicine [address] [place] [address] Ramón Olguin MD [address] [place] [phone] Shoulder Pain Social History Tobacco Use Types Packs/Day Years [...] encounter Miscellaneous Notes * Telephone Encounter - Viola Moses - 05/07/2015 1006 EDT Faxed order for CPT code. * Telephone Encounter - Ramón Olguin - 05/07/2015 0958 EDT Order in prsm * Telephone Encounter - Graciela Jefferson - 05/07/2015 0917 EDT Lucas was seen by Dr Olguin on 04/23 for right shoulder pain. An MRI was mentioned as a possible planif he did not improve. He has not improved and now says he cannot life the arm. Can we get an MRI order for him for [facility] please? (Pt has completed the MRI screening form and his insurance should not require a prior authorization.) documented in this encounter Plan of Treatment Scheduled Orders Name Type Priority Associated Diagnoses Orde r Schedule MR SHOULDER Imaging Routine Right shoulder pain Ordered: 05/07/2015 documented as of this encounter Goals Goal Patient Goal Type Associated Problems Recent Progress Patient-Stated? Author Blood Pressure < 140/90 Blood Pressure Hypertensive disorder 112/70(2021 13:50 EDT) No Abbie Winter LPN [id number] XT < 7 Result Component 8.2( 9 14:15 EDT) No Abbie Winter LPN LDLEXT < 100 Result Component 76(05/13/2019 14:15 EDT) No Abbie Winter LPN documented as of this encounter Visit Diagnoses Diagnosis Right shoulder pain- Primary Pain in joint, shoulder region documented in this encounter Care Teams Catering Sous Chef Relationship Specialty Start Date End Date Ramón Olguin MD [address] [place] [phone] PCP - General 06/15/09 06/13/19 documented as of this encounter
--- OUTSIDE RECORDS SUMMARY | 2024-08-05 15:02 | XMS_ITS | Encounter Summary ---
Author Organization [facility] Address [address] [place] [address] Care Team Providers Care Chute Puller Name Role Phone Ramón Olguin MD Primary Care Provider Reason for Referral * Laboratory Services (Routine) - Closed Specialty Diagnoses / Procedures Referred By Contac t Referred To Contact Diagnoses Type 2 diabetes mellitus without complication (HCC-CMS) Procedures HEMOGLOBIN A1C Ramón Olguin MD [address] [place] [phone] Referral ID Status Reason Start Date Expiration Date Visits Re quested Visits Authorized [id number] Closed 03/07/2016 1 1 * Laboratory Services (Routine) - Closed Specialty Diagnoses / Procedures Referred By Contac t Referred To Contact Diagnoses Type 2 diabetes mellitus without complication (HCC-CMS) Procedures LIPID PROFILE (INCLUDES CHOLESTEROL, TRIGLYCERIDES, HDL, LDL) Ramón Olguin MD [address] [place] [phone] Referral ID Status Reason Start Date Expiration Date Visits Re quested Visits Authorized [id number] Closed 03/07/2016 1 1 * Laboratory Services (Routine) - Closed Specialty Diagnoses / Procedures Referred By Contac t Referred To Contact Diagnoses Type 2 diabetes mellitus without complication (HCC-CMS) Procedures BASIC METABOLIC PANEL Ramón Olguin MD [address] [place] [phone] Referral ID Status Reason Start Date Expiration Date Visits Re quested Visits Authorized [id number] Closed 03/07/2016 1 1 * Laboratory Services (Routine) - Closed Specialty Diagnoses / Procedures Referred By Contac t Referred To Contact Diagnoses Type 2 diabetes mellitus without complication ([facility]) Procedures ALT Ramón Olguin MD [address] [place] [phone] Referral ID Status Reason Start Date Expiration Date Visits Re quested Visits Authorized [id number] Closed 03/07/2016 1 1 * Laboratory Services (Routine) - Closed Specialty Diagnoses / Procedures Referred By Contac t Referred To Contact Diagnoses Type 2 diabetes mellitus without complication ([facility]-CMS) Procedures ALBUMIN, URINE Ramón Olguin MD [address] [place] [phone] Referral ID Status Reason Start Date Expiration Date Visits Re quested Visits Authorized [id number] Closed 03/07/2016 1 1 Reason for Visit * Reason Comments Other Encounter Details Date Type Department Care Team (Late st Contact Info) Description 03/07/[address] [place] [address] Ramón Olguin MD [address] [place] [phone] Other Social History Tobacco Use Types [...] No 07/10/2015 documented as of this encounter Ordered Prescriptions Prescription Sig Dispensed Refills Start Date End Da te metFORMIN (GLUCOPHAGE) 1,000 mg tabletIndications:Type 2 diabetes mellitus without complication ([facility]) TAKE ONE TABLET BY MOUTH TWICE A DAY 180 Tab 3 03/07/2016 02/18/2017 documented in this encounter Miscellaneous Notes * Telephone Encounter - Pattie Way RN - 03/07/2016 1050 EDT Pt notified. Appt 03/21. * Telephone Encounter - Ramón Olguin - 03/07/2016 1036 EDT Labs in prism-also due for an rov * Telephone Encounter - Angela Jaeger RN - 03/07/2016 1034 EDT Patient due for Diabetic labs documented in this encounter Plan of Treatment Scheduled Orders Name Type Priority Associated Diagnoses Orde r Schedule ALBUMIN, URINE Lab Routine Type 2 diabetes mellitus without complication ([facility]) ([facility]) Ordered: 03/07/2016 ALT Lab Routine Type 2 diabetes mellitus without complication ([facility]) ([facility]) Ordered: 03/07/2016 BASIC METABOLIC PANEL Lab Routine Type 2 diabetes mellitus without complication ([facility]) ([facility]) Ordered: 03/07/2016 LIPID PROFILE (INCLUDES CHOLESTEROL, TRIGLYCERIDES, HDL, LDL) Lab Routine Type 2 diabetes mellitus without complication ([facility]) ([facility]) Ordered: 03/07/2016 HEMOGLOBIN A1C Lab Routine Type 2 diabetes mellitus without complication ([facility] ([facility]) Ordered: 03/07/2016 documented as of this encounter Goals Goal Patient Goal Type Associated Problems Recent Progress Patient-Stated? Author Blood Pressure < 140/90 Blood Pressure Hypertensive disorder 112/70(2021 13:50 EDT) No Abbie Winter LPN [id number] XT < 7 Result Component 8.2( 9 14:15 EDT) No Abbie Winter LPN LDLEXT < 100 Result Component 76(05/13/2019 14:15 EDT) No Abbie Winter LPN documented as of this encounter Visit Diagnoses Diagnosis Type 2 diabetes mellitus without complication ([facility])- Primary Type II or unspecified type diabetes mellitus without mention of complication, not stated as uncontrolled documented in this encounter Discontinued Medications Medication Sig Discontinue Reason Start Date End Da te metFORMIN (GLUCOPHAGE) 1,000 mg tabletIndications:Diabet es mellitus ([facility]) TAKE ONE TABLET BY MOUTH TWICE A DAY. Reorder 01/21/2015 03/07/2016 documented as of this encounter Care Teams Chute Puller Relationship Specialty Start Date End Date Ramón Olguin MD [address] [place] [phone] PCP - General 06/15/09 06/13/19 documented as of this encounter
--- OUTSIDE RECORDS SUMMARY | 2024-08-05 15:02 | XMS_ITS | Encounter Summary ---
Author Organization [facility] Address [address] [place] [address] Care Team Providers Care Die Holder Name Role Phone Ramón Olguin MD Primary Care Provider Reason for Referral * Laboratory Services (Routine) - Closed Specialty Diagnoses / Procedures Referred By Ernestina t Referred To Contact Diagnoses Diabetes mellitus ([facility]) Procedures HEMOGLOBIN A1C Ramón Olguin MD [address] [place] [phone] Referral ID Status Reason Start Date Expiration Date Visits Re quested Visits Authorized [id number] Closed 06/19/2014 1 1 * Laboratory Services (Routine) - Closed Specialty Diagnoses / Procedures Referred By Ernestina callahan Referred To Contact Diagnoses Diabetes mellitus ([facility]) Procedures BASIC METABOLIC PANEL Ramón Olguin MD [address] [place] [phone] Referral ID Status Reason Start Date Expiration Date Visits Re quested Visits Authorized [id number] Closed 06/19/2014 1 1 Reason for Visit * Reason Comments Diabetes 3 month follow up fo r diabetes. Mass Pt has a lump under skin to right upper arm. Has been there for awhile, no pain. Would like area assessed, Medications Refill Glipizide - PENDED. Encounter Details Date Type Department Care Team (Late st Contact Info) Description 06/19/2014 11:00 EDT [facility] Visit [facility] [address] [facility] [address] [place], [place] [id number] Ramón Olguin MD [address] [facility] [address] [place] [phone] Diabetes mellitus (CMS-HCC) (HCC-CMS) (Primary Dx); Hypertension; Lipoma of arm Social History Tobacco Use Types Packs/Day Years [...] Sign Reading Time Taken Comments Blood Pressure 108/78 06/19/2014 1116 EDT Pulse 68 06/19/2014 1116 EDT Temperature 36.8 ??C (98.3 ??F) 06/19/2014 1116 EDT Respiratory Rate 20 06/19/2014 1116 EDT Oxygen Saturation - - Inhaled Oxygen Concentration - - Weight 115.7 kg (255 lb) 06/19/2014 1116 EDT Height - - Body Mass Index - - documented in this encounter Ordered Prescriptions Prescription Sig Dispensed Refills Start Date End Da te glipiZIDE (GLUCOTROL) 10 mg CR tabletIndications:Diabetes mellitus (HCC-CMS) TAKE ONE TABLET BY MOUTH EVERY DAY. 90 Tab 3 07/24/2014 06/15/2015 documented in this encounter Progress Notes * Ramón Olguin - 06/19/2014 2100 EDT REASON FOR VISIT: Diabetes followup. SUBJECTIVE: Followup visit for diabetes. It has been several months since last check. No significant interval changes. He continues on current medicines. Diabetes has been under decent control in thepast. We did discuss weight. This is down moderately from winter. He was encouraged to continue current excellent trend. Other concern is a lump on right upper arm. It has been present over the last year. No trauma or injury. It has not increased in size. No interference with activity. He does continue to smoke a pipe lightly. OBJECTIVE: Blood pressure 108/78, pulse 68, temp 98.3. Chest: Clear to auscultation. Cardiovascular: Regular rate and rhythm, no murmur. Abdomen nontender. Foot exam: Normal pulses, sensation with the exception of distal left foot, which shows mild decreased changed from baseline. Skin exam was significant for a 4 x 2.8 cm slightly mobile, moderately rubbery, moderately firm texture, right upper arm, nontender. ASSESSMENT: Adult-onset diabetes, hopefully still under decent control. PLAN: 1. Encouraged continued weight loss and diabetic diet. 2. Continue current medicines. 3. Diabetic labs. Follow up in 6 months. PROBLEM 2: Skin lesion, subcutaneous nodule most consistent with lipoma. The patient was encouragedto follow up though if this should change or increase in size. documented in this encounter Plan of Treatment Scheduled Orders Name Type Priority Associated Diagnoses Orde r Schedule BASIC METABOLIC PANEL Lab Routine Diabetes mellitus ([facility]) ([facility]) Ordered: 06/19/2014 HEMOGLOBIN A1C Lab Routine Diabetes mellitus ([facility]) ([facility]) Ordered: 06/19/2014 documented as of this encounter Goals Goal Patient Goal Type Associated Problems Recent Progress Patient-Stated? Author Blood Pressure < 140/90 Blood Pressure Hypertensive disorder 112/70(2021 13:50 EDT) No Abbie Winter LPN [id number] XT < 7 Result Component 8.2( 9 14:15 EDT) No Abbie Winter LPN LDLEXT < 100 Result Component 76(05/13/2019 14:15 EDT) No Abbie Winter LPN documented as of this encounter Visit Diagnoses Diagnosis Diabetes mellitus ([facility])- Primary Type II or unspecified type diabetes mellitus without mention of complication, not stated as uncontrolled Hypertension Unspecified essential hypertension Lipoma of arm Lipoma of other specified sites documented in this encounter Discontinued Medications Medication Sig Discontinue Reason Start Date End Da te glipiZIDE (GLUCOTROL) 10 mg CR tablet TAKE ONE TABLET BY MOUTH EVERY DAY Reorder 07/29/2013 06/08/2014 documented as of this encounter Care Teams Die Holder Relationship Specialty Start Date End Date Ramón Olguin MD [address] [place] [phone] PCP - General 06/15/09 06/13/19 documented as of this encounter
--- OUTSIDE RECORDS SUMMARY | 2024-08-05 15:02 | XMS_ITS | Encounter Summary ---
Author Organization [facility] Address [address] [place] [address] Care Team Providers Care Cementer Hand Name Role Phone Ramón Olguin MD Primary Care Provider Reason for Referral * Laboratory Services (Routine) - Closed Specialty Diagnoses / Procedures Referred By Contac t Referred To Contact Diagnoses CKD (chronic kidney disease) stage 3, GFR 30-59 ml/min ([facility]) Procedures BASIC METABOLIC PANEL Ramón Olguin MD [address] [place] [address] [address] [place] [phone] Referral ID Status Reason Start Date Expiration Date Visits Re quested Visits Authorized [id number] Closed 03/21/2016 1 1 * Laboratory Services (Routine) - Closed Specialty Diagnoses / Procedures Referred By Contac london Referred To Contact Diagnoses Type 2 diabetes mellitus without complication ([facility]) Procedures HEMOGLOBIN A1C Ramón Olguin MD [address] [place] [address] [address] [place] [phone] Referral ID Status Reason Start Date Expiration Date Visits Re quested Visits Authorized [id number] Closed 03/21/2016 1 1 Reason for Visit * Reason Comments Diabetes 8 month check in Other New med - hydroxychl oroquine (FYI) Encounter Details Date Type Department Care Team (Late st Contact Info) Description 03/21/2016 10:30 EDT Office Visit [facility] [address] [facility] [address] [place] [address] Ramón Olguin MD [address] [place] [address] [address] [place] [phone] Type 2 diabetes mellitus without complication (CMS-HCC) (HCC-CMS) (Primary Dx); Neuropathy of both feet; CKD (chronic kidney disease) stage 3, GFR 30-59 ml/min ([facility]); Essential hypertension with goal blood pressure less than 140/90 Social History Tobacco Use Types Packs/Day Years [...] Sign Reading Time Taken Comments Blood Pressure 148/82 03/21/2016 1026 EDT Pulse 64 03/21/2016 1026 EDT Temperature 36.3 ??C (97.3 ??F) 03/21/2016 1026 EDT Respiratory Rate - - Oxygen Saturation - - Inhaled Oxygen Concentration - - Weight 112.9 kg (249 lb) 03/21/2016 1026 EDT Height - - Body Mass Index [...] No 03/21/2016 documented as of this encounter Ordered Prescriptions Prescription Sig Dispensed Refills Start Date End Da te glipiZIDE (GLUCOTROL) 10 mg XL tabletIndications:Type 2 diabetes mellitus without complication ([facility]) TAKE ONE TABLET BY MOUTH EVERY DAY 90 Tab 3 03/21/2016 05/06/2017 documented in this encounter Progress Notes * Ramón Olguin - 03/21/2016 1300 EDT Diabetic followup. SUBJECTIVE: Diabetic followup. Generally doing well with diabetes. A1c 7.1%, did discuss weight loss which has been plateaued recently. He understands the importance of healthy diet, exercise and weight loss. He continues on metformin and glipizide tolerating these well. No low readings noted. Notes A1c remains stable despite being on a fairly significant amount of prednisone in the last 6 months. Seen and diagnosed by rheumatology with inflammatory arthritis. No clear significant improvement with joint pain, edema and inflammation of upper and lower extremities. He has been on hydroxychloroquine recently and he thinks this has been better tolerated and may be starting to work better for his joint pain. Also interval history significant for left wrist problems with carpal tunnel surgery. He notes modest benefit following surgery a month ago. Still recuperating and notes some decreased sensation in one of the fingers, still has a couple fingers in the carpal nerve distribution that are numb with some wrist discomfort with movement. Other issues include hypertension, which was reviewed with the patient and mildly elevated today and also talked at length about renal function, chronic kidney disease with mild increase in creatinine interval 6 months. No overt symptoms. No obvious urinary difficulty. Normal urine protein. We did review avoiding NSAIDs, which he has not been taking. Also discussed increasing fluid intake, which he thinks he has been remiss with. REVIEW OF SYSTEMS: No acute cause syncytial symptoms. No cold, flu or febrile complaints. No acute GI, genitourinary, chest, cardiac, mental health, dermatologic concerns. OBJECTIVE: Blood pressure 148/82, pulse 64, temperature 97.3. General: Alert, in no acute distress.Chest clear to auscultation. Cardiovascular: Regular rate and rhythm, no murmur. Abdomen: Positive bowel sounds, soft, nontender. Foot exam: Normal appearance, normal pulses, good capillary refill. Aslight decreased sensation in medial distal feet over the great toes, right greater than left, no skin breakdown. ASSESSMENT: PROBLEM 1: Adult-onset diabetes with diabetic neuropathy, which is stable. Diabetes under decent control despite prednisone. PLAN: 1. Continue current medication. 2. Encouraged diet, exercise and weight loss. PROBLEM 2: 1. Hypertension, mildly elevated -- no changes now. We will bserve. 2. If not improved, consider adding another agent next visit. PROBLEM 3: Chronic kidney disease, slight increase in creatinine. PLAN: 1. Discussed at length -- encouraged increased fluid intake, avoid NSAIDs. 2. Follow up in 6 months. PROBLEM 4: Inflammatory arthritis, joint pain. PLAN: Deferred to rheumatology and orthopedics. documented in this encounter Plan of Treatment Scheduled Orders Name Type Priority Associated Diagnoses Orde r Schedule HEMOGLOBIN A1C Lab Routine Type 2 diabetes mellitus without complication ([facility]) ([facility]) Ordered: 03/21/2016 BASIC METABOLIC PANEL Lab Routine CKD (chronic kidney disease) stage 3, GFR 30-59 ml/min ([facility]) Ordered: 03/21/2016 documented as of this encounter Goals Goal Patient Goal Type Associated Problems Recent Progress Patient-Stated? Author Blood Pressure < 140/90 Blood Pressure Hypertensive disorder 112/70(2021 13:50 EDT) No Abbie Winter LPN [id number] XT < 7 Result Component 8.2( 9 14:15 EDT) No Abbie Winter LPN LDLEXT < 100 Result Component 76(05/13/2019 14:15 EDT) No Abbie Winter LPN documented as of this encounter Visit Diagnoses Diagnosis Type 2 diabetes mellitus without complication ([facility])- Primary Type II or unspecified type diabetes mellitus without mention of complication, not stated as uncontrolled Neuropathy of both feet Mononeuritis of lower limb, unspecified CKD (chronic kidney disease) stage 3, GFR 30-59 ml/min ([facility]) Chronic kidney disease, Stage III (moderate) Essential hypertension with goal blood pressure less than 140/90 documented in this encounter Discontinued Medications Medication Sig Discontinue Reason Start Date End Da te glipiZIDE (GLUCOTROL) 10 mg XL tabletIndications:Type 2 diabetes mellitus without complication ([facility]) TAKE ONE TABLET BY MOUTH EVERY DAY Reorder 06/15/2015 03/21/2016 documented as of this encounter Historical Medications * This list may reflect changes made after this encounter. Medication Sig Dispensed Refills Start Date End Date hydroxychloroquine (PLAQUENIL) 200 mg tablet Take 400 mg by mouth daily. 12/03/2016 added in this encounter Care Teams Cementer Hand Relationship Specialty Start Date End Date Ramón Olguin MD [address] [place] [phone] PCP - General 06/15/09 06/13/19 documented as of this encounter
--- OUTSIDE RECORDS SUMMARY | 2024-08-05 15:02 | XMS_ITS | Encounter Summary ---
Author Organization [facility] Address [address] [place] [address] Care Team Providers Care Health Insurance Agent Name Role Phone Ramón Olguin MD Primary Care Provider Encounter Details Date Type Department Care Team (Late st Contact Info) Description 12/03/2016 Results Only [facility] Medicine [facility] [address] [place] [address] Ramón Olguin MD [address] [place] [address] [address] [place] [phone] Social History Tobacco Use Types [...] Pressure Hypertensive disorder 112/70(2021 13:50 EDT) No [place], Abbie, [employer]ATING AND AIR CONDITIONING MECH[employer]IC [id number] XT < 7 Result Component 8.2( 9 14:15 EDT) No [place], Abbie, HEATING AND AIR CONDITIONING MECHANIC LDLEXT < 100 Result Component 76(05/13/2019 14:15 EDT) No Abbie WinterLEXI documented as of this encounter Procedures Procedure Name Priority Date/Time Associated Diagnosis Comments BASIC METABOLIC PANEL ([facility]) Routine 12/03/2016 11:51 EST URINE [id number] E RATIO (ACR) Routine 12/03/2016 11:51 EST HEMOGLOBIN A1C Routine 12/03/2016 11:51 EST LIPID PROFILE (INCLUDES CHOLESTEROL, TRIGLYCERIDES, HDL, LDL) Routine 12/03/2016 11:51 EST documented in this encounter Results * (ABNORMAL) ALBUMIN, URINE (12/03/2016 11:51 EST) Microalb mg/dl, External 2.62(H) 0.0 - 2.0 mg/dL [facility] Microalb ug/mg Crea, External 22.7 ug/mg [facility] Comment: Normal: <30 ug/mg Creat Microalbuminuria: 30-300 ug/mg Creat Clinical albuminuria: >300 ug/mg Creat Creatinine, Random U (UCRR), External 115.00 mg/dL [facility] 12/03/2016 11:5 1 EST 12/03/2016 11:51 EST Narrative [facility] - 12/03/2016 14:01 EST Does PT Have a Latex Allergy? NO WHAT TYPE OF COLLECTION IS THIS URINE? RANDOM URINE Ramón Olguin MD CHEMISTRY & BL OOD GAS ORDERABLES [facility] * (ABNORMAL) HEMOGLOBIN A1C (12/03/2016 11:51 EST) Hemoglobin A1C, External 6.9(H) 4.0 - 6.0 % [facility] Est Avg Glucose, External 151 mg/dL [facility] 12/03/2016 11:5 1 EST 12/03/2016 11:51 EST Narrative [facility] - 12/03/2016 13:32 EST Does PT Have a Latex Allergy? NO Ramón Olguin MD CHEMISTRY & BL OOD GAS ORDERABLES [facility] * (ABNORMAL) LIPID PROFILE (INCLUDES CHOLESTEROL, TRIGLYCERIDES, HDL, LDL) (12/03/2016 11:51 EST) Triglycerides, External 130 35 - 150 mg/dL [facility] Cholesterol, External 95(L) 120 - 200 mg/dL [facility] Chol/HDL Ratio, External 2.3 0 - 5.0 [facility] Comment: DESIRABLE RATIO IS LESS THAN 4.1 PATIENTS ARE CONSIDERED AT RISK: WOMEN RATIO >5 MEN RATIO >6 Fasting?, External No [facility] HDL, External 40 40 - 60 mg/dL [facility] LDL, External 29(L) 60 - 100 mg/dL [facility] Non HDL Chol, External 55 mg/dl [facility] Comment: Desirable: ?Less than 130 Borderline High: ??130-159 High: ? 160-189 Very High: ?Greater than or equal to 190 12/03/2016 11:5 1 EST 12/03/2016 11:51 EST Narrative [facility] - 12/03/2016 13:08 EST Does PT Have a Latex Allergy? NO Ramón Olguin MD CHEMISTRY & BL OOD GAS ORDERABLES Performing Organization Address City/[facility]/ZIP Co de Phone Number [facility] * (ABNORMAL) BASIC METABOLIC PANEL ([facility]) (12/03/2016 11:51 EST) Bun, External 21(H) 7 - 18 mg/dL [facility] Calcium, External 9.0 8.5 - 10.1 mg/dL [facility] Chloride, External 106 98 - 107 mEq/L [facility] CO2, External 27 21 - 32 mEq/L [facility] Creatinine, External 1.73(H) 0.5 - 1.3 mg/dL [facility] GFR, Ole/Est., External 39 [facility] Comment: Stage 3: Moderate renal impairment is defined as GFR 30-59 Multiply result by 1.210 for patients. Glucose, Serum, External 195(H) 70 - 100 mg/dL [facility] Potassium, External 4.7 3.5 - 5.0 mEq/L [facility] Sodium, External 140 135 - 145 mEq/L [facility] 12/03/2016 11:5 1 EST 12/03/2016 11:51 EST Narrative [facility] - 12/03/2016 13:08 EST Does PT Have a Latex Allergy? NO Ramón Olguin MD CHEMISTRY & BL OOD GAS ORDERABLES [facility] documented in this encounter Visit Diagnoses Not on filedocumented in this encounter Care Teams Health Insurance Agent Relationship Specialty Start Date End Date Ramón Olguin MD [address] [place] [phone] PCP - General 06/15/09 06/13/19 documented as of this encounter
--- OUTSIDE RECORDS SUMMARY | 2024-08-05 15:02 | XMS_ITS | Encounter Summary ---
Author Organization [facility] Address [address] [place] [address] Care Team Providers Care Materials Management Clerk Name Role Phone Ramón Olguin MD Primary Care Provider Reason for Visit * Reason Onset Date Comments Results 06/08/2014 AAA screen. Encounter Details Date Type Department Care Team (Late st Contact Info) Description 06/08/2014 Orders Only [facility] [address] [place] [id number] Abbie Winter LPN Social History Tobacco Use Types Packs/Day [...] 112/70(2021 13:50 EDT) No Abbie Winter LPN [id number] XT < 7 Result Component 8.2( 9 14:15 EDT) No Abbie Winter LPN LDLEXT < 100 Result Component 76(05/13/2019 14:15 EDT) No Abbie Winter LPN documented as of this encounter Procedures Procedure Name Priority Date/Time Associated Diagnosis Comments ABDOMINAL AORTIC ANEURYSM (AAA), SCREEN Routine 01/16/2014 documented in this encounter Results * ABDOMINAL AORTIC ANEURYSM (AAA), SCREEN (01/16/2014) Abdominal Aortic Aneurysm (AAA), Screen [facility] Abdominal Aortic Aneurysm (AAA), Screen - External Normal [facility] Comment:No AAA noted. Anatomical Region Laterality Modality Other Historical Provider MD DE LA ROSA ORDERABLES documented in this encounter Visit Diagnoses Not on filedocumented in this encounter Care Teams Materials Management Clerk Relationship Specialty Start Date End Date Ramón Olguin MD [address] [place] [address] [phone] PCP - General 06/15/09 06/13/19 documented as of this encounter
--- OUTSIDE RECORDS SUMMARY | 2024-08-05 15:02 | XMS_ITS | Encounter Summary ---
Author Organization [facility] Address [address] [place] [address] Care Team Providers Care Biotechnologist Name Role Phone Ramón Olguin MD Primary Care Provider Kameron Lee MD Primary Care Provider [phone]- [phone] Reason for Visit * Reason Comments Other Encounter Details Date Type Department Care Team (Late st Contact Info) Description 03/01/[address] [place] [address] Ramón Olguin MD [address] [place] [address] [address] [place] [address] Other Social History Tobacco Use [...] Tab by mouth daily. 90 Tab 3 03/03/2016 02/26/2017 lisinopril (PRINIVIL, ZESTRIL) 40 mg tablet TAKE ONE TABLET BY MOUTH EVERY DAY 90 Tab 3 03/03/2016 02/11/2017 metoprolol XL (TOPROL-XL) 50 mg tablet TAKE ONE TABLET BY MOUTH EVERY DAY 90 Tab 3 03/03/2016 02/11/2017 documented in this encounter Plan of Treatment Not on file documented as of this encounter Goals Goal Patient Goal Type Associated Problems Recent Progress Patient-Stated? Author Blood Pressure < 140/90 Blood Pressure Hypertensive disorder 112/70(2021 13:50 EDT) No Abbie Winter LPN [id number] XT < 7 Result Component 8.2( 9 14:15 EDT) No Abbie Winter LPN LDLEXT < 100 Result Component 76(05/13/2019 14:15 EDT) No Abbie Winter LPN documented as of this encounter Visit Diagnoses Not on filedocumented in this encounter Discontinued Medications Medication Sig Discontinue Reason Start Date End Da te metoprolol XL (TOPROL-XL) 50 mg tabletIndications:Hypert ensive disorder TAKE ONE TABLET BY MOUTH EVERY DAY. Reorder 01/21/2015 03/01/2016 lisinopril (PRINIVIL, ZESTRIL) 40 mg tabletIndications:Hypert ensive disorder TAKE ONE TABLET BY MOUTH EVERY DAY. Reorder 01/21/2015 03/01/2016 atorvastatin (LIPITOR) 10 mg tablet TAKE ONE TABLET BY MOUTH EVERY DAY Reorder 12/21/2014 03/03/2016 documented as of this encounter Care Teams Biotechnologist Relationship Specialty Start Date End Date Ramón Olguin MD [address] [place] [address] [phone] PCP - General 06/15/09 06/13/19 Kameron Lee MD [address] [place] [address] [address] [place] [address] PCP - General 06/14/19 04/28/23 documented as of this encounter
--- OUTSIDE RECORDS SUMMARY | 2024-08-05 15:02 | XMS_ITS | Encounter Summary ---
Author Organization [facility] Address [address] [place] [address] Care Team Providers Care Christmas Tree Contractor Name Role Phone Ramón Olguin MD Primary Care Provider Kameron Lee MD Primary Care Provider [phone]- [phone] Encounter Details Date Type Department Care Team (Late st Contact Info) Description 01/08/2016 Historical Results Only [facility] - [address] [place] [address] [place] [address] Adrián Melchor MD [address] [place] [address] [place] [phone] Social History Tobacco Use Types Packs/Day Years [...] 112/70(2021 13:50 EDT) No Abbie Winter LPN [id number] XT < 7 Result Component 8.2( 9 14:15 EDT) No Abbie Winter LPN LDLEXT < 100 Result Component 76(05/13/2019 14:15 EDT) No Abbie Winter LPN documented as of this encounter Procedures Procedure Name Priority Date/Time Associated Diagnosis Comments SURGICAL PATHOLOGY Routine 01/08/2016 documented in this encounter Results * SURGICAL PATHOLOGY (01/08/2016) 01/08/2016 01/09/2016 9:4 6 EST Narrative [facility] - 01/11/2016 15:10 EST ----- ------- Name: Debra ROBERTS ? : [birth year] ?Age/Sex: 73/M ?Unit#: [id number] ? Loc: SDS ? Status: DEP SDC ?? Reg Date: 01/08/16 ? Pt.Phone Number: ? ----- ------- Specimen: [id number] ?STATUS: SOUT ?Spec Date:01/08/16 ? Physician Copies: ?MayradenissekeshaArieladarshromana Tissues: A ?? Synovium (LEFT WRIST) ?Ramón Olguin CPT: 72857 ?? Units: ??1 ?FINAL DIAGNOSIS ? Synovium of wrist, left, biopsy; ? 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 ? - Scant polarizable foreign material identified under polarized light. ? GROSS DESCRIPTION ? Received in formalin labeled with the patient's name and synovitis left wrist ? are four pieces of gonzalez tissue with focal nodular consolidation ranging from 0.5 ? to 1.2 x 0.7 x 0.5 cm, e.s. 1. ??CP ?? PREOP DX/CLINICAL HISTORY ?Left carpal tunnel syndrome Signed ____(signature on file)____ Vy Aguirre M.D. 01/11/16 By the signature above, the attending physician certifies that he/she has personally conducted a gross and/or microscopic examination of the described specimens and rendered or confirmed the above diagnosis. Test Performed by , [address] [place] [address] Phone Engineer: Vy Aguirre MD PHD ----- ------- Adrián Melchor MD PATHOLOGY RACHAEL GUPTA [facility] documented in this encounter Visit Diagnoses Not on filedocumented in this encounter Care Teams Christmas Tree Contractor Relationship Specialty Start Date End Date Ramón Olguin MD [address] [place] [address] [phone] PCP - General 06/15/09 06/13/19 Kameron Lee MD [address] [place] [address] [phone] PCP - General 06/14/19 04/28/23 documented as of this encounter
--- OUTSIDE RECORDS SUMMARY | 2024-08-05 15:02 | XMS_ITS | Encounter Summary ---
Author Organization [facility] Address [address] [place] [address] Care Team Providers Care Weeder Name Role Phone Ramón Olguin MD Primary Care Provider Encounter Details Date Type Department Care Team (Late st Contact Info) Description 03/12/2016 Results Only [facility] [address] [facility] [address] [place] [address] Ramón Olguin MD [address] [place] [address] [address] [place] [address] Social History Tobacco Use Types [...] disorder 112/70(2021 13:50 EDT) No Abbie Winter, BILINGUAL SCHOOL PSYCHOLOGIST [id number] XT < 7 Result Component 8.2( 9 14:15 EDT) No TimblinAbbie, BILINGUAL SCHOOL PSYCHOLOGIST LDLEXT < 100 Result Component 76(05/13/2019 14:15 EDT) No Timblin, Abbie, BILINGUAL SCHOOL PSYCHOLOGIST documented as of this encounter Procedures Procedure Name Priority Date/Time Associated Diagnosis Comments URINE [id number] E RATIO (ACR) Routine 03/12/2016 13:36 EDT HEMOGLOBIN A1C Routine 03/12/2016 13:36 EDT BASIC METABOLIC PANEL ([facility]) Routine 03/12/2016 13:35 EDT ALT Routine 03/12/2016 13:35 EDT LIPID PROFILE (INCLUDES CHOLESTEROL, TRIGLYCERIDES, HDL, LDL) Routine 03/12/2016 13:35 EDT documented in this encounter Results * (ABNORMAL) HEMOGLOBIN A1C (03/12/2016 13:36 EDT) Hemoglobin A1C, External 7.1(H) 4.0 - 6.0 % [facility] Est Avg Glucose, External 157 mg/dL [facility] 03/12/2016 13:3 6 EDT 03/12/2016 13:36 EDT Narrative [facility] - 03/12/2016 21:46 EDT Does PT Have a Latex Allergy? NO Ramón Olguin MD CHEMISTRY & BL OOD GAS ORDERABLES [facility] * ALBUMIN, URINE (03/12/2016 13:36 EDT) Microalb mg/dl, External 1.79 0.0 - 2.0 mg/dL [facility] Microalb ug/mg Crea, External 10.0 ug/mg [facility] Comment: Normal: <30 ug/mg Creat Microalbuminuria: 30-300 ug/mg Creat Clinical albuminuria: >300 ug/mg Creat Creatinine, Random U (UCRR), External 169.00 mg/dL [facility] 03/12/2016 13:3 6 EDT 03/12/2016 13:36 EDT Narrative [facility] - 03/12/2016 17:28 EDT Does PT Have a Latex Allergy? NO WHAT TYPE OF COLLECTION IS THIS URINE? RANDOM URINE Ramón Olguin MD CHEMISTRY & BL OOD GAS ORDERABLES [facility] * ALT (03/12/2016 13:35 EDT) ALT, External 27 12 - 78 U/L [facility] 03/12/2016 13:3 5 EDT 03/12/2016 13:35 EDT Narrative [facility] - 03/12/2016 15:24 EDT Does PT Have a Latex Allergy? NO Ramón Olguin MD CHEMISTRY & BL OOD GAS ORDERABLES [facility] * (ABNORMAL) LIPID PROFILE (INCLUDES CHOLESTEROL, TRIGLYCERIDES, HDL, LDL) (03/12/2016 13:35 EDT) Triglycerides, External 129 35 - 150 mg/dL [facility] Cholesterol, External 83(L) 120 - 200 mg/dL [facility] Chol/HDL Ratio, External 2.5 0 - 5.0 [facility] Comment: DESIRABLE RATIO IS LESS THAN 4.1 PATIENTS ARE CONSIDERED AT RISK: WOMEN RATIO >5 MEN RATIO >6 Fasting?, External No [facility] HDL, External 32(L) 40 - 60 mg/dL [facility] LDL, External 25(L) 60 - 100 mg/dL [facility] Non HDL Chol, External 51 mg/dl [facility] Comment: Desirable: ?Less than 130 Borderline High: ??130-159 High: ? 160-189 Very High: ?Greater than or equal to 190 03/12/2016 13:3 5 EDT 03/12/2016 13:35 EDT Narrative [facility] - 03/12/2016 15:24 EDT Does PT Have a Latex Allergy? NO Ramón Olguin MD CHEMISTRY & BL OOD GAS ORDERABLES [facility] * (ABNORMAL) BASIC METABOLIC PANEL ([facility]) (03/12/2016 13:35 EDT) Bun, External 21(H) 7 - 18 mg/dL [facility] Calcium, External 8.9 8.5 - 10.1 mg/dL [facility] Chloride, External 107 98 - 107 mEq/L [facility] CO2, External 22 21 - 32 mEq/L [facility] Creatinine, External 1.61(H) 0.5 - 1.3 mg/dL [facility] GFR, Ole/Est., External 43 [facility] Comment: Stage 3: Moderate renal impairment is defined as GFR 30-59 Multiply result by 1.210 for patients. Glucose, Serum, External 244(H) 70 - 100 mg/dL [facility] Potassium, External 4.7 3.5 - 5.0 mEq/L [facility] Sodium, External 140 135 - 145 mEq/L [facility] 03/12/2016 13:3 5 EDT 03/12/2016 13:35 EDT Narrative [facility] - 03/12/2016 15:24 EDT Does PT Have a Latex Allergy? NO Ramón Olguin MD CHEMISTRY & BL OOD GAS ORDERABLES [facility] documented in this encounter Visit Diagnoses Not on filedocumented in this encounter Care Teams Weeder Relationship Specialty Start Date End Date Ramón Olguin MD [address] [place] [address] [phone] PCP - General 06/15/09 06/13/19 documented as of this encounter
--- OUTSIDE RECORDS SUMMARY | 2024-08-05 15:02 | XMS_ITS | Encounter Summary ---
Author Organization [facility] Address [address] [place] [address] Care Team Providers Care It Software Engineer Name Role Phone Ramón Olguin MD Primary Care Provider Reason for Visit * Reason Onset Date Comments Medications Refill 02/11/2017 Encounter Details Date Type Department Care Team (Late st Contact Info) Description 02/11/2017 Refill [facility] [address] [facility] [address] [place] [address] Ramón Olguin MD [address] [place] [address] [address] [place] [phone] Medications Refill Social History Tobacco [...] BY MOUTH EVERY DAY 90 Tab 2 02/11/2017 10/29/2017 lisinopril (PRINIVIL, ZESTRIL) 40 mg tablet TAKE ONE TABLET BY MOUTH EVERY DAY 90 Tab 2 02/11/2017 10/29/2017 documented in this encounter Miscellaneous Notes * Telephone Encounter - Ebony Delarosa RN - 02/11/2017 1038 EDT Medication(s) Requested: Lisinopril Metoprolol Preferred Pharmacy: [facility] [place] Is patient out of medication? Unknown Last Refill Date: 03/03/16 90/3 refills Last Visit Date with Ordering Provider: 12/03/16 Next Visit Date as it relates to the requested medication: No. Last Related Labs Date: 12/03/16 BMP Ebony Delarosa RN 02/11/2017 10:38 documented in this encounter Plan of Treatment Not on file documented as of this encounter Goals Goal Patient Goal Type Associated Problems Recent Progress Patient-Stated? Author Blood Pressure < 140/90 Blood Pressure Hypertensive disorder 112/70(2021 13:50 EDT) No Abbie Winter LPN [id number] XT < 7 Result Component 8.2( 9 14:15 EDT) No Abbie Winter LPN LDLEXT < 100 Result Component 76(05/13/2019 14:15 EDT) No Abbie Winter LPN documented as of this encounter Visit Diagnoses Not on filedocumented in this encounter Discontinued Medications Medication Sig Discontinue Reason Start Date End Da te lisinopril (PRINIVIL, ZESTRIL) 40 mg tablet TAKE ONE TABLET BY MOUTH EVERY DAY Reorder 03/03/2016 02/11/2017 metoprolol XL (TOPROL-XL) 50 mg tablet TAKE ONE TABLET BY MOUTH EVERY DAY Reorder 03/03/2016 02/11/2017 documented as of this encounter Care Teams It Software Engineer Relationship Specialty Start Date End Date Ramón Olguin MD [address] [place] [phone] PCP - General 06/15/09 06/13/19 documented as of this encounter
--- OUTSIDE RECORDS SUMMARY | 2024-08-05 15:02 | XMS_ITS | Encounter Summary ---
Author Organization [facility] Address [address] [place] [address] Care Team Providers Care Banquet Houseperson Name Role Phone Ramón Olguin MD Primary Care Provider Reason for Referral * Consult (Routine/Next Available) - Specialty Report Received Specialty Diagnoses / Procedures [facility]erred To Contact Diagnoses Impingement syndrome of right shoulder Ramón Olguin MD [address] [place] [address] [address] [place] [phone] [place] [address] [place] [address] [place] [id number] Referral ID Status Reason Start Date Expiration Date Visits Requested Visits Authorized [id number] Specialty Report Received Specialty Services Required 05/15/2015 1 1 Question Answer 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 for Request: 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 , little responce to steroid injection- MR rotator cuff teninosus, withoverlying arthrosis Comments [place] [facility] Reason for Visit * Reason Onset Date Comments Results 05/15/2015 Encounter Details Date Type Department Care Team (Late st Contact Info) Description 05/15/2015 Telephone [facility] [place] [address] [facility] [address] [place] [address] Ramón Olguin MD [address] [place] [address] [address] [place] [phone] Results Social History Tobacco Use Types Packs/Day Years [...] encounter Miscellaneous Notes * Telephone Encounter - Ramón Olguin - 05/15/2015 1845 EDT Results reviewed with the pt. 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 Please call with results. documented in this encounter Plan of Treatment Scheduled Referrals Name Type Priority Associated Diagnoses Order Schedule AMB CONS/FOLLOW UP ORTHOPEDICS Outpatient Referral Routine Impingement syndrome of right shoulder Ordered: 05/15/2015 documented as of this encounter Goals Goal Patient Goal Type Associated Problems Recent Progress Patient-Stated? Author Blood Pressure < 140/90 Blood Pressure Hypertensive disorder 112/70(2021 13:50 EDT) No Abbie Winter LPN [id number] XT < 7 Result Component 8.2( 9 14:15 EDT) No Abbie Winter LPN LDLEXT < 100 Result Component 76(05/13/2019 14:15 EDT) No Abbie Winter LPN documented as of this encounter Visit Diagnoses Diagnosis Impingement syndrome of right shoulder- Primary Other affections of shoulder region, not elsewhere classified documented in this encounter Care Teams Banquet Houseperson Relationship Specialty Start Date End Date Ramón Olguin MD [address] [place] [phone] PCP - General 06/15/09 06/13/19 documented as of this encounter
--- OUTSIDE RECORDS SUMMARY | 2024-08-05 15:02 | XMS_ITS | Encounter Summary ---
Author Organization [facility] Address [address] [place] [address] Care Team Providers Care Circus Hand Name Role Phone Ramón Olguin MD Primary Care Provider Reason for Visit * Reason Comments Diabetes last A1C ? 7.2 Cataract Encounter Details Date Type Department Care Team (Late st Contact Info) Description 05/12/2014 10:15 EDT Office Visit [facility] Ophthalmology [address] [address] Asha Dumont [address] [place] [phone] Social History Tobacco Use Types Packs/Day Years [...] :49 EST documented as of this encounter Progress Notes * Asha Dumont - 05/12/2014 1034 EDT Chief Complaint Patient presents with ??? Diabetes last A1C ? 7.2 ??? Cataract HPI The patient is a 68 y.o. male Right Eye: NL Left Eye: NL Visual Aid: Glasses Current Rx Age > 2 years Location: Pain: 0 - No pain Quality: Severity: Duration: Timing: Lasts: Context: vision about same over last yr Modifying factors: taking Glipizide and Metformin for Diabetes Associated Signs & Symptoms: Attestation: ROS Constitutional: NL ENT/Mouth NL Cardiovascular: High Blood Pressure;High Cholesterol Respiratory: NL Gastrointestinal: NL Genitourinary: NL Musculoskeletal: Joint Pain Integumentary: NL Neurologic: NL Psychiatric: NL Endocrine: Diabetes Hematologic: NL Immunologic: NL Cargo Services Coordinator: Exposures: None Other: Attestation: Base Eye Exam Visual Acuity Right Left Dist sc 20/20 20/20 -1 Dist cc 20/20 20/20 -1 Near cc J1 J1-2 Method: Snellen - Linear Tonometry Right Left Pressure 14 16 Method: Applanation Time: 10:35 Pupils Dark APD Right 3 None Left 3 None Visual Powers Right Left Result Full Full Extraocular Movement Right Left Result Full Full Neuro/Psych Oriented x3: Yes Mood/Affect: Normal Dilation Both eyes: 1.0% Mydriacyl, 2.5% Mj Synephrine @ 10:36 Slit Lamp and Fundus Exam Slit Lamp Exam Right Left Lids/Lashes 1+ Meibomian gland dysfunction 1+ Meibomian gland dysfunction, 2.5 mm papiloma lower lid Conjunctiva/Sclera White and quiet White and quiet Cornea Clear Clear Anterior Chamber Deep and quiet Deep and quiet Iris Round and reactive Round and reactive Lens 1+ Nuclear sclerosis 1+ Nuclear sclerosis Fundus Exam Right Left Vitreous Posterior vitreous detachment Vitreous syneresis Disc Normal Normal C/D Ratio 0.35 0.3 Macula Retinal pigment epithelial mottling, No MA's Retinal pigment epithelial mottling, No MA's Vessels Normal Normal Periphery Normal, No diabetic retinopathy Normal, No diabetic retinopathy Refraction Wearing Rx Sphere Cylinder [place] Right +2.00 Sphere Left +2.00 Sphere Type: OTC reader Wearing Rx #2 Sphere Cylinder [place] Right +0.75 -1.00 064 Left +1.00 -1.00 090 Type: Jasper Comments: Has several strengths of OTC readers that he uses Manifest Refraction (Auto) Sphere Cylinder [place] Dist Right +1.50 -0.75 070 20/25 Left +1.75 -1.50 090 20/20 Comments: Satisfied with vision, no MR done DIAGNOSTIC TESTS: IMPRESSION & PLAN: DM -no diabetic retinopathy found on exam -emphasized importance of tight glycemic control -will CC note to PCP -repeat dilated fundus exam in one year or sooner PRN Cataract, both eyes -not visually significant -continue to monitor I have reviewed the patient's past medical, family, social and surgical history. I have also reviewed the patient's medications, allergies, and problem list. I performed my own HPI and have reviewed the tech's ROS as well. I personally completed this exam myself. Asha Dumont MD I am scribing for Asha Dumont MD, while she is personally performing the service. Patient Education Topic: DM Method: Verbal Taught to: Patient Barriers: None [...] as of this encounter Visit Diagnoses Diagnosis DM (diabetes mellitus) ([facility])- Primary Type II or unspecified type diabetes mellitus without mention of complication, not stated as uncontrolled NS (nuclear sclerosis) Senile nuclear sclerosis documented in this encounter Eye Exam Visual Acuity (Snellen - Linear) Right eye Left eye Dist sc 20/20 20/20 -1 Dist cc 20/20 20/20 -1 Near cc J1 J1-2 Tonometry (Applanation, 10:35) Right eye Left eye Pressure 14 16 Pupils Dark APD Right eye 3 None Left eye 3 None Visual Powers Right eye Left eye Full Full Extraocular Movement Right eye Left eye Full Full Neuro/Psych Oriented x3: Yes Mood/Affect: Normal Dilation Both eyes: 1.0% Mydriacyl, 2 .5% Mj Synephrine @ 10:36 Slit Lamp Exam Right eye Left eye Lids/Lashes 1+ Meibomian gland dysfunction 1 + Meibomian gland dysfunction, 2.5 mm papiloma lower lid Conjunctiva/Sclera White and quiet White and joshua et Cornea Clear Clear Anterior Chamber Deep and quiet Deep and quiet Iris Round and reactive Round and waqar ctive Lens 1+ Nuclear sclerosis 1+ Nuclear sclerosis Vitreous Posterior vitreous detachment Vi treous syneresis Fundus Exam Right eye Left eye Disc Normal Normal C/D Ratio 0.35 0.3 Macula Retinal pigment epit helial mottling, No MA's Retinal pigment epithelial mottling, No MA's Vessels Normal Normal Periphery Normal, No diabetic retinopathy Normal, No diabetic retinopathy Wearing Rx #1 Sphere Cylinder [place] Right eye +2.00 Sphere Left eye +2.00 Sphere Type: OTC reader Wearing Rx #2 Sphere Cylinder [place] Right eye +0.75 -1.00 064 Left eye +1.00 -1.00 090 Type: Jasper Wearing Rx Comments Has several strengths of OTC readers that he uses Manifest Refraction (Auto) Sphere Cylinder [place] Dist [place] Right eye +1.50 -0.75 070 20/25 Left eye +1.75 -1.50 090 20/20 Satisfied with vision, no MR done Care Teams Circus Hand Relationship Specialty Start Date End Date Ramón Olguin MD [address] [place] [address] [phone] PCP - General 06/15/09 06/13/19 documented as of this encounter
--- OUTSIDE RECORDS SUMMARY | 2024-08-05 15:02 | XMS_ITS | Encounter Summary ---
Author Organization [facility] Address [address] [place] [address] Care Team Providers Care Pastoral Counselor Name Role Phone Ramón Olguin MD Primary Care Provider Reason for Referral * Laboratory Services (Routine) - Closed Specialty Diagnoses / Procedures Referred By Contac t Referred To Contact Diagnoses Health care maintenance Procedures HIV 1/2 ANTIBODY Ramón Olguin MD [address] [place] [phone] Referral ID Status Reason Start Date Expiration Date Visits Re quested Visits Authorized [id number] Closed 12/03/2016 1 1 * Laboratory Services (Routine) - Closed Specialty Diagnoses / Procedures Referred By Contac t Referred To Contact Diagnoses Type 2 diabetes mellitus without complication, without long-term current use of insulin ([facility]) Procedures LIPID PROFILE (INCLUDES CHOLESTEROL, TRIGLYCERIDES, HDL, LDL) Ramón Olguin MD [address] [place] [phone] Referral ID Status Reason Start Date Expiration Date Visits Re quested Visits Authorized [id number] Closed 12/03/2016 1 1 * Laboratory Services (Routine) - Closed Specialty Diagnoses / Procedures Referred By Contac t Referred To Contact Diagnoses Type 2 diabetes mellitus without complication, without long-term current use of insulin ([facility]-CMS) Procedures HEMOGLOBIN A1C Ramón Olguin MD [address] [place] [phone] Referral ID Status Reason Start Date Expiration Date Visits Re quested Visits Authorized [id number] Closed 12/03/2016 1 1 * Laboratory Services (Routine) - Closed Specialty Diagnoses / Procedures Referred By Contac t Referred To Contact Diagnoses Type 2 diabetes mellitus without complication, without long-term current use of insulin ([facility] Procedures BASIC METABOLIC PANEL Ramón Olguin MD [address] [place] [phone] Referral ID Status Reason Start Date Expiration Date Visits Re quested Visits Authorized [id number] Closed 12/03/2016 1 1 * Laboratory Services (Routine) - Closed Specialty Diagnoses / Procedures Referred By Contac t Referred To Contact Diagnoses Type 2 diabetes mellitus without complication, without long-term current use of insulin ([facility]) Procedures ALBUMIN, URINE Ramón Olguin MD [address] [place] [phone] Referral ID Status Reason Start Date Expiration Date Visits Re quested Visits Authorized [id number] Closed 12/03/2016 1 1 Reason for Visit * Reason Comments Diabetes Encounter Details Date Type Department Care Team (Late st Contact Info) Description 12/03/2016 11:00 EST Office Visit [facility] [address] [facility] [address] [place] [address] Ramón Olguin MD [address] [place] [phone] Type 2 diabetes mellitus without complication, without long-term current use of insulin ([facility]) (Primary Dx); CKD (chronic kidney disease) stage 3, GFR 30-59 ml/min ([facility]); Needs flu shot; Essential hypertension; Health care maintenance Social History Tobacco Use Types Packs/Day Years [...] Sign Reading Time Taken Comments Blood Pressure 110/74 12/03/2016 1104 EST Pulse 72 12/03/2016 1104 EST skips beat q 15 sec Temperature 36.9 ??C (98.4 ??F) 12/03/2016 1 104 EST Respiratory Rate - - Oxygen Saturation - - Inhaled Oxygen Concentration - - Weight 104.8 kg (231 lb) 12/03/2016 110 4 EST Height - - Body Mass Index - [...] encounter Progress Notes * Ramón Olguin - 12/03/2016 1100 EST REASON FOR VISIT: Follow up diabetes, hypertension. SUBJECTIVE: Followup visit for diabetes, hypertension. Overall, doing well, no interval problems orcomplaints noted. Generally comes in twice a year. No interval changes. He continues on metformin and glipizide. He does have mild chronic kidney disease. No obvious symptomatic change. No significant urinary difficulty. No significant unusual complaints of pain. Generally remains active. No other interval changes noted. He does have significant neuropathy of feet with some tingling pain, but at this point not severe enough to warrant attention. No skin changes noted. OBJECTIVE: Vital signs normal, afebrile. General: Alert, in no acute distress. Chest: Clear to auscultation. Cardiovascular: Regular rate and rhythm, no murmur. Abdomen: Positive bowel sounds, soft, nontender. Foot exam: Normal pulses, sensation and appearance with slight decreased sensation over distal toes. ASSESSMENT: PROBLEM 1: Adult-onset diabetes, which has been under good control. PLAN: 1. Recheck hemoglobin A1c -- diabetic labs. PROBLEM 2: Chronic kidney disease. PLAN: 1. Emphasized importance of avoiding NSAIDs. 2. Ensuring good hydration. PROBLEM 3: Hypertension, well controlled. PROBLEM 4: Health maintenance. PLAN: 1. We will add HIV to screening. Has already had a hep B screen. 2. Flu shot. 3. Follow up with eye doctor as planned. Of note, the patient did have a history of bilateral blurry vision. 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 He had this stopped several months ago and symptoms seem to be resolving now. documented in this encounter Plan of Treatment Scheduled Orders Name Type Priority Associated Diagnoses Orde r Schedule ALBUMIN, URINE Lab Routine Type 2 diabetes mellitus without complication, without long-term current use of insulin ([facility]) Ordered: 12/03/2016 BASIC METABOLIC PANEL Lab Routine Type 2 diabetes mellitus without complication, without long-term current use of insulin ([facility]) Ordered: 12/03/2016 HEMOGLOBIN A1C Lab Routine Type 2 diabetes mellitus without complication, without long-term current use of insulin ([facility]) Ordered: 12/03/2016 LIPID PROFILE (INCLUDES CHOLESTEROL, TRIGLYCERIDES, HDL, LDL) Lab Routine Type 2 diabetes mellitus without complication, without long-term current use of insulin ([facility]) Ordered: 12/03/2016 documented as of this encounter Goals Goal Patient Goal Type Associated Problems Recent Progress Patient-Stated? Author Blood Pressure < 140/90 Blood Pressure Hypertensive disorder 112/70(2021 13:50 EDT) No Abbie Winter LPN [id number] XT < 7 Result Component 8.2( 9 14:15 EDT) No Abbie Winter LPN LDLEXT < 100 Result Component 76(05/13/2019 14:15 EDT) No Abbie Winter LPN documented as of this encounter Procedures Procedure Name Priority Date/Time Associated Diagnosis Comments HIV 1/2 ANTIGEN AND ANTIBODY, 4TH GENERATION Routine 12/03/2016 Health care maintenance documented in this encounter Results * HIV 1/2 ANTIBODY (12/03/2016) Hiv Ab, External Non-Reacti ve [facility] Blood specimen (specimen) 12/03/2016 Ramón Olguin MD IMMUNOLOGY AND SEROLOGY ORDERABLES [facility] documented in this encounter Visit Diagnoses Diagnosis Type 2 diabetes mellitus without complication, without long-term current use of insulin ([facility])- Primary CKD (chronic kidney disease) stage 3, GFR 30-59 ml/min ([facility]) Chronic kidney disease, Stage III (moderate) Needs flu shot Need for prophylactic vaccination and inoculation against influenza Essential hypertension Unspecified essential hypertension Health care maintenance Routine general medical examination at a health care facility documented in this encounter Discontinued Medications Medication Sig Discontinue Reason Start Date End Da te hydroxychloroquine (PLAQUENIL) 200 mg tablet Take 400 mg by mouth daily. Side effects 12/03/2016 documented as of this encounter Orders Immunization/Injection Count Last Ordered Date First Ordered Date INFLUENZA VACCINE =>3YO QUAD PRESERVATIVE FREE IM 1 12/03/2016 documented in this encounter Care Teams Pastoral Counselor Relationship Specialty Start Date End Date Ramón Olguin MD [address] [place] [phone] PCP - General 06/15/09 06/13/19 documented as of this encounter
--- OUTSIDE RECORDS SUMMARY | 2024-08-05 15:02 | XMS_ITS | Encounter Summary ---
Author Organization [facility] Address [address] [place] [address] Care Team Providers Care Iron Molder Helper Name Role Phone Ramón Olguin MD Primary Care Provider Reason for Referral * Laboratory Services (Routine) - Closed Specialty Diagnoses / Procedures Referred By Contac t Referred To Contact Diagnoses Diabetes mellitus ([facility]) Procedures HEMOGLOBIN A1C Ramón Olguin MD [address] [place] [phone] Referral ID Status Reason Start Date Expiration Date Visits Re quested Visits Authorized [id number] Closed 12/27/2014 1 1 * Laboratory Services (Routine) - Closed Specialty Diagnoses / Procedures Referred By Contac t Referred To Contact Diagnoses Diabetes mellitus ([facility]) Procedures BASIC METABOLIC PANEL Ramón Olguin MD [address] [place] [phone] Referral ID Status Reason Start Date Expiration Date Visits Re quested Visits Authorized [id number] Closed 12/27/2014 1 1 * Laboratory Services (Routine) - Closed Specialty Diagnoses / Procedures Referred By Contac t Referred To Contact Diagnoses Diabetes mellitus ([facility]) Procedures LIPID PROFILE (INCLUDES CHOLESTEROL, TRIGLYCERIDES, HDL, LDL) Ramón Olguin MD [address] [place] [phone] Referral ID Status Reason Start Date Expiration Date Visits Re quested Visits Authorized [id number] Closed 12/27/2014 1 1 * Laboratory Services (Routine) - Closed Specialty Diagnoses / Procedures Referred By Contac t Referred To Contact Diagnoses Diabetes mellitus ([facility]) Procedures ALT Ramón Olguin MD [address] [place] [phone] Referral ID Status Reason Start Date Expiration Date Visits Re quested Visits Authorized [id number] Closed 12/27/2014 1 1 * Laboratory Services (Routine) - Closed Specialty Diagnoses / Procedures Referred By Contac t Referred To Contact Diagnoses Diabetes mellitus ([facility]) Procedures ALBUMIN, URINE Ramón Olguin MD [address] [place] [phone] Referral ID Status Reason Start Date Expiration Date Visits Re quested Visits Authorized [id number] Closed 12/27/2014 1 1 Reason for Visit * Reason Comments Follow-up Diabetic and HTN f/u . Labs not done. Muscle Pain Pt has had a knot in back x 2 months. Won't go away. Medications Refill Metformin, Metoprolo l, and lisinopril - PENDED. Encounter Details Date Type Department Care Team (Late st Contact Info) Description 12/27/2014 13:15 EST Office Visit [facility] [place] [address] [facility] [address] [place] [address] Ramón Olguin MD [address] [place] [phone] CKD (chronic kidney disease) stage 3, GFR 30-59 ml/min ([facility]) (Primary Dx); Diabetes mellitus (CMS-HCC) ([facility]); Hypertension Social History Tobacco Use Types Packs/Day Years [...] Sign Reading Time Taken Comments Blood Pressure 102/76 12/27/2014 1307 EST Pulse 68 12/27/2014 1307 EST Temperature 36.9 ??C (98.4 ??F) 12/27/2014 1307 EST Respiratory Rate 16 12/27/2014 1307 EST Oxygen Saturation - - Inhaled Oxygen Concentration - - Weight 115.7 kg (255 lb) 12/27/2014 1307 EST Height - - Body Mass Index - - documented in this encounter Ordered Prescriptions Prescription Sig Dispensed Refills Start Date End Da te metoprolol XL (TOPROL-XL) 50 mg tabletIndications:Hyperten sive disorder TAKE ONE TABLET BY MOUTH EVERY DAY. 90 Tab 3 01/21/2015 03/01/2016 metFORMIN (GLUCOPHAGE) 1,000 mg tabletIndications:Diabetes mellitus ([facility]) TAKE ONE TABLET BY MOUTH TWICE A DAY. 180 Tab 3 01/21/2015 03/07/2016 lisinopril (PRINIVIL, ZESTRIL) 40 mg tabletIndications:Hyperten sive disorder TAKE ONE TABLET BY MOUTH EVERY DAY. 90 Tab 3 01/21/2015 03/01/2016 documented in this encounter Progress Notes * Ramón Olguin - 12/27/2014 1343 EST REASON FOR VISIT: Diabetes. SUBJECTIVE: Followup visit largely for diabetes. Generally doing well, no interval problems or complaints noted with the exception of mid back pain. Episodic back pain, however, has had persistent mid back pain for 2 months. No trauma or injury. No radiating symptoms. No neurologic complaints that are new. Describes a sense of stiffness or karolyn in the mid back. He has gone to the chiropractor before with similar symptoms with good effect. He has not been seen recently. No fever, chills or other acute complaints. No acute respiratory complaints. He does deal with cough, sneeze symptoms that areoccasionally worse. He denies any change in bowel or bladder habits or dysuria. No GI complaints or fever. Other medical problems stable. Continues on current medicines, which were reviewed. Also reviewed lab work in which he has had emerging chronic kidney disease with a slow elevation in creatinine recently. We did discuss avoiding NSAIDs. He does acknowledge using them occasionally. Also discussed hydration. OBJECTIVE: Blood pressure 102/76, pulse 68, temp 98.4. General: Alert, comfortable. Chest: Clear toauscultation. Cardiovascular: Regular rate and rhythm, no murmur. Abdomen: Nontender. Upper extremity exam: Normal pulses, sensation, range of motion. Lower extremity: Normal range of motion, nontender to palpation. Sensation to deep touch intact. Back: Normal appearance, no direct tenderness to palpation. Area of pain localized to lower thoracic area around to the T10 level. Full range of motionof back without difficulty. No overlying skin changes. ASSESSMENT: 1. Adult-onset diabetes, hopefully still under good control. PLAN: 1. Recheck diabetic labs. 2. Adjust treatment as needed. 3. May need to also consider a change from metformin if creatinine continues to rise. PROBLEM 2: Hypertension, well controlled. PLAN: 1. Recheck labs. 2. Continue current medicines, but may be able to cut back on lisinopril given blood pressure readings. PROBLEM 3: Hyperlipidemia. PLAN: 1. Continue Lipitor. 2. Recheck liver function and lipid panel. PROBLEM 4: Back pain, which seems musculoskeletal. Overall, benign exam. PLAN: 1. Concur with plan to seek chiropractor care. 2. Follow up as needed. 3. Avoid NSAIDs. documented in this encounter Plan of Treatment Scheduled Orders Name Type Priority Associated Diagnoses Orde r Schedule ALBUMIN, URINE Lab Routine Diabetes mellitus ([facility] ([facility]) Ordered: 12/27/2014 ALT Lab Routine Diabetes mellitus ([facility]) ([facility]) Ordered: 12/27/2014 LIPID PROFILE (INCLUDES CHOLESTEROL, TRIGLYCERIDES, HDL, LDL) Lab Routine Diabetes mellitus ([facility]) ([facility]) Ordered: 12/27/2014 BASIC METABOLIC PANEL Lab Routine Diabetes mellitus ([facility]) ([facility]) Ordered: 12/27/2014 HEMOGLOBIN A1C Lab Routine Diabetes mellitus ([facility]) ([facility]) Ordered: 12/27/2014 documented as of this encounter Goals Goal Patient Goal Type Associated Problems Recent Progress Patient-Stated? Author Blood Pressure < 140/90 Blood Pressure Hypertensive disorder 112/70(2021 13:50 EDT) No Abbie Winter, HUMAN RESOURCES PARTNER [id number] XT < 7 Result Component 8.2( 9 14:15 EDT) No Abbie Winter, HUMAN RESOURCES PARTNER LDLEXT < 100 Result Component 76(05/13/2019 14:15 EDT) No [place], Abbie, HUMAN RESOURCES PARTNER documented as of this encounter Visit Diagnoses Diagnosis CKD (chronic kidney disease) stage 3, GFR 30-59 ml/min ([facility] Primary Chronic kidney disease, Stage III (moderate) Diabetes mellitus ([facility]) Type II or unspecified type diabetes mellitus without mention of complication, not stated as uncontrolled Hypertension Unspecified essential hypertension documented in this encounter Discontinued Medications Medication Sig Discontinue Reason Start Date End Da te lisinopril (PRINIVIL, ZESTRIL) 40 mg tablet TAKE ONE TABLET BY MOUTH EVERY DAY Reorder 01/21/2014 12/27/2014 metFORMIN (GLUCOPHAGE) 1,000 mg tablet TAKE ONE TABLET BY MOUTH TWICE A DAY Reorder 01/21/2014 12/27/2014 metoprolol XL (TOPROL-XL) 50 mg tablet TAKE ONE TABLET BY MOUTH EVERY DAY Reorder 01/21/2014 12/27/2014 documented as of this encounter Care Teams Iron Molder Helper Relationship Specialty Start Date End Date Ramón Olguin MD [address] [place] [phone] PCP - General 06/15/09 06/13/19 documented as of this encounter
--- OUTSIDE RECORDS SUMMARY | 2024-08-05 15:02 | XMS_ITS | Encounter Summary ---
Author Organization [facility] Address [address] [place] [address] Care Team Providers Care Venue Coordinator Name Role Phone Ramón Olguin MD Primary Care Provider Encounter Details Date Type Department Care Team (Late st Contact Info) Description 06/27/2014 Results Only [facility] Medicine [facility] [address] [facility] [address] [place] [address] Ramón Olguin MD [address] [place] [address] [address] [place] [phone] Social History Tobacco Use Types Packs/Day Years Used Date Smoking Tobacco: Every Day Cigarettes Smokeless Tobacco: Former Comments:pipe Alcohol Use Standard Drinks/Week Comments Yes 0 (1 standard drink = 0.6 oz pur e alcohol) beer on [facility] Sex and Gender Information Value Date [...] 112/70(2021 13:50 EDT) No Abbie Winter LPN [id number] XT < 7 Result Component 8.2( 9 14:15 EDT) No Abbie Winter LPN LDLEXT < 100 Result Component 76(05/13/2019 14:15 EDT) No Abbie Winter LPN documented as of this encounter Procedures Procedure Name Priority Date/Time Associated Diagnosis Comments BASIC METABOLIC PANEL ([facility]) Routine 06/27/2014 13:35 EDT HEMOGLOBIN A1C Routine 06/27/2014 13:35 EDT documented in this encounter Results * (ABNORMAL) HEMOGLOBIN A1C (06/27/2014 13:35 EDT) Hemoglobin A1C, External 7.4(H) 4.0 - 6.0 % [facility] Est Avg Glucose, External 166 mg/dL [facility] 06/27/2014 13:3 5 EDT 06/27/2014 13:35 EDT Narrative [facility] - 06/27/2014 20:03 EDT Does PT Have a Latex Allergy? NO Ramón Olguin MD CHEMISTRY & BL OOD GAS ORDERABLES [facility] * (ABNORMAL) BASIC METABOLIC PANEL ([facility]) (06/27/2014 13:35 EDT) Bun, External 32(H) 7 - 18 mg/dL [facility] Calcium, External 9.4 8.5 - 10.1 mg/dL [facility] Chloride, External 107 98 - 107 mEq/L [facility] CO2, External 24 21 - 32 mEq/L [facility] Creatinine, External 1.6(H) 0.5 - 1.4 mg/dL [facility] GFR, Ole/Est., External 46 [facility] Comment: Stage 3: Moderate renal impairment is defined as GFR 30-59 Multiply result by 1.210 for patients. Glucose, Serum, External 105(H) 70 - 100 mg/dL [facility] Potassium, External 4.9 3.5 - 5.0 mEq/L [facility] Sodium, External 138 135 - 145 mEq/L [facility] 06/27/2014 13:3 5 EDT 06/27/2014 13:35 EDT Narrative [facility] - 06/27/2014 14:20 EDT Does PT Have a Latex Allergy? NO Ramón Olguin MD CHEMISTRY & BL OOD GAS ORDERABLES [facility] documented in this encounter Visit Diagnoses Not on filedocumented in this encounter Care Teams Venue Coordinator Relationship Specialty Start Date End Date Ramón Olguin MD [address] [place] [phone] PCP - General 06/15/09 06/13/19 documented as of this encounter
--- OUTSIDE RECORDS SUMMARY | 2024-08-05 15:02 | XMS_ITS | Encounter Summary ---
Author Organization [facility] Address [address] [place] [address] Care Team Providers Care Inspector Assembly Name Role Phone Ramón Olguin MD Primary Care Provider Reason for Referral * (Routine) - Closed Specialty Diagnoses / Procedures Referred By Contac t Referred To Contact Diagnoses Long-term use of Plaquenil Rheumatoid arteritis (HCC-CMS) Procedures EYE PHOTOGRAPHY (FUNDUS) John Lott MD [address] [place] [phone] Referral ID Status Reason Start Date Expiration Date Visits Re quested Visits Authorized [id number] Closed 07/09/2016 1 1 * (Routine) - Closed Specialty Diagnoses / Procedures Referred By Contac t Referred To Contact Diagnoses Long-term use of Plaquenil Rheumatoid arteritis (HCC-CMS) Procedures OCT (OPHTHALMIC DIGITAL IMAGING, POSTERIOR SEGMENT) John Lott MD [address] [place] [phone] Referral ID Status Reason Start Date Expiration Date Visits Re quested Visits Authorized [id number] Closed 07/09/2016 1 1 * (Routine) - Closed Specialty Diagnoses / Procedures Referred By Contac t Referred To Contact Diagnoses Long-term use of Plaquenil Rheumatoid arteritis (HCC-CMS) Procedures VISUAL FIELD EXAM, INTERMEDIATE John Lott MD [address] [place] [phone] Referral ID Status Reason Start Date Expiration Date Visits Re quested Visits Authorized [id number] Closed 07/09/2016 1 1 Reason for Visit * Reason Comments Diabetes A1C 7.1 Encounter Details Date Type Department Care Team (Late st Contact Info) Description 07/09/2016 8:45 EDT Office Visit [facility] Ophthalmology [facility] [address], [place] [phone] John Lott MD [address] [place] [phone] Social History Tobacco Use Types Packs/Day Years [...] Progress Notes * John Lott MD - 07/09/2016 0949 EDT Chief Complaint Patient presents with ??? Diabetes A1C 7.1 HPI The patient is a 70 y.o. male here for complete eye exam & plaquenil therapy screening. He feels cision is stable. he has no eye pain, double vision, or new flashes/floaters. Right Eye: NL Left Eye: NL Visual Aid: Glasses Current Rx Age Location: Pain: 0 - No pain Quality: Severity: Duration: Timing: Lasts: Context: Has not noticed any changes with vision. Modifying factors: Started Plaquinel 1 year--Followed by Linnea Posey Associated Signs & Symptoms: Attestation: ROS Constitutional: NL ENT/Mouth NL Cardiovascular: High Blood Pressure, High Cholesterol Respiratory: NL Gastrointestinal: NL Genitourinary: NL Musculoskeletal: NL Integumentary: NL Neurologic: NL Psychiatric: NL Endocrine: Diabetes Hematologic: NL Immunologic: NL Qa Consultant: Exposures: None Other: Attestation: Base Eye Exam Visual Acuity (Snellen - Linear) Right Left Dist sc 20/20 20/25 Tonometry (Applanation, 9:23) Right Left Pressure 16 16 Pupils Pupils APD Right PERRL None Left PERRL None Visual Powers (Counting fingers) Right Left Result Full Full Extraocular Movement Right Left Result Full Full Neuro/Psych Oriented x3: Yes Mood/Affect: Normal Dilation Both eyes: 1.0% Mydriacyl, 2.5% Phenylephrine @ 9:24 Slit Lamp and Fundus Exam Slit Lamp Exam Right Left Lids/Lashes Normal pigmented papilloma central lower lid Conjunctiva/Sclera White and quiet White and quiet Cornea verticillata verticillata Anterior Chamber Deep and quiet Deep and quiet Iris Round and reactive Round and reactive Lens 2+ Nuclear sclerosis 2+ Nuclear sclerosis Fundus Exam Right Left Vitreous Normal Normal Disc Normal Normal C/D Ratio 0.35 0.25 Macula Normal, no MA's Normal, no MA's Vessels Normal Normal Periphery Normal, No diabetic retinopathy small patch pigment @ 10:00, No diabetic retinopathy DIAGNOSTIC TESTS: Indication: Plaquenil use for Rheumatoid arthritis OCT macula: Right: signal strength: 9/10, normal foveal contour, no intra/subretinal fluid Left: signal strength: 10/10, normal foveal contour, no intra/subretinal fluid Indication: Plaquenil use for Rheumatoid arthritis Fundus/Fundus autofluorescence photo: Consistent with examination from today, of sufficient qualityto use for future comparison. Indication: Plaquenil use for Rheumatoid arthritis HVF 10-2: Right: reliable (10/10 FL), full Left: reliable (/11 FL), full IMPRESSION & PLAN: 1. Plaquenil use for Rheumatoid arthritis Started: 2015 Dose: 400 mg daily 10-2 HVF is normal Discussed risk factors for plaquenil toxicity -Recommend yearly dilated eye exam, will plan to resume yearly testing at 5 yrs. -CC note to Dr. Yarbrough 2. Diabetes mellitus no retinopathy -Recommend good blood sugar and blood pressure control -Recommend annual dilated eye exam -Copy of note sent to PCP 3. Cataract, both eyes Not visually significant -Monitor [...] the service. ESTEFANY Shaw Patient Education Topic: plaquenil Method: Verbal Taught to: Patient Barriers: None Outcomes: independent Signature: John oLtt MD documented in this encounter Plan of Treatment Scheduled Orders Name Type Priority Associated Diagnoses Orde r Schedule VISUAL FIELD EXAM, INTERMEDIATE Ophthalmology Routine Long-term use of Plaquenil Rheumatoid arteritis Ordered: 07/09/2016 OCT (OPHTHALMIC DIGITAL IMAGING, POSTERIOR SEGMENT) Ophthalmology Routine Long-term use of Plaquenil Rheumatoid arteritis Ordered: 07/09/2016 EYE PHOTOGRAPHY (FUNDUS) Ophthalmology Routine Long-term use of Plaquenil Rheumatoid arteritis Ordered: 07/09/2016 documented as of this encounter Goals Goal Patient Goal Type Associated Problems Recent Progress Patient-Stated? Author Blood Pressure < 140/90 Blood Pressure Hypertensive disorder 112/70(2021 13:50 EDT) No Abbie Winter LPN [id number] XT < 7 Result Component 8.2( 9 14:15 EDT) No Abbie Winter LPN LDLEXT < 100 Result Component 76(05/13/2019 14:15 EDT) No Abbie Winter LPN documented as of this encounter Visit Diagnoses Diagnosis Long-term use of Plaquenil- Primary Encounter for long-term (current) use of other medications Rheumatoid arteritis ([facility]) Other specified disorders of arteries and arterioles Type 2 diabetes mellitus without complication ([facility]) Type II or unspecified type diabetes mellitus without mention of complication, not stated as uncontrolled Nuclear cataract of both eyes documented in this encounter Eye Exam Visual Acuity (Snellen - Linear) Right eye Left eye Dist sc 20/20 20/25 Tonometry (Applanation, 9:23) Right eye Left eye Pressure 16 16 Pupils Pupils APD Right eye PERRL None Left eye PERRL None Visual Powers (Counting fingers) Right eye Left eye Full Full Extraocular Movement Right eye Left eye Full Full Neuro/Psych Oriented x3: Yes Mood/Affect: Normal Dilation Both eyes: 1.0% Mydriacyl, 2 .5% Phenylephrine @ 9:24 Slit Lamp Exam Right eye Left eye Lids/Lashes Normal pigmented papill arpan central lower lid Conjunctiva/Sclera White and quiet White and joshua et Cornea verticillata verticillata Anterior Chamber Deep and quiet Deep and quiet Iris Round and reactive Round and waqar ctive Lens 2+ Nuclear sclerosis 2+ Nuclear sclerosis Vitreous Normal Normal Fundus Exam Right eye Left eye Disc Normal Normal C/D Ratio 0.35 0.25 Macula Normal, no MA's Normal, no MA's Vessels Normal Normal Periphery Normal, No diabetic retinopathy small patch pigment @ 10:00, No diabetic retinopathy Care Teams Inspector Assembly Relationship Specialty Start Date End Date Ramón Olguin MD [address] [place] [phone] PCP - General 06/15/09 06/13/19 documented as of this encounter
--- OUTSIDE RECORDS SUMMARY | 2024-08-05 15:02 | XMS_ITS | Encounter Summary ---
Author Organization [facility] Address [address] [place] [address] Care Team Providers Care Tool And Fixture Repairer Name Role Phone Ramón Olguin MD Primary Care Provider Encounter Details Date Type Department Care Team (Late st Contact Info) Description 04/23/2015 Results Only [facility] Medicine [facility] [address] [place] [address] Ramón Olguin MD [address] [place] [address] [address] [place] [address] Social History Tobacco Use Types [...] 112/70(2021 13:50 EDT) No Abbie Winter LPN [id number] XT < 7 Result Component 8.2( 9 14:15 EDT) No Abbie Winter LPN LDLEXT < 100 Result Component 76(05/13/2019 14:15 EDT) No Abbie Winter LPN documented as of this encounter Procedures Procedure Name Priority Date/Time Associated Diagnosis Comments BASIC METABOLIC PANEL ([facility]) Routine 04/23/2015 16:54 EDT HEMOGLOBIN A1C Routine 04/23/2015 16:54 EDT documented in this encounter Results * (ABNORMAL) HEMOGLOBIN A1C (04/23/2015 16:54 EDT) Hemoglobin A1C, External 7.1(H) 4.0 - 6.0 % [facility] Est Avg Glucose, External 157 mg/dL [facility] 04/23/2015 16:5 4 EDT 04/23/2015 16:54 EDT Narrative [facility] - 04/23/2015 21:00 EDT Does PT Have a Latex Allergy? NO Ramón Olguin MD CHEMISTRY & BL OOD GAS ORDERABLES [facility] * (ABNORMAL) BASIC METABOLIC PANEL ([facility]) (04/23/2015 16:54 EDT) Bun, External 22(H) 7 - 18 mg/dL [facility] Calcium, External 9.3 8.5 - 10.1 mg/dL [facility] Chloride, External 105 98 - 107 mEq/L [facility] CO2, External 24 21 - 32 mEq/L [facility] Creatinine, External 1.2 0.5 - 1.4 mg/dL [facility] GFR, Ole/Est., External >60 [facility] Comment: Chronic renal impairment is defined as GFR <60 Multiply result by 1.210 for patients. Glucose, Serum, External 99 70 - 100 mg/dL [facility] Potassium, External 4.4 3.5 - 5.0 mEq/L [facility] Sodium, External 140 135 - 145 mEq/L [facility] 04/23/2015 16:5 4 EDT 04/23/2015 16:54 EDT Narrative [facility] - 04/23/2015 18:47 EDT Does PT Have a Latex Allergy? NO Ramón Olguin MD CHEMISTRY & BL OOD GAS ORDERABLES [facility] documented in this encounter Visit Diagnoses Not on filedocumented in this encounter Care Teams Tool And Fixture Repairer Relationship Specialty Start Date End Date Ramón Olguin MD [address] [place] [phone] PCP - General 06/15/09 06/13/19 documented as of this encounter
--- OUTSIDE RECORDS SUMMARY | 2024-08-05 15:02 | XMS_ITS | Encounter Summary ---
Author Organization [facility] Address [address] [place] [address] Care Team Providers Care Hospital Admissions Clerk Name Role Phone Ramón Olguin MD Primary Care Provider Encounter Details Date Type Department Care Team (Late st Contact Info) Description 12/27/2014 Results Only [facility] Medicine [facility] [address] [facility] [address] [place] [address] Ramón Olguin MD [address] [place] [address] [address] [place] [address] Social History Tobacco Use Types Packs/Day Years Used Date Smoking Tobacco: Every Day Cigarettes Smokeless Tobacco: Former Comments:pipe Alcohol Use Standard Drinks/Week Comments Yes 0 (1 standard drink = 0.6 oz pur e alcohol) beer on [facility] Sex and Gender Information Value Date [...] 112/70(2021 13:50 EDT) No Abbie Winter LPN [id number] XT < 7 Result Component 8.2( 9 14:15 EDT) No Abbie Winter LPN LDLEXT < 100 Result Component 76(05/13/2019 14:15 EDT) No Abbie Winter LPN documented as of this encounter Procedures Procedure Name Priority Date/Time Associated Diagnosis Comments URINE [id number] E RATIO (ACR) Routine 12/27/2014 13:58 EST HEMOGLOBIN A1C Routine 12/27/2014 13:58 EST BASIC METABOLIC PANEL ([facility]) Routine 12/27/2014 13:57 EST ALT Routine 12/27/2014 13:57 EST LIPID PROFILE (INCLUDES CHOLESTEROL, TRIGLYCERIDES, HDL, LDL) Routine 12/27/2014 13:57 EST documented in this encounter Results * (ABNORMAL) HEMOGLOBIN A1C (12/27/2014 13:58 EST) Hemoglobin A1C, External 8.4(H) 4.0 - 6.0 % [facility] Est Avg Glucose, External 194 mg/dL [facility] 12/27/2014 13:5 8 EST 12/27/2014 13:58 EST Narrative [facility] - 12/27/2014 21:22 EST Does PT Have a Latex Allergy? NO Ramón Olguin MD CHEMISTRY & BL OOD GAS ORDERABLES [facility] * ALBUMIN, URINE (12/27/2014 13:58 EST) Microalb mg/dl, External 0.65 0.0 - 2.0 mg/dL [facility] Microalb ug/mg Crea, External 7.0 ug/mg [facility] Comment: Normal: <30 ug/mg Creat Microalbuminuria: 30-300 ug/mg Creat Clinical albuminuria: >300 ug/mg Creat Creatinine, Random U (UCRR), External 84.90 mg/dL [facility] 12/27/2014 13:5 8 EST 12/27/2014 13:58 EST Narrative [facility] - 12/27/2014 16:08 EST Does PT Have a Latex Allergy? NO WHAT TYPE OF COLLECTION IS THIS URINE? RANDOM URINE Ramón Olguin MD CHEMISTRY & BL OOD GAS ORDERABLES [facility] * ALT (12/27/2014 13:57 EST) ALT, External 36 12 - 78 U/L [facility] 12/27/2014 13:5 7 EST 12/27/2014 13:58 EST Narrative [facility] - 12/27/2014 15:46 EST Does PT Have a Latex Allergy? NO Ramón Olguin MD CHEMISTRY & BL OOD GAS ORDERABLES Performing Organization Address City/[facility]/ZIP Co de Phone Number [facility] * (ABNORMAL) LIPID PROFILE (INCLUDES CHOLESTEROL, TRIGLYCERIDES, HDL, LDL) (12/27/2014 13:57 EST) Triglycerides, External 210(H) 35 - 150 mg/dL [facility] Cholesterol, External 117(L) 120 - 200 mg/dL [facility] Chol/HDL Ratio, External 3.5 0 - 5.0 [facility] Comment: DESIRABLE RATIO IS LESS THAN 4.1 PATIENTS ARE CONSIDERED AT RISK: WOMEN RATIO >5 MEN RATIO >6 Fasting?, External No [facility] HDL, External 33(L) 40 - 60 mg/dL [facility] LDL, External 42(L) 60 - 100 mg/dL [facility] Non HDL Chol, External 84 mg/dl [facility] Comment: Desirable: ?Less than 130 Borderline High: ??130-159 High: ? 160-189 Very High: ?Greater than or equal to 190 12/27/2014 13:5 7 EST 12/27/2014 13:58 EST Narrative [facility] - 12/27/2014 15:46 EST Does PT Have a Latex Allergy? NO Ramón Olguin MD CHEMISTRY & BL OOD GAS ORDERABLES Performing Organization Address City/[facility]/ZIP Co de Phone Number [facility] * (ABNORMAL) BASIC METABOLIC PANEL ([facility]) (12/27/2014 13:57 EST) Bun, External 26(H) 7 - 18 mg/dL [facility] Calcium, External 9.6 8.5 - 10.1 mg/dL [facility] Chloride, External 105 98 - 107 mEq/L [facility] CO2, External 25 21 - 32 mEq/L [facility] Creatinine, External 1.2 0.5 - 1.4 mg/dL [facility] GFR, Ole/Est., External >60 [facility] Comment: Chronic renal impairment is defined as GFR <60 Multiply result by 1.210 for patients. Glucose, Serum, External 151(H) 70 - 100 mg/dL [facility] Potassium, External 4.6 3.5 - 5.0 mEq/L [facility] Sodium, External 137 135 - 145 mEq/L [facility] 12/27/2014 13:5 7 EST 12/27/2014 13:58 EST Narrative [facility] - 12/27/2014 15:46 EST Does PT Have a Latex Allergy? NO Ramón Olguin MD CHEMISTRY & BL OOD GAS ORDERABLES Performing Organization Address City/[facility]/ZIP Co de Phone Number [facility] documented in this encounter Visit Diagnoses Not on filedocumented in this encounter Care Teams Hospital Admissions Clerk Relationship Specialty Start Date End Date Ramón Olguin MD [address] [place] [phone] PCP - General 06/15/09 06/13/19 documented as of this encounter
--- OUTSIDE RECORDS SUMMARY | 2024-08-05 15:02 | XMS_ITS | Encounter Summary ---
Author Organization [facility] Address [address] [place] [address] Care Team Providers Care Level Vial Inside Grinder Name Role Phone Ramón Olguin MD Primary Care Provider Kameron Lee MD Primary Care Provider [phone] Encounter Details Date Type Department Care Team (Late st Contact Info) Description 05/10/2015 Historical Results Only [facility] Radiology Results [address] [place], [place] [phone] Ramón Olguin MD [address] [place] [address] [address] [place] [phone] Social History Tobacco Use Types Packs/Day Years Used Date Smoking Tobacco: Every Day Cigarettes Smokeless Tobacco: Former Comments:pipe Alcohol Use Standard Drinks/Week Comments Yes 0 (1 standard drink = 0.6 oz pur e alcohol) beer on [facility] Sex and Gender Information Value [...] 112/70(2021 13:50 EDT) No Abbie Winter LPN [id number] XT < 7 Result Component 8.2( 9 14:15 EDT) No Abbie Winter LPN LDLEXT < 100 Result Component 76(05/13/2019 14:15 EDT) No Abbie Winter LPN documented as of this encounter Visit Diagnoses Not on filedocumented in this encounter Care Teams Level Vial Inside Grinder Relationship Specialty Start Date End Date Ramón Olguin MD [address] [place] [phone] PCP - General 06/15/09 06/13/19 Kameron Lee MD [address] [place] [address] [address] [place] [phone] PCP - General 06/14/19 04/28/23 documented as of this encounter
--- OUTSIDE RECORDS SUMMARY | 2024-08-05 15:02 | XMS_ITS | Encounter Summary ---
Author Organization [facility] Address [address] [place] [address] Care Team Providers Care Contract Loader Name Role Phone Ramón Olguin MD Primary Care Provider Encounter Details Date Type Department Care Team (Latest Contact Info) Description 01/08/2016 14:18 EST - 01/08/2016 23:59 EST Hospital Encounter [facility] [address] [place] [address] Unknown, Provider, Discharge Disposition: Home or Self Care Social History Tobacco Use Types Packs/Day [...] No 07/10/2015 documented as of this encounter Medications at Time of Discharge Medication Sig Dispensed Refills Start Date End Date ASCORBIC ACID (VITAMIN C ORAL) Take by mouth. aspirin chewable 81 mg tablet Take 81 mg by mouth daily. CALCIUM ORAL Take by mouth. cholecalciferol, Vitamin D3, 1,000 unit tablet Take 1,000 Units by mouth daily. GLUCOSAMINE HCL/CHONDRO CHU A (GLUCOSAMINE-CHONDROITIN ORAL) Take 2,000 mg by mouth daily. MULTIVITAMINS (MULTIVITAMIN ORAL) Take by mouth. atorvastatin (LIPITOR) 10 mg tablet TAKE ONE TABLET BY MOUTH EVERY DAY 90 Tab 3 12/21/2014 03/03/2016 DOCOSAHEXANOIC ACID/EPA (FISH OIL ORAL) Take by mouth. 06/29/2018 glipiZIDE (GLUCOTROL) 10 mg XL tabletIndications:Type 2 diabetes mellitus without complication (HCC-CMS) TAKE ONE TABLET BY MOUTH EVERY DAY 90 Tab 3 06/15/2015 03/21/2016 lisinopril (PRINIVIL, ZESTRIL) 40 mg tabletIndications:Hyperten sive disorder TAKE ONE TABLET BY MOUTH EVERY DAY. 90 Tab 3 01/21/2015 03/01/2016 metFORMIN (GLUCOPHAGE) 1,000 mg tabletIndications:Diabetes mellitus (HCC-CMS) TAKE ONE TABLET BY MOUTH TWICE A DAY. 180 Tab 3 01/21/2015 03/07/2016 metoprolol XL (TOPROL-XL) 50 mg tabletIndications:Hyperten sive disorder TAKE ONE TABLET BY MOUTH EVERY DAY. 90 Tab 3 01/21/2015 03/01/2016 POTASSIUM/MAGNESIUM (MAGNESIUM-POTASSIUM ORAL) Take by mouth 06/29/2018 documented as of this encounter Discharge Disposition Disposition Code Departure Means Destination Home or Self Residential documented in this encounter Plan of Treatment Not on file documented as of this encounter Goals Goal Patient Goal Type Associated Problems Recent Progress Patient-Stated? Author Blood Pressure < 140/90 Blood Pressure Hypertensive disorder 112/70(2021 13:50 EDT) No Abbie Winter LPN [id number] XT < 7 Result Component 8.2( 9 14:15 EDT) No Abbie Winter LPN LDLEXT < 100 Result Component 76(05/13/2019 14:15 EDT) No Abbie Winter LPN documented as of this encounter Visit Diagnoses Not on filedocumented in this encounter Care Teams Contract Loader Relationship Specialty Start Date End Date Ramón Olguin MD [address] [place] [phone] PCP - General 06/15/09 06/13/19 documented as of this encounter
--- OUTSIDE RECORDS SUMMARY | 2024-08-05 15:02 | XMS_ITS | Encounter Summary ---
Author Organization [facility] Address [address] [place] [address] Care Team Providers Care Radio Station Engineer Name Role Phone Ramón Olguin MD Primary Care Provider Kameron Lee MD Primary Care Provider [phone] Reason for Visit * Reason Comments Other Encounter Details Date Type Department Care Team (Late st Contact Info) Description 12/21/2014 Refill [facility] Family Medicine [address] [place] [address] Ramón Olguin MD [address] [place] [address] [address] [place] [phone] Other Social History Tobacco Use [...] EVERY DAY 90 Tab 3 12/21/2014 03/03/2016 documented in this encounter Miscellaneous Notes * Telephone Encounter - Brigette Tello RN - 12/21/2014 1003 EST Refill request from pharmacy Next office visit 12/27/14 documented in this encounter Plan of Treatment Not on file documented as of this encounter Goals Goal Patient Goal Type Associated Problems Recent Progress Patient-Stated? Author Blood Pressure < 140/90 Blood Pressure Hypertensive disorder 112/70(2021 13:50 EDT) No Abbie Winter LPN [id number] XT < 7 Result Component 8.2( 9 14:15 EDT) No Abbie Winter LPN LDLEXT < 100 Result Component 76(05/13/2019 14:15 EDT) No Abbie Winter LPN documented as of this encounter Visit Diagnoses Not on filedocumented in this encounter Care Teams Radio Station Engineer Relationship Specialty Start Date End Date Ramón Olguin MD [address] [place] [address] [address] [place] [phone] PCP - General 06/15/09 06/13/19 Kameron Lee MD [address] [place] [address] [address] [place] [phone] PCP - General 06/14/19 04/28/23 documented as of this encounter
--- OUTSIDE RECORDS SUMMARY | 2024-08-05 15:02 | XMS_ITS | Encounter Summary ---
Author Organization [facility] Address [address] [place] [address] Care Team Providers Care Pad Tufter Name Role Phone Ramón Olguin MD Primary Care Provider Reason for Referral * Laboratory Services (Routine) - Closed Specialty Diagnoses / Procedures Referred By Contac t Referred To Contact Diagnoses Type 2 diabetes mellitus without complication ([facility]) Procedures HEMOGLOBIN A1C Raómn Olguin MD [address] [place] [phone] Referral ID Status Reason Start Date Expiration Date Visits Re quested Visits Authorized [id number] Closed 07/10/2015 1 1 * Consult (Routine) - Specialty Report Received Specialty Diagnoses / Procedures Referred By Contac t Referred To Contact Diagnoses Erectile dysfunction, unspecified erectile dysfunction type Ramón Olguin MD [address] [place] [phone] Donald Cheema MD Referral ID Status Reason Start Date Expiration Date Visits Requested Visits Authorized [id number] Specialty Report Received Specialty Services Required 07/10/2015 1 1 Question Answer Reason for Request: pt interesested in injectable tx Reason for Visit * Reason Comments Diabetes follow up, falls ris k started, cog. fx done Immunizations prevnar pending Encounter Details Date Type Department Care Team (Late st Contact Info) Description 07/10/2015 9:[address] [facility] [address] [facility] [address] [place] [address] Ramón Olguin MD [address] [place] [address] [address] [place] [phone] Type 2 diabetes mellitus without complication (CMS-HCC) (HCC-CMS) (Primary Dx); Erectile dysfunction, unspecified erectile dysfunction type; Need for pneumococcal vaccination Social History Tobacco Use Types Packs/Day Years [...] Sign Reading Time Taken Comments Blood Pressure 110/80 07/10/2015 0859 EDT Pulse 72 07/10/2015 0859 EDT Temperature 37.1 ??C (98.7 ??F) 07/10/2015 0859 EDT Respiratory Rate - - Oxygen Saturation - - Inhaled Oxygen Concentration - - Weight 110.7 kg (244 lb) 07/10/2015 0859 EDT Height - - Body Mass Index [...] No 07/10/2015 documented as of this encounter Progress Notes * Ramón Olguin - 07/10/2015 1305 EDT REASON FOR VISIT: Diabetes and erectile dysfunction. SUBJECTIVE: The patient here for followup of diabetes, had been doing well, but due for A1c check. No interval problems or complaints noted. He does have modest neuropathy of feet, but no obvious problems noted. Discussed foot care and alsodiscussed erectile dysfunction. He had been on Viagra, tried higher doses without relief. Remotely,he had used injectable therapy with TriMix with good effect. We did discuss this. He had information from a compounding pharmacist in [place]; however, I suggested that since he has not used this is some time to be reevaluated by urology and have them initiate treatment and if doing well, we can continue on from there. OBJECTIVE: Blood pressure 110/80, pulse 72. Chest: Clear to auscultation. Cardiovascular: Regular rate and rhythm, no murmur. Abdomen: Nontender. Extremity exam: Feet normal pulses. Warm to touch. Noskin breakdown, but significantly diminished monofilament testing over distal feet, particularly med ially. ASSESSMENT: PROBLEM 1: Adult-onset diabetes with neuropathy of feet, stable. PLAN: 1. Continue current treatment. 2. Hemoglobin A1c, adjust treatment as needed. 3. Follow up in 3 months, will be due for a flu shot. PROBLEM 2: Erectile dysfunction, poor response to Viagra and would seem to be a good candidate for injectable therapy, which he is willing to do. PLAN: Urology referral, followup as needed. documented in this encounter Plan of Treatment Scheduled Orders Name Type Priority Associated Diagnoses Orde r Schedule HEMOGLOBIN A1C Lab Routine Type 2 diabetes mellitus without complication ([facility] Ordered: 07/10/2015 Scheduled Referrals Name Type Priority Associated Diagnoses Orde r Schedule AMB CONS/FOLLOW UP UROLOGY Outpatient Referral Routine Erectile dysfunction, unspecified erectile dysfunction type Ordered: 07/10/2015 documented as of this encounter Goals Goal Patient Goal Type Associated Problems Recent Progress Patient-Stated? Author Blood Pressure < 140/90 Blood Pressure Hypertensive disorder 112/70(2021 13:50 EDT) No Abbie Winter LPN [id number] XT < 7 Result Component 8.2( 9 14:15 EDT) No Abbie Winter LPN LDLEXT < 100 Result Component 76(05/13/2019 14:15 EDT) No Abbie Winter LPN documented as of this encounter Visit Diagnoses Diagnosis Type 2 diabetes mellitus without complication ([facility])- Primary Type II or unspecified type diabetes mellitus without mention of complication, not stated as uncontrolled Erectile dysfunction, unspecified erectile dysfunction type Need for pneumococcal vaccination Need for prophylactic vaccination against streptococcus pneumoniae (pneumococcus) documented in this encounter Discontinued Medications Medication Sig Discontinue Reason Start Date End Da te sildenafil citrate (VIAGRA) 50 mg tabletIndications:Erec tile dysfunction Take 1 Tab by mouth as needed for Erectile Dysfunction 04/23/2015 07/10/2015 documented as of this encounter Historical Medications * This list may reflect changes made after this encounter. Medication Sig Dispensed Refills Start Date End Date POTASSIUM/MAGNESIUM (MAGNESIUM-POTASSIUM ORAL) Take by mouth 06/29/2018 added in this encounter Orders Immunization/Injection Count Last Ordered Date First Ordered Date PNEUMOCOCCAL CONJ VACC PCV13 IM 1 5 documented in this encounter Care Teams Pad Tufter Relationship Specialty Start Date End Date Ramón Olguin MD [address] [place] [phone] PCP - General 06/15/09 06/13/19 documented as of this encounter
--- OUTSIDE RECORDS SUMMARY | 2024-08-05 15:03 | XMS_ITS | Encounter Summary ---
Author Organization [facility] Address [address] [place] [address] Care Team Providers Care Job Analyst Name Role Phone Ramón Olguin MD Primary Care Provider Encounter Details Date Type Department Care Team (Latest Contact Info) Description 01/16/2014 12:45 EST - 01/16/2014 23:59 EST Hospital Encounter [facility] [address] [place] [address] Unknown, Provider, Discharge Disposition: Home or Self [...] :49 EST documented as of this encounter Medications at [...] Take by mouth. atorvastatin (LIPITOR) 10 mg tabletIndications:Diabet es mellitus (HCC-CMS) Take 1 Tab by mouth daily. 90 Tab 3 01/10/2014 12/20/2014 DOCOSAHEXANOIC ACID/EPA (FISH OIL ORAL) Take by mouth. 06/29/2018 glipiZIDE (GLUCOTROL) 10 mg CR tablet TAKE ONE TABLET BY MOUTH EVERY DAY 90 Tab 3 07/29/2013 06/08/2014 lisinopril (PRINIVIL, ZESTRIL) 40 mg tabletIndications:Hypert ensive disorder TAKE ONE TABLET BY MOUTH EVERY DAY. 90 Each 3 01/10/2014 01/23/2014 metFORMIN (GLUCOPHAGE) 1,000 mg tabletIndications:Diabet es mellitus (HCC-CMS) TAKE ONE TABLET BY MOUTH TWICE A DAY. 180 Each 3 01/10/2014 01/23/2014 metoprolol XL (TOPROL-XL) 50 mg tabletIndications:Hypert ensive disorder TAKE ONE TABLET BY MOUTH EVERY DAY. 90 Each 3 01/10/2014 01/23/2014 documented as of this encounter Discharge Disposition Disposition Code Departure Means Destination Home or Self Custodial documented in this encounter Plan of Treatment [...] on filedocumented in this encounter Care Teams Job Analyst Relationship Specialty Start Date End Date Ramón Olguin MD [address] [place] [phone] PCP - General 06/15/09 06/13/19 documented as of this encounter
--- OUTSIDE RECORDS SUMMARY | 2024-08-05 15:03 | XMS_ITS | Encounter Summary ---
Author Organization [facility] Address [address] [place] [address] Care Team Providers Care Technician Chemical Cleaning Name Role Phone Ramón Olguin MD Primary Care Provider Reason for Visit * Reason Comments Annual Exam Last visit 05/29/10. Diabetes, last A1C 6.6-7. Patient is doing well, not having any complaint. Encounter Details Date Type Department Care Team (Late st Contact Info) Description 05/19/2011 11:00 EDT Office Visit [facility] Ophthalmology [facility] [address] [place] [address] Kimmie Burger MD [address] [place], [place] [phone] Social History Tobacco Use Types Packs/Day Years Used Date Smoking Tobacco: Every Day Smokeless Tobacco: Current Comments:pipe Alcohol Use Standard Drinks/Week Comments Yes 40 (1 standard drink = 0.6 oz pu re alcohol) Sex and Gender Information Value Date Recorded Sex Assigned at Male 12/01/2019 14:49 EST Gender Identity Male 12/01/2019 14:49 EST Sexual Orientation Straight 12/01/2019 14 :49 EST documented as of this encounter Progress Notes * Kimmie Burger MD - 05/19/2011 1156 EDT Chief Complaint Patient presents with ??? Annual Exam Last visit 05/29/10. Diabetes, last A1C 6.6-7. Patient is doing well, not having any complaint. ROS Right Eye: NL Left Eye: NL Visual Fluctuations: Visual Aid: Glasses (Uses distance glasses for driving.) Current Rx Age Constitutional: ENT/Mouth Cardiovascular: Respiratory: Gastrointestinal: Genitourinary: Musculoskeletal: Integumentary: Neurologic: Psychiatric: Endocrine: Hematologic: Immunologic: Pricer: Exposures: Other: Attestation: Past Medical History Diagnosis Date ??? Hypertension Past Surgical History Procedure Date ??? Laminectomy ??? Shoulder surgery 03/25 left; labral tear ??? Colonoscopy 02/2003 History Social History ??? Marital Status: Spouse Name: N/A Number of Children: N/A ??? Years of Education: N/A Occupational History ??? Retired Social History Main Topics ??? Smoking status: Current Everyday Smoker ??? Smokeless tobacco: Current User Comment: pipe ??? Alcohol Use: 24.0 oz/week 2 Cans of beer per week ??? Drug Use: No ??? Sexually Active: Not on file Other Topics Concern ??? Not on file Social History Narrative ??? No narrative on file HPI Location: Pain: 0 - No pain (Simultaneous filing. User may not have seen previous data.) Quality: Severity: Duration: Timing: Lasts: Context: Modifying factors: Associated Signs & Symptoms: Visual Fluctuations: Attestation: No Known Allergies Current outpatient prescriptions Medication Sig Dispense Refill ??? pioglitazone (ACTOS) 45 mg tablet Take 1 Tab by mouth daily. 90 Tab 3 ??? metoprolol XL (TOPROL XL) 50 mg tablet Take 1 Tab by mouth daily. 90 Tab 3 ??? metformin (GLUCOPHAGE) 1,000 mg tablet Take 1 Tab by mouth 2 times daily. 180 Tab 3 ??? lisinopril (PRINIVIL, ZESTRIL) 40 mg tablet Take 1 Tab by mouth daily. 90 Tab 3 ??? aspirin chewable 81 mg tablet Take 81 mg by mouth daily. ??? GLUCOSAMINE HCL/CHONDRO CHU A (GLUCOSAMINE-CHONDROITIN ORAL) Take by mouth. ??? MULTIVITAMINS (MULTIVITAMIN ORAL) Take by mouth. ??? ASCORBIC ACID (VITAMIN C ORAL) Take by mouth. ??? CALCIUM ORAL Take by mouth. ??? DOCOSAHEXANOIC ACID/EPA (FISH OIL ORAL) Take by mouth. EXAMINATION Mental Status Assessment: Oriented to person, place and time Normal Mood and Affect Eye exam is documented in the Ophthalmology Navigator Module. DIAGNOSIS & PLAN Encounter Diagnoses Code Name Primary? 250.00BV DM (diabetes mellitus) Yes ??? 367.0B Hyperopia ??? 367.20A Astigmatism ??? 367.4 Presbyopia ??? 366.9BH Cortical cataract Diabetes without Retinopathy- Continue systemic management with Primary Care Physician. Copy of today's note sent to MD. Recheck in one year. Cortical Cataract, both eyes, mild - Not visually-significant at this time. Explained to patient. Will recheck in one year. I am scribing for Kimmie Burger MD While he is personally performing the service. Lorena (Scribe) Patient Education Topic: diabetes Method: Verbal Taught to: Patient Barriers: None Outcomes: independent Signature: Kimmie Burger MD documented in this encounter Plan of Treatment Not on file documented as of this encounter Visit Diagnoses Diagnosis DM (diabetes mellitus) ([facility])- Primary Type II or unspecified type diabetes mellitus without mention of complication, not stated as uncontrolled Hyperopia Hypermetropia Astigmatism Astigmatism, unspecified Presbyopia Cortical cataract Other cataract documented in this encounter Eye Exam Visual Acuity (Snellen - Linear) Right eye Left eye Dist cc 20/25 -1 20/25 +1 Correction: Glasses Tonometry (Applanation, 11:52) Right eye Left eye Pressure 15 16 Pupils Pupils Dark Light APD Right eye PERRL 4.5 3.5 none Left eye PERRL 4.5 3.5 none Visual Powers (Counting fingers) Right eye Left eye Full Full Neuro/Psych Oriented x3: Yes Mood/Affect: Normal Dilation Both eyes: 1.0% Mydriacyl @ 11:53 2.5% mydfrin given in both eyes @ 11:53 Slit Lamp Exam Right eye Left eye Lids/Lashes Normal Normal Conjunctiva/Sclera White and quiet White and joshua et Cornea Clear Clear Anterior Chamber Deep and quiet Deep and quiet Iris Round and reactive Round and waqar ctive Lens 1+ Cortical cataract 1+ Cortical cataract Vitreous Normal Normal Fundus Exam Right eye Left eye Disc Normal Normal C/D Ratio 0.35 0.35 Macula Normal, no diabetic retinopathy Normal, no diabetic retinopathy Vessels Normal Normal Periphery Normal Normal Wearing Rx #1 Sphere Cylinder [place] Add Right eye +0.75 -1.00 067 Left eye +1.00 -1.00 094 Type: SVL - sunglasses Wearing Rx #2 Sphere Cylinder [place] Add Right eye +2.50 Left eye +2.50 Type: SVL - oc readers Manifest Refraction (Auto) Sphere Cylinder [place] Dist [place] Right eye +1.50 -0.75 060 20/20- Left eye +2.00 -1.25 080 20/20- Care Teams Technician Chemical Cleaning Relationship Specialty Start Date End Date Ramón Olguin MD [address] [place] [phone] PCP - General 06/15/09 06/13/19 documented as of this encounter
--- OUTSIDE RECORDS SUMMARY | 2024-08-05 15:03 | XMS_ITS | Encounter Summary ---
Author Organization [facility] Address [address] [place] [address] Care Team Providers Care Authorization Manager Name Role Phone Ramón Olguin MD Primary Care Provider Reason for Visit * Reason Onset Date Comments Medications Refill 07/29/2012 Encounter Details Date Type Department Care Team (Late st Contact Info) Description 07/29/2012 Refill [facility] [address] [place] [address] Ramón Olguin MD [address] [place] [address] [address] [place] [phone] Medications Refill Social History Tobacco [...] Da te glipiZIDE (GLUCOTROL) 10 mg CR tabletIndications:DM (diabetes mellitus) ([facility]) Take 1 Tab by mouth daily. 90 Each 3 07/29/2012 07/29/2013 documented in this encounter Miscellaneous Notes * Telephone Encounter - Cyndee Russell LPN - 07/29/2012 1506 EDT Last visit 08/11/11 * Telephone Encounter - Dora Patelerie - 07/29/2012 1501 EDT Faxed refill request from [facility]. Last OV 07/2011 documented in this encounter Plan of Treatment Not on file documented as of this encounter Visit Diagnoses Diagnosis DM (diabetes mellitus) ([facility])- Primary Type II or unspecified type diabetes mellitus without mention of complication, not stated as uncontrolled documented in this encounter Discontinued Medications Medication Sig Discontinue Reason Start Date End Da te glipiZIDE (GLUCOTROL) 10 mg CR tabletIndications:DM (diabetes mellitus) ([facility]) Take 1 Tab by mouth daily. Reorder 08/11/2011 07/29/2012 documented as of this encounter Care Teams Authorization Manager Relationship Specialty Start Date End Date Ramón Olguin MD [address] [place] [phone] PCP - General 06/15/09 06/13/19 documented as of this encounter
--- OUTSIDE RECORDS SUMMARY | 2024-08-05 15:03 | XMS_ITS | Encounter Summary ---
Author Organization [facility] Address [address] [place] [address] Care Team Providers Care Test Pilot Name Role Phone Ramón Olguin MD Primary Care Provider Reason for Visit * Reason Comments Diabetes last A1C 5.7 Encounter Details Date Type Department Care Team (Late st Contact Info) Description 04/26/2013 9:30 EDT Office Visit [facility] Ophthalmology [address] [address] Asha Dumont [address] [place] [phone] Social History Tobacco Use Types Packs/Day Years Used Date Smoking Tobacco: Every Day Cigarettes Smokeless Tobacco: Current Comments:pipe Alcohol Use Standard Drinks/Week Comments Yes 0 (1 standard drink = 0.6 oz pur e alcohol) beer on occ Sex and Gender Information Value Date Recorded Sex Assigned at Male 12/01/2019 14:49 EST Gender Identity Male 12/01/2019 14:49 EST Sexual Orientation Straight 12/01/2019 14 :49 EST documented as of this encounter Progress Notes * Asha Dumont - 04/26/2013 0996 EDT Chief Complaint Patient presents with ??? Diabetes last A1C 5.7 HPI The patient is a 67 y.o. male Right Eye: NL Left Eye: NL Visual Aid: Glasses Current Rx Age > 2 years Location: Pain: 0 - No pain Quality: Severity: Duration: Timing: Lasts: Context: no change in vision over last yr Modifying factors: diabetes under good control with oral meds Associated Signs & Symptoms: Attestation: ROS Constitutional: Loss of Weight (lost 30 lbs over last yr) ENT/Mouth NL Cardiovascular: High Blood Pressure Respiratory: NL Gastrointestinal: NL Genitourinary: NL Musculoskeletal: NL Integumentary: NL Neurologic: NL Psychiatric: NL Endocrine: Diabetes Hematologic: NL Immunologic: NL [employer] Distribution Consultant: Exposures: None Other: Attestation: Base Ophthalmology Exam Visual Acuity Right Left Dist sc 20/20 20/25 -2 Near cc J1+ J1+ Method: Snellen - Linear Tonometry Right Left Pressure 16 16 Method: Applanation Time: 9:48 Wearing Rx Sphere Cylinder Right +2.25 Sphere Left +2.25 Sphere Type: OTC reader Comments: Has Rx sunglasses but does not use often and did not bring Manifest Refraction (Auto) Sphere Cylinder [place] Dist Right +2.00 -1.50 080 20/20 Left +1.75 -1.25 090 20/20 Dilation Both eyes: 1.0% Mydriacyl, 2.5% Mj Synephrine @ 9:49 Pupils Pupils Dark APD Right PERRL 3 None Left PERRL 3 None Visual Powers Right Left Result Full Full Extraocular Movement Right Left Result Full Full Main Ophthalmology Exam Slit Lamp Exam Right Left Lids/Lashes [...] No diabetic retinopathy Normal, No diabetic retinopathy Neuro/Psych Oriented x3: Yes Mood/Affect: Normal DIAGNOSTIC TESTS: IMPRESSION & PLAN: DM -no diabetic retinopathy found on exam -emphasized importance of tight glycemic control -will CC note to PCP -DFE 1Y or sooner PRN Cataract, both eyes -not visually significant -continue to monitor I have reviewed the patient's past medical, family, social and surgical history. I have also reviewed the patient's medications, allergies, and problem list. I performed my own HPI and have reviewed the Arthena's ROS as well. I personally completed this exam myself. Asha Dumont MD I am scribing for Asha Dumont MD, while she is personally performing the service. Patient Education Topic: diabetes Method: Verbal Taught to: Patient Barriers: None Outcomes: independent Signature: Lilian Ybarra COA documented in this encounter Plan of Treatment Not on file documented as of this encounter Visit Diagnoses Diagnosis Type II or unspecified type diabetes mellitus without mention of complication, not stated as uncontrolled- Primary Nuclear sclerotic cataract of both eyes Senile nuclear sclerosis documented in this encounter Eye Exam Visual Acuity (Snellen - Linear) Right eye Left eye Dist sc 20/20 20/25 -2 Near cc J1+ J1+ Tonometry (Applanation, 9:48) Right eye Left eye Pressure 16 16 Pupils Pupils Dark APD Right eye PERRL 3 None Left eye PERRL 3 None Visual Powers Right eye Left eye Full Full Extraocular Movement Right eye Left eye Full Full Neuro/Psych Oriented x3: Yes Mood/Affect: Normal Dilation Both eyes: 1.0% Mydriacyl, 2 .5% Mj Synephrine @ 9:49 Slit Lamp Exam Right eye Left eye [...] retinopathy Normal, No diabetic retinopathy Wearing Rx Sphere Cylinder Right eye +2.25 Sphere Left eye +2.25 Sphere Type: OTC reader Has Rx sunglasses but does not use often and did not bring Manifest Refraction (Auto) Sphere Cylinder [place] Dist [place] Right eye +2.00 -1.50 080 20/20 Left eye +1.75 -1.25 090 20/20 Care Teams Test Pilot Relationship Specialty Start Date End Date Ramón Olguin MD [address] [place] [phone] PCP - General 06/15/09 06/13/19 documented as of this encounter
--- OUTSIDE RECORDS SUMMARY | 2024-08-05 15:03 | XMS_ITS | Encounter Summary ---
Author Organization [facility] Address [address] [place] [address] Care Team Providers Care Business Administration Teacher Name Role Phone Ramón Olguin MD Primary Care Provider Reason for Referral * (Routine) - Closed Specialty Diagnoses / Procedures Referred By Contac t Referred To Contact Diagnoses DM (diabetes mellitus) ([facility]) Procedures LIPID PROFILE (INCLUDES CHOLESTEROL, TRIGLYCERIDES, HDL, LDL) Ramón Olguin MD [address] [facility] [address] [place] [address] Referral ID Status Reason Start Date Expiration Date Visits Re quested Visits Authorized [id number] Closed 08/31/2012 1 1 * (Routine) - Closed Specialty Diagnoses / Procedures Referred By Contac t Referred To Contact Diagnoses DM (diabetes mellitus) ([facility]) Procedures HEMOGLOBIN A1C Ramón Olguin MD [address] [facility] [address] [place] [address] Referral ID Status Reason Start Date Expiration Date Visits Re quested Visits Authorized [id number] Closed 08/31/2012 1 1 * (Routine) - Closed Specialty Diagnoses / Procedures Referred By Contac t Referred To Contact Diagnoses DM (diabetes mellitus) ([facility]) Procedures ALBUMIN, URINE Ramón Olguin MD [address] [facility] [address] [place] [address] Referral ID Status Reason Start Date Expiration Date Visits Re quested Visits Authorized [id number] Closed 08/31/2012 1 1 * (Routine) - Closed Specialty Diagnoses / Procedures Referred By Contac t Referred To Contact Diagnoses DM (diabetes mellitus) ([facility]) Procedures BASIC METABOLIC PANEL Ramón Olguin MD [address] [facility] [address] [address] Referral ID Status Reason Start Date Expiration Date Visits Re quested Visits Authorized [id number] Closed 08/31/2012 1 1 Reason for Visit * Reason Comments Follow-up follow up meds / andrew betes fasting for blood work Encounter Details Date Type Department Care Team (Late st Contact Info) Description 08/31/2012 14:30 EDT Office Visit [facility] [address] [facility] [address] [place] [address] Ramón Olguin MD [address] [place] [phone] Hypertension; DM (diabetes mellitus) ([facility] ([facility]) Social History Tobacco Use Types Packs/Day [...] Sign Reading Time Taken Comments Blood Pressure 100/60 08/31/2012 1418 EDT Pulse 68 08/31/2012 1418 EDT Temperature 36.7 ??C (98.1 ??F) 08/31/2012 1418 EDT Respiratory Rate - - Oxygen Saturation - - Inhaled Oxygen Concentration - - Weight 117.1 kg (258 lb 3.2 oz) 08/31/2012 1418 EDT Height - - Body Mass Index - - documented in this encounter Progress Notes * Ramón Olguin - 08/31/20121951 EDT REASON FOR VISIT: Diabetic followup. SUBJECTIVE: Followup visit for diabetes and hypertension. No acute interval problems or complaints noted and actually it has been almost a year since last visit. He does acknowledge lack of followup,but no obvious acute interval problems noted. REVIEW OF SYSTEMS: Negative. OBJECTIVE: Blood pressure 100/60, pulse 68, temperature 98.1. Chest clear to auscultation. Cardiovascular: Regular rate and rhythm, no murmur. Abdomen nontender. Foot exam: Normal pulses, sensation decreased in distal feet, particularly great toes bilaterally, left worse than right, including monofi lament exam. No acute skin lesions noted. ASSESSMENT: 1. Adult-onset diabetes, hopefully still under good control. PLAN: 1. Recheck diabetic labs. 2. Continue yearly eye exam. 3. He declines flu shot and Pneumovax update. 2. Hypertension, well controlled. 3. Health maintenance - Due for next exam at least in 6 months. Emphasized importance of at least every six months followup. documented in this encounter Plan of Treatment Scheduled Orders Name Type Priority Associated Diagnoses Orde r Schedule BASIC METABOLIC PANEL Lab Routine DM (diabetes mellitus) ([facility] ([facility]) Ordered: 08/31/2012 ALBUMIN, URINE Lab Routine DM (diabetes mellitus) ([facility]) ([facility]) Ordered: 08/31/2012 HEMOGLOBIN A1C Lab Routine DM (diabetes mellitus) ([facility]) ([facility]) Ordered: 08/31/2012 LIPID PROFILE (INCLUDES CHOLESTEROL, TRIGLYCERIDES, HDL, LDL) Lab Routine DM (diabetes mellitus) ([facility]) ([facility]) Ordered: 08/31/2012 documented as of this encounter Visit Diagnoses Diagnosis Hypertension Unspecified essential hypertension DM (diabetes mellitus) ([facility]) Type II or unspecified type diabetes mellitus without mention of complication, not stated as uncontrolled documented in this encounter Care Teams Business Administration Teacher Relationship Specialty Start Date End Date Ramón Olguin MD [address] [place], [place] [phone] PCP - General 06/15/09 06/13/19 documented as of this encounter
--- OUTSIDE RECORDS SUMMARY | 2024-08-05 15:03 | XMS_ITS | Encounter Summary ---
Author Organization [facility] Address [address] [place] [address] Care Team Providers Care Journeyman Sheet Metal Worker Name Role Phone Ramón Olguin MD Primary Care Provider Reason for Visit * Reason Comments Other Encounter Details Date Type Department Care Team (Late st Contact Info) Description 01/20/2014 Refill [facility] [address] [facility] [address] [place] [address] Ramón Olguin MD [address] [place] [address] [address] [place] [phone] Other Social History Tobacco Use Types Packs/Day Years Used Date Smoking Tobacco: Every Day Cigarettes Smokeless Tobacco: Former Comments:pipe Alcohol Use Standard Drinks/Week Comments Yes 0 (1 standard drink = 0.6 oz pur e alcohol) beer on [facility] Sex and Gender Information Value Date Recorded Sex Assigned at Male 12/01/2019 14:49 EST Gender Identity Male 12/01/2019 14:49 EST Sexual Orientation Straight 12/01/2019 14 :49 EST documented as of this encounter Ordered Prescriptions Prescription Sig Dispensed Refills Start Date End Da te metoprolol XL (TOPROL-XL) 50 mg tablet TAKE ONE TABLET BY MOUTH EVERY DAY 90 Tab 3 01/20/2014 01/23/2014 lisinopril (PRINIVIL, ZESTRIL) 40 mg tablet TAKE ONE TABLET BY MOUTH EVERY DAY 90 Tab 3 01/20/2014 01/23/2014 metFORMIN (GLUCOPHAGE) 1,000 mg tablet TAKE ONE TABLET BY MOUTH TWICE A DAY 180 Tab 3 01/20/2014 01/23/2014 documented in this encounter Miscellaneous Notes * Telephone Encounter - Gogo Ridley, RN - 01/20/2014 0813 EST Last ov 09/04. Last labs 01/06. Refilled. documented in this encounter Plan of Treatment [...] on filedocumented in this encounter Care Teams Journeyman Sheet Metal Worker Relationship Specialty Start Date End Date Ramón Olguin MD [address] [place] [phone] PCP - General 06/15/09 06/13/19 documented as of this encounter
--- OUTSIDE RECORDS SUMMARY | 2024-08-05 15:03 | XMS_ITS | Encounter Summary ---
Author Organization [facility] Address [address] [place] [address] Care Team Providers Care Parachute Manufacturing Supervisor Name Role Phone Ramón Olguin MD Primary Care Provider Reason for Visit * Reason Comments Diabetes Last A1C 6.8, contro lled by medication Encounter Details Date Type Department Care Team (Late st Contact Info) Description 05/19/2012 9:15 EDT Office Visit [facility] [address] [place] [address] Asha Dumont [address] [place] [address] Social History Tobacco Use Types Packs/Day Years [...] :49 EST documented as of this encounter Patient Instructions * Patient Instructions* Lilian Ybarra - 05/19/2012 10:02 EDT Images from the original note were not included. [facility] Patient Instructions Floaters and Flashes: After Your Visit Your Care Instructions Floaters are spots, specks, and lines that float across your field of vision. They are caused by stray cells or strands of tissue that float in the gel-like substance that fills the inside of the eyeball. Flashes are sparkles or lightning streaks seen in your side, or peripheral, vision. While they sometimes can be a sign of more serious problems, floaters and flashes are usually just a normal part of getting older. They can be annoying, but they usually are not serious. If floaters bother you, you can try to look up and then down to move them out of the way. Floaters and flashes usually go away, or you get used to them. Study the warning signs below, and contact your doctor right away if any of them occur. The only way to know if these symptoms are serious is to have an eye exam. Follow-up care is a person part of your treatment and safety. Be sure to make and go to all appointments, and call your doctor if you are having problems. It???s also a good idea to know your test results and keep a list of the medicines you take. When should you call for help? Call your doctor now or seek immediate medical care if: ?? You have vision changes or see new flashes or floaters. Watch closely for changes in your health, and be sure to contact your doctor if: ?? You have new or worse symptoms. Where can you learn more? Go to [email or web address] Enter T465 in the search box to learn more about Floaters and Flashes: After Your Visit. ?? [phone] [employer]. Care instructions adapted under license by [facility], [facility]. This care instruction is for use with your licensed healthcare professional. If you have questions about a medical condition or this instruction, always ask your healthcare professional. [employer] disclaims any warranty or liability for your use of this information. Content Version: 9.2.091022; Last Revised: February 07, 2011 documented in this encounter Progress Notes * Asha Dumont - 05/19/2012 0959 EDT Chief Complaint Patient presents with ??? Diabetes Last A1C 6.8, controlled by medication HPI The patient is a 66 y.o. male w/ DM here for routine eval. Right Eye: NL Left Eye: NL Visual Fluctuations: None Visual Aid: Glasses Current Rx Age Location: Pain: 0 - No pain Quality: Severity: Duration: Timing: Lasts: Context: Modifying factors: Associated Signs & Symptoms: Visual Fluctuations: None Attestation: ROS Constitutional: NL Exposures: None Other: Attestation: Base Ophthalmology Exam Visual Acuity Right Left Both Dist cc 20/25 -2 20/20 -2 Near cc J3 J1 Method: Snellen - Linear Correction: Glasses Tonometry Right Left Pressure 14 16 Method: Applanation Time: 9:30 Wearing Rx Sphere Right +2.25 Left +2.25 Type: SVL- oc readers Manifest Refraction (Auto) Sphere Cylinder [place] Dist Right +1.75 -1.00 074 20/20 Left +1.50 -1.25 098 20/20 Dilation Both eyes: 1.0% Mydriacyl, 2.5% Phenylephrine @ 9:31 Pupils Pupils Dark APD Right PERRL 4 none Left PERRL 4 none Visual Powers Right Left Result Full Full Method: Counting fingers Extraocular Movement Right Left Result Full Full [...] eyes -not visually significant -continue to monitor PVD, Right eye -finding discussed with the patient -signs and symptoms of RD reviewed and patient instructions given -observe I have reviewed the patient's past medical, family, social and surgical history. I have also reviewed the patient's medications, allergies, and problem list. I performed my own HPI and have reviewed the tech's ROS as well. I personally completed this exam myself. Asha Dumont MD I am scribing for Asha Dumnot MD, while she is personally performing the service. Patient Education Topic: diabetes Method: Verbal Taught to: Patient Barriers: None Outcomes: independent Signature: ESTEFANY Nuñez documented in this encounter Plan of Treatment Not on file documented as of this encounter Visit Diagnoses Diagnosis DM (diabetes mellitus) ([facility] Primary Type II or unspecified type diabetes mellitus without mention of complication, not stated as uncontrolled PVD (posterior vitreous detachment), right eye Vitreous degeneration NS (nuclear sclerosis) Senile nuclear sclerosis documented in this encounter Eye Exam Visual Acuity (Snellen - Linear) Right eye Left eye Dist cc 20/25 -2 20/20 -2 Near cc J3 J1 Correction: Glasses Tonometry (Applanation, 9:30) Right eye Left eye Pressure 14 16 Pupils Pupils Dark APD Right eye PERRL 4 none Left eye PERRL 4 none Visual Powers (Counting fingers) Right eye Left eye Full Full Extraocular Movement Right eye Left eye Full Full Neuro/Psych Oriented x3: Yes Mood/Affect: Normal Dilation Both eyes: 1.0% Mydriacyl, 2 .5% Phenylephrine @ 9:31 Slit Lamp Exam Right eye Left eye [...] Normal, No diabetic retinopathy Wearing Rx Sphere Right eye +2.25 Left eye +2.25 Type: SVL- oc readers Manifest Refraction (Auto) Sphere Cylinder [place] Dist [place] Right eye +1.75 -1.00 074 20/20 Left eye +1.50 -1.25 098 20/20 Care Teams Parachute Manufacturing Supervisor Relationship Specialty Start Date End Date Ramón Olguin MD [address] [place] [phone] PCP - General 06/15/09 06/13/19 documented as of this encounter
--- OUTSIDE RECORDS SUMMARY | 2024-08-05 15:03 | XMS_ITS | Encounter Summary ---
Author Organization [facility] Address [address] [place] [address] Care Team Providers Care Business Instructor Name Role Phone Ramón Olguin MD Primary Care Provider Encounter Details Date Type Department Care Team (Late st Contact Info) Description 01/16/2014 Results Only [facility] [place] [address] [facility] [address] [place] [address] Ramón Olguin MD [address] [place] [address] [address] [place] [phone] Social History Tobacco Use Types [...] Diagnosis Comments BASIC METABOLIC PANEL ([facility]) Routine 01/16/2014 8:26 EST ALT Routine 01/16/2014 8:26 EST HEMOGLOBIN A1C Routine 01/16/2014 8:26 EST LIPID PROFILE (INCLUDES CHOLESTEROL, TRIGLYCERIDES, HDL, LDL) Routine 01/16/2014 8:26 EST documented in this encounter Results * (ABNORMAL) HEMOGLOBIN A1C (01/16/2014 8:26 EST) Hemoglobin A1C, External 7.6(H) 4.0 - 6.0 % [facility] Est Avg Glucose, External 171 mg/dL [facility] 01/16/2014 8:26 EST 01/16/2014 8:26 EST Narrative [facility] - 01/16/2014 11:38 EST Does PT Have a Latex Allergy? NO Ramón Olguin MD CHEMISTRY & BL OOD GAS ORDERABLES Performing Organization Address [facility]/ZIP Co de Phone Number [facility] * ALT (01/16/2014 8:26 EST) ALT, External 29 12 - 78 U/L [facility] 01/16/2014 8:26 EST 01/16/2014 8:26 EST Narrative [facility] - 01/16/2014 9:20 EST Does PT Have a Latex Allergy? NO Ramón Olguin MD CHEMISTRY & BL OOD GAS ORDERABLES [facility] * (ABNORMAL) LIPID PROFILE (INCLUDES CHOLESTEROL, TRIGLYCERIDES, HDL, LDL) (01/16/2014 8:26 EST) Triglycerides, External 126 35 - 150 mg/dL [facility] Cholesterol, External 141 120 - 200 mg/dL [facility] Chol/HDL Ratio, External 4.1 0 - 5.0 [facility] Comment: DESIRABLE RATIO IS LESS THAN 4.1 PATIENTS ARE CONSIDERED AT RISK: WOMEN RATIO >5 MEN RATIO >6 Fasting?, External Yes [facility] HDL, External 34(L) 40 - 60 mg/dL [facility] LDL, External 82 60 - 100 mg/dL [facility] Non HDL Chol, External 107 mg/dl [facility] Comment: Desirable: ?Less than 130 Borderline High: ??130-159 High: ? 160-189 Very High: ?Greater than or equal to 190 01/16/2014 8:26 EST 01/16/2014 8:26 EST Narrative [facility] - 01/16/2014 9:20 EST Does PT Have a Latex Allergy? NO Ramón Olguin MD CHEMISTRY & BL OOD GAS ORDERABLES [facility] * (ABNORMAL) BASIC METABOLIC PANEL ([facility]) (01/16/2014 8:26 EST) Bun, External 26(H) 7 - 18 mg/dL [facility] Calcium, External 9.5 8.5 - 10.1 mg/dL [facility] Chloride, External 103 98 - 107 mEq/L [facility] CO2, External 29 21 - 32 mEq/L [facility] Creatinine, External 1.4 0.5 - 1.4 mg/dL [facility] GFR, Ole/Est., External 54 [facility] Comment: Stage 3: Moderate renal impairment is defined as GFR 30-59 Multiply result by 1.210 for patients. Glucose, Serum, External 202(H) 70 - 100 mg/dL [facility] Potassium, External 4.8 3.5 - 5.0 mEq/L [facility] Sodium, External 138 135 - 145 mEq/L [facility] 01/16/2014 8:26 EST 01/16/2014 8:26 EST Narrative [facility] - 01/16/2014 9:20 EST Does PT Have a Latex Allergy? NO Ramón Olguin MD CHEMISTRY & BL OOD GAS ORDERABLES [facility] documented in this encounter Visit Diagnoses Not on filedocumented in this encounter Care Teams Business Instructor Relationship Specialty Start Date End Date Ramón Olguin MD [address] [place] [phone] PCP - General 06/15/09 06/13/19 documented as of this encounter
--- OUTSIDE RECORDS SUMMARY | 2024-08-05 15:03 | XMS_ITS | Encounter Summary ---
Author Organization [facility] Address [address] [place] [address] Care Team Providers Care Primary Care Pediatrician Name Role Phone Ramón Olguin MD Primary Care Provider Reason for Referral * Radiology Services (Routine/Next Available) - Closed Specialty Diagnoses / Procedures Referred By Contac t Referred To Contact Diagnoses Screening Procedures RAD US AAA SCREENING Ramón Olguin MD [address] [place] [address] Referral ID Status Reason Start Date Expiration Date Visits Re quested Visits Authorized [id number] Closed 01/10/2014 1 1 * Consult (Routine) - Closed Specialty Diagnoses / Procedures Referred By Contac t Referred To Contact Orthopedic Surgery Diagnoses Trigger finger, left Ramón Olguin MD [address] [place] [address] Referral ID Status Reason Start Date Expiration Date V isits Requested Visits Authorized [id number] Closed Specialty Services Required 01/10/2014 1 1 Question Answer Reason for Request: probable trigger finer 3rd digitt, pain and locking * (Routine) - Closed Specialty Diagnoses / Procedures Referred By Contac t Referred To Contact Diagnoses Diabetes mellitus ([facility]) Procedures ALT Ramón Olguin MD [address] [place] [address] Referral ID Status Reason Start Date Expiration Date Visits Re quested Visits Authorized [id number] Closed 01/10/2014 1 1 * (Routine) - Closed Specialty Diagnoses / Procedures Referred By Contac t Referred To Contact Diagnoses Diabetes mellitus ([facility]) Procedures HEMOGLOBIN A1C Ramón Olguin MD [address] [facility] [address] [place] [address] Referral ID Status Reason Start Date Expiration Date Visits Re quested Visits Authorized [id number] Closed 01/10/2014 1 1 * (Routine) - Closed Specialty Diagnoses / Procedures Referred By Contac t Referred To Contact Diagnoses Diabetes mellitus ([facility]) Procedures BASIC METABOLIC PANEL Ramón Olguin MD [address] [facility] [address] [place] [address] Referral ID Status Reason Start Date Expiration Date Visits Re quested Visits Authorized [id number] Closed 01/10/2014 1 1 * (Routine) - Closed Specialty Diagnoses / Procedures Referred By Contac t Referred To Contact Diagnoses Diabetes mellitus ([facility]) Procedures LIPID PROFILE (INCLUDES CHOLESTEROL, TRIGLYCERIDES, HDL, LDL) Ramón Olguin MD [address] [facility] [address] [place] [address] Referral ID Status Reason Start Date Expiration Date Visits Re quested Visits Authorized [id number] Closed 01/10/2014 1 1 Reason for Visit * Reason Comments Diabetes 6 month follow up. N o concerns today. Medications Refill Lisinopril, Metformi n, and Metoprolol. PENDED. Arthritis Would like to talk a bout arthritis in hands. Encounter Details Date Type Department Care Team (Late st Contact Info) Description 01/10/2014 15:00 EST Office Visit [facility] [address] [facility] [address] [place] [address] Ramón Olguin MD [address] [place] [address] [address] [place] [phone] Hypertension (Primary Dx); Diabetes mellitus (CMS-HCC) (HCC-CMS); Trigger finger, left; Screening Social History Tobacco Use Types Packs/Day Years [...] Sign Reading Time Taken Comments Blood Pressure 136/86 01/10/2014 1423 EST Pulse 80 01/10/2014 1423 EST Temperature 37 ??C (98.6 ??F) 01/10/2014 1423 EST Respiratory Rate 20 01/10/2014 1423 EST Oxygen Saturation - - Inhaled Oxygen Concentration - - Weight 120.7 kg (266 lb) 01/10/2014 1423 EST Height - - Body Mass Index - - documented in this encounter Ordered Prescriptions Prescription Sig Dispensed Refills Start Date End Da te atorvastatin (LIPITOR) 10 mg tabletIndications:Diabete s mellitus (HCC-CMS) Take 1 Tab by mouth daily. 90 Tab 3 01/10/2014 12/20/2014 metoprolol XL (TOPROL-XL) 50 mg tabletIndications:Hyperte nsive disorder TAKE ONE TABLET BY MOUTH EVERY DAY. 90 Each 3 01/10/2014 01/23/2014 metFORMIN (GLUCOPHAGE) 1,000 mg tabletIndications:Diabete s mellitus (HCC-CMS) TAKE ONE TABLET BY MOUTH TWICE A DAY. 180 Each 3 01/10/2014 01/23/2014 lisinopril (PRINIVIL, ZESTRIL) 40 mg tabletIndications:Hyperte nsive disorder TAKE ONE TABLET BY MOUTH EVERY DAY. 90 Each 01/10/2014 01/23/2014 documented in this encounter Progress Notes * Ramón Olguin - 01/11/2014 0808 EST REASON FOR VISIT: Diabetes and joint pain. SUBJECTIVE: The patient here primarily for diabetes followup. Overall, has had decent control of diabetes, but is due for a recheck of this. He continues on current medicines. He does not check his sugars regularly. Overall, weight has been stable. We discussed diabetic diet and weight issues. He continues on his current medicines, otherwise. He has hypertension, which has been well controlled with current medication, which was reviewed. In addition, cholesterol has been close to target, but given the recommendations I did suggest starting a low-dose statin as he does have other risk factors for arthrosclerotic disease. He is willingto try this and side effects were discussed. He does continue to smoke a pipe. We did discuss trying to cut back on this. Another complaint is joint pain in hands. He describes both hands being painful, but particularly he has pain over 3rd digit of left hand. He notes a nodule at the palmar aspect just proximal to IP joint. This is painful and he does not at times the finger getting stuck and has to be manually released. This is slowly getting worse and at other times has discomfort with hands, IP and PIP joints slightly more prominent at times. No other joint complaints noted. REVIEW OF SYSTEMS: No cold, flu or febrile complaints. No respiratory, cardiac, GI, genitourinary, hematologic or mental health concerns. OBJECTIVE: Blood pressure 136/86, pulse 80, temp 98.6. General: Alert, lucid, articulate. Chest: Clear to auscultation. Cardiovascular: Regular rate and rhythm, no murmur. Abdomen: Positive bowel sounds, soft, nontender. Foot exam: Normal pulses, sensation and monofilament testing. Upper extremity exam: No obvious edema or signs of inflammation seen, but mildly tender to palpation over several IP joints and particularly does have a small nodule over MP joint, the 3rd digit on the left, which is mildly sore. He has good range of motion of the finger currently. ASSESSMENT: PROBLEM 1: Adult-onset diabetes, which has been under good control. PLAN: 1. Recheck diabetic labs. 2. Adjust treatment as needed. 3. We will add Lipitor 10 mg a day. 4. We will recheck cholesterol panel in 3 to 4 months. Side effects were discussed. PROBLEM 2: Hypertension -- well-controlled. PLAN: Continue current medicines. 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 PLAN: 1. Orthopaedic referral regarding trigger finger. 2. Otherwise, supportive care. cc: Orthopedics documented in this encounter Plan of Treatment Scheduled Orders Name Type Priority Associated Diagnoses Orde r Schedule LIPID PROFILE (INCLUDES CHOLESTEROL, TRIGLYCERIDES, HDL, LDL) Lab Routine Diabetes mellitus ([facility] ([facility]) Ordered: 01/10/2014 BASIC METABOLIC PANEL Lab Routine Diabetes mellitus ([facility] ([facility]) Ordered: 01/10/2014 HEMOGLOBIN A1C Lab Routine Diabetes mellitus ([facility] ([facility]) Ordered: 01/10/2014 ALT Lab Routine Diabetes mellitus ([facility] ([facility]) Ordered: 01/10/2014 RAD US AAA SCREENING Imaging Routine Screening Ordered: 01/10/2014 Scheduled Referrals Name Type Priority Associated Diagnoses Order Schedule AMB CONSULT ORTHOPEDICS Outpatient Referral Routine Trigger finger, left Ordered: 01/10/2014 documented as of this encounter Goals Goal Patient Goal Type Associated Problems Recent Progress Patient-Stated? Author HEMOGLOBINA 1CEXT < 7 Result Component 8.2(05/13/2019 14:15 EDT) No Abbie Winter LPN LDLEXT < 100 Result Component 76(05/13/2019 14:15 EDT) No Abbie Winter LPN documented as of this encounter Visit Diagnoses Diagnosis Hypertension- Primary Unspecified essential hypertension Diabetes mellitus ([facility]) Type II or unspecified type diabetes mellitus without mention of complication, not stated as uncontrolled Trigger finger, left Trigger finger (acquired) Screening Screening for unspecified condition documented in this encounter Discontinued Medications Medication Sig Discontinue Reason Start Date End Da te lisinopril (PRINIVIL, ZESTRIL) 40 mg tablet TAKE ONE TABLET BY MOUTH EVERY DAY Reorder 01/21/2013 01/10/2014 metformin (GLUCOPHAGE) 1,000 mg tablet TAKE ONE TABLET BY MOUTH TWICE A DAY Reorder 01/21/2013 01/10/2014 metoprolol XL (TOPROL-XL) 50 mg tablet TAKE ONE TABLET BY MOUTH EVERY DAY Reorder 01/21/2013 01/10/2014 documented as of this encounter Care Teams Primary Care Pediatrician Relationship Specialty Start Date End Date Ramón Olguin MD [address] [place] [phone] PCP - General 06/15/09 06/13/19 documented as of this encounter
--- OUTSIDE RECORDS SUMMARY | 2024-08-05 15:03 | XMS_ITS | Encounter Summary ---
Author Organization [facility] Address [address] [place] [address] Care Team Providers Care Geometry Tutor Name Role Phone Ramón Olguin MD Primary Care Provider Encounter Details Date Type Department Care Team (Late st Contact Info) Description 04/07/[address] [facility] [address] [facility] [address] [place] [address] Ramón Olguin MD [address] [place] [address] [address] [place] [phone] Social History Tobacco Use Types [...] as of this encounter Progress Notes * Viola Moses - 04/07/2013 1006 EDT COLO documented in this encounter Plan of Treatment Not on file documented as of this encounter Procedures Procedure Name Priority Date/Time Associated Diagnosis Comments COLONOSCOPY PROCEDURE Routine 03/28/2013 documented in this encounter Results * COLONOSCOPY (03/28/2013) Colonoscopy ABNORMAL [facility] Comment:REPEAT IN 2018 Colonoscopy, External [facility] Anatomical Region Laterality Modality Endoscopy 03/28/2013 Historical Provider MD GI PROCEDURE RICK OLEARY documented in this encounter Visit Diagnoses Not on filedocumented in this encounter Care Teams Geometry Tutor Relationship Specialty Start Date End Date Ramón Olguin MD [address] [place] [phone] PCP - General 06/15/09 06/13/19 documented as of this encounter
--- OUTSIDE RECORDS SUMMARY | 2024-08-05 15:03 | XMS_ITS | Encounter Summary ---
Author Organization [facility] Address [address] [place] [address] Care Team Providers Care Conservation Scientist Name Role Phone Ramón Olguin MD Primary Care Provider Reason for Referral * (Routine) - Closed Specialty Diagnoses / Procedures Referred By Ernestina t Referred To Contact Diagnoses Diabetes mellitus ([facility]) Procedures HEMOGLOBIN A1C Ramón Olguin MD [address] [address] Referral ID Status Reason Start Date Expiration Date Visits Re quested Visits Authorized [id number] Closed 03/14/2013 1 1 * (Routine) - Closed Specialty Diagnoses / Procedures Referred By Contavel t Referred To Contact Diagnoses Malaise Procedures HEPATITIS C ANTIBODY Ramón Olguin MD [address] [address] Referral ID Status Reason Start Date Expiration Date Visits Re quested Visits Authorized [id number] Closed 03/14/2013 1 1 * (Routine) - Closed Specialty Diagnoses / Procedures Referred By Ernestina t Referred To Contact Diagnoses Hypertensive disorder Procedures LIPID PROFILE (INCLUDES CHOLESTEROL, TRIGLYCERIDES, HDL, LDL) Ramón Olguin MD [address] [place] [address] Referral ID Status Reason Start Date Expiration Date Visits Re quested Visits Authorized [id number] Closed 03/14/2013 1 1 * (Routine) - Closed Specialty Diagnoses / Procedures Referred By Contac t Referred To Contact Diagnoses Hypertensive disorder Procedures BASIC METABOLIC PANEL Ramón Olguin MD [address] [facility] [address] [address] Referral ID Status Reason Start Date Expiration Date Visits Re quested Visits Authorized [id number] Closed 03/14/2013 1 1 Reason for Visit * Reason Comments Follow-up follow up 6 months f ollow up and pt fasting for blood work Encounter Details Date Type Department Care Team (Late st Contact Info) Description 03/14/2013 9:45 EDT Office Visit [facility] 130 [facility] [address] [place] [address] Ramón Olguin MD [address] [place] [phone] Hypertension (Primary Dx); Diabetes mellitus (CMS-HCC) (HCC-CMS); Malaise; Need for Tdap vaccination Social History Tobacco Use Types Packs/Day [...] Sign Reading Time Taken Comments Blood Pressure 118/68 03/14/2013 0950 EDT Pulse 68 03/14/2013 0950 EDT Temperature 36.7 ??C (98 ??F) 03/14/2013 0950 EDT Respiratory Rate - - Oxygen Saturation - - Inhaled Oxygen Concentration - - Weight 118.8 kg (262 lb) 03/14/2013 0950 EDT Height - - Body Mass Index - - documented in this encounter Progress Notes * Ramón Olguin - 03/14/20135 EDT REASON FOR VISIT: Diabetic followup. SUBJECTIVE: The patient returns for diabetic followup and hypertension followup. Overall, generallydoing well, no interval problems or complaints noted. He does note modest weight gain over the winter, is planning on losing this again. Otherwise in usual health. He still continues to smoke a pipe and intermittent cigarettes. At this point, not ready to quit. 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 He is due for lab work. REVIEW OF SYSTEMS: Negative. OBJECTIVE: Blood pressure 118/68, pulse 68, temp 98. Chest clear to auscultation. Cardiovascular: Regular rate and rhythm, no murmur. Abdomen nontender. Extremity exam: Normal pulses and sensation offeet with the exception of slight decreased sensation near great toes bilaterally, no lesions noted. ASSESSMENT: 1. Adult onset diabetes, which has been stable with mild neuropathy. PLAN: 1. Continue current treatment and recheck labs. 2. Follow up in six months. 2. Hypertension, decent control. Continue current treatment. 3. Health maintenance. PLAN: 1. Discussed smoking cessation, encouraged him to consider this. 2. Colonoscopy is planned. 3. Follow up as needed. documented in this encounter Plan of Treatment Scheduled Orders Name Type Priority Associated Diagnoses Orde r Schedule BASIC METABOLIC PANEL Lab Routine Hypertension Ordered: 03/14/2013 LIPID PROFILE (INCLUDES CHOLESTEROL, TRIGLYCERIDES, HDL, LDL) Lab Routine Hypertension Ordered: 03/14/2013 HEPATITIS C ANTIBODY Lab Routine Malaise Ordered: 03/14/2013 HEMOGLOBIN A1C Lab Routine Diabetes mellitus ([facility]) ([facility]) Ordered: 03/14/2013 documented as of this encounter Visit Diagnoses Diagnosis Hypertensive disorder- Primary Unspecified essential hypertension Diabetes mellitus ([facility]) Type II or unspecified type diabetes mellitus without mention of complication, not stated as uncontrolled Malaise Other malaise and fatigue Need for Tdap vaccination Need for prophylactic vaccination with combined swltgmpirx-nhdyirw-rjkylyhbq (DTP) vaccine documented in this encounter Orders Immunization/Injection Count Last Ordered Date First Ordered Date TDAP VACCINE =>7YO IM 1 03/14/2013 documented in this encounter Care Teams Conservation Scientist Relationship Specialty Start Date End Date Ramón Olguin MD [address] [place] [address] [phone] PCP - General 06/15/09 06/13/19 documented as of this encounter
--- OUTSIDE RECORDS SUMMARY | 2024-08-05 15:03 | XMS_ITS | Encounter Summary ---
Author Organization [facility] Address [address] [place] [address] Care Team Providers Care Retail Cosmetics Sales Counter Manager Name Role Phone Ramón Olguin MD Primary Care Provider Reason for Visit * Reason Comments Other Encounter Details Date Type Department Care Team (Late st Contact Info) Description 01/21/[address] [facility] Medicine [facility] [address] [facility] [address] [place] [address] Ramón Olguin MD [address] [place] [address] [address] [place] [phone] Other Social History Tobacco Use [...] ONE TABLET BY MOUTH EVERY DAY 90 Each 3 01/21/2013 01/10/2014 metformin (GLUCOPHAGE) 1,000 mg tablet TAKE ONE TABLET BY MOUTH TWICE A DAY 180 Each 3 01/21/2013 01/10/2014 metoprolol XL (TOPROL-XL) 50 mg tablet TAKE ONE TABLET BY MOUTH EVERY DAY 90 Each 3 01/21/2013 01/10/2014 documented in this encounter Miscellaneous Notes * Telephone Encounter - So Vazquez RN - 01/25/2013 1017 EST Medication electronically signed and sent to pharmacy. documented in this encounter Plan of Treatment Not on file documented as of this encounter Visit Diagnoses Not on filedocumented in this encounter Discontinued Medications Medication Sig Discontinue Reason Start Date End Da te metoprolol XL (TOPROL XL) 50 mg tabletIndications:Hyperte nsion Take 1 Tab by mouth daily. Reorder 01/26/2012 01/21/2013 metformin (GLUCOPHAGE) 1,000 mg tabletIndications:DM (diabetes mellitus) ([facility]) Take 1 Tab by mouth 2 times daily. Reorder 01/26/2012 01/21/2013 lisinopril (PRINIVIL, ZESTRIL) 40 mg tabletIndications:Hyperte nsion Take 1 Tab by mouth daily. Reorder 01/26/2012 01/21/2013 documented as of this encounter Care Teams Retail Cosmetics Sales Counter Manager Relationship Specialty Start Date End Date Ramón Olguin MD [address] [place] [address] [phone] PCP - General 06/15/09 06/13/19 documented as of this encounter
--- OUTSIDE RECORDS SUMMARY | 2024-08-05 15:03 | XMS_ITS | Encounter Summary ---
Author Organization [facility] Address [address] [place] [address] Care Team Providers Care Electrical Wirer Name Role Phone Ramón Olguin MD Primary Care Provider Reason for Referral * (Routine) - Closed Specialty Diagnoses / Procedures Referred By Contac t Referred To Contact Diagnoses Diabetes mellitus ([facility]) Procedures HEMOGLOBIN A1C Ramón Olguin MD [address] [facility] [address] [place] [address] Referral ID Status Reason Start Date Expiration Date Visits Re quested Visits Authorized [id number] Closed 08/29/2013 1 1 * (Routine) - Closed Specialty Diagnoses / Procedures Referred By Contac t Referred To Contact Diagnoses Diabetes mellitus ([facility]) Procedures BASIC METABOLIC PANEL Ramón Olguin MD [address] [place] [address] Referral ID Status Reason Start Date Expiration Date Visits Re quested Visits Authorized [id number] Closed 08/29/2013 1 1 * (Routine) - Closed Specialty Diagnoses / Procedures Referred By Contac t Referred To Contact Diagnoses Diabetes mellitus ([facility]) Procedures ALBUMIN, URINE Ramón Olguin MD [address] [facility] [address] [place] [address] Referral ID Status Reason Start Date Expiration Date Visits Re quested Visits Authorized [id number] Closed 08/29/2013 1 1 Reason for Visit * Reason Comments Follow-up Medications. Pt stat es per facility. Encounter Details Date Type Department Care Team (Mirta st Contact Info) Description 08/29/2013 9:[address] [facility] [address] [facility] [address] [place] [address] Ramón Olguin MD [address] [place] [address] [address] [place] [phone] Diabetes mellitus (CMS-HCC) ([facility]) (Primary Dx); Hypertension; Shoulder pain; Need for pneumococcal vaccination Social History Tobacco Use Types Packs/Day Years Used Date Smoking Tobacco: Every Day Cigarettes Smokeless Tobacco: Current Comments:pipe Alcohol Use Standard Drinks/Week Comments Yes 0 (1 standard drink = 0.6 oz pur e alcohol) beer on [facility] Sex and Gender Information Value Date Recorded Sex Assigned at Male 12/01/2019 14:49 EST Gender Identity Male 12/01/2019 14:49 EST Sexual Orientation Straight 12/01/2019 14 :49 EST documented as of this encounter Last Filed Vital Signs Vital Sign Reading Time Taken Comments Blood Pressure 130/80 08/29/2013 2222 EDT rcheck Pulse 76 08/29/2013 0856 EDT Temperature 37.1 ??C (98.8 ??F) 08/29/2013 0856 EDT Respiratory Rate - - Oxygen Saturation - - Inhaled Oxygen Concentration - - Weight 119.7 kg (264 lb) 08/29/2013 0856 EDT Height - - Body Mass Index - - documented in this encounter Progress Notes * Ramón Olguin - 08/29/20132220 EDT REASON FOR VISIT: Diabetes and hypertension. SUBJECTIVE: Followup visit for diabetes and hypertension. He still continues to smoke occasionally.No acute interval problems noted. He is due for lab work today. He is also due for an update of his pneumonia shot. REVIEW OF SYSTEMS: Otherwise unremarkable for any other acute complaints. OBJECTIVE: Blood pressure 146/100, at recheck was 130/80, pulse 76, temperature 98.8. Chest: Clear to auscultation. Cardiovascular: Regular rate and rhythm, 2/6 early systolic murmur. Abdomen: Nontender. Foot exam: Normal appearance, normal pulses, normal monofilament. Exam was significant for a slight decreased sensation over lateral aspect of feet. Otherwise, no other acute abnormality noted. ASSESSMENT: 1. New onset diabetes. PLAN: 1. Discussed diet, exercise and weight loss. 2. Continue current medication. 3. Recheck diabetic labs. 4. Continue yearly eye exam. 2. Hypertension. Higher than usual initially on exam, but this improved after a recheck. He generally has had well controlled blood pressure. PLAN: 1. Continue current treatment. 2. Next exam in 6 months. documented in this encounter Plan of Treatment Scheduled Orders Name Type Priority Associated Diagnoses Orde r Schedule ALBUMIN, URINE Lab Routine Diabetes mellitus ([facility]) ([facility]) Ordered: 08/29/2013 BASIC METABOLIC PANEL Lab Routine Diabetes mellitus ([facility]) ([facility]) Ordered: 08/29/2013 HEMOGLOBIN A1C Lab Routine Diabetes mellitus ([facility]) ([facility]) Ordered: 08/29/2013 documented as of this encounter Visit Diagnoses Diagnosis Diabetes mellitus ([facility])- Primary Type II or unspecified type diabetes mellitus without mention of complication, not stated as uncontrolled Hypertensive disorder Unspecified essential hypertension Shoulder pain Pain in joint, shoulder region Need for pneumococcal vaccination Need for prophylactic vaccination against streptococcus pneumoniae (pneumococcus) documented in this encounter Orders Immunization/Injection Count Last Ordered Date First Ordered Date PNEUMOCOCCAL POLYSACCHARIDE VACCINE 23-VALENT =>2YO SQ/IM 1 08/29/2013 documented in this encounter Care Teams Electrical Wirer Relationship Specialty Start Date End Date Ramón Olguin MD [address] [place] [address] [phone] PCP - General 06/15/09 06/13/19 documented as of this encounter
--- OUTSIDE RECORDS SUMMARY | 2024-08-05 15:03 | XMS_ITS | Encounter Summary ---
Author Organization [facility] Address [address] [place] [address] Care Team Providers Care Hardware Trainer Name Role Phone Unavailable Primary Care Provider Unavailabl e Encounter Details Date Type Department Care Team (Late st Contact Info) Description 09/18/2008 Before PRISM Converted Visit (Maple) [facility] - Maple conversion [address] [place] [address] Ramón Olguin MD [address] [place] [address] [phone] Social History Tobacco Use Types Packs/Day Years Used Date Smoking Tobacco: Never Assessed Sex and Gender Information Value Date Recorded Sex Assigned at Male 12/01/2019 14:49 EST Gender Identity Male 12/01/2019 14:49 EST Sexual Orientation Straight 12/01/2019 14 :49 EST documented as of this encounter Progress Notes * Ramón Olguin L - 06/14/2009 193 EDT [facility] PROGRESS/FOLLOWUP NOTE - 09/18/2008 REASON FOR VISIT: Diabetes and hypertension followup. SUBJECTIVE Patient doing well. No interval problems or complaints. Current medical problems stable. No interval difficulties noted. No medicines reviewed. Also reviewed A1c, which shows diabetes stable, and patient with good cholesterol level. OBJECTIVE See chart for further details. Exam unremarkable. ASSESSMENT Hypertension, diabetes - doing well. PLAN 1. Continue current medicine. 2. Flu shot. 3. Next exam in six months, sooner as needed. The patient was verbally educated on diabetes. There were no barriers to learning and the patient verbalized understanding. Signed by Ramón Olguin MD 09/29/2008 21:38 Ramón Olguin MD P Job ID [id number] P/ELVIN Doc ID [id number] cc: [employer] [id number] \* MERGEFORMAT [id number] cc: documented in this encounter Plan of Treatment Not on file documented as of this encounter Visit Diagnoses Not on filedocumented in this encounter
--- OUTSIDE RECORDS SUMMARY | 2024-08-05 15:03 | XMS_ITS | Encounter Summary ---
Author Organization [facility] Address [address] [place] [address] Care Team Providers Care Internet Sales Associate Name Role Phone Ramón Olguin MD Primary Care Provider Reason for Referral * (Routine) - Closed Specialty Diagnoses / Procedures Referred By Contac t Referred To Contact Diagnoses Screening for prostate cancer Procedures PSA Ramón Olguin MD [address] [facility] [address] [place] [address] Referral ID Status Reason Start Date Expiration Date Visits Re quested Visits Authorized [id number] Closed 02/10/2011 1 1 * (Routine) - Closed Specialty Diagnoses / Procedures Referred By Contac t Referred To Contact Diagnoses DM (diabetes mellitus) ([facility]) Procedures LIPID PROFILE (INCLUDES CHOLESTEROL, TRIGLYCERIDES, HDL, LDL) Ramón Olguin MD [address] [facility] [address] [place] [address] Referral ID Status Reason Start Date Expiration Date Visits Re quested Visits Authorized [id number] Closed 02/10/2011 1 1 * (Routine) - Closed Specialty Diagnoses / Procedures Referred By Contac t Referred To Contact Diagnoses DM (diabetes mellitus) ([facility]) Procedures HEMOGLOBIN A1C Ramón Olguin MD [address] [place] [address] Referral ID Status Reason Start Date Expiration Date Visits Re quested Visits Authorized [id number] Closed 02/10/2011 1 1 * (Routine) - Closed Specialty Diagnoses / Procedures Referred By Contac t Referred To Contact Diagnoses DM (diabetes mellitus) ([facility]) Procedures MICROALBUMIN Ramón Olguin MD [address] [address] Referral ID Status Reason Start Date Expiration Date Visits Re quested Visits Authorized [id number] Closed 02/10/2011 1 1 * (Routine) - Closed Specialty Diagnoses / Procedures Referred By Contac t Referred To Contact Diagnoses Hypertension Procedures BASIC METABOLIC PANEL Ramón Olguin MD [address] [address] Referral ID Status Reason Start Date Expiration Date Visits Re quested Visits Authorized [id number] Closed 02/10/2011 1 1 * (Routine) - Closed Specialty Diagnoses / Procedures Referred By Contac t Referred To Contact Diagnoses DM (diabetes mellitus) ([facility]) Procedures ALT Ramón Olguin MD [address] [address] Referral ID Status Reason Start Date Expiration Date Visits Re quested Visits Authorized [id number] Closed 02/10/2011 1 1 Reason for Visit * Reason Comments Diabetes follow up Encounter Details Date Type Department Care Team (Late st Contact Info) Description 02/10/2011 10:45 EDT Office Visit [facility] [address] [facility] [address] [place], [place] [phone] Ramón Olguin MD [address] [place] [phone] DM (diabetes mellitus) ([facility] ([facility]); Hypertension; Screening for prostate cancer Social History Tobacco Use Types Packs/Day Years [...] Sign Reading Time Taken Comments Blood Pressure 126/70 02/10/2011 1043 EDT Pulse 70 02/10/2011 1043 EDT Temperature 36.9 ??C (98.5 ??F) 02/10/2011 1043 EDT Respiratory Rate - - Oxygen Saturation - - Inhaled Oxygen Concentration - - Weight 123 kg (271 lb 3.2 oz) 02/10/2011 1043 ED T Height - - Body Mass Index - - documented in this encounter Progress Notes * Ramón Olgiun - 02/14/2011 1619 EDT [facility] PROGRESS/FOLLOWUP NOTE - 02/10/2011 REASON FOR VISIT: Diabetes and hypertension followup. SUBJECTIVE: Patient is here for followup. It has been a year since last visit. He missed a 6-month followup in the summer months. No interval problems or complaints. He spent much of the last year, attending to his who has had a chronic illness. Lucas remains active without difficulty. No complaints. He thinks diabetes and high blood pressure have been well controlled at home. He has lost weight since last visit. He is up to date regarding eye and dental care. Of note, he does still use a pipe and chew tobacco. This was discussed. OBJECTIVE: Blood pressure 126/70, pulse 70, temperature 98.5. Head, Mouth, Throat Exam: No acute abnormality. Chest clear to auscultation. Cardiovascular: Regular rate and rhythm, no murmur. Abdomen positive bowel sounds, soft, nontender. Foot Exam: Distal decreased sensation particularly left toescompared to right, otherwise normal with normal pulses. ASSESSMENT: 1. Adult-onset diabetes, mild neuropathy, overall stable. PLAN: 1. Recheck labs. Microalbumin, lipid panel, A1c and adjust treatment as needed. 2. Follow up in 6 months. Emphasized regular followup. 2: Hypertension. Well controlled. Electronically Signed by Ramón Olguin MD 02/14/2011 16:19 Ramón Olguin MD - Ramón Olguin MD - NIKKIE Job ID: SM Doc ID: [id number] Ext Doc ID: [id number] cc: * Ramón Olguin - 02/10/2011 1300 EDT This office note has been dictated. documented in this encounter Plan of Treatment Scheduled Orders Name Type Priority Associated Diagnoses Orde r Schedule ALT Lab Routine DM (diabetes mellitus) ([facility]) ([facility]) Ordered: 02/10/2011 BASIC METABOLIC PANEL Lab Routine Hypertension Ordered: 02/10/2011 PSA Lab Routine Screening for prostate cancer Ordered: 02/10/2011 documented as of this encounter Procedures Procedure Name Priority Date/Time Associated Diagnosis Comments URINE [id number] RATIO (ACR) Routine 02/10/2011 DM (diabetes mellitus) ([facility] ([facility]) HEMOGLOBIN A1C Routine 02/10/2011 DM (diabetes mellitus) ([facility] ([facility]) LIPID PROFILE (INCLUDES CHOLESTEROL, TRIGLYCERIDES, HDL, LDL) Routine 02/10/2011 DM (diabetes mellitus) ([facility] ([facility]) documented in this encounter Results * LIPID PROFILE (INCLUDES CHOLESTEROL, TRIGLYCERIDES, HDL, LDL) (02/10/2011) Cholesterol, External 152 [facility] Triglycerides, External 196 [facility] HDL, External 37 [facility] LDL, External 76 [facility] Chol/HDL Ratio, External [facility] Fasting?, External [facility] Blood specimen (specimen) 02/10/2011 Ramón Olguin MD CHEMISTRY & BL OOD GAS ORDERABLES [facility] * HEMOGLOBIN A1C (02/10/2011) Hemoglobin A1C, External 6.6 [facility] Est Avg Glucose, External 143 [facility] Blood specimen (specimen) 02/10/2011 Ramón Olguin MD CHEMISTRY & BL OOD GAS ORDERABLES Performing Organization Address [facility]/ZIP Co de Phone Number [facility] * MICROALBUMIN (02/10/2011) Creatinine, Random U (UCRR), External 28.30 [facility] Microalb mg/dl, External 0.50 [facility] Microalb ug/mg Crea, External 17.0 [facility] Urine specimen (specimen) 02/10/2011 Ramón Olguin MD CHEMISTRY & BL OOD GAS ORDERABLES Performing Organization Address City/[facility]/ZIP Co de Phone Number [facility] documented in this encounter Visit Diagnoses Diagnosis DM (diabetes mellitus) ([facility]) Type II or unspecified type diabetes mellitus without mention of complication, not stated as uncontrolled Hypertension Unspecified essential hypertension Screening for prostate cancer Special screening for malignant neoplasm of prostate documented in this encounter Discontinued Medications Medication Sig Discontinue Reason Start Date End Da te multivitamin with minerals (VITAMINS & MINERALS) tablet Take 1 Tab by mouth daily. Error 02/10/2011 documented as of this encounter Care Teams Internet Sales Associate Relationship Specialty Start Date End Date Ramón Olguin MD [address] [place] [phone] PCP - General 06/15/09 06/13/19 documented as of this encounter
--- OUTSIDE RECORDS SUMMARY | 2024-08-05 15:03 | XMS_ITS | Encounter Summary ---
Author Organization [facility] Address [address] [place] [address] Care Team Providers Care Sterile Preparation Technician Name Role Phone Ramón Olguin MD Primary Care Provider Encounter Details Date Type Department Care Team (Late st Contact Info) Description 08/31/2012 Results Only [facility] Medicine - [place] [address] [facility] [address] [place] [address] Ramón Olguin MD [address] [place] [address] [address] [place] [phone] Social History Tobacco Use Types [...] Diagnosis Comments BASIC METABOLIC PANEL ([facility]) Routine 08/31/2012 15:19 EDT URINE [id number]-HC-[id number] E RATIO (ACR) Routine 08/31/2012 15:19 EDT HEMOGLOBIN A1C Routine 08/31/2012 15:19 EDT LIPID PROFILE (INCLUDES CHOLESTEROL, TRIGLYCERIDES, HDL, LDL) Routine 08/31/2012 15:19 EDT documented in this encounter Results * (ABNORMAL) LIPID PROFILE (INCLUDES CHOLESTEROL, TRIGLYCERIDES, HDL, LDL) (08/31/2012 15:19 EDT) Triglycerides, External 230(H) 35 - 150 mg/dL [facility] Cholesterol, External 183 120 - 200 mg/dL [facility] HDL, External 30(L) 40 - 60 mg/dL [facility] LDL, External 107(H) 60 - 100 mg/dL [facility] 08/31/2012 15:1 9 EDT 08/31/2012 15:[address] [facility] - 08/31/2012 20:25 EDT Does PT Have a Latex Allergy? NO Medical Necessity Pass ICD-9 250.00 Ramón Olguin MD CHEMISTRY & BL OOD GAS ORDERABLES Performing Organization Address City/[facility]/ZIP Co de Phone Number [facility] * (ABNORMAL) HEMOGLOBIN A1C (08/31/2012 15:19 EDT) Hemoglobin A1C, External 6.7(H) 4.0 - 6.0 % [facility] Est Avg Glucose, External 146 mg/dL [facility] 08/31/2012 15:1 9 EDT 08/31/2012 15:[address] [facility] - 08/31/2012 20:25 EDT Does PT Have a Latex Allergy? NO Medical Necessity Pass ICD-9 250.00 Ramón Olguin MD CHEMISTRY & BL OOD GAS ORDERABLES [facility] * BASIC METABOLIC PANEL ([facility]) (08/31/2012 15:19 EDT) Bun, External 16 7 - 18 mg/dL [facility] Calcium, External 9.4 8.5 - 10.1 mg/dL [facility] Chloride, External 106 98 - 107 mEq/L [facility] CO2, External 25 21 - 32 mEq/L [facility] Creatinine, External 1.3 0.5 - 1.4 mg/dL [facility] GFR, Ole/Est., External 59 [facility] Comment: Stage 3: Moderate renal impairment is defined as GFR 30-59 Multiply result by 1.210 for patients. Glucose, Serum, External 76 70 - 100 mg/dL [facility] Potassium, External 4.8 3.5 - 5.0 mEq/L [facility] Sodium, External 139 135 - 145 mEq/L [facility] 08/31/2012 15:1 9 EDT 08/31/2012 15:[address] [facility] - 08/31/2012 20:25 EDT Does PT Have a Latex Allergy? NO Medical Necessity Pass ICD-9 250.00 Ramón Olguin MD CHEMISTRY & BL OOD GAS ORDERABLES [facility] * ALBUMIN, URINE (08/31/2012 15:19 EDT) Microalb mg/dl, External 1.37 0.0 - 2.0 mg/dL [facility] Microalb ug/mg Crea, External 8.0 ug/mg [facility] Comment: Normal: <30 ug/mg Creat Microalbuminuria: 30-300 ug/mg Creat Clinical albuminuria: >300 ug/mg Creat Creatinine, Random U (UCRR), External 159.70 mg/dL [facility] 08/31/2012 15:1 9 EDT 08/31/2012 15:[address] [facility] - 08/31/2012 18:10 EDT Does PT Have a Latex Allergy? NO WHAT TYPE OF COLLECTION IS THIS URINE? RANDOM URINE Ramón Olguin MD CHEMISTRY & BL OOD GAS ORDERABLES [facility] documented in this encounter Visit Diagnoses Not on filedocumented in this encounter Care Teams Sterile Preparation Technician Relationship Specialty Start Date End Date Ramón Olguin MD [address] [place] [address] [phone] PCP - General 06/15/09 06/13/19 documented as of this encounter
--- OUTSIDE RECORDS SUMMARY | 2024-08-05 15:03 | XMS_ITS | Encounter Summary ---
Author Organization [facility] Address [address] [place] [address] Care Team Providers Care Attendance Secretary Name Role Phone Ramón Olguin MD Primary Care Provider Encounter Details Date Type Department Care Team (Late st Contact Info) Description 03/14/2013 Results Only [facility] Medicine - [place] [address] [facility] [address] [place] [address] Ramón Olguin MD [address] [place] [address] [address] [place] [phone] Social History Tobacco Use Types [...] Diagnosis Comments BASIC METABOLIC PANEL ([facility]) Routine 03/14/2013 10:45 EDT HEMOGLOBIN A1C Routine 03/14/2013 10:45 EDT LIPID PROFILE (INCLUDES CHOLESTEROL, TRIGLYCERIDES, HDL, LDL) Routine 03/14/2013 10:45 EDT documented in this encounter Results * (ABNORMAL) HEMOGLOBIN A1C (03/14/2013 10:45 EDT) Hemoglobin A1C, External 7.2(H) 4.0 - 6.0 % [facility] Est Avg Glucose, External 160 mg/dL [facility] 03/14/2013 10:4 5 EDT 03/14/2013 10:45 EDT Narrative [facility] - 03/14/2013 14:56 EDT Does PT Have a Latex Allergy? NO Medical Necessity Pass ICD-9 250.00 Ramón Olguin MD CHEMISTRY & BL OOD GAS ORDERABLES Performing Organization Address City/[facility]/ZIP Co de Phone Number [facility] * (ABNORMAL) LIPID PROFILE (INCLUDES CHOLESTEROL, TRIGLYCERIDES, HDL, LDL) (03/14/2013 10:45 EDT) Triglycerides, External 156(H) 35 - 150 mg/dL [facility] Cholesterol, External 164 120 - 200 mg/dL [facility] HDL, External 30(L) 40 - 60 mg/dL [facility] LDL, External 103(H) 60 - 100 mg/dL [facility] 03/14/2013 10:4 5 EDT 03/14/2013 10:45 EDT Narrative [facility] - 03/14/2013 11:27 EDT Does PT Have a Latex Allergy? NO Medical Necessity Pass ICD-9 401.9 Ramón Olguin MD CHEMISTRY & BL OOD GAS ORDERABLES [facility] * (ABNORMAL) BASIC METABOLIC PANEL ([facility]) (03/14/2013 10:45 EDT) Bun, External 18 7 - 18 mg/dL [facility] Calcium, External 8.9 8.5 - 10.1 mg/dL [facility] Chloride, External 107 98 - 107 mEq/L [facility] CO2, External 26 21 - 32 mEq/L [facility] Creatinine, External 1.3 0.5 - 1.4 mg/dL [facility] GFR, Ole/Est., External 59 [facility] Comment: Stage 3: Moderate renal impairment is defined as GFR 30-59 Multiply result by 1.210 for patients. Glucose, Serum, External 120(H) 70 - 100 mg/dL [facility] Potassium, External 4.9 3.5 - 5.0 mEq/L [facility] Sodium, External 140 135 - 145 mEq/L [facility] 03/14/2013 10:4 5 EDT 03/14/2013 10:45 EDT Narrative [facility] - 03/14/2013 11:27 EDT Does PT Have a Latex Allergy? NO Medical Necessity Pass ICD-9 401.9 Ramón Olguin MD CHEMISTRY & BL OOD GAS ORDERABLES [facility] documented in this encounter Visit Diagnoses Not on filedocumented in this encounter Care Teams Attendance Secretary Relationship Specialty Start Date End Date Ramón Olguin MD [address] [place] [address] [phone] PCP - General 06/15/09 06/13/19 documented as of this encounter
--- OUTSIDE RECORDS SUMMARY | 2024-08-05 15:03 | XMS_ITS | Encounter Summary ---
Author Organization [facility] Address [address] [place] [address] Care Team Providers Care Micro Paleontologist Name Role Phone Ramón Olguin MD Primary Care Provider Kameron Lee MD Primary Care Provider [phone] Reason for Visit * Reason Comments Other Encounter Details Date Type Department Care Team (Late st Contact Info) Description 07/29/2013 Refill [facility] Medicine [address] [place] [address] Ramón Olguin MD [address] [place] [address] [address] [place] [phone] Other Social History Tobacco Use [...] EVERY DAY 90 Tab 3 07/29/2013 06/08/2014 documented in this encounter Plan of Treatment Not on file documented as of this encounter Visit Diagnoses Not on filedocumented in this encounter Discontinued Medications Medication Sig Discontinue Reason Start Date End Da te glipiZIDE (GLUCOTROL) 10 mg CR tabletIndications:DM (diabetes mellitus) ([facility]) Take 1 Tab by mouth daily. Reorder 07/29/2012 07/29/2013 documented as of this encounter Care Teams Micro Paleontologist Relationship Specialty Start Date End Date Ramón Olguin MD [address] [place] [phone] PCP - General 06/15/09 06/13/19 Kameron Lee MD [address] [place] [address] [phone] PCP - General 06/14/19 04/28/23 documented as of this encounter
--- OUTSIDE RECORDS SUMMARY | 2024-08-05 15:03 | XMS_ITS | Encounter Summary ---
Author Organization [facility] Address [address] [place] [address] Care Team Providers Care College Coach Name Role Phone Ramón Olguin MD Primary Care Provider Encounter Details Date Type Department Care Team (Late st Contact Info) Description 02/03/2006 Before PRISM Converted Visit (Maple) [facility] - Maple conversion [address] [place] [address] Raómn Olguin MD [address] [place] [phone] Social History Tobacco Use Types Packs/Day Years Used Date Smoking Tobacco: Never Assessed Sex and Gender Information Value Date Recorded Sex Assigned at Male 12/01/2019 14:49 EST Gender Identity Male 12/01/2019 14:49 EST Sexual Orientation Straight 12/01/2019 14 :49 EST documented as of this encounter Progress Notes * Ramón Olguin - 11/01/2009 2249 EST [facility] PROGRESS/FOLLOWUP NOTE - 02/03/2006 REASON FOR VISIT: Follow-up. SUBJECTIVE: Follow-up visit for diabetes and hypertension. He overall has generally been doing well. No significant interval change in history. No acute complaints today. He does have a mild neuropathy in his feet, with occasional pins and needles and decreased sensation, but overall this appears stable. No acute foot problems otherwise noted. Sugars generally seem to be stable. He is on metformin, 500 in the morning, 1000 in the evening. A1c results were discussed, and they did go down to 7.2% from 7.6. However, still higher than desired,and he was willing to increase his metformin to 1000 twice a day. He is planning on becoming more active and exercising during the upcoming warmer months. Of note - no recent prostate screen. He did have a PSA with his lab check, which was normal. He didhave a colonoscopy in the last year or two which was unremarkable. Medicines reviewed. OBJECTIVE: See flow sheet. Exam today was unremarkable, which did include a prostate exam. Also, foot exam was within normal limits with the exception of slight decrease in toes to monofilament testing. ASSESSMENT: Problem #1: Adult-onset diabetes. Overall doing well, but sugar level is still a little higher thandesired. PLAN: 1. We will increase metformin to 1000 mg b.i.d. 2. Continue Actos at current dose. 3. We will recheck A1c in three months, and full return office visit in six months, adjust as needed. 4. Urine for microalbumin. Problem #2: Hypertension - under good control. PLAN: 1. Continue current treatment. Problem #3: Health maintenance. Overall, he otherwise appears to be doing well. PLAN: 1. Follow-up as needed. Signed by Ramón Olguin MD 02/06/2006 14:03 Jael Mendez MD Ramón Olguin MD - Ramón Olguin MD P - clr Job ID: [id number] Document ID: [id number] cc: documented in this encounter Plan of Treatment Not on file documented as of this encounter Visit Diagnoses Not on filedocumented in this encounter Care Teams College Coach Relationship Specialty Start Date End Date Ramón Olguin MD [address] [place] [phone] PCP - General 06/15/09 06/13/19 documented as of this encounter
--- OUTSIDE RECORDS SUMMARY | 2024-08-05 15:03 | XMS_ITS | Encounter Summary ---
Author Organization [facility] Address [address] [place] [address] Care Team Providers Care Senior Attorney Name Role Phone Ramón Olguin MD Primary Care Provider Encounter Details Date Type Department Care Team (Late st Contact Info) Description 09/22/2007 Before PRISM Converted Visit (Maple) [facility] - Maple conversion [address] [place] [address] Ramón Olguin MD [address] [place] [address] [phone] Social History Tobacco Use Types Packs/Day Years Used Date Smoking Tobacco: Never Assessed Sex and Gender Information Value Date Recorded Sex Assigned at Male 12/01/2019 14:49 EST Gender Identity Male 12/01/2019 14:49 EST Sexual Orientation Straight 12/01/2019 14 :49 EST documented as of this encounter Progress Notes * Ramón Olguin - 10/02/2009 0042 EST [facility] PROGRESS/FOLLOWUP NOTE - 09/22/2007 REASON FOR VISIT Followup for diabetes. SUBJECTIVE Followup visit for diabetes. Overall doing well without any acute interval problemsor complaints. He did try to be more adherent to his diet and A1c did improve from 7.6% to 7.1%. Weight is unchanged. He remains active and otherwise in good health without any interval problems. His PSA was and normal. He is due for a flu shot today. REVIEW OF SYSTEMS Otherwise unremarkable. OBJECTIVE Blood pressure is 110/72, pulse is 60, and temperature 98.9. In general, alert and in no acute distress. Chest is clear to auscultation. Cardiovascular exam reveals regular rate and rhythm and no murmur. Abdomen is nontender. Foot exam has normal pulses with slight decrease in sensation, particularly left lateral foot and no acute change. ASSESSMENT 1. Adult-onset diabetes. Overall doing well. Of note, still with mild neuropathy in feet, which is largely unchanged. PLAN 1. Encouraged continued diet and exercise plans. For now, will not make any further medicine changes. I again discussed goal of trying to obtain A1c below 7. 2. Follow up with eye physician as planned. 3. Next visit in four months for recheck. Will plan on CPE at that time. 4. Flu shot today. The patient was verbally educated on _diabetes__. There were no barriers to learning and the patient verbalized understanding. Signed by Ramón Olguin MD 09/27/2007 10:08 Ramón Olguin MD P Job ID [id number] A/[facility] Doc ID [id number] cc: documented in this encounter Plan of Treatment Not on file documented as of this encounter Visit Diagnoses Not on filedocumented in this encounter Care Teams Senior Attorney Relationship Specialty Start Date End Date Ramón Olguin MD [address] [place] [address] [phone] PCP - General 06/15/09 06/13/19 documented as of this encounter
--- OUTSIDE RECORDS SUMMARY | 2024-08-05 15:03 | XMS_ITS | Encounter Summary ---
Author Organization [facility] Address [address] [place] [address] Care Team Providers Care Drums Teacher Name Role Phone Ramón Olguin MD Primary Care Provider Reason for Visit * Reason Onset Date Comments Medications Refill 01/26/2012 Metformin/Lis inopril/Metoprolol Encounter Details Date Type Department Care Team (Late st Contact Info) Description 01/26/[address] [place], [place] [address] Ramón Olguin MD [address] [place] [address] [address] [place] [phone] Medications Refill (Metformin/Lisinopril/M etoprolol) Social History Tobacco Use Types Packs/Day Years [...] te metoprolol XL (TOPROL XL) 50 mg tabletIndications:Hyperten rani Take 1 Tab by mouth daily. 90 Tab 3 01/26/2012 01/21/2013 lisinopril (PRINIVIL, ZESTRIL) 40 mg tabletIndications:Hyperten rani Take 1 Tab by mouth daily. 90 Tab 3 01/26/2012 01/21/2013 metformin (GLUCOPHAGE) 1,000 mg tabletIndications:DM (diabetes mellitus) ([facility]) Take 1 Tab by mouth 2 times daily. 180 Tab 3 01/26/2012 01/21/2013 documented in this encounter Plan of Treatment Not on file documented as of this encounter Visit Diagnoses Diagnosis Hypertension Unspecified essential hypertension DM (diabetes mellitus) ([facility]) Type II or unspecified type diabetes mellitus without mention of complication, not stated as uncontrolled documented in this encounter Discontinued Medications Medication Sig Discontinue Reason Start Date End Da te metformin (GLUCOPHAGE) 1,000 mg tablet Take 1 Tab by mouth 2 times daily. Reorder 01/27/2011 01/26/2012 lisinopril (PRINIVIL, ZESTRIL) 40 mg tablet Take 1 Tab by mouth daily. Reorder 01/27/2011 01/26/2012 metoprolol XL (TOPROL XL) 50 mg tablet Take 1 Tab by mouth daily. Reorder 01/27/2011 01/26/2012 documented as of this encounter Care Teams Drums Teacher Relationship Specialty Start Date End Date Ramón Olguin MD [address] [place] [address] [phone] PCP - General 06/15/09 06/13/19 documented as of this encounter
--- OUTSIDE RECORDS SUMMARY | 2024-08-05 15:03 | XMS_ITS | Encounter Summary ---
Author Organization [facility] Address [address] [place] [address] Care Team Providers Care Brand Designer Name Role Phone Ramón Olguin MD Primary Care Provider Encounter Details Date Type Department Care Team (Late st Contact Info) Description 09/07/2006 Before PRISM Converted Visit (Maple) [facility] - Maple conversion [address] [place] [address] Ramón Olguin MD [address] [place] [address] [phone] Social History Tobacco Use Types Packs/Day Years Used Date Smoking Tobacco: Never Assessed Sex and Gender Information Value Date Recorded Sex Assigned at Male 12/01/2019 14:49 EST Gender Identity Male 12/01/2019 14:49 EST Sexual Orientation Straight 12/01/2019 14 :49 EST documented as of this encounter Progress Notes * Ramón Olguin - 11/16/2009 193 EST [facility] PROGRESS/FOLLOWUP NOTE - 09/07/2006 REASON FOR VISIT: Followup diabetes and hypertension SUBJECTIVE: Followup visit for diabetes. Does acknowledge some indiscretions during the last several months. Sugars have been somewhat higher at home. Weight has not changed significant though. Otherwise has been in good health without any interval problems or complaints. Still complains of hyper foot pain associated with neuropathy. No significant changes. Medicines reviewed, no changes noted. OBJECTIVE: pressure 150/98. Pulse 78. On recheck blood pressure was 130/86. Chest clear to auscultation. Cardiovascular regular rate and rhythm, no murmur. Abdomen nontender. Foot exam normal monofilament testing today. Normal pulses. ASSESSMENT: PROBLEM #1: Adult onset diabetes - recent increase in A1C to 7.4% which coincides with description of lack of compliance. PLAN: 1. change in medicines for now. Did emphasize the importance of diet, exercise, weight loss. 2. Recheck labs in 3 months. PROBLEM #2: Hypertension initially high, recheck normal. PLAN: Continue to monitor. This has been well controlled. Signed by Ramón Olguin MD 09/17/2006 11:04 Jael Mendez MD Ramón Olguin MD - Ramón Olguin MD Jacquelin cordova Job ID: [id number] Document ID: [id number] cc: - Jen Olguin MD Nav tasha Job ID: [id number] Document ID: [id number] cc: documented in this encounter Plan of Treatment Not on file documented as of this encounter Visit Diagnoses Not on filedocumented in this encounter Care Teams Brand Designer Relationship Specialty Start Date End Date Ramón Olguin MD [address] [place] [address] [phone] PCP - General 06/15/09 06/13/19 documented as of this encounter
--- OUTSIDE RECORDS SUMMARY | 2024-08-05 15:03 | XMS_ITS | Encounter Summary ---
Author Organization [facility] Address [address] [place] [address] Care Team Providers Care Seating And Mobility Technologist Name Role Phone Ramón Olguin MD Primary Care Provider Encounter Details Date Type Department Care Team (Late st Contact Info) Description 03/13/2008 Before PRISM Converted Visit (Maple) [facility] - Maple conversion [address] [place] [address] Ramón Olguin MD [address] [place] [address] [phone] Social History Tobacco Use Types Packs/Day Years Used Date Smoking Tobacco: Never Assessed Sex and Gender Information Value Date Recorded Sex Assigned at Male 12/01/2019 14:49 EST Gender Identity Male 12/01/2019 14:49 EST Sexual Orientation Straight 12/01/2019 14 :49 EST documented as of this encounter Progress Notes * Ramón Olguin - 08/17/2009 0144 EDT [facility] PROGRESS/FOLLOWUP NOTE - 03/13/2008 REASON FOR VISIT Followup diabetes. SUBJECTIVE Followup visit for diabetes. Overall, he is doing well with no interval problems or complaints. Diabetes is under good control and A1c has improved to 6.9%. Cholesterol was also reviewed with mild rise in LDL to borderline-high range. Otherwise, he has had no interval problems. OBJECTIVE Exam is unremarkable with no significant change in mild neuropathy, left greater than right. No acute foot lesions are noted. ASSESSMENT Adult-onset diabetes and hypertension, overall under decent control. PLAN We did discuss elevated lipids and will consider adding cholesterol medicines if LDL continues to be borderline high. The patient will follow up in six months, sooner as needed. Also discussed diet and exercise. The patient was verbally educated on AODM There were no barriers to learning and the patient verbalized understanding. Signed by Ramón Olguin MD 03/18/2008 14:40 Ramón Olguin MD P Job ID [id number] A/[facility] Doc ID [id number] cc: documented in this encounter Plan of Treatment Not on file documented as of this encounter Visit Diagnoses Not on filedocumented in this encounter Care Teams Seating And Mobility Technologist Relationship Specialty Start Date End Date Ramón Olguin MD [address] [place] [address] [phone] PCP - General 06/15/09 06/13/19 documented as of this encounter
--- OUTSIDE RECORDS SUMMARY | 2024-08-05 15:03 | XMS_ITS | Encounter Summary ---
Author Organization [facility] Address [address] [place] [address] Care Team Providers Care Saddle Tree Stitcher Name Role Phone Ramón Olguin MD Primary Care Provider Encounter Details Date Type Department Care Team (Late st Contact Info) Description 01/30/2010 Abstract [facility] [address] [facility] [address] [place] [address] Ramón Olguin MD [address] [place] [address] [address] [place] [phone] DM (diabetes mellitus) ([facility]) ([facility]); Hypertension Social History Tobacco Use Types Packs/Day Years Used Date Smoking Tobacco: Never Assessed Sex and Gender Information Value Date Recorded Sex Assigned at Male 12/01/2019 14:49 EST Gender Identity Male 12/01/2019 14:49 EST Sexual Orientation Straight 12/01/2019 14 :49 EST documented as of this encounter Plan of Treatment Not on file documented as of this encounter Visit Diagnoses Diagnosis DM (diabetes mellitus) ([facility]) Type II or unspecified type diabetes mellitus without mention of complication, not stated as uncontrolled Hypertension Unspecified essential hypertension documented in this encounter Historical Medications * This list may reflect changes made after this encounter. Medication Sig Dispensed Refills Start Date End Date CALCIUM ORAL Take by mouth. ASCORBIC ACID (VITAMIN C ORAL) Take by mouth. MULTIVITAMINS (MULTIVITAMIN ORAL) Take by mouth. GLUCOSAMINE HCL/CHONDRO CHU A (GLUCOSAMINE-CHONDROITIN ORAL) Take 2,000 mg by mouth daily. aspirin chewable 81 mg tablet Take 81 mg by mouth daily. DOCOSAHEXANOIC ACID/EPA (FISH OIL ORAL) Take by mouth. 06/29/2018 multivitamin with minerals (VITAMINS & MINERALS) tablet Take 1 Tab by mouth daily. 02/10/2011 lisinopril (PRINIVIL, ZESTRIL) 40 mg tablet Take 40 mg by mouth daily. 01/27/2011 metoprolol XL (TOPROL XL) 50 mg tablet Take 50 mg by mouth daily. 01/27/2011 pioglitazone (ACTOS) 45 mg tablet Take 45 mg by mouth daily. 01/27/2011 metformin (GLUCOPHAGE) 1,000 mg tablet Take 1,000 mg by mouth 2 times daily. 01/27/2011 added in this encounter Care Teams Saddle Tree Stitcher Relationship Specialty Start Date End Date Ramón Olguin MD [address] [place] [phone] PCP - General 06/15/09 06/13/19 documented as of this encounter
--- OUTSIDE RECORDS SUMMARY | 2024-08-05 15:03 | XMS_ITS | Encounter Summary ---
Author Organization [facility] Address [address] [place] [address] Care Team Providers Care Supervisor Special Education Name Role Phone Ramón Olguin MD Primary Care Provider Reason for Visit * Reason Comments Diabetes follow up Encounter Details Date Type Department Care Team (Late st Contact Info) Description 02/12/2010 8:00 EDT Office Visit [facility] [address] [facility] [address] [place] [address] Ramón Olguin MD [address] [place] [address] [address] [place] [phone] DM (diabetes mellitus) ([facility]) ([facility]) (Primary Dx) Social History Tobacco Use Types Packs/Day Years Used Date Smoking Tobacco: Every Day Comments:pipe Alcohol Use Standard Drinks/Week Comments Not Asked 0 (1 standard drink = 0.6 oz pur e alcohol) Sex and Gender Information Value Date Recorded Sex Assigned at Male 12/01/2019 14:49 EST Gender Identity Male 12/01/2019 14:49 EST Sexual Orientation Straight 12/01/2019 14 :49 EST documented as of this encounter Last Filed Vital Signs Vital Sign Reading Time Taken Comments Blood Pressure 128/88 02/12/2010 0814 EDT Pulse 78 02/12/2010 0814 EDT Temperature - - Respiratory Rate - - Oxygen Saturation - - Inhaled Oxygen Concentration - - Weight 129.5 kg (285 lb 6.4 oz) 02/12/2010 0814 EDT Height - - Body Mass Index - - documented in this encounter Progress Notes * Ramón Olguin - 02/16/2010 2149 EDT [facility] PROGRESS/FOLLOWUP NOTE - 02/12/2010 REASON FOR VISIT: diabetes follow up. SUBJECTIVE: Patient here largely for diabetic followup. Overall, generally doing well, no interval problems or complaints noted. Reviewed A1c, which is stable at 7.1%. Hypertension, also stable. He continues on current medicines. Labs reviewed with patient. OBJECTIVE: Blood pressure 128/88, pulse 78. Chest clear to auscultation. Cardiovascular regular rate and rhythm, no murmur. Abdomen, positive bowel sounds, nontender. Extremity exam, normal appearance of feet. Normal pulses and monofilament testing. ASSESSMENT 1. Hypertension, results of diabetes. Overall, this appears stable. PLAN: 1. Continue current treatment. 2. Follow up in 6 months with labs, sooner as needed. The patient was verbally educated on diabetes. There were no barriers to learning and the patient verbalized understanding. Electronically Signed by Ramón Olguin MD 02/16/2010 21:49 Ramón Olguin MD - Ramón Olguin MD - IDA Job ID: SM Doc ID: [id number] Ext Doc ID: [id number] cc: * Ramón Olguin - 02/12/2010 3362 EDT This office note has been dictated. documented in this encounter Plan of Treatment Not on file documented as of this encounter Visit Diagnoses Diagnosis DM (diabetes mellitus) ([facility])- Primary Type II or unspecified type diabetes mellitus without mention of complication, not stated as uncontrolled documented in this encounter Care Teams Supervisor Special Education Relationship Specialty Start Date End Date Ramón Olguin MD [address] [place] [address] [phone] PCP - General 06/15/09 06/13/19 documented as of this encounter
--- OUTSIDE RECORDS SUMMARY | 2024-08-05 15:03 | XMS_ITS | Encounter Summary ---
Author Organization [facility] Address [address] [place] [address] Care Team Providers Care Fitness Leader Name Role Phone Ramón Olguin MD Primary Care Provider Reason for Visit * Reason Onset Date Comments Labs Only 01/31/2010 Encounter Details Date Type Department Care Team (Late st Contact Info) Description 01/31/2010 Telephone [facility] Medicine [address] [place] [address] [phone] Ed Aaron LPN Labs Only Social History Tobacco Use Types Packs/Day Years Used Date Smoking Tobacco: Never Assessed Sex and Gender Information Value Date Recorded Sex Assigned at Male 12/01/2019 14:49 EST Gender Identity Male 12/01/2019 14:49 EST Sexual Orientation Straight 12/01/2019 14 :49 EST documented as of this encounter Miscellaneous Notes * Telephone Encounter - Ed Aaron - 01/31/2010 0844 EST Notified patient needs to call to set up appointment to go over labs. documented in this encounter Plan of Treatment Not on file documented as of this encounter Visit Diagnoses Not on filedocumented in this encounter Care Teams Fitness Leader Relationship Specialty Start Date End Date Ramón Olguin MD [address] [place] [address] [address] [place] [phone] PCP - General 06/15/09 06/13/19 documented as of this encounter
--- OUTSIDE RECORDS SUMMARY | 2024-08-05 15:03 | XMS_ITS | Encounter Summary ---
Author Organization [facility] Address [address] [place] [address] Care Team Providers Care Assistant Account Executive Name Role Phone Ramón Olguin MD Primary Care Provider Reason for Referral * (Routine) - Closed Specialty Diagnoses / Procedures Referred By Ernestina t Referred To Contact Diagnoses DM (diabetes mellitus) ([facility] Procedures HEMOGLOBIN A1C Ramón Olguin MD [address] [place] [address] [address] Referral ID Status Reason Start Date Expiration Date Visits Re quested Visits Authorized [id number] Closed 08/11/2011 1 1 * (Routine) - Closed Specialty Diagnoses / Procedures Referred By Ernestina callahan Referred To Contact Diagnoses Hypertension Procedures BASIC METABOLIC PANEL Raómn Olguin MD [address] [place] [address] [address] Referral ID Status Reason Start Date Expiration Date Visits Re quested Visits Authorized [id number] Closed 08/11/2011 1 1 Reason for Visit * Reason Comments Diabetes f/u diabetes. Also c /o back and groin pain x 4 weeks. Encounter Details Date Type Department Care Team (Late st Contact Info) Description 08/11/2011 9:45 EDT Office Visit [address] [address] Ramón Olguin MD [address] [place] [address] [phone] DM (diabetes mellitus) ([facility] ([facility]); Hypertension; Right groin pain Social History Tobacco Use Types Packs/Day Years [...] Reading Time Taken Comments Blood Pressure 108/78 08/11/2011 0949 EDT lg cuf f Pulse 68 08/11/2011 0949 EDT Temperature 36.5 ??C (97.7 ??F) 08/11/2011 0949 EDT Respiratory Rate - - Oxygen Saturation - - Inhaled Oxygen Concentration - - Weight 120.6 kg (265 lb 12.8 oz) 08/11/2011 0949 EDT Height - - Body Mass Index - - documented in this encounter Ordered Prescriptions Prescription Sig Dispensed Refills Start Date End Da te glipiZIDE (GLUCOTROL) 10 mg CR tabletIndications:DM (diabetes mellitus) ([facility]) Take 1 Tab by mouth daily. 90 Each 3 08/11/2011 07/29/2012 documented in this encounter Progress Notes * Ramón Olguin - 08/11/2011 1258 EDT REASON FOR VISIT: Diabetic followup. SUBJECTIVE: Lucas returns for diabetic followup. Overall, doing well, no acute problems noted. Modest weight loss since last visit. Last A1c was under good control. He does not think there has been any significant change. Only complaint otherwise being right groin pain. The patient states that he developed back and groin pain with activity approximately a month ago. This has been slow to heal. Pain localized to right inguinal area. No bulges or rash noted. Occasionally, will radiate towards testi on that side, but no other acute urologic changes. No dysuria, hematuria or fever. No significant back or radicular complaints. No change in appearance. He does continue to smoke. Medicines were reviewed. The patient otherwise has remained active without difficulty. OBJECTIVE: Blood pressure 108/78, pulse 68, temp 97.7. Chest clear to auscultation. Cardiovascular:Regular rate and rhythm, no murmur. Abdomen positive bowel sounds, soft, nontender. Foot exam: Normal appearance, normal pulses. Sensation intact to light touch. Monofilament decrease in toes, particu larly on left great toe. Inguinal exam: No hernia, no lymphadenopathy. Slight tenderness to palpation. Genital exam normal. Normal range of motion of hip and leg without difficulty. ASSESSMENT: 1. Onset diabetes, likely under good control. However, discussed at length that Actos. He is concerned after learning about a smattering of losses regarding bladder cancer and Actos. He would like tochange to another agent. He has not been on an oral hypoglycemic. PLAN: 1. Discontinue Actos. 2. Begin Glipizide XL 10 mg a day. Side effects discussed. 3. Continue metformin. 4. Follow up in six months. 5. Recheck A1c today. PROBLEM 2: Hypertension -- well controlled. PROBLEM 3: Right inguinal -- groin pain consistent with muscle strain, most likely abductor muscle. PLAN: Activity as tolerated. documented in this encounter Plan of Treatment Scheduled Orders Name Type Priority Associated Diagnoses Orde r Schedule BASIC METABOLIC PANEL Lab Routine Hypertension Ordered: 08/11/2011 HEMOGLOBIN A1C Lab Routine DM (diabetes mellitus) ([facility]) ([facility]) Ordered: 08/11/2011 documented as of this encounter Visit Diagnoses Diagnosis DM (diabetes mellitus) ([facility]) Type II or unspecified type diabetes mellitus without mention of complication, not stated as uncontrolled Hypertension Unspecified essential hypertension Right groin pain Abdominal pain, right lower quadrant documented in this encounter Discontinued Medications Medication Sig Discontinue Reason Start Date End Da te pioglitazone (ACTOS) 45 mg tablet Take 1 Tab by mouth daily. 01/27/2011 08/11/2011 documented as of this encounter Historical Medications * This list may reflect changes made after this encounter. Medication Sig Dispensed Refills Start Date End Date cholecalciferol, Vitamin D3, 1,000 unit tablet Take 1,000 Units by mouth daily. added in this encounter Care Teams Assistant Account Executive Relationship Specialty Start Date End Date Ramón Olguin MD [address] [place] [address] [phone] PCP - General 06/15/09 06/13/19 documented as of this encounter
--- OUTSIDE RECORDS SUMMARY | 2024-08-05 15:03 | XMS_ITS | Encounter Summary ---
Author Organization [facility] Address [address] [place] [address] Care Team Providers Care Gasket Former Name Role Phone Ramón Olguin MD Primary Care Provider Reason for Visit * Reason Onset Date Comments Results 01/19/2014 Aortic ultrasoun d Encounter Details Date Type Department Care Team (Late st Contact Info) Description 01/19/[address] [place] [phone] Rupert Minaya PA-C Results (Aortic ultrasound) Social History Tobacco Use Types Packs/Day Years [...] Telephone Encounter - Pattie Way RN - 01/19/2014 0914 EST Pt notified. * Telephone Encounter - Rupert Minaya PA-C - 01/19/2014 0901 EST Ultrasound screening of the abdominal aorta was normal. No indication of an aortic aneurysm. Please inform the patient. documented in this encounter Plan of Treatment [...] on filedocumented in this encounter Care Teams Gasket Former Relationship Specialty Start Date End Date Ramón Olguin MD [address] [place] [address] [phone] PCP - General 06/15/09 06/13/19 documented as of this encounter
--- OUTSIDE RECORDS SUMMARY | 2024-08-05 15:03 | XMS_ITS | Encounter Summary ---
Author Organization [facility] Address [address] [place] [address] Care Team Providers Care Territory Sales Manager Medical Name Role Phone Ramón Olguin MD Primary Care Provider Encounter Details Date Type Department Care Team (Late st Contact Info) Description 04/12/2013 Documentation Visit [facility] [address] [facility] [address] [place] [address] Ramón Olguin MD [address] [place] [address] [address] [place] [phone] Social History Tobacco Use Types [...] encounter Progress Notes * Viola Moses - 04/12/2013 1559 EDT COLO documented in this encounter Plan of Treatment Not on file documented as of this encounter Procedures Procedure Name Priority Date/Time Associated Diagnosis Comments COLONOSCOPY PROCEDURE Routine 03/28/2013 documented in this encounter Results * COLONOSCOPY (03/28/2013) Colonoscopy ABNORMAL [facility] Comment:POLYPS Colonoscopy, External [facility] Anatomical Region Laterality Modality Endoscopy 03/28/2013 Historical Provider GI PROCEDURE RICK OLEARY documented in this encounter Visit Diagnoses Not on filedocumented in this encounter Care Teams Territory Sales Manager Medical Relationship Specialty Start Date End Date Ramón Olguin MD [address] [place] [phone] PCP - General 06/15/09 06/13/19 documented as of this encounter
--- OUTSIDE RECORDS SUMMARY | 2024-08-05 15:03 | XMS_ITS | Encounter Summary ---
Author Organization [facility] Address [address] [place] [address] Care Team Providers Care Bookie Name Role Phone Ramón Olguin MD Primary Care Provider Encounter Details Date Type Department Care Team (Late st Contact Info) Description 08/29/2013 Results Only [facility] [place] [address] [facility] [address] [place] [address] Ramón Olguin MD [address] [place] [address] [address] [place] [address] Social History Tobacco Use Types [...] Diagnosis Comments BASIC METABOLIC PANEL ([facility]) Routine 08/29/2013 9:33 EDT URINE [id number] E RATIO (ACR) Routine 08/29/2013 9:33 EDT HEMOGLOBIN A1C Routine 08/29/2013 9:33 EDT documented in this encounter Results * ALBUMIN, URINE (08/29/2013 9:33 EDT) Microalb mg/dl, External 0.88 0.0 - 2.0 mg/dL [facility] Microalb ug/mg Crea, External 20.0 ug/mg [facility] Comment: Normal: <30 ug/mg Creat Microalbuminuria: 30-300 ug/mg Creat Clinical albuminuria: >300 ug/mg Creat Creatinine, Random U (UCRR), External 42.90 mg/dL [facility] 08/29/2013 9:33 EDT 08/29/2013 9:34 EDT Narrative [facility] - 08/29/2013 11:03 EDT Does PT Have a Latex Allergy? NO WHAT TYPE OF COLLECTION IS THIS URINE? RANDOM URINE Ramón Olguin MD CHEMISTRY & BL OOD GAS ORDERABLES [facility] * (ABNORMAL) BASIC METABOLIC PANEL ([facility]) (08/29/2013 9:33 EDT) Bun, External 20(H) 7 - 18 mg/dL [facility] Calcium, External 9.3 8.5 - 10.1 mg/dL [facility] Chloride, External 106 98 - 107 mEq/L [facility] CO2, External 26 21 - 32 mEq/L [facility] Creatinine, External 1.3 0.5 - 1.4 mg/dL [facility] GFR, Ole/Est., External 59 [facility] Comment: Stage 3: Moderate renal impairment is defined as GFR 30-59 Multiply result by 1.210 for patients. Glucose, Serum, External 138(H) 70 - 100 mg/dL [facility] Potassium, External 4.5 3.5 - 5.0 mEq/L [facility] Sodium, External 139 135 - 145 mEq/L [facility] 08/29/2013 9:33 EDT 08/29/2013 9:33 EDT Narrative [facility] - 08/29/2013 10:52 EDT Does PT Have a Latex Allergy? NO Ramón Olguin MD CHEMISTRY & BL OOD GAS ORDERABLES [facility] * (ABNORMAL) HEMOGLOBIN A1C (08/29/2013 9:33 EDT) Hemoglobin A1C, External 7.5(H) 4.0 - 6.0 % [facility] Est Avg Glucose, External 169 mg/dL [facility] 08/29/2013 9:33 EDT 08/29/2013 9:33 EDT Narrative [facility] - 08/29/2013 10:45 EDT Does PT Have a Latex Allergy? NO Medical Necessity Pass ICD-9 250.00 Ramón Olguin MD CHEMISTRY & BL OOD GAS ORDERABLES Performing Organization Address City/[facility]/ZIP Co de Phone Number [facility] documented in this encounter Visit Diagnoses Not on filedocumented in this encounter Care Teams Bookie Relationship Specialty Start Date End Date Ramón Olguin MD [address] [place] [phone] PCP - General 06/15/09 06/13/19 documented as of this encounter
--- OUTSIDE RECORDS SUMMARY | 2024-08-05 15:03 | XMS_ITS | Encounter Summary ---
Author Organization [facility] Address [address] [place] [address] Care Team Providers Care Duster Tender Name Role Phone Ramón Olguin MD Primary Care Provider Reason for Visit * Reason Onset Date Comments Medications Refill 01/27/2011 4 RX'S Encounter Details Date Type Department Care Team (Late st Contact Info) Description 01/27/[address] [place] [address] Ramón Olguin MD [address] [place] [address] [address] [place] [phone] Medications Refill (4 RX'S) Social History Tobacco Use Types Packs/Day Years [...] te lisinopril (PRINIVIL, ZESTRIL) 40 mg tablet Take 1 Tab by mouth daily. 90 Tab 3 01/27/2011 01/26/2012 metformin (GLUCOPHAGE) 1,000 mg tablet Take 1 Tab by mouth 2 times daily. 180 Tab 3 01/27/2011 01/26/2012 metoprolol XL (TOPROL XL) 50 mg tablet Take 1 Tab by mouth daily. 90 Tab 3 01/27/2011 01/26/2012 pioglitazone (ACTOS) 45 mg tablet Take 1 Tab by mouth daily. 90 Tab 3 01/27/2011 08/11/2011 documented in this encounter Miscellaneous Notes * Telephone Encounter - Ramón Olguin - 01/27/2011 1450 EST He is due for an rov (1 year since the last visit) * Telephone Encounter - Viola Moses - 01/27/2011 1343 EST Patient likes to get these in a 90 day supply. documented in this encounter Plan of Treatment Not on file documented as of this encounter Visit Diagnoses Not on filedocumented in this encounter Discontinued Medications Medication Sig Discontinue Reason Start Date End Da te pioglitazone (ACTOS) 45 mg tablet Take 45 mg by mouth daily. Reorder 01/27/2011 metoprolol XL (TOPROL XL) 50 mg tablet Take 50 mg by mouth daily. Reorder 01/27/2011 metformin (GLUCOPHAGE) 1,000 mg tablet Take 1,000 mg by mouth 2 times daily. Reorder 01/27/2011 lisinopril (PRINIVIL, ZESTRIL) 40 mg tablet Take 40 mg by mouth daily. Reorder 01/27/2011 documented as of this encounter Care Teams Duster Tender Relationship Specialty Start Date End Date Ramón Olguin MD [address] [place] [phone] PCP - General 06/15/09 06/13/19 documented as of this encounter
--- OUTSIDE RECORDS SUMMARY | 2024-08-05 15:03 | XMS_ITS | Encounter Summary ---
Author Organization [facility] Address [address] [place] [address] Care Team Providers Care Casting Wheel Operator Name Role Phone Ramón Olguin MD Primary Care Provider Kameron Lee MD Primary Care Provider [phone] Encounter Details Date Type Department Care Team (Late st Contact Info) Description 03/28/2013 Historical Results Only [facility] - Main [address] [address] Deovn Mac MD Social History Tobacco Use Types Packs/Day Years [...] 112/70(2021 13:50 EDT) No Abbie Winter LPN [id number] XT < 7 Result Component 8.2( 9 14:15 EDT) No Abbie Winter LPN LDLEXT < 100 Result Component 76(05/13/2019 14:15 EDT) No Abbie Winter LPN documented as of this encounter Procedures Procedure Name Priority Date/Time Associated Diagnosis Comments SURGICAL PATHOLOGY Routine 03/28/2013 documented in this encounter Results * SURGICAL PATHOLOGY (03/28/2013) 03/28/2013 03/28/2013 12: 18 EDT Narrative [facility] - 03/29/2013 14:18 EDT ----- ------- Name: Debra ROBERTS ? : 47 ?Age/Sex: 74/M ?Unit#: [id number] ? Loc: END ? Status: DEP CLI ?? Reg Date: 03/28/13 ? Pt.Phone Number: ? ----- ------- Specimen: [id number] ? STATUS: SOUT ?Spec Date:03/28/13 ? Physician Copies: ?Devon Mac MD ?? Tissues: A ?? Gastrointestinal Tract (ASCENDING COLON) ? Ramón Olguin ? B ?? Gastrointestinal Tract (DESCENDING COLON) ? CPT: 74840 ?? Units: ??2 ?FINAL DIAGNOSIS ? A. ??Ascending colon, polyp, biopsy; ? - ?? Tubular adenoma, one fragment. ? B. ??Descending colon, polyp, biopsy; ? - ?? Tubular adenoma, one fragment. ? Hyperplastic polyp, one fragment. ? GROSS DESCRIPTION ? A. ??Received in formalin and placed in bouins for a short time and labeled ? ascending colon are two mucosal tissue fragments aggregating 0.2 cm in ? greatest dimensions, e.s. ? B. ?? Received in formalin and placed in bouins for a short time and labeled ? descending colon polyps are two mucosal tissue fragments aggregating 0.2 cm ? in greatest dimensions, e.s. ??BT ?? PREOP DX/CLINICAL HISTORY ?SCREENING Signed ____(signature on file)____ Jose Carlos Torres M.D. 03/29/13 ?? By the signature above, the attending physician certifies that he/she has personally conducted a gross and/or microscopic examination of the described specimens and rendered or confirmed the above diagnosis. Test Performed by [facility], [address] [place] [address] Senior Analyst Market Intelligence: Vy Aguirre MD PHD ----- ------- Devon Mac MD PATHOLOGY ORDERABLES [facility] documented in this encounter Visit Diagnoses Not on filedocumented in this encounter Care Teams Casting Wheel Operator Relationship Specialty Start Date End Date Ramón Olguin MD [address] [place] [address] [address] [place] [phone] PCP - General 06/15/09 06/13/19 Kameron Lee MD [address] [place] [address] [address] [place] [phone] PCP - General 06/14/19 04/28/23 documented as of this encounter
--- OUTSIDE RECORDS SUMMARY | 2024-08-05 15:03 | XMS_ITS | Encounter Summary ---
Author Organization [facility] Address [address] [place] [address] Care Team Providers Care Metal Stamping Machine Operator Name Role Phone Ramón Olguin MD Primary Care Provider Encounter Details Date Type Department Care Team (Late st Contact Info) Description 05/18/2007 Before PRISM Converted Visit ([facility]) [facility] - [facility] conversion [address] [place] [address] Ramón Olguin MD [address] [place] [phone] Social History Tobacco Use Types Packs/Day Years Used Date Smoking Tobacco: Never Assessed Sex and Gender Information Value Date Recorded Sex Assigned at Male 12/01/2019 14:49 EST Gender Identity Male 12/01/2019 14:49 EST Sexual Orientation Straight 12/01/2019 14 :49 EST documented as of this encounter Progress Notes * Ramón Olguin - 09/30/2009 1327 EST [facility] PROGRESS/FOLLOWUP NOTE - 05/18/2007 REASON FOR VISIT Diabetes followup. SUBJECTIVE Patient here for diabetes followup. He does not some dietary indiscretion since last visit. This isdemonstrated by A1c, which has gone up slightly. Weight also has not changed. REVIEW OF SYSTEMS Otherwise unremarkable. No other acute problems or complaints. MEDICATIONS Unchanged. OBJECTIVE See flow sheet for further details. Exam today was unremarkable. Including normal monofilament testing of feet. ASSESSMENT Adult onset diabetes. Slight increase in hemoglobin A1c, although control still not at desired level, but overall still reasonable. However, goal is still to reach target below 7%. This was discussedwith patient. Given room for improvement in diet and lifestyle, will not make any medicine changes now. PLAN 1. Continue current medicines. 2. Emphasized importance of diet and exercise. 3. Urine for microalbumin. 4. Pneumovax. 5. Next visit in four months. Signed by Ramón Olguin MD 05/21/2007 09:34 Jael Mendez MD Ramón Olguin MD P Job ID [id number] T: 8:29 A/jg Doc ID [id number] cc: Ramón Olguin MD P Job ID [id number] A/jg Doc ID [id number] cc: documented in this encounter Plan of Treatment Not on file documented as of this encounter Visit Diagnoses Not on filedocumented in this encounter Care Teams Metal Stamping Machine Operator Relationship Specialty Start Date End Date Ramón Olguin MD [address] [place] [phone] PCP - General 06/15/09 06/13/19 documented as of this encounter
[2024-08-05 15:44] LABS: ALT 27 U/L (16-63); AST 19 U/L (15-37); Alkaline Phosphatase 65 U/L (46-116); Anion Gap 12.2 mmol/L (3-11); BUN 34 mg/dL (7-18); Bilirubin, Total 0.71 mg/dL (0.2-1.0); CO2 26.8 mmol/L (21.0-32.0); CREATININE 2.1 mg/dL (0.70-1.30); Calcium 9.3 mg/dL (8.5-10.1); Calculated LDL 24 mg/dL (<100); Chloride 102 mmol/L (98-107); Cholesterol 78 mg/dL (<200); Estimated GFR 31.63 (mL/min/1.73m2); Glucose 92 mg/dL (74-106); HDL Cholesterol 43 mg/dL (40-60); Potassium 4.6 mmol/L (3.5-5.1); Sodium 141 mmol/L (136-145); Total Protein 6.9 g/dL (6.4-8.2); Triglyceride 57 mg/dL (<150)
== END 2024-08-05 14:57 | disposition home or self-care (01) ==
LOC: LBO 14:58
PROVIDERS: PCP Nurse Practitioner Family; Visit Provider Nurse Practitioner Family
DX: Z12.5 Encounter for screening for malignant neoplasm of prostate (principal); N18.30 Chronic kidney disease, stage 3 unspecified; Z13.220 Encounter for screening for lipoid disorders
CPT/HCPCS: 36415; 80053; 80061; 84153